=== PATIENT | female | born 1940 | race Caucasian/White ===

== ENCOUNTER 2022-04-25 03:12 | Inpatient (IN) ==
[2022-04-25] MEDS ORDERED: MoRPHine SULFATE 4 MG/ML 1 ML CARP\\VIAL IV STA (03:23)
[2022-04-25] MEDS ORDERED: ONDANSETRON INJ 2 MG/ML 2 ML VIAL IV STA ×2 (03:23→07:15)
--- NOTE | 2022-04-25 03:28 | Emergency Department Note ---
Impression & Plan Compression fracture ADMIT ED Provider Note HPI: The patient is a 81-year-old female with history of chronic kidney disease, amyloidosis on chemotherapy, who presents to the emergency department after having fallen down 4 stairs tonight when she was in her house. Patient states she lost her balance and fell down 4 stairs. Patient states she has pain in the area of her mid back. On arrival to the ED the patient does ambulate all 4 extremities spontaneously without issue, she is alert on arrival, denies any loss of consciousness with her fall. ROS: -MSK: Mechanical fall, back pain *10 point review systems was conducted and is otherwise negative unless stated above *Outpatient medications and allergy history reviewed PE: General: Alert, frail-appearing, no acute distress HEENT: Normocephalic, atraumatic Eyes: Extraocular eye movement is intact, no scleral erythema Pulmonary: Clear to auscultation bilaterally, no wheezing Cardio: Regular rate and rhythm GI: Abdomen is soft, nontender : No suprapubic tenderness MSK: No evidence of trauma or malformation of the extremities, no edema, palpable tenderness near the mid thoracic spine without any step-off deformity or fluctuance Skin: No evidence of rash Neuro: Alert, no focal deficits 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 The liver and spleen are normal in size and free of mass lesions. The gallbladder, bile ducts and pancreas are normal. The adrenal gland are unremarkable. The kidneys are normal in size and contour. No stones, lesions or hydronephrosis. The appendix is unremarkable, as is the rest of the GI tract. Aorta is normal caliber. No adenopathy or extraluminal air. The osseous structures are normal Pneumobilia noted which likely reflects previous biliary instrumentation IMPRESSION: No acute traumatic findings Radiologist: Hakan Tate MD CT CHEST Without Contrast: Right anterolateral nondisplaced fourth through sixth rib fractures not excluded manifest as acute contour irregularities Old T10/11 vertebral body compression fractures Moderate to large hiatal hernia Radiologist: Hakan Tate MD CT L SPINE: No evidence of fracture or malalignment. Radiologist: Hakan Tate MD CT HEAD: No ICH, mass effect or edema. No skull fracture. Radiologist: Hakan Tate MD CT C SPINE: FINDINGS: No fracture or subluxations are noted. The vertebral body heights and alignment are preserved. No prevertebral soft tissue swelling. Note is made of multilevel cervical spondylosis with varying degrees of central canal and foramina stenoses. IMPRESSION: 1. No cervical fractures. 2. Cervical spondylosis with varying degrees of central canal and foramina stenoses. Radiologist: Hakan Tate MD CT T SPINE: Old T10/11 compression fracture deformities. Would recommend clinical correlation to assess for tenderness at the lower thoracic spine to exclude a potential acute on chronic fracture. No retropulsion or posterior element fracture at either level Radiologist: Hakan aTte MD Study ready at 05:34 and initial results transmitted at 05:56 Study ready at 05:34 and initial results transmitted at 05:48 Medical Decision Making: Patient presented to the emergency department after mechanical fall down some stairs at home this evening. On arrival here to the ED the patient is frail- appearing, complains of back pain, she otherwise does not have any focal c omplaint of pain, she is able to ambulate her extremities spontaneously and does maintain flexion at the hips bilaterally. Patient has a history of amyloidosis with chronic kidney failure, she is noted to be on chemotherapy for this and receives injections, follows with Dr. Ospina from hematology/oncology. Given the mechanism of the patient's injury, CT imaging of the head, cervical spine, chest, abdomen, and pelvis were obtained without contrast given patient's renal failure, there is no evidence of any intracranial bleeding, no evidence of cervical spine fracture, CT imaging of the chest shows questionable nondisplaced rib fractures at the right anterior lateral ankle although contour i rregularities could have similar appearance. Patient does not have any tenderness to palpation in this area, low suspicion for acute fractures. In the area where the patient is having pain she is noted to have old T11/T10 compression fractures, I suspect she may have an acute on chronic component of fracture in this area given her complaint of pain. On my reassessment the patient is more comfortable following morphine, her lab work otherwise shows baseline renal failure and a slight leukocytosis which I suspect is reactive, of no urinalysis is pending at the time of admission. She is afebrile here. Patient stated her preference to go home if possible, she unfortunately did not pass her ambulatory trial and was unable to even make it a few steps with her walker. Her daughter is now at the bedside, I did recommend admission for her frailty, ambulatory dysfunction, and possibility of acute on chronic compression fracture in the thoracic spine. Patient and her daughter are in agreement. [facility] hospitalist service was consulted for admission and the patient was admitted in stable condition. Diagnosis: 1. Mechanical fall/ambulatory dysfunction 2. T10/T11 compression fracture, acute on chronic 3. Chronic anemia 4. 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 - SHOTS IN THE BELLY FOR Chronic kidney disease, stage 4 (severe) CKD (chronic kidney disease) UNKNOWN DETAILS Colon cancer DX LAST WEEK - REASON FOR UPCOMING COLONOSCOPY Fatty liver Hypercholesteremia Hypertension Hypothyroidism Nephrotic syndrome Seasonal allergies Sinus problem CHRONIC Stroke HX 9 YR AGO - RESIDUAL: PHYSICALLY SLOWER SINCE STROKE/CANE Type 2 diabetes mellitus NO MEDS FOR Surgical History History of History of right cataract surgery Family History Other Family history of colon cancer in father Social History Smoking Status: Former smoker Hx Alcohol Use: No Preferred Language: Korean Communication Ability: Effective 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 Beliefs That Will Affect Care: Sabianist Sabianist Beliefs: SAMARITAN - DO NOT EAT MEAT FRIDAYS AND DO NO WORK ON SUNDAYS , Spiritual Spiritual Healthcare Practices: SAMARITAN - DO NOT EAT MEAT FRIDAYS AND DO NO WORK ON SUNDAYS and Cultural Cultural Beliefs: SAMARITAN - DO NOT EAT MEAT FRIDAYS AND DO NO WORK ON SUNDAYS Current Living Situation: Spouse Feels Safe at Home: Yes Assistive Devices: Cane Allergies Allergies Allergy/AdvReac Type Severity Reaction Status Date / Time No Known Allergies Allergy Verified 03/10/22 10:35 Home Meds Home Medications Medication Instructions Recorded Confirmed amlodipine 10 mg tablet 10 mg PO DAILY 08/04/21 03/10/22 aspirin 81 mg chewable tablet 81 mg PO DAILY 08/04/21 03/10/22 atorvastatin 40 mg tablet 40 mg PO QAM 08/04/21 03/10/22 ferrous gluconate 256 mg (28 mg 325 mg PO QAM 08/04/21 03/10/22 iron) tablet levothyroxine 88 mcg capsule 88 mcg PO DAILY 08/04/21 03/10/22 mecobalamin (vitamin B12) 5,000 5,000 mcg PO QAM 08/04/21 03/10/22 mcg disintegrating tablet carvedilol 12.5 mg tablet 12.5 mg PO BID 08/10/21 03/10/22 Cancer Shots 1 dose WK 02/14/22 03/10/22 acyclovir 400 mg tablet 400 mg PO BID 02/14/22 03/10/22 ascorbic acid (vitamin C) 500 mg 500 mg PO QAM 02/14/22 03/10/22 tablet (Vitamin C) montelukast 10 mg tablet 10 mg PO QPM 02/14/22 03/10/22 ondansetron HCl 4 mg tablet 4 mg PO UD PRN Nausea 02/14/22 03/10/22 Previous Rx's Medication Instructions Recorded furosemide 20 mg tablet 20 mg PO BID #180 tabs 12/23/21 sodium sul 1.479 gram-potas ch See Rx Instructions PO .COMPLEX 02/14/22 0.188 gram-magnes sul 0.225 gram #24 tabs tablet (Sutab) Results & Data (ED) Vital Signs Vital Signs - 24 hr 04/25/22 03:23 04/25/22 03:30 04/25/22 03:52 Temperature 37.3 C Temperature Source Temporal Artery Scan Pulse Rate 88 84 Pulse Rate from SpO2 Sensor 86 Respiratory Rate 16 31 H Respiratory Effort / Characteristics Non-Labored Spontaneous Respiratory Depth Normal Blood Pressure 167/93 H Blood Pressure Mean 117 Pulse Oximetry 89 L 89 L 98 Oxygen Delivery Method Room Air Room Air Sepsis Recent Fever Within 48 Hours No Sepsis New/Unexplained Change in Mental Status No Sepsis Action Taken by Nursing No Action Required Oxygen Flow Rate - Titration 2 Pulse Oximetry Post Tiitration 95 04/25/22 04:00 04/25/22 04:00 04/25/22 04:30 Temperature Temperature Source Pulse Rate 86 Pulse Rate from SpO2 Sensor 86 Respiratory Rate 29 H Respiratory Effort / Characteristics Respiratory Depth Blood Pressure 150/100 H 133/80 Blood Pressure Mean 116 97 Pulse Oximetry 97 Oxygen Delivery Method Sepsis Recent Fever Within 48 Hours Sepsis New/Unexplained Change in Mental Status Sepsis Action Taken by Nursing Oxygen Flow Rate - Titration Pulse Oximetry Post Tiitration 04/25/22 04:30 04/25/22 05:00 04/25/22 05:00 Temperature Temperature Source Pulse Rate 84 86 Pulse Rate from SpO2 Sensor 83 86 Respiratory Rate 28 H 27 H Respiratory Effort / Characteristics Respiratory Depth Blood Pressure 176/94 H Blood Pressure Mean 121 Pulse Oximetry 97 100 Oxygen Delivery Method Sepsis Recent Fever Within 48 Hours Sepsis New/Unexplained Change in Mental Status Sepsis Action Taken by Nursing Oxygen Flow Rate - Titration Pulse Oximetry Post Tiitration 04/25/22 05:30 04/25/22 05:30 04/25/22 06:00 Temperature Temperature Source Pulse Rate 83 Pulse Rate from SpO2 Sensor 81 Respiratory Rate 17 Respiratory Effort / Characteristics Respiratory Depth Blood Pressure 151/82 H 140/81 Blood Pressure Mean 105 100 Pulse Oximetry 98 Oxygen Delivery Method Sepsis Recent Fever Within 48 Hours Sepsis New/Unexplained Change in Mental Status Sepsis Action Taken by Nursing Oxygen Flow Rate - Titration Pulse Oximetry Post Tiitration 04/25/22 06:00 04/25/22 06:30 04/25/22 06:30 Temperature Temperature Source Pulse Rate 84 85 Pulse Rate from SpO2 Sensor 83 84 Respiratory Rate 20 22 Respiratory Effort / Characteristics Respiratory Depth Blood Pressure 144/79 H Blood Pressure Mean 100 Pulse Oximetry 98 91 Oxygen Delivery Method Sepsis Recent Fever Within 48 Hours Sepsis New/Unexplained Change in Mental Status Sepsis Action Taken by Nursing Oxygen Flow Rate - Titration Pulse Oximetry Post Tiitration Laboratory Data Result diagrams: 04/25/22 03:45 04/25/22 03:45 Lab Results 04/25/22 04/25/22 04/25/22 Range/Units 03:45 03:45 06:34 WBC 12.68 H (4.8-10.8) K/ul RBC 3.03 L (3.93-5.22) M/uL Hgb 8.7 L (12.0-16.0) g/dl Hct 28.1 L (34.1-44.9) % MCV 92.7 (80.0-100.0) fL MCH 28.7 (25.0-34.0) pg MCHC 31.0 L (32.0-36.0) g/dL RDW Std Deviation 53.3 H (36.4-46.3) fL RDW Coeff of Ruthie 15.7 H (11.5-14.5) % Plt Count 413 H (130-400) K/uL MPV 9.8 (9.4-12.3) fL Immature Gran % (Auto) 3.0 % Neut % (Auto) 78.3 % Lymph % (Auto) 10.8 % [place] % (Auto) 5.2 % Eos % (Auto) 2.0 % Baso % (Auto) 0.7 % Neut # (Auto) 9.93 H (1.4-6.5) K/uL Lymph # (Auto) 1.37 (1.2-3.4) K/uL [place] # (Auto) 0.66 (0.24-0.82) K/uL Eos # (Auto) 0.25 (0-0.50) K/uL Baso # (Auto) 0.09 (0-0.2) K/uL Immature Gran # (Auto) 0.38 H (0.00-0.02) K/uL Absolute Nucleated RBC 0.03 H (0-0) K/uL Nucleated RBC % (auto) 0.2 % Sodium 135 L (136-145) mmol/L Potassium 4.7 (3.5-5.1) mmol/L Chloride 108 H (98-107) mmol/L Carbon Dioxide 19 L (21-32) mmol/L Anion Gap 8 (3-11) BUN 58 H (6-23) mg/dl Creatinine 2.61 H (0.6-1.2) mg/dl Est Cr Clr Drug Dosing 14.8 ml/min Est GFR ( Amer) 19.5 ml/min Est GFR (Non-Af Amer) 16.8 ml/min BUN/Creatinine Ratio 22.2 H (10-20) Glucose 152 H (70-99(Fasting)) mg/dl Calcium 8.1 L (8.5-10.1) mg/dl Total Bilirubin 0.5 (0.2-1.0) mg/dl AST 43 H (13-39) U/L ALT 27 (7-52) U/L Alkaline Phosphatase 119 H (34-104) U/L Total Protein 5.3 L (6.0-8.3) gm/dl Albumin 3.1 L (3.4-5.0) gm/dl Globulin 2.2 L (2.5-4.0) gm/dl Albumin/Globulin Ratio 1.4 (0.9-2) SARS-CoV-2, RNA, NAAT NEGATIVE (NEGATIVE) Administered Medications Discontinued Medications Sodium Chloride (Nss) 500 mls @ 999 mls/hr IV .Q31M PRABHAKAR Stop: 04/25/22 04:00 Last Infusion: 04/25/22 06:31 Dose: 0 mls/hr Documented By: Admin: 04/25/22 05:33 Dose: 999 mls/hr Documented By: ABEL Morphine Sulfate (Morphine Sulfate 4 Mg/Ml 1 Ml Carp\Vial) 4 mg IV NOW STA Stop: 04/25/22 03:24 Last Admin: 04/25/22 03:57 Dose: 4 mg Documented By: ABEL Ondansetron HCl (Ondansetron Inj 2 Mg/Ml 2 Ml Vial) 4 mg IV NOW STA Stop: 04/25/22 03:24 Last Admin: 04/25/22 03:58 Dose: 4 mg Documented By: ABEL Discharge Plan Visit Data Chief Complaint: Fall Stated Complaint: FALL DOWN 3-4 STEPS ED Provider: Bharat Hansen Discharge Problem: Compression fracture Forms Stand Alone Forms: My [facility] Prescriptions Prescriptions: No Action furosemide 20 mg tablet 20 mg PO BID Qty: 180 3RF Sutab 1.479-0.188- 0.225 gram tablet See Rx Instructions PO .COMPLEX Qty: 24 0RF Rx Instructions: TAKE DIRECTED PER SPLIT DOSE INSTRUCTIONS. PLEASE USE COUPON BIN: [id number] PCN: RA GROUP#: [id number] levothyroxine 88 mcg capsule 88 mcg PO DAILY Label Comments: 5 AM amlodipine 10 mg tablet 10 mg PO DAILY Label Comments: PT NOT SURE WHAT TIME atorvastatin 40 mg tablet 40 mg PO QAM ferrous gluconate 256 mg (28 mg iron) tablet 325 mg PO QAM mecobalamin (vitamin B12) 5,000 mcg tablet,disintegrating 5,000 mcg PO QAM aspirin 81 mg tablet,chewable 81 mg PO DAILY carvedilol 12.5 mg tablet 12.5 mg PO BID Rx Instructions: must administer with a meal/food ondansetron HCl 4 mg Tablet 4 mg PO UD PRN (Reason: Nausea) acyclovir 400 mg Tablet 400 mg PO BID Label Comments: SAYS TWICE A DAY ascorbic acid (vitamin C) [Vitamin C] 500 mg Tablet 500 mg PO QAM montelukast 10 mg Tablet 10 mg PO QPM Label Comments: PT DOESN'T KNOW WHAT SHE IS TAKING Cancer Shots 1 dose WK Label Comments: WEEKLY FOR BLOOD CANCER Referrals Referrals: Ede Palmer [Primary Care Provider] -
[2022-04-25] MEDS ORDERED: SODIUM CHLORIDE 0.9% 500 ML IV SCH (03:30)
[2022-04-25 03:57] LABS: Basophils # (auto) 0.09 K/uL (0-0.2); Basophils % (auto) 0.7 %; Eosinophils # (auto) 0.25 K/uL (0-0.50); Hematocrit (blood only) 28.1 % (34.1-44.9); Hemoglobin 8.7 g/dl (12.0-16.0); Immature Granulocytes # (auto) 0.38 K/uL (0.00-0.02); Lymphocytes # (auto) 1.37 K/uL (1.2-3.4); Lymphocytes % (auto) 10.8 %; Mean Corpuscular Hemoglobin 28.7 pg (25.0-34.0); Mean Corpuscular Volume 92.7 fL (80.0-100.0); Mean Platelet Volume 9.8 fL (9.4-12.3); Monocytes # (auto) 0.66 K/uL (0.24-0.82); Monocytes % (auto) 5.2 %; Neutrophils # (auto) 9.93 K/uL (1.4-6.5); Neutrophils % (auto) 78.3 %; Nucleated RBC # (auto) 0.03 K/uL (0-0); Nucleated RBC % (auto) 0.2 %; Platelet Count 413 K/uL (130-400); RDW Coefficient of Variation 15.7 % (11.5-14.5); RDW Standard Deviation 53.3 fL (36.4-46.3); Red Blood Count 3.03 M/uL (3.93-5.22); White Blood Count 12.68 K/ul (4.8-10.8)
[2022-04-25 04:29] LABS: Albumin Globulin Ratio 1.4 (0.9-2); Albumin Level 3.1 gm/dl (3.4-5.0); BUN Creatinine Ratio 22.2 (10-20); Bilirubin,Total 0.5 mg/dl (0.2-1.0); Calcium 8.1 mg/dl (8.5-10.1); Creatinine Clr Calc Pharmacy 14.8 ml/min; Est GFR (African American) 19.5 ml/min; Est GFR (Non-African American) 16.8 ml/min; Globulin 2.2 gm/dl (2.5-4.0); Potassium 4.7 mmol/L (3.5-5.1); Total Protein 5.3 gm/dl (6.0-8.3)
--- NOTE | 2022-04-25 07:09 | CT Scan Report ---
CT head/brain wo con CLINICAL HISTORY: Trauma Technique: Contiguous axial CT images of the head were acquired from the base of the skull to the helena brunilda without intravenous contrast administration. Images were viewed in brain, subdural and bone [facility]. Automated dose lowering techniques and/or adjustment according to patient size were utilized for this exam. Comparison: None available at the time of this dictation. Findings: Areas of decreased attenuation are present in the periventricular and subcortical white matter bilate rally consistent with small vessel ischemic disease. Generalized cerebral atrophy with commensurate e nlargement of the ventricles, sulci, and cisterns is also present. There is no acute intracranial hem orrhage or evidence of acute territorial infarction. No shift of the midline structures, mass effect, or extra-axial abnormalities are shown. Atherosclerotic calcifications are present in the intracran ial segments of the internal carotid arteries. Imaged portions of the paranasal sinuses and mastoid air cells are clear. The orbits appear normal. There are no acute fractures of the calvaria or scalp swelling. Impression: No acute intracranial hemorrhage, no evidence of acute territorial infarction or other acute intracra nial disease process. ACT 112: Negative or not required by law. Electronically signed by: Hakan Wise M.D. 04/25/2022 7:08 AM
--- NOTE | 2022-04-25 07:19 | CT Scan Report ---
CT cervical spine wo con CLINICAL HISTORY: Trauma TECHNIQUE: Multidetector row helical CT of the cervical spine was performed without administration of intravenous contrast. Coronal and sagittal reformations were obtained. Automated dose lowering techn iques and/or adjustment according to patient size were utilized for this exam. Comparison: None available at the time of this dictation. FINDINGS: No acute fractures or subluxations are identified. Degenerative changes are seen in the visualized sp ine. The alignment is normal. Carotid and vertebral atherosclerotic calcifications are seen. IMPRESSION: Degenerative changes without evidence of acute bony injury. ACT 112: Negative or not required by law. Electronically signed by: Hakan Wise M.D. 04/25/2022 7:17 AM
--- NOTE | 2022-04-25 07:52 | CT Scan Report ---
CT SCAN OF THE CHEST, ABDOMEN, AND PELVIS WITHOUT IV CONTRAST; CT SCAN OF THE THORACIC SPINE WITHOUT IV CONTRAST; CT SCAN OF THE LUMBAR SPINE WITHOUT IV CONTRAST CLINICAL HISTORY: Trauma. Fall down stairs. Multiple myeloma. COMPARISON STUDY: PET/CT dated 01/19/2022. TECHNIQUE: Unenhanced CT scan of the chest, abdomen, and pelvis was performed from the thoracic inlet to the proximal femora. Additionally, CT scan of the thoracic spine is performed from the lower cerv ical spine to the upper lumbar spine and CT scan of the lumbar spine is performed from the lower thor acic spine to the sacrum. Images for these examinations are reviewed in the axial, sagittal, and sea nal planes. Note that the examinations were performed in significantly suboptimal fashion without IV contrast. The examinations are also degraded motion artifact, as well as by streak artifact from the left arm which could not be elevated above the chest or abdomen. A dose lowering technique was utiliz ed adhering to the principles of ALARA. CT DOSE: 1696.55 mGy.cm FINDINGS: CHEST: Thyroid: Atrophic. Thoracic aorta: There is atherosclerotic calcification of the thoracic aorta, which is normal in britton martina and demonstrates standard 3-vessel arch anatomy. Heart: The heart is top normal in size and without pericardial effusion. The coronary arteries and mi tral annulus are densely calcified. Lungs and pleural spaces: Evaluation of the lung parenchyma is degraded by motion artifact. There is no airspace consolidation or pneumothorax. There are trace pleural effusions. The trachea and central airways are patent. Scarring/atelectasis is noted at the lung bases. A 4 mm pulmonary nodule in the lingula is seen on image #130. This is unchanged from previous. Mediastinum: There is no mediastinal lymphadenopathy. Laila: Not well assessed without IV contrast. Axillae: There is no axillary lymphadenopathy. Bony thorax: The skeletal structures are osteopenic. See below for dedicated assessment of the thorac ic spine. There are acute nondisplaced left anterior 4th through 9th rib fractures. There are also ac [place] right anterior 4th through 7th rib fractures. There are additional subcutaneous appearing left-si ded rib fractures. No definite lytic or blastic lesions are identified. THORACIC SPINE: There is a subtle horizontally oriented fracture through the body of T8. There is mil d paravertebral edema at this level. Fracture extends to the T7-T8 disc space. This does not clearly involve the posterior elements. Subacute appearing compression fractures of T10 and T11 are unchanged . There is minimal retropulsion of fragments at these levels by up to 4 mm. This does not cause signi ficant central canal stenosis. There are minimal age indeterminant superior endplate compression defo rmity is of T5 and T6. Vertebral body height is otherwise maintained throughout the thoracic spine. T he transverse and spinous processes are intact. Tiny anterior osteophytes are seen throughout. There is mild hyperkyphosis. There is mild multilevel degenerative disc space narrowing. There is no eviden ce of large disc herniation or high-grade central canal stenosis by CT. The paraspinous soft tissues are normal in appearance. ABDOMEN AND PELVIS: Liver: The unenhanced liver is mildly enlarged measuring 18.2 cm in length. Nodularity of the surface contour and hypertrophy of the left lobe suggest early morphologic change of cirrhosis. There is no intrahepatic biliary ductal dilatation. Pneumobilia is noted in the left lower lobe. Gallbladder: Unremarkable. Spleen: Normal in size and attenuation. Pancreas: Unremarkable. Adrenal glands: Unremarkable. Kidneys: The unenhanced kidneys demonstrate cortical atrophy and are without hydronephrosis. No renal calculi are identified. There is no evidence of contour deforming mass lesion. Abdominal vasculature: The abdominal aorta is normal in course and caliber noting moderate atheroscle rotic calcification. Stomach and bowel: There is a moderate hiatal hernia. There is advanced colonic diverticulosis withou t CT evidence of acute diverticulitis. No bowel obstruction is seen. [id number] fecal retention is noted throughout the colon. The appendix is well-visualized and normal. Peritoneum: There is trace hemorrhage tracking in the left paracolic gutter seen on image #170. No in traperitoneal free air is seen. There is a fat-containing umbilical hernia. Lymphadenopathy: None. Pelvic viscera: The bladder is distended but otherwise normal in appearance. The uterus and adnexa ar e normal as visualized. Skeletal structures: The skeletal structures are osteopenic. See below for dedicated assessment of th e lumbar spine. The bony pelvis and proximal femora appear intact. Sclerotic change is noted in the l eft sacroiliac joint. No definite lytic or blastic lesions are seen. LUMBAR SPINE: Vertebral body height and alignment are maintained throughout the lumbar spine. There i s no evidence of acute fracture or malalignment. Anterior and lateral marginal osteophytes are seen t hroughout. The transverse and spinous processes are intact. There is no evidence of spondylolysis. Th ere is moderate disc space narrowing at L2-L3. Only mild disc space narrowing is seen at the remainin g lumbar levels. Small posterior disc bulges are noted at all lumbar levels. There is no CT evidence of large disc herniation or high-grade central canal stenosis Facet arthropathy is noted in the lower lumbar region. The paraspinous soft tissues are within normal limits. Soft tissues: There is subcutaneous soft tissue contusion and hematoma in the left upper buttock seen on axial image #187. IMPRESSION: 1. Significantly suboptimal examinations without IV contrast. There is also streak and motion artifac t. 2. There are numerous nondisplaced bilateral anterior rib fractures as above. 3. There is a horizontally oriented fracture through the body of T8 which extends to the disc space a t T7-T8. This does not clearly involve the posterior elements. 4. Subacute appearing compression deformities of T10 and T11 are unchanged from previous. 5. There is no evidence of fracture or malalignment involving the lumbar spine. 6. There is no airspace consolidation or pneumothorax. 7. Trace pleural effusions. 8. There is no evidence of solid organ injury in the abdomen or pelvis on this unenhanced examination . 9. There is trace hemorrhage within the left paracolic gutter. 10. Subcutaneous contusion/hematoma is noted in the left gluteal/supragluteal soft tissues. 11. Advanced colonic diverticulosis without CT evidence of acute diverticulitis. 12. Moderate hiatal hernia. 13. Additional findings as above. ACT 112: Negative or not required by law. Electronically signed by: Denny Carrera M.D. 04/25/2022 7:51 AM
--- NOTE | 2022-04-25 07:57 | History & Physical Report ---
Date of Service April 25, 2022 Assessment & Plan (1) Compression fracture: Plan: T10/T11 compression fracture, acute on chronic per primary read. - Lidocaine patch - Pain control PRN (2) Fall: Plan: Mechanical in nature per patient. Did not strike head and no LoC. No prodrome symptoms to suggest other etiology. 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 Started on Darzalex Faspro on 02/07/2022. Given week 6 treatment on 03/15/2022. Plan to start CyBorD after colorectal surgery. - No acute inpatient needs at this time (4) Chronic kidney disease, stage 4 (severe): Plan: Baseline Cr ~2.4 - 2.9, CrCl ~15. - Presently at baseline - Monitor Cr - Renally dose meds (5) Anemia of chronic disease: Plan: Baseline hgb ~9 - 10. Presently slightly lower, but also just received chemotherapy for her amyloidosis. No signs/symptoms of bleeding. - Monitor (6) Type 2 diabetes mellitus: Plan: Recently diagnosed, as this is not in our charts. Likely some element of steroid-induced. - A1c - Sliding scale insulin (7) Hypertension: Plan: BP in the ER was 155/95. May rise as she has not had morning meds yet. - Continue home meds (8) Hypothyroidism: Plan: Last TSH in our system was >20 in 2020. - Continue home Synthroid - Recheck TSH (9) Colonic mass: Plan: Known colonic mass, but without carcinoma. Per oncology notes, plan to see CRC sx in [place] for removal, then start more aggressive chemotherapy. - No inpatient needs as long as she remains without large bowel obstruction (10) DVT prophylaxis: Plan: Heparin 5,000 units SQ Q12h DNR/DNI - Per patient in ED. Alert, oriented, capable of making her own medical decisions History of Present Illness Primary Care Provider: Ede Palmer 81yo F w/ hx of renal amyloidosis, HTN who presents with fall at home. Per patient, it was a mechanical fall where she was walking down the steps, slipped on a step and fell on her bottom. Denies striking her head or LoC; however, does have an abrasion on the left shoulder which she says she received in the fall as well, so some element of tipping forward and striking left side. She has some nausea at present from "moving too much" and the pain medication. She has some back pain in the thoracic spine. Otherwise, she denies symptoms, including no fevers/chills, chest pain, shortness of breath, abdominal pain in the last few days. Normal urination and defecation, and no melena or hematochezia per patient. In ER, full spinal CTs were done with final reads pending, but no fractures ex cept for T10/T11 compression fracture, acute on chronic. Allergies Allergy/AdvReac Type Severity Reaction Status Date / Time No Known Allergies Allergy Verified 03/10/22 10:35 Home Medications Medication Instructions Recorded Confirmed Type amlodipine 10 mg tablet 10 mg PO DAILY 08/04/21 03/10/22 History aspirin 81 mg chewable tablet 81 mg PO DAILY 08/04/21 03/10/22 History atorvastatin 40 mg tablet 40 mg PO QAM 08/04/21 03/10/22 History ferrous gluconate 256 mg (28 mg 325 mg PO QAM 08/04/21 03/10/22 History iron) tablet levothyroxine 88 mcg capsule 88 mcg PO DAILY 08/04/21 03/10/22 History mecobalamin (vitamin B12) 5,000 5,000 mcg PO QAM 08/04/21 03/10/22 History mcg disintegrating tablet carvedilol 12.5 mg tablet 12.5 mg PO BID 08/10/21 03/10/22 History furosemide 20 mg tablet 20 mg PO BID #180 tabs 12/23/21 03/10/22 Rx Cancer Shots 1 dose WK 02/14/22 03/10/22 History acyclovir 400 mg tablet 400 mg PO BID 02/14/22 03/10/22 History ascorbic acid (vitamin C) 500 mg 500 mg PO QAM 02/14/22 03/10/22 History tablet (Vitamin C) montelukast 10 mg tablet 10 mg PO QPM 02/14/22 03/10/22 History ondansetron HCl 4 mg tablet 4 mg PO UD PRN Nausea 02/14/22 03/10/22 History sodium sul 1.479 gram-potas ch See Rx Instructions PO .COMPLEX 02/14/22 02/17/22 Rx 0.188 gram-magnes sul 0.225 gram #24 tabs tablet (Sutab) Past Med/Surg History Medical History (Updated 04/25/22 @ 07:52 by Ismael Nava MD) Amyloidosis Anemia of chronic disease PT REPORTS IRON LEVEL IS STABLE Cancer 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 - SHOTS IN THE BELLY FOR Chronic kidney disease, stage 4 (severe) CKD (chronic kidney disease) UNKNOWN DETAILS Colon cancer DX LAST WEEK - REASON FOR UPCOMING COLONOSCOPY Fatty liver Hypercholesteremia Hypertension Hypothyroidism Nephrotic syndrome Seasonal allergies Sinus problem CHRONIC Stroke HX 9 YR AGO - RESIDUAL: PHYSICALLY SLOWER SINCE STROKE/CANE Type 2 diabetes mellitus NO MEDS FOR Surgical History History of History of right cataract surgery Family History Other Family history of colon cancer in father Social History Smoking Status: Former smoker Hx Alcohol Use: No Preferred Language: Salvadorean Communication Ability: Effective Hammer Driver Required: No Beliefs That Will Affect Care: Voodoo Voodoo Beliefs: JEHOVAH'S WITNESS - DO NOT EAT MEAT FRIDAYS AND DO NO WORK ON SUNDAYS , Spiritual Spiritual Healthcare Practices: JEHOVAH'S WITNESS - DO NOT EAT MEAT FRIDAYS AND DO NO WORK ON SUNDAYS and Cultural Cultural Beliefs: JEHOVAH'S WITNESS - DO NOT EAT MEAT FRIDAYS AND DO NO WORK ON SUNDAYS Current Living Situation: Spouse Feels Safe at Home: Yes Assistive Devices: Cane Review of Systems Review of Systems: All systems reviewed & are unremarkable except as noted in HPI & below Physical Exam Constitutional: WD/WN, vitals as above Eyes: EOM intact bilaterally; no conjunctival abnormality ENMT: external ear and nose normal, oropharynx normal Neck: trachea midline, no thyromegaly normal visual inspection Respiratory: normal respiratory effort, lungs clear to auscultation no respiratory distress Cardiovascular: RRR, no murmur, no edema Gastrointestinal (Abdomen): Inspection/Auscultation: abdomen normal to inspection; abdomen not distended Musculoskeletal: no cyanosis or clubbing, extremities motor strength 5/5 Skin: no rashes, warm and dry Neurologic: moves all extremities and awake Psychiatric: Orientation: alert, oriented to person and cooperative Results & Data Results & Data ([place]) Vital Signs (Past 12 Hours) Vital Signs Temp Pulse Resp BP Pulse Ox O2 Del Method 04/25/22 06:30 85 22 91 04/25/22 06:30 144/79 H 04/25/22 06:00 84 20 98 04/25/22 06:00 140/81 04/25/22 05:30 83 17 98 04/25/22 05:30 151/82 H 04/25/22 05:00 86 27 H 100 04/25/22 05:00 176/94 H 04/25/22 04:30 84 28 H 97 04/25/22 04:30 133/80 04/25/22 04:00 86 29 H 97 04/25/22 04:00 150/100 H 04/25/22 03:52 84 31 H 98 04/25/22 03:30 89 L Room Air 04/25/22 03:23 37.3 C 88 16 167/93 H 89 L Room Air Code Status & VTE Plan VTE Prophylaxis Plan VTE Prophylaxis will be ordered: Yes PG Care Time/CCT Total # of Minutes Spent Total Time Spent with Patient: Total time spent is greater than 50% in coordination of care (as documented) at patient's floor/unit and/or counseling patient: Coding Level of Care Code 30633 Initial Inpt Care Lvl 3 Diagnoses Compression fracture Fall W19.XXXA Amyloidosis E85.9 Chronic kidney disease, stage 4 (severe) N18.4 Anemia of chronic disease D63.8 Type 2 diabetes mellitus E11.9 Hypertension I10 Hypothyroidism E03.9 Colonic mass K63.89 DVT prophylaxis Z29.9
[2022-04-25] MEDS ORDERED: DEXTROSE 50% 50 ML SYRINGE IV PRN (10:15)
[2022-04-25] MEDS ORDERED: ONDANSETRON INJ 2 MG/ML 2 ML VIAL IV PRN (10:15)
[2022-04-25] MEDS ORDERED: CARBOHYDRATES FOR HYPOGLYCEMIA PO PRN (10:15)
[2022-04-25] MEDS ORDERED: GLUCOSE 10 TAB/TUBE PO PRN (10:15)
[2022-04-25] MEDS ORDERED: GLUCAGON FOR INJ 1 MG VIAL SQ PRN (10:15)
[2022-04-25] MEDS ORDERED: GLUCOSE 40% GEL 15 GM TUBE PO PRN (10:15)
[2022-04-25] MEDS ORDERED: ONDANSETRON 4 MG OD TAB PO PRN (10:47)
--- NOTE | 2022-04-25 11:25 | Magnetic Resonance Report ---
THORACIC SPINE MRI HISTORY: Back pain. Fall. T8 horizontal fracture TECHNIQUE: Multiplanar multisequence MRI of the thoracic spine was performed without the use of contr ast. COMPARISON: Thoracic spine CT 04/25/2022. FINDINGS: Redemonstration of a subtle nondisplaced acute fracture within the anterior cortex of T8. This may ex tend to the posterior cortex consistent with a horizontal fracture. This does not appear to extend to the posterior elements. Subacute moderate T10 and T11 wedge-shaped compression deformities again not ed. No associated retropulsion. Mild marrow edema along the inferior endplate of L3 without significa nt loss of height. This favors an acute to subacute inferior endplate compression fracture. There is linear areas of edema within the superior endplates of C7-T3 without loss of height or retropulsion. These are consistent with nondisplaced acute compression fractures. There is paravertebral edema and posterior soft tissue edema from the C7-T3 level suggestive of muscular/ligamentous injury. The thora cic spinal cord is normal in course, caliber, and signal intensity. Mild degenerative changes within the thoracic spine. No high-grade central canal or neural foraminal narrowing. There is a large hiatu s hernia. Trace bilateral pleural effusions are noted. No epidural fluid collections identified. IMPRESSION: 1. Confirmation of the subtle nondisplaced acute horizontal fracture at T8. This does not extend to t he posterior elements. 2. Acute nondisplaced superior endplate compression fractures from C7 through T3 with surrounding par avertebral and posterior soft tissue edema. This likely represents superimposed muscular/ligamentous injury at this location. 3. Nondisplaced acute to subacute inferior endplate compression fracture at L3. 4. Subacute anterior wedge-shaped compression fractures at T10 and 11. 5. Trace bilateral pleural effusions. 6. Large hiatus hernia. ACT 112: Negative or not required by law. Electronically signed by: Goyo Oneil M.D. 04/25/2022 11:24 AM
[2022-04-25] MEDS: ASPIRIN 81 MG ECTAB PO SCH (12:01)
[2022-04-25] MEDS: amLODIPine BESYLATE 5 MG TAB PO SCH (12:02)
[2022-04-25] MEDS: ASCORBIC ACID 500 MG TAB PO SCH (12:02)
[2022-04-25] MEDS: ACETAMINOPHEN 325 MG TAB PO SCH ×3 (12:02→21:48)
[2022-04-25] MEDS: HEPARIN SOD 5,000 UNIT/0.5 ML VIAL SQ SCH ×2 (12:02→21:47)
[2022-04-25] MEDS: FUROSEMIDE 20 MG TAB PO SCH ×2 (12:03→21:41)
[2022-04-25] MEDS: CYANOCOBALAMIN (B-12) 2,500 MCG TABLET SCH (12:03)
[2022-04-25] MEDS: ACYCLOVIR 400 MG TAB PO SCH ×2 (12:03→21:43)
[2022-04-25] MEDS: carvediloL 12.5 MG TAB PO SCH ×2 (12:03→21:42)
[2022-04-25] MEDS: LEVOTHYROXINE SODIUM 88 MCG TABLET PO SCH (12:03)
[2022-04-25] MEDS: ATORVASTATIN 40 MG TAB PO SCH (12:04)
--- NOTE | 2022-04-25 12:37 | Electrocardiogram Report ---
Test Reason : Blood Pressure : / mmHG Vent. Rate : 087 BPM Atrial Rate : 087 BPM P-R Int : 162 ms QRS Dur : 104 ms QT Int : 364 ms P-R-T Axes : 050 -53 076 degrees QTc Int : 438 ms Poor data quality, interpretation may be adversely affected Normal sinus rhythm Incomplete right bundle branch block Left anterior fascicular block Cannot rule out Old Septal infarct Abnormal ECG No previous ECGs available Confirmed by Ifeanyi Carpenter ([id number]) on 04/25/2022 12:37:24 PM Referred By: Liliam Brown Confirmed By:Ifeanyi Carpenter
[2022-04-25] MEDS: INSULIN ASPART PER UNIT SC SCH ×3 (14:28→22:44)
[2022-04-25] MEDS: LIDOCAINE 5% 1 PATCH TD SCH (18:33)
[2022-04-25] MEDS: MONTELUKAST SODIUM 10 MG TABLET PO SCH (21:42)
[2022-04-26] MEDS: LEVOTHYROXINE SODIUM 88 MCG TABLET PO SCH (05:47)
[2022-04-26 08:19] LABS: Hematocrit (blood only) 24.9 % (34.1-44.9); Hemoglobin 7.8 g/dl (12.0-16.0); Mean Corpuscular Hemoglobin 28.7 pg (25.0-34.0); Mean Corpuscular Hgb Conc 31.3 g/dL (32.0-36.0); Mean Corpuscular Volume 91.5 fL (80.0-100.0); Mean Platelet Volume 10.4 fL (9.4-12.3); Platelet Count 384 K/uL (130-400); RDW Standard Deviation 53.3 fL (36.4-46.3); Red Blood Count 2.72 M/uL (3.93-5.22)
--- NOTE | 2022-04-26 08:26 | Consultation ---
Date of Consultation April 26, 2022 Assessment & Plan (1) Compression fracture: This is a 81-year-old female status post fall yesterday. Dr. Saeed has reviewed CT scans and MRI of thoracic and lumbar region. T7-T8 fracture is stable. TLSO brace has been ordered and received. She may start physical thera py now. Ambulate ad adrien. No lifting greater than 5 pounds.Treatment is conservative. In regards to the superior endplate compression fractures from C7-T3 would recommend conservative treatment. I will order a cervical soft collar to be worn at all times with the exception of bathing and eating. History of Present Illness Reason for Consultation: T8 fracture Attending Physician: Ismael Nava MD History of Present Illness Is a pleasant 81-year-old female who states that yesterday her knee gave out which resulted in her falling down a few steps. She was unable to get up on her own. Ambulance was summoned and she was taken to [facility] emergency room where she was subsequently admitted. She states she lives with her son and her . If she ambulates any distance typically she will ambulate with a cane otherwise she is an independent ambulator. Denies any radicular pain. Notes some modest mid thoracic pain. Denies any cervical pain. She denies hitting her head or LOC. Allergies Allergy/AdvReac Type Severity Reaction Status Date / Time No Known Allergies Allergy Verified 03/10/22 10:35 Home Medications Medication Instructions Recorded Confirmed Type amlodipine 10 mg tablet 10 mg PO DAILY 08/04/21 03/10/22 History aspirin 81 mg chewable tablet 81 mg PO DAILY 08/04/21 03/10/22 History atorvastatin 40 mg tablet 40 mg PO QAM 08/04/21 03/10/22 History ferrous gluconate 256 mg (28 mg 325 mg PO QAM 08/04/21 03/10/22 History iron) tablet levothyroxine 88 mcg capsule 88 mcg PO DAILY 08/04/21 03/10/22 History mecobalamin (vitamin B12) 5,000 5,000 mcg PO QAM 08/04/21 03/10/22 History mcg disintegrating tablet carvedilol 12.5 mg tablet 12.5 mg PO BID 08/10/21 03/10/22 History furosemide 20 mg tablet 20 mg PO BID #180 tabs 12/23/21 03/10/22 Rx Cancer Shots 1 dose WK 02/14/22 03/10/22 History acyclovir 400 mg tablet 400 mg PO BID 02/14/22 03/10/22 History ascorbic acid (vitamin C) 500 mg 500 mg PO QAM 02/14/22 03/10/22 History tablet (Vitamin C) montelukast 10 mg tablet 10 mg PO QPM 02/14/22 03/10/22 History ondansetron HCl 4 mg tablet 4 mg PO UD PRN Nausea 02/14/22 03/10/22 History sodium sul 1.479 gram-potas ch See Rx Instructions PO .COMPLEX 02/14/22 02/17/22 Rx 0.188 gram-magnes sul 0.225 gram #24 tabs tablet (Sutab) Patient History Medical History Amyloidosis Anemia of chronic disease PT REPORTS IRON LEVEL IS STABLE Cancer 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 - SHOTS IN THE BELLY FOR Chronic kidney disease, stage 4 (severe) CKD (chronic kidney disease) UNKNOWN DETAILS Colon cancer DX LAST WEEK - REASON FOR UPCOMING COLONOSCOPY Fatty liver Hypercholesteremia Hypertension Hypothyroidism Nephrotic syndrome Seasonal allergies Sinus problem CHRONIC Stroke HX 9 YR AGO - RESIDUAL: PHYSICALLY SLOWER SINCE STROKE/CANE Type 2 diabetes mellitus NO MEDS FOR Surgical History History of History of right cataract surgery Family History Other Family history of colon cancer in father Social History Smoking Status: Former smoker Hx Alcohol Use: No Preferred Language: Icelandic Communication Ability: Effective Pleater Hand Required: No Beliefs That Will Affect Care: Latter-Day Latter-Day Beliefs: PENTECOSTAL - DO NOT EAT MEAT FRIDAYS AND DO NO WORK ON SUNDAYS , Spiritual Spiritual Healthcare Practices: PENTECOSTAL - DO NOT EAT MEAT FRIDAYS AND DO NO WORK ON SUNDAYS and Cultural Cultural Beliefs: PENTECOSTAL - DO NOT EAT MEAT FRIDAYS AND DO NO WORK ON SUNDAYS Current Living Situation: Family Feels Safe at Home: Yes Assistive Devices: Cane Review of Systems Review of Systems: All systems reviewed & are unremarkable except as noted in HPI & below Physical Exam Physical Exam: She sitting up in bed in no acute distress She is able to roll over for me relatively unassisted Significant ecchymosis noted mid to lower thoracic spine rating to the right posterior rib region.Nontender to palpation cervical and thoracic regions midline. No palpable step-offs Strength is intact bilateral lower extremities Results & Data ([facility]) Vital Signs (Past 12 Hours) Vital Signs Temp Pulse Resp BP Pulse Ox O2 Del Method 04/26/22 07:08 36.6 C 71 16 103/67 95 Room Air 04/25/22 21:00 Room Air 04/25/22 21:32 36.6 C 77 16 102/76 94 Room Air Diagnostic Findings [place], [place] [phone] Magnetic Resonance Report Patient:MARY DOSS Admit Date:04/25/22 MR#:[id number] Address1:[address] [place] [address] Acct ID:[id number] Address2: Date:1940 [facility] Zip:[place] [address] Age:81 Location:[facility] Sex:F Room/Bed:[place] [id number] Att Phy:Ismael Nava MD Diagnosis:fall, ambulatory dysfunction Dolores Phy:Ede Palmer PA-C Service Date:04/25/22 Fam Phy: Interpreting Phy:Goyo Oneil MDAdmit Phy:Ismael Nava MD Ordering Phy:Ismael Nava MD cc: ~ THORACIC SPINE MRI HISTORY: Back pain. Fall. T8 horizontal fracture TECHNIQUE: Multiplanar multisequence MRI of the thoracic spine was performed without the use of contrast. COMPARISON: Thoracic spine CT 04/25/2022. FINDINGS: Redemonstration of a subtle nondisplaced acute fracture within the anterior cortex of T8. This may extend to the posterior cortex consistent with a horizontal fracture. This does not appear to extend to the posterior elements. Subacute moderate T10 and T11 wedge-shaped compression deformities again noted. No associated retropulsion. Mild marrow edema along the inferior endplate of L3 without significant loss of height. This favors an acute to subacute inferior endplate compression fracture. There is linear areas of edema within the superior endplates of C7-T3 without loss of height or retropulsion. These are consistent with nondisplaced acute compression fractures. There is paravertebral edema and posterior soft tissue edema from the C7-T3 level suggestive of muscular/ligamentous injury. The thoracic spinal cord is normal in course, caliber, and signal intensity. Mild degenerative changes within the thoracic spine. No high-grade central canal or neural foraminal narrowing. There is a large hiatus hernia. Trace bilateral pleural effusions are noted. No epidural fluid collections identified. IMPRESSION: 1. Confirmation of the subtle nondisplaced acute horizontal fracture at T8. This does not extend to the posterior elements. 2. Acute nondisplaced superior endplate compression fractures from C7 through T3 with surrounding paravertebral and posterior soft tissue edema. This likely represents superimposed muscular/ligamentous injury at this location. 3. Nondisplaced acute to subacute inferior endplate compression fracture at L3. 4. Subacute anterior wedge-shaped compression fractures at T10 and 11. 5. Trace bilateral pleural effusions. 6. Large hiatus hernia. ACT 112: Negative or not required by law. Electronically signed by: Goyo Oneil M.D. 04/25/2022 11:24 AM Dictated:04/25/22 1114 Transcribed: 04/25/22 1114 [place], [place] [phone] CT Scan Report Patient:MARY DOSS Admit Date:04/25/22 MR#:[id number] Address1:[address] [place] [address] Acct ID:[id number] Address2: Date:1940 [facility] [address] Age:81 Location:ED Sex:F Room/Bed: Att Phy: Diagnosis:FALL DOWN 3-4 STEPS Dolores Phy:Ede Palmer PA-C Service Date:04/25/22 Chris Phy: Interpreting Phy:Denny Carrera MDAeliot Phy: Ordering Phy:Bharat Hansen DO cc: ~ CT SCAN OF THE CHEST, ABDOMEN, AND PELVIS WITHOUT IV CONTRAST; CT SCAN OF THE THORACIC SPINE WITHOUT IV CONTRAST; CT SCAN OF THE LUMBAR SPINE WITHOUT IV CONTRAST CLINICAL HISTORY: Trauma. Fall down stairs. Multiple myeloma. COMPARISON STUDY: PET/CT dated 01/19/2022. TECHNIQUE: Unenhanced CT scan of the chest, abdomen, and pelvis was performed from the thoracic inlet to the proximal femora. Additionally, CT scan of the thoracic spine is performed from the lower cervical spine to the upper lumbar spine and CT scan of the lumbar spine is performed from the lower thoracic spine to the sacrum. Images for these examinations are reviewed in the axial, sagittal, and coronal planes. Note that the examinations were performed in significantly suboptimal fashion without IV contrast. The examinations are also degraded motion artifact, as well as by streak artifact from the left arm which could not be elevated above the chest or abdomen. A dose lowering technique was utilized adhering to the principles of ALARA. CT DOSE: 1696.55 mGy.cm FINDINGS: CHEST: Thyroid: Atrophic. Thoracic aorta: There is atherosclerotic calcification of the thoracic aorta, which is normal in caliber and demonstrates standard 3-vessel arch anatomy. Heart: The heart is top normal in size and without pericardial effusion. The coronary arteries and mitral annulus are densely calcified. Lungs and pleural spaces: Evaluation of the lung parenchyma is degraded by motion artifact. There is no airspace consolidation or pneumothorax. There are trace pleural effusions. The trachea and central airways are patent. Scarring/atelectasis is noted at the lung bases. A 4 mm pulmonary nodule in the lingula is seen on image #130. This is unchanged from previous. Mediastinum: There is no mediastinal lymphadenopathy. Laila: Not well assessed without IV contrast. Axillae: There is no axillary lymphadenopathy. Bony thorax: The skeletal structures are osteopenic. See below for dedicated assessment of the thoracic spine. There are acute nondisplaced left anterior 4th through 9th rib fractures. There are also acute right anterior 4th through 7th rib fractures. There are additional subcutaneous appearing left-sided rib fractures. No definite lytic or blastic lesions are identified. THORACIC SPINE: There is a subtle horizontally oriented fracture through the body of T8. There is mild paravertebral edema at this level. Fracture extends to the T7-T8 disc space. This does not clearly involve the posterior elements. Subacute appearing compression fractures of T10 and T11 are unchanged. There is minimal retropulsion of fragments at these levels by up to 4 mm. This does not cause significant central canal stenosis. There are minimal age indeterminant superior endplate compression deformity is of T5 and T6. Vertebral body height is otherwise maintained throughout the thoracic spine. The transverse and spinous processes are intact. Tiny anterior osteophytes are seen throughout. There is mild hyperkyphosis. There is mild multilevel degenerative disc space n arrowing. There is no evidence of large disc herniation or high-grade central canal stenosis by CT. The paraspinous soft tissues are normal in appearance. ABDOMEN AND PELVIS: Liver: The unenhanced liver is mildly enlarged measuring 18.2 cm in length. Nodularity of the surface contour and hypertrophy of the left lobe suggest early morphologic change of cirrhosis. There is no intrahepatic biliary ductal dilatation. Pneumobilia is noted in the left lower lobe. Gallbladder: Unremarkable. Spleen: Normal in size and attenuation. Pancreas: Unremarkable. Adrenal glands: Unremarkable. Kidneys: The unenhanced kidneys demonstrate cortical atrophy and are without hydronephrosis. No renal calculi are identified. There is no evidence of contour deforming mass lesion. Abdominal vasculature: The abdominal aorta is normal in course and caliber noting moderate atherosclerotic calcification. Stomach and bowel: There is a moderate hiatal hernia. There is advanced colonic diverticulosis without CT evidence of acute diverticulitis. No bowel obstruction is seen. [id number] fecal retention is noted throughout the colon. The appendix is well-visualized and normal. Peritoneum: There is trace hemorrhage tracking in the left paracolic gutter seen on image #170. No intraperitoneal free air is seen. There is a fat-containing umbilical hernia. Lymphadenopathy: None. Pelvic viscera: The bladder is distended but otherwise normal in appearance. The uterus and adnexa are normal as visualized. Skeletal structures: The skeletal structures are osteopenic. See below for dedicated assessment of the lumbar spine. The bony pelvis and proximal femora appear intact. Sclerotic change is noted in the left sacroiliac joint. No definite lytic or blastic lesions are seen. LUMBAR SPINE: Vertebral body height and alignment are maintained throughout the lumbar spine. There is no evidence of acute fracture or malalignment. Anterior and lateral marginal osteophytes are seen throughout. The transverse and spinous processes are intact. There is no evidence of spondylolysis. There is moderate disc space narrowing at L2-L3. Only mild disc space narrowing is seen at the remaining lumbar levels. Small posterior disc bulges are noted at all lumbar levels. There is no CT evidence of large disc herniation or high-grade central canal stenosis Facet arthropathy is noted in the lower lumbar region. The paraspinous soft tissues are within normal limits. Soft tissues: There is subcutaneous soft tissue contusion and hematoma in the left upper buttock seen on axial image #187. IMPRESSION: 1. Significantly suboptimal examinations without IV contrast. There is also streak and motion artifact. 2. There are numerous nondisplaced bilateral anterior rib fractures as above. 3. There is a horizontally oriented fracture through the body of T8 which extends to the disc space at T7-T8. This does not clearly involve the posterior elements. 4. Subacute appearing compression deformities of T10 and T11 are unchanged from previous. 5. There is no evidence of fracture or malalignment involving the lumbar spine. 6. There is no airspace consolidation or pneumothorax. 7. Trace pleural effusions. 8. There is no evidence of solid organ injury in the abdomen or pelvis on this unenhanced examination. 9. There is trace hemorrhage within the left paracolic gutter. 10. Subcutaneous contusion/hematoma is noted in the left gluteal/supragluteal soft tissues. 11. Advanced colonic diverticulosis without CT evidence of acute diverticulitis. 12. Moderate hiatal hernia. 13. Additional findings as above. ACT 112: Negative or not required by law. Electronically signed by: Denny Carrera M.D. 04/25/2022 7:51 AM Dictated:04/25/22719 Transcribed: 04/25/22719 Document Auto-Saved
[2022-04-26 08:42] LABS: BUN Creatinine Ratio 19.5 (10-20); Calcium 7.9 mg/dl (8.5-10.1); Creatinine Clr Calc Pharmacy 10.6 ml/min; Est GFR (African American) 13.9 ml/min; Magnesium 1.8 mg/dl (1.7-2.4)
[2022-04-26 08:58] LABS: Thyroid Stimulating Hormone 26.272 uIu/ml (0.300-4.500)
[2022-04-26] MEDS: INSULIN ASPART PER UNIT SC SCH ×4 (08:59→20:51)
[2022-04-26] MEDS: LIDOCAINE 5% 1 PATCH TD SCH (09:03)
[2022-04-26] MEDS: HEPARIN SOD 5,000 UNIT/0.5 ML VIAL SQ SCH (09:11)
[2022-04-26] MEDS: ACETAMINOPHEN 325 MG TAB PO SCH ×3 (09:16→20:15)
[2022-04-26] MEDS: amLODIPine BESYLATE 5 MG TAB PO SCH (09:17)
[2022-04-26] MEDS: ACYCLOVIR 400 MG TAB PO SCH ×2 (09:17→20:02)
[2022-04-26] MEDS: ASCORBIC ACID 500 MG TAB PO SCH (09:18)
[2022-04-26] MEDS: carvediloL 12.5 MG TAB PO SCH ×2 (09:18→20:02)
[2022-04-26] MEDS: ATORVASTATIN 40 MG TAB PO SCH (09:18)
[2022-04-26] MEDS: ASPIRIN 81 MG ECTAB PO SCH (09:18)
[2022-04-26] MEDS: CYANOCOBALAMIN (B-12) 2,500 MCG TABLET SCH (09:18)
[2022-04-26] MEDS: FUROSEMIDE 20 MG TAB PO SCH (09:19)
[2022-04-26 09:29] LABS: T4 Free Thyroxine 1.14 ng/dl (0.61-1.60)
[2022-04-26 09:42] LABS: Estimated Average Glucose 148 mg/dl; Hemoglobin A1C 6.8 % (4.5-5.6)
[2022-04-26] MEDS ORDERED: SODIUM CHLORIDE 0.9% 250 ML IV PRN (11:16)
--- NOTE | 2022-04-26 11:25 | Hospitalist Progress Note ---
Date of Service April 26, 2022 Assessment & Plan (1) Retroperitoneal bleed: Plan: CT a/p on 04/25 showed"trace hemorrhage tracking in the left paracolic gutter." Reviewed images with radiologist. No apparent internal organ bleeding. "Subcutaneous contusion/hematoma is noted in the left gluteal/supragluteal soft tissues" seen as well, so may be from this. - T&S today - Repeat CT a/p - Gen surgical consult if any sign of worsening bleeding (2) Chronic kidney disease, stage 4 (severe): Plan: Baseline Cr ~2.4 - 2.9, CrCl ~15. - At baseline on admission, but now up to 3.44 - Stop furosemide - Renally dose meds - UA added - Nephrology consulted for worsening BRYAN - Started on IV fluids (3) Thoracic spine fracture: Plan: Horizontal fracture through T8. MRI on 04/25 did not show involvement of the posterior elements. - Remains neurologically intact today - TLSO brace has been delivered. - Closely monitor (4) Rib fractures: Plan: CT thoracic spine on 04/25 showed numerous non-displaced bilateral anterior rib fractures as above. - Conservative care (5) Compression fracture: Plan: Superior endplate compression fractures from C7-T3, T10-T11, and L3 on CT and MRI reads. - Lidocaine patches - Pain control PRN - Ortho spine consulted - Conservative treatment; soft collar for neck, TLSO brace. (6) Fall: Plan: Mechanical in nature per patient. Did not strike head and no LoC. No prodrome symptoms to suggest other etiology. 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 Started on Darzalex Faspro on 02/07/2022. Given week 6 treatment on 03/15/2022. Plan to start CyBorD after colorectal surgery. - No acute inpatient needs at this time (8) Anemia of chronic disease: Plan: Baseline hgb ~9 - 10. Likely some element of acute blood loss anemia as well given mild RP bleed and thigh hematoma. - T&S as above - Monitor (9) Type 2 diabetes mellitus: Plan: Recently diagnosed, as this is not in our charts. A1c is 6.8%. Likely some element of steroid-induced. - Sliding scale insulin (10) Hypertension: Plan: BP in the ER was 155/95. Today it is 100/67. - Continue home carvedilol - Hold amlodipine for lower BP today. (11) Hypothyroidism: Plan: Last TSH in our system was >20 in 2020. Was again 26.3 this admission. - Continue home Synthroid (12) Colonic mass: Plan: Known colonic mass, but without carcinoma. Per oncology notes, plan to see CRC sx in [place] for removal, then start more aggressive chemotherapy. - No inpatient needs as long as she remains without large bowel obstruction (13) DVT prophylaxis: Plan: SCDs - Holding heparin for concern for RP bleed DNR/DNI - Per patient in ED. Alert, oriented, capable of making her own medical decisions Admission and Anticipated Discharge Date Admission Date: April 25, 2022 Subjective Stable today. Reports no major change in her back pain. Reports no fevers/chills, chest pain, shortness of breath, abdominal pain, nausea, or vomiting. Physical Exam Constitutional: WD/WN, vitals as above Eyes: EOM intact bilaterally; no conjunctival abnormality ENMT: external ear and nose normal, oropharynx normal Neck: trachea midline, no thyromegaly normal visual inspection Respiratory: normal respiratory effort, lungs clear to auscultation no respiratory distress Cardiovascular: RRR, no murmur, no edema Gastrointestinal (Abdomen): Inspection/Auscultation: abdomen normal to inspection; abdomen not distended Musculoskeletal: Thoracic spine tender Skin: no rashes, warm and dry Neurologic: moves all extremities and awake Psychiatric: Orientation: alert, oriented to person and cooperative Results & Data Results & Data ([facility]) Vital Signs (Past 12 Hours) Vital Signs Temp Pulse Resp BP Pulse Ox O2 Del Method 04/26/22 07:08 36.6 C 71 16 103/67 95 Room Air PG Care Time/CCT Total # of Minutes Spent Total Time Spent with Patient: Total time spent is greater than 50% in coordination of care (as documented) at patient's floor/unit and/or counseling patient: Coding Level of Care Code 18994 Subseq Hosp Care Lvl 3 Diagnoses Retroperitoneal bleed R58 Chronic kidney disease, stage 4 (severe) N18.4 Thoracic spine fracture S22.009A Rib fractures S22.49XA Compression fracture Fall W19.XXXA Amyloidosis E85.9 Anemia of chronic disease D63.8 Type 2 diabetes mellitus E11.9 Hypertension I10 Hypothyroidism E03.9 Colonic mass K63.89 DVT prophylaxis Z29.9
--- NOTE | 2022-04-26 11:32 | Nephrology Consultation ---
Date of Consultation April 26, 2022 Assessment & Plan (1) Acute kidney injury: * BRYAN likely related to intravascular volume contraction. Physical exam is c/w dehydration * Stop Furosemide * Agree w/ gentle hydration using LR * Will order urinalysis w/ microscopy and UPCR * Monitor volume status, PRP, urine output (2) Chronic kidney disease, stage V: * 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 Baseline Cr has been 3.0 w/ EGFR 14 cc/min. Evaluation revealed benign urine sediment but nephrotic range proteinuria. PLA2R antibody testing was negative. 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 Will request records (6) Compression fracture: * Lidoderm patch, TLSO brace, PT/OT History of Present Illness Reason for Consultation: BRYAN/CKD Attending Physician: Ismael Nava MD History of Present Illness Mrs. Graves is a 81 year old white female who is seen at the request of [facility] for evaluation of BRYAN/CKD. Medical records in the EMR were reviewed today and are summarized as follows: Mrs. 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 Baseline Cr has been 3.0 w/ EGFR 14 cc/min. Her primary Shipping And Receiving Assistant is Dr. Emery. Outpatient evaluation revealed benign urine sediment but nephrotic range proteinuria. PLA2R antibody testing was negative. Renal biopsy 11/23 revealed [place]- [place] amyloidosis. Further evaluation revealed the presence of a rectal mass. Patient reports recent hospitalization at [facility] w/ resection of rectal mass. Medical records from [facility] are not currently available. She is under the care of a local Oncologist and has been on Darzalex Faspro. They are considering a course of CyBorD now that her surgery has been completed. Mrs. Parisi was admitted to [facility] today following a mechanical fall at home resulting in T10/T11 compression fracture. Admission laboratory studies revealed Hgb 7.8, Cr 3.4. Patient has discussed DIRECTOR MONEY with her primary Shipping And Receiving Assistant in the past and has indicated that she does not want HD if her renal function worsens. Allergies Allergy/AdvReac Type Severity Reaction Status Date / Time No Known Allergies Allergy Verified 03/10/22 10:35 Home Medications Medication Instructions Recorded Confirmed Type amlodipine 10 mg tablet 10 mg PO DAILY 08/04/21 03/10/22 History aspirin 81 mg chewable tablet 81 mg PO DAILY 08/04/21 03/10/22 History atorvastatin 40 mg tablet 40 mg PO QAM 08/04/21 03/10/22 History ferrous gluconate 256 mg (28 mg 325 mg PO QAM 08/04/21 03/10/22 History iron) tablet levothyroxine 88 mcg capsule 88 mcg PO DAILY 08/04/21 03/10/22 History mecobalamin (vitamin B12) 5,000 5,000 mcg PO QAM 08/04/21 03/10/22 History mcg disintegrating tablet carvedilol 12.5 mg tablet 12.5 mg PO BID 08/10/21 03/10/22 History furosemide 20 mg tablet 20 mg PO BID #180 tabs 12/23/21 03/10/22 Rx Cancer Shots 1 dose WK 02/14/22 03/10/22 History acyclovir 400 mg tablet 400 mg PO BID 02/14/22 03/10/22 History ascorbic acid (vitamin C) 500 mg 500 mg PO QAM 02/14/22 03/10/22 History tablet (Vitamin C) montelukast 10 mg tablet 10 mg PO QPM 02/14/22 03/10/22 History ondansetron HCl 4 mg tablet 4 mg PO UD PRN Nausea 02/14/22 03/10/22 History sodium sul 1.479 gram-potas ch See Rx Instructions PO .COMPLEX 02/14/22 02/17/22 Rx 0.188 gram-magnes sul 0.225 gram #24 tabs tablet (Sutab) Patient History Medical History Amyloidosis Anemia of chronic disease PT REPORTS IRON LEVEL IS STABLE Cancer 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 - SHOTS IN THE BELLY FOR Chronic kidney disease, stage 4 (severe) CKD (chronic kidney disease) UNKNOWN DETAILS Colon cancer DX LAST WEEK - REASON FOR UPCOMING COLONOSCOPY Fatty liver Hypercholesteremia Hypertension Hypothyroidism Nephrotic syndrome Seasonal allergies Sinus problem CHRONIC Stroke HX 9 YR AGO - RESIDUAL: PHYSICALLY SLOWER SINCE STROKE/CANE Type 2 diabetes mellitus NO MEDS FOR Surgical History History of History of right cataract surgery Family History Other Family history of colon cancer in father Social History Smoking Status: Former smoker Hx Alcohol Use: No Preferred Language: Welsh Communication Ability: Effective Job Trainer Required: No Beliefs That Will Affect Care: Hoahaoism Hoahaoism Beliefs: UATSDIN - DO NOT EAT MEAT FRIDAYS AND DO NO WORK ON SUNDAYS , Spiritual Spiritual Healthcare Practices: UATSDIN - DO NOT EAT MEAT FRIDAYS AND DO NO WORK ON SUNDAYS and Cultural Cultural Beliefs: UATSDIN - DO NOT EAT MEAT FRIDAYS AND DO NO WORK ON SUNDAYS marital status: Current Living Situation: Family How many Children do You have: 2 Feels Safe at Home: Yes Assistive Devices: Bedside Commode, Cane and Walker Review of Systems Constitutional: no fever Eyes: no problem reported Ear, Nose, Mouth, Throat: no problem reported Respiratory: no cough and no dyspnea Cardiovascular: no chest pain and no edema Gastrointestinal: no abdominal pain, no vomiting and no diarrhea/loose stools Neurologic: no problem reported Physical Exam Constitutional: + cachectic and + frail appearing Eyes: PERRL, conjunctivae normal, anicteric sclerae ENMT: Mouth: + dry oral mucous membranes Neck: normal visual inspection Respiratory: normal respiratory effort, lungs clear to auscultation Cardiovascular: RRR, no murmur, no edema Gastrointestinal (Abdomen): normal bowel sounds, soft, nontender, no hepatosplenomegaly Skin: + turgor decreased Neurologic: awake; not confused Results & Data ([facility]) Vital Signs (Past 12 Hours) Vital Signs Temp Pulse Resp BP Pulse Ox O2 Del Method 04/26/22 07:08 36.6 C 71 16 103/67 95 Room Air Laboratory Results Laboratory Tests 04/25/22 04/26/22 04/26/22 03:45 07:42 07:42 WBC 11.10 H Hgb 7.8 L Hct 24.9 L Plt Count 384 Sodium 132 L Potassium 5.0 Chloride 105 Carbon Dioxide 18 L BUN 67 H Creatinine 2.61 H 3.44 H D Glucose 93 Hemoglobin A1c Calcium 7.9 L Magnesium 1.8 TSH Free T4 04/26/22 04/26/22 07:42 07:42 WBC Hgb Hct Plt Count Sodium Potassium Chloride Carbon Dioxide BUN Creatinine Glucose Hemoglobin A1c 6.8 H Calcium Magnesium TSH 26.272 H Free T4 1.14 PG Care Time/CCT Total # of Minutes Spent Total Time Spent with Patient: Total time spent is greater than 50% in coordination of care (as documented) at patient's floor/unit and/or counseling patient: Coding Level of Care Code 63352 Inpt Consult Level 5 Diagnoses Acute kidney injury N17.9 Chronic kidney disease, stage V N18.5 Anemia D64.9 Amyloidosis E85.9 Colon cancer C18.9 Compression fracture
[2022-04-26 12:38] LABS: Iron < 10 mcg/dl (35-150); Unsaturated Iron Binding Cap 279 mcg/dl (155-355)
[2022-04-26 12:48] LABS: Ferritin 118.2 ng/ml (8-388)
[2022-04-26] MEDS: LACTATED RINGER'S 1,000 ML IV SCH (13:39)
--- NOTE | 2022-04-26 13:57 | CT Scan Report ---
CT OF THE ABDOMEN AND PELVIS WITHOUT CONTRAST CLINICAL HISTORY: Drop in hgb, prior mild retroperitoneal bleed COMPARISON STUDY: CT of the abdomen and pelvis April 25, 2022. TECHNIQUE: Axial images of the abdomen and pelvis were obtained without IV contrast. Images were revi ewed in the axial, sagittal, and coronal planes. Automated exposure control was utilized for the prieto dy. A dose lowering technique was utilized adhering to the principles of ALARA. FINDINGS: A large hiatal hernia with partially intrathoracic stomach is noted. There are trace bilate ral pleural effusions. No pneumothorax is noted within visualized portions of the lower chest. Multip le acute nondisplaced bilateral rib fractures are again noted. Subcutaneous T10 and T11 compression f ractures are noted. No acute lumbar spine or pelvic fracture is noted. Bladder is distended. Trace pn eumobilia has decreased. Lateral segment of the liver is enlarged. Lobulated contour of the liver is noted. Solid abdominal viscera are suboptimally assessed on this unenhanced exam. Spleen, adrenal gla nds, kidneys and pancreas are unremarkable. There is no hydronephrosis. There is no evidence for a heather wel obstruction. The appendix is normal. Extensive sigmoid diverticulosis is noted without evidence f or acute diverticulitis. Subcutaneous left flank contusion has slightly decreased since CT of April 25, 2022. Trace hemorrhage within the left paracolic gutter similar to prior exam. No new sites of he morrhage are identified on this exam. Several locules of subcutaneous gas of the left lateral abdomin al wall are new since prior exam. Note is made of several prominent fluid and stool-filled small rosibel l loops adjacent to the abdominal wall at this level. IMPRESSION: 1. Slight decrease in the subcutaneous left flank contusion since prior CT. No significant change in trace hemorrhage within the left paracolic gutter. No new sites of hemorrhage identified. 2. Interval development of trace gas within the subcutaneous tissues of the left lateral abdominal wa ll. Several prominent fluid-filled and stool-filled small bowel loops adjacent to the abdominal wall at this level. No pneumoperitoneum. Therefore, the subcutaneous gas is unlikely to be related to the small bowel. This finding is of questionable significance and could be related to subcutaneous inject ions. A laceration could appear similar. If persistent abdominal pain, short-term follow-up CT of the abdomen and pelvis with IV and oral contrast to reassess the bowel is recommended. 3. Multiple acute nondisplaced bilateral rib fractures. Trace bilateral pleural effusions. No pneumot horax within lower hemithoraces. ACT 112: Negative or not required by law. Electronically signed by: Mando Ingram M.D. 04/26/2022 1:56 PM
[2022-04-26] MEDS ORDERED: IRON SUCROSE 300 MG in SODIUM CHLORIDE 0.9% 250 ML IV SCH (14:00)
[2022-04-26 14:48] LABS: Appearance Urine Clear (Clear); Bacteria Urine Automated Negative (Negative); Bilirubin Urine Negative (Negative); Blood Urine Negative (Negative); Color Urine Yellow; Epithelial Cell Urine Auto >30 /lpf (0-5); Glucose Urine UA Negative (Negative); Ketones Urine Negative (Negative); Leukocyte Esterase Urine Trace (Negative); Nitrite Urine Negative (Negative); Protein Urine 3+ (Negative); Specific Gravity Urine 1.017 (1.000-1.030); Urobilinogen Urine Negative (Negative); pH Urine 5.5 (4.5-7.5)
[2022-04-26 15:32] LABS: Creatinine Urine Random 78.5 mg/dl; Protein Creatinine Ratio Urine 7.3 (0-0.2)
[2022-04-26 19:03] LABS: Hematocrit (blood only) 24.6 % (34.1-44.9); Hemoglobin 7.7 g/dl (12.0-16.0); Mean Corpuscular Hemoglobin 28.8 pg (25.0-34.0); Mean Corpuscular Hgb Conc 31.3 g/dL (32.0-36.0); Mean Corpuscular Volume 92.1 fL (80.0-100.0); Mean Platelet Volume 10.2 fL (9.4-12.3); Nucleated RBC # (auto) 0.02 K/uL (0-0); Nucleated RBC % (auto) 0.2 %; Platelet Count 384 K/uL (130-400); RDW Coefficient of Variation 15.9 % (11.5-14.5); RDW Standard Deviation 53.4 fL (36.4-46.3); Red Blood Count 2.67 M/uL (3.93-5.22); White Blood Count 10.36 K/ul (4.8-10.8)
[2022-04-26] MEDS: MONTELUKAST SODIUM 10 MG TABLET PO SCH (20:03)
[2022-04-26] MEDS: oxyCODONE HCL IR 5 MG TAB (IMMEDIATE RELEASE) PO PRN (20:43)
[2022-04-27] MEDS: LACTATED RINGER'S 1,000 ML IV SCH (01:25)
[2022-04-27] MEDS: LEVOTHYROXINE SODIUM 88 MCG TABLET PO SCH (05:46)
[2022-04-27] MEDS: ACYCLOVIR 400 MG TAB PO SCH ×2 (07:42→20:21)
[2022-04-27] MEDS: amLODIPine BESYLATE 5 MG TAB PO SCH (07:43)
[2022-04-27] MEDS: ASPIRIN 81 MG ECTAB PO SCH (07:43)
[2022-04-27] MEDS: ATORVASTATIN 40 MG TAB PO SCH (07:43)
[2022-04-27] MEDS: CYANOCOBALAMIN (B-12) 2,500 MCG TABLET SCH (07:43)
[2022-04-27] MEDS: carvediloL 12.5 MG TAB PO SCH ×2 (07:43→20:21)
[2022-04-27] MEDS: ASCORBIC ACID 500 MG TAB PO SCH (07:43)
--- NOTE | 2022-04-27 08:39 | Nephrology Progress Note ---
Date of Service April 27, 2022 Assessment & Plan (1) Acute kidney injury: Plan: * BRYAN likely related to intravascular volume contraction. Physical exam remains c/w dehydration * Continue to hold Furosemide * Continue gentle hydration * Urinalysis was negative for blood or cellular casts. 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 Baseline Cr has been 3.0 w/ EGFR 14 cc/min. Evaluation revealed benign urine sediment but nephrotic range proteinuria. PLA2R antibody testing was negative. 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 Will order IV Venofer (4) Amyloidosis: Plan: * Consider Oncology evaluation (5) Colon cancer: Plan: * Patient reports recent hospitalization w/ resection of rectal mass. [facility] records have been requested (6) Compression fracture: Plan: * Lidoderm patch, TLSO brace, PT/OT Admission and Anticipated Discharge Date Admission Date: April 25, 2022 Subjective Ms. Parisi was evaluated in her hospital room this morning. She reports back discomfort but notes that she is tolerating gentle hydration without dyspnea. Review of Systems Constitutional: no fever Eyes: no problem reported Ear, Nose, Mouth, Throat: no problem reported Respiratory: no cough and no dyspnea Cardiovascular: no chest pain and no edema Gastrointestinal: no abdominal pain, no vomiting and no diarrhea/loose stools Neurologic: no problem reported Physical Exam Constitutional: + cachectic and + frail appearing Eyes: PERRL, conjunctivae normal, anicteric sclerae ENMT: Mouth: + dry oral mucous membranes Neck: normal visual inspection Respiratory: normal respiratory effort, lungs clear to auscultation Cardiovascular: RRR, no murmur, no edema Gastrointestinal (Abdomen): normal bowel sounds, soft, nontender, no hepatosplenomegaly Skin: + turgor decreased Neurologic: awake; not confused Results & Data ([facility]) Vital Signs (Past 12 Hours) Vital Signs Temp Pulse Resp BP Pulse Ox O2 Del Method 04/27/22 05:54 36.6 C 76 14 136/82 94 Room Air 04/26/22 20:45 Room Air Laboratory Results Laboratory Tests 04/27/22 04/27/22 08:24 08:24 WBC 10.21 Hgb 8.0 L Hct 25.5 L Plt Count 400 Sodium 131 L Potassium 4.9 Chloride 104 Carbon Dioxide 20 L BUN 67 H Creatinine 3.66 H Glucose 102 H PG Care Time/CCT Total # of Minutes Spent Total Time Spent with Patient: Total time spent is greater than 50% in coordination of care (as documented) at patient's floor/unit and/or counseling patient: Coding Level of Care Code 85601 Subseq Hosp Care Lvl 3 Diagnoses Acute kidney injury N17.9 Chronic kidney disease, stage V N18.5 Anemia D64.9 Amyloidosis E85.9 Colon cancer C18.9 Compression fracture
[2022-04-27] MEDS: LIDOCAINE 5% 1 PATCH TD SCH ×2 (08:46→11:10)
[2022-04-27 08:50] LABS: Hematocrit (blood only) 25.5 % (34.1-44.9); Mean Corpuscular Hemoglobin 28.9 pg (25.0-34.0); Mean Corpuscular Hgb Conc 31.4 g/dL (32.0-36.0); Mean Corpuscular Volume 92.1 fL (80.0-100.0); Mean Platelet Volume 10.3 fL (9.4-12.3); Platelet Count 400 K/uL (130-400); RDW Coefficient of Variation 15.9 % (11.5-14.5); RDW Standard Deviation 53.8 fL (36.4-46.3); Red Blood Count 2.77 M/uL (3.93-5.22); White Blood Count 10.21 K/ul (4.8-10.8)
[2022-04-27] MEDS: INSULIN ASPART PER UNIT SC SCH ×4 (09:07→20:37)
[2022-04-27] MEDS: ACETAMINOPHEN 325 MG TAB PO SCH ×3 (09:08→20:25)
[2022-04-27 09:18] LABS: BUN Creatinine Ratio 18.3 (10-20); Calcium 7.7 mg/dl (8.5-10.1); Est GFR (African American) 12.9 ml/min; Est GFR (Non-African American) 11.2 ml/min; Magnesium 1.7 mg/dl (1.7-2.4); Potassium 4.9 mmol/L (3.5-5.1)
[2022-04-27] MEDS ORDERED: IRON SUCROSE 200 MG in 0.9 % SODIUM CHLORIDE 100 ML IV ONE (11:00)
[2022-04-27] MEDS: CALCITONIN SALMON NA 200 IU/AC 3.7 ML BTL SCH (11:10)
[2022-04-27] MEDS: SODIUM CHLORIDE 0.9% 1000ML 1,000 ML IV SCH ×2 (11:10→23:42)
--- NOTE | 2022-04-27 13:40 | Hospitalist Progress Note ---
Date of Service April 27, 2022 Assessment & Plan (1) Compression fracture: Plan: Superior endplate compression fractures from C7-T3, T10-T11, and L3 on CT and MRI reads. 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 - Lidocaine patches - Pain control PRN - Ortho spine consulted - Conservative treatment; soft collar for neck, TLSO brace. - Added calcitonin for her fractures as the pain is still precluding her from working with PT/OT. Increased lidocaine patches and will increase oxycodone if needed. Will attempt to avoid IV opioids, but may need a few doses to get on top of pain. (2) Thoracic spine fracture: Plan: Horizontal fracture through T8. MRI on 04/25 did not show involvement of the posterior elements. - Remains neurologically intact today - TLSO brace has been delivered. - Closely monitor - Stable so far. (3) Retroperitoneal bleed: Plan: CT a/p on 04/25 showed"trace hemorrhage tracking in the left paracolic gutter." Reviewed images with radiologist. No apparent internal organ bleeding. "Subcutaneous contusion/hematoma is noted in the left gluteal/supragluteal soft tissues" seen as well, so may be from this. - Repeat CT a/p on 04/26 showed no worsening bleeding and actually improved in thigh. - Hgb stable today at 8.0. BP stable today. Monitor. - Venofer ordered per nephrology. (4) Chronic kidney disease, stage 4 (severe): Plan: Baseline Cr ~2.4 - 2.9, CrCl ~15. - At baseline on admission, but now up to 3.66. Consistent with acute kidney injury/failure. - Stopped furosemide on 04/26. - Renally dose meds - UA on 04/26 showed hyaline casts. - Nephrology consulted for worsening BRYAN - Appreciate recs. - Started on IV fluids (5) Rib fractures: Plan: CT thoracic spine on 04/25 showed numerous non-displaced bilateral anterior rib fractures as above. - Conservative care (6) Fall: Plan: Mechanical in nature per patient. Did not strike head and no LoC. No prodrome symptoms to suggest other etiology. 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 Started on Darzalex Faspro on 02/07/2022. Given week 6 treatment on 03/15/2022. Plan to start CyBorD after colorectal surgery. - No acute inpatient needs at this time (8) Anemia of chronic disease: Plan: Baseline hgb ~9 - 10. Likely some element of acute blood loss anemia as well given mild RP bleed and thigh hematoma. - As above - Monitor (9) Type 2 diabetes mellitus: Plan: Recently diagnosed, as this is not in our charts. A1c is 6.8%. Likely some element of steroid-induced. - Sliding scale insulin - BSs have been 100 - 165 over last 24 hours. (10) Hypertension: Plan: BP in the ER was 155/95. Today it is 135/80. - Continue home carvedilol & amlodipine (11) Hypothyroidism: Plan: Last TSH in our system was >20 in 2020. Was again 26.3 this admission. - Continue home Synthroid - Hard to say whether to adjust in a complex, acutely ill patient. She does not seem to have any symptoms of hypothyroidism. Will defer adjustment for now. (12) Colonic mass: Plan: Known colonic mass, but without carcinoma. Per oncology notes, plan to see CRC sx in [place] for removal, then start more aggressive chemotherapy. - No inpatient needs as long as she remains without large bowel obstruction (13) DVT prophylaxis: Plan: SCDs - Holding heparin for concern for RP bleed DNR/DNI - Per patient in ED. Alert, oriented, capable of making her own medical decisions Admission and Anticipated Discharge Date Admission Date: April 25, 2022 Subjective Evaluated today. Very pleasant. Willing to try to oxycodone this morning, but it hasn't helped much yet. Today though, pain is more on the right ribs. Reports no fevers/chills, chest pain, shortness of breath, abdominal pain, nausea, or vomiting. Physical Exam Constitutional: WD/WN, vitals as above Eyes: EOM intact bilaterally; no conjunctival abnormality ENMT: external ear and nose normal, oropharynx normal Neck: trachea midline, no thyromegaly normal visual inspection Respiratory: normal respiratory effort, lungs clear to auscultation no respiratory distress Cardiovascular: RRR, no murmur, no edema Gastrointestinal (Abdomen): Inspection/Auscultation: abdomen normal to inspection; abdomen not distended Musculoskeletal: no cyanosis or clubbing, extremities motor strength 5/5 Skin: no rashes, warm and dry Neurologic: moves all extremities and awake Psychiatric: Orientation: alert, oriented to person and cooperative Results & Data Results & Data ([facility]) Vital Signs (Past 12 Hours) Vital Signs Temp Pulse Resp BP Pulse Ox O2 Del Method 04/27/22 09:43 Room Air 04/27/22 05:54 36.6 C 76 14 136/82 94 Room Air PG Care Time/CCT Total # of Minutes Spent Total Time Spent with Patient: Total time spent is greater than 50% in coordination of care (as documented) at patient's floor/unit and/or counseling patient: Coding Level of Care Code 64894 Subseq Hosp Care Lvl 3 Diagnoses Compression fracture Thoracic spine fracture S22.009A Retroperitoneal bleed R58 Chronic kidney disease, stage 4 (severe) N18.4 Rib fractures S22.49XA Fall W19.XXXA Amyloidosis E85.9 Anemia of chronic disease D63.8 Type 2 diabetes mellitus E11.9 Hypertension I10 Hypothyroidism E03.9 Colonic mass K63.89 DVT prophylaxis Z29.9
[2022-04-27 19:36] LABS: Creatinine Urine Random 98.4 mg/dl
[2022-04-27] MEDS: MONTELUKAST SODIUM 10 MG TABLET PO SCH (20:22)
[2022-04-27] MEDS: oxyCODONE HCL IR 5 MG TAB (IMMEDIATE RELEASE) PO PRN (20:25)
[2022-04-28] MEDS: oxyCODONE HCL IR 5 MG TAB (IMMEDIATE RELEASE) PO PRN (05:07)
[2022-04-28] MEDS: LEVOTHYROXINE SODIUM 88 MCG TABLET PO SCH (05:08)
[2022-04-28 07:58] LABS: Hematocrit (blood only) 24.1 % (34.1-44.9); Hemoglobin 7.5 g/dl (12.0-16.0); Mean Corpuscular Hemoglobin 28.7 pg (25.0-34.0); Mean Corpuscular Hgb Conc 31.1 g/dL (32.0-36.0); Mean Corpuscular Volume 92.3 fL (80.0-100.0); Mean Platelet Volume 10.4 fL (9.4-12.3); Nucleated RBC # (auto) 0.02 K/uL (0-0); Nucleated RBC % (auto) 0.2 %; Platelet Count 385 K/uL (130-400); RDW Coefficient of Variation 16.1 % (11.5-14.5); RDW Standard Deviation 54.4 fL (36.4-46.3); Red Blood Count 2.61 M/uL (3.93-5.22); White Blood Count 10.46 K/ul (4.8-10.8)
[2022-04-28 08:36] LABS: BUN Creatinine Ratio 20.5 (10-20); Calcium 7.1 mg/dl (8.5-10.1); Est GFR (African American) 14.6 ml/min; Est GFR (Non-African American) 12.6 ml/min; Magnesium 1.7 mg/dl (1.7-2.4); Potassium 4.6 mmol/L (3.5-5.1)
--- NOTE | 2022-04-28 08:52 | Nephrology Progress Note ---
Date of Service April 28, 2022 Assessment & Plan (1) Acute kidney injury: Plan: * BRYAN likely related to intravascular volume contraction. Physical exam remains c/w dehydration * Continue to hold Furosemide * Continue gentle hydration * Urinalysis was negative for blood or cellular casts. 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 Baseline Cr has been 3.0 w/ EGFR 14 cc/min. Evaluation revealed benign urine sediment but nephrotic range proteinuria. PLA2R antibody testing was negative. 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 Parisi was evaluated in her hospital room this morning. She is tolerating IV hydration without dyspnea. She appears relatively comfortable Review of Systems Constitutional: no fever Eyes: no problem reported Ear, Nose, Mouth, Throat: no problem reported Respiratory: no cough and no dyspnea Cardiovascular: no chest pain and no edema Gastrointestinal: no abdominal pain, no vomiting and no diarrhea/loose stools Neurologic: no problem reported Physical Exam Constitutional: + cachectic and + frail appearing Eyes: PERRL, conjunctivae normal, anicteric sclerae ENMT: Mouth: + dry oral mucous membranes Neck: normal visual inspection Respiratory: normal respiratory effort, lungs clear to auscultation Cardiovascular: RRR, no murmur, no edema Gastrointestinal (Abdomen): normal bowel sounds, soft, nontender, no hepatosplenomegaly Skin: + turgor decreased Neurologic: awake; not confused Results & Data ([facility]) Vital Signs (Past 12 Hours) Vital Signs Temp Pulse Resp BP Pulse Ox O2 Del Method 04/28/22 07:09 36.4 C L 73 16 132/77 93 Room Air Laboratory Results Laboratory Tests 04/28/22 04/28/22 07:18 07:18 WBC 10.46 Hgb 7.5 L Hct 24.1 L Plt Count 385 Sodium 133 L Potassium 4.6 Chloride 107 Carbon Dioxide 18 L BUN 68 H Creatinine 3.31 H D Glucose 93 Calcium 7.1 L Magnesium 1.7 PG Care Time/CCT Total # of Minutes Spent Total Time Spent with Patient: Total time spent is greater than 50% in coordination of care (as documented) at patient's floor/unit and/or counseling patient: Coding Level of Care Code 89807 Subseq Hosp Care Lvl 3 Diagnoses Acute kidney injury N17.9 Chronic kidney disease, stage V N18.5 Anemia D64.9 Amyloidosis E85.9 Compression fracture Colon cancer C18.9
[2022-04-28] MEDS: ACYCLOVIR 400 MG TAB PO SCH ×2 (09:44→20:44)
[2022-04-28] MEDS: ACETAMINOPHEN 325 MG TAB PO SCH ×3 (09:44→20:45)
[2022-04-28] MEDS: ASCORBIC ACID 500 MG TAB PO SCH (09:45)
[2022-04-28] MEDS: ASPIRIN 81 MG ECTAB PO SCH (09:45)
[2022-04-28] MEDS: ATORVASTATIN 40 MG TAB PO SCH (09:45)
[2022-04-28] MEDS: CALCITONIN SALMON NA 200 IU/AC 3.7 ML BTL SCH (09:45)
[2022-04-28] MEDS: amLODIPine BESYLATE 5 MG TAB PO SCH (09:45)
[2022-04-28] MEDS: carvediloL 12.5 MG TAB PO SCH ×2 (09:46→20:44)
[2022-04-28] MEDS: CYANOCOBALAMIN (B-12) 2,500 MCG TABLET SCH (09:46)
[2022-04-28] MEDS: LIDOCAINE 5% 1 PATCH TD SCH (09:46)
[2022-04-28] MEDS: INSULIN ASPART PER UNIT SC SCH ×4 (09:53→21:19)
[2022-04-28] MEDS ORDERED: IRON SUCROSE 300 MG in SODIUM CHLORIDE 0.9% 250 ML IV ONE (10:45)
[2022-04-28] MEDS: POLYETHYLENE (MIRALAX) 17 GM PACK PO SCH (11:08)
--- NOTE | 2022-04-28 15:18 | Hospitalist Progress Note ---
Date of Service April 28, 2022 Assessment & Plan (1) Compression fracture: Plan: Superior endplate compression fractures from C7-T3, T10-T11, and L3 on CT and MRI reads. 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 - Lidocaine patches - Pain control PRN - Ortho spine consulted - Conservative treatment; soft collar for neck, TLSO brace. - Added calcitonin on 04/27. - Still reporting pain, but PT/OT notes both indicate endurance/strength is the larger issue and that pain is not limiting her significantly. (Added bowel regimen for constipation. Will get KUB to ensure no obstruction.) (2) Thoracic spine fracture: Plan: Horizontal fracture through T8. MRI on 04/25 did not show involvement of the posterior elements. - Remains neurologically intact today - TLSO brace has been delivered. - Closely monitor - Stable so far. (3) Retroperitoneal bleed: Plan: CT a/p on 04/25 showed"trace hemorrhage tracking in the left paracolic gutter." Reviewed images with radiologist. No apparent internal organ bleeding. "Subcutaneous contusion/hematoma is noted in the left gluteal/supragluteal soft tissues" seen as well, so may be from this. - Repeat CT a/p on 04/26 showed no worsening bleeding and actually improved in thigh. - Hgb lower today at 7.5. BP stable today. Monitor. - Venofer ordered on 04/27 & 04/28. (4) Chronic kidney disease, stage 4 (severe): Plan: Baseline Cr ~2.4 - 2.9, CrCl ~15. - At baseline on admission, but then up to 3.66 on 04/27. Consistent with acute kidney injury/failure. - Stopped furosemide on 04/26. - Renally dose meds - UA on 04/26 showed hyaline casts. - Nephrology consulted for worsening BRYAN - Appreciate recs. - Started on IV fluids - Slight improvement today. (5) Rib fractures: Plan: CT thoracic spine on 04/25 showed numerous non-displaced bilateral anterior rib fractures as above. - Conservative care (6) Fall: Plan: Mechanical in nature per patient. Did not strike head and no LoC. No prodrome symptoms to suggest other etiology. - PT/OT recommend rehab, but patient wanting to go home. Family asking for referrals to SNFs and will speak with patient. 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 Started on Darzalex Faspro on 02/07/2022. Given week 6 treatment on 03/15/2022. Plan to start CyBorD after colorectal surgery. - No acute inpatient needs at this time (8) Anemia of chronic disease: Plan: Baseline hgb ~9 - 10. Some element of acute blood loss anemia as well given mild RP bleed and thigh hematoma. - As above - Monitor (9) Type 2 diabetes mellitus: Plan: Recently diagnosed, as this is not in our charts. A1c is 6.8%. Likely some element of steroid-induced. - Sliding scale insulin - BSs have been 90 - 140 over last 24 hours. (10) Hypertension: Plan: BP in the ER was 155/95. Today it is 110/70. - Continue home carvedilol & amlodipine (11) Hypothyroidism: Plan: Last TSH in our system was >20 in 2020. Was again 26.3 this admission. - Continue home Synthroid - Hard to say whether to adjust in a complex, acutely ill patient. She does not seem to have any symptoms of hypothyroidism. Will defer adjustment for now. (12) Colonic mass: Plan: Known colonic mass, but without carcinoma. Per oncology notes, plan to see CRC sx in [place] for removal, then start more aggressive chemotherapy. - No inpatient needs as long as she remains without large bowel obstruction (13) DVT prophylaxis: Plan: SCDs - Holding heparin for concern for RP bleed DNR/DNI - Per patient in ED. Alert, oriented, capable of making her own medical decisions Admission and Anticipated Discharge Date Admission Date: April 25, 2022 Subjective Doing well today. Still with some pain on the right rib side. Otherwise, doing well. Reports no fevers/chills, chest pain, shortness of breath, abdominal pain, nausea, or vomiting. Physical Exam Constitutional: WD/WN, vitals as above Eyes: EOM intact bilaterally; no conjunctival abnormality ENMT: external ear and nose normal, oropharynx normal Neck: trachea midline, no thyromegaly normal visual inspection Respiratory: normal respiratory effort, lungs clear to auscultation no respiratory distress Cardiovascular: RRR, no murmur, no edema Gastrointestinal (Abdomen): Inspection/Auscultation: abdomen normal to inspection; abdomen not distended Musculoskeletal: no cyanosis or clubbing, extremities motor strength 5/5 Skin: no rashes, warm and dry Neurologic: moves all extremities and awake Psychiatric: Orientation: alert, oriented to person and cooperative Results & Data Results & Data ([facility]) Vital Signs (Past 12 Hours) Vital Signs Temp Pulse Resp BP Pulse Ox O2 Del Method 04/28/22 14:39 36.4 C L 76 16 111/70 95 Room Air 04/28/22 07:09 36.4 C L 73 16 132/77 93 Room Air PG Care Time/CCT Total # of Minutes Spent Total Time Spent with Patient: Total time spent is greater than 50% in coordination of care (as documented) at patient's floor/unit and/or counseling patient: Coding Level of Care Code 43745 Subseq Hosp Care Lvl 3 Diagnoses Compression fracture Thoracic spine fracture S22.009A Retroperitoneal bleed R58 Chronic kidney disease, stage 4 (severe) N18.4 Rib fractures S22.49XA Fall W19.XXXA Amyloidosis E85.9 Anemia of chronic disease D63.8 Type 2 diabetes mellitus E11.9 Hypertension I10 Hypothyroidism E03.9 Colonic mass K63.89 DVT prophylaxis Z29.9
--- NOTE | 2022-04-28 17:01 | XRay Report ---
KUB HISTORY: No bowel movement, hx of large bowel mass. COMPARISON: Abdomen and pelvis CT 04/26/2022. FINDINGS: Multiple gas-filled nondilated loops of large or small bowel seen throughout the abdomen. T here is moderate well-formed stool within the proximal colon. No evidence for bowel obstruction. Bila teral lower rib fractures are again noted. The lung bases appear clear. Subcutaneous infiltration and a small amount of subcutaneous gas again noted within the left lateral abdominal wall. No renal calc airam. No ureteral calculi. No pneumoperitoneum or pneumatosis. IMPRESSION: 1. No evidence for bowel obstruction. 2. Bilateral lower rib fractures again noted. 3. No change in the subcutaneous infiltration and subcutaneous gas within the left lateral abdominal wall. ACT 112: Negative or not required by law. Electronically signed by: Goyo Oneil M.D. 04/28/2022 4:59 PM
[2022-04-28] MEDS: MONTELUKAST SODIUM 10 MG TABLET PO SCH (20:44)
[2022-04-29] MEDS: oxyCODONE HCL IR 5 MG TAB (IMMEDIATE RELEASE) PO PRN ×2 (02:21→10:19)
[2022-04-29] MEDS: LEVOTHYROXINE SODIUM 88 MCG TABLET PO SCH (06:11)
[2022-04-29 07:31] LABS: Hematocrit (blood only) 22.4 % (34.1-44.9); Hemoglobin 7.2 g/dl (12.0-16.0); Mean Corpuscular Hgb Conc 32.1 g/dL (32.0-36.0); Mean Corpuscular Volume 90.3 fL (80.0-100.0); Mean Platelet Volume 9.7 fL (9.4-12.3); Nucleated RBC # (auto) 0.03 K/uL (0-0); Nucleated RBC % (auto) 0.2 %; Platelet Count 406 K/uL (130-400); RDW Coefficient of Variation 15.9 % (11.5-14.5); RDW Standard Deviation 52.2 fL (36.4-46.3); Red Blood Count 2.48 M/uL (3.93-5.22); White Blood Count 14.06 K/ul (4.8-10.8)
[2022-04-29 07:58] LABS: BUN Creatinine Ratio 23.2 (10-20); Creatinine Clr Calc Pharmacy 11.1 ml/min; Est GFR (African American) 14.8 ml/min; Est GFR (Non-African American) 12.7 ml/min; Potassium 4.9 mmol/L (3.5-5.1)
--- NOTE | 2022-04-29 08:51 | Nephrology Progress Note ---
Date of Service April 29, 2022 Assessment & Plan (1) Acute kidney injury: Plan: * BRYAN due to intravascular volume contraction * Urinalysis was negative for blood or cellular casts. Patient has nephrotic range proteinuria related to underlying amyloidosis * Continue to hold Furosemide * Encourage oral hydration * Will start NaHCO3 650 mg po BID for correction of metabolic acidosis * Monitor volume status, PRP, urine output * Kidney function is nearing baseline. No further Nephrology evaluation indicated. Will sign off. 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 Baseline Cr has been 3.0 w/ EGFR 14 cc/min. Evaluation revealed benign urine sediment but nephrotic range proteinuria. PLA2R antibody testing was negative. Renal biopsy 11/23 revealed AL- [place] amyloidosis * Patient has indicated that she does not want dialysis if her kidney function worsens (3) Anemia: Plan: * Likely related to combination amyloidosis, chemotherapy * Iron <10 w/ ferritin < 200 * Day #3 of 5 IV Venofer * Recommend transfusion for symptomatic anemia or Hgb < or = 7.0 (4) Amyloidosis: Plan: * Consider Oncology evaluation (5) Compression fracture: Plan: * Lidoderm patch, TLSO brace, PT/OT (6) Colon cancer: Admission and Anticipated Discharge Date Admission Date: April 25, 2022 Subjective Ms. Parisi was evaluated in her hospital room this morning. She appears rela tively comfortable. She denies angina or dyspnea Review of Systems Constitutional: no fever Eyes: no problem reported Ear, Nose, Mouth, Throat: no problem reported Respiratory: no cough and no dyspnea Cardiovascular: no chest pain and no edema Gastrointestinal: no abdominal pain, no vomiting and no diarrhea/loose stools Neurologic: no problem reported Physical Exam Constitutional: + cachectic and + frail appearing Eyes: PERRL, conjunctivae normal, anicteric sclerae ENMT: Mouth: + dry oral mucous membranes Neck: normal visual inspection Respiratory: normal respiratory effort, lungs clear to auscultation Cardiovascular: RRR, no murmur, no edema Gastrointestinal (Abdomen): normal bowel sounds, soft, nontender, no hepatosplenomegaly Skin: + turgor decreased Neurologic: awake; not confused Results & Data ([facility]) Vital Signs (Past 12 Hours) Vital Signs Temp Pulse Resp BP Pulse Ox O2 Del Method 04/29/22 07:00 36.6 C 76 18 117/69 95 Room Air Laboratory Results Laboratory Tests 04/29/22 04/29/22 07:16 07:16 WBC 14.06 H Hgb 7.2 L Hct 22.4 L Plt Count 406 H Sodium 132 L Potassium 4.9 Chloride 107 Carbon Dioxide 15 L BUN 76 H Creatinine 3.28 H Glucose 89 PG Care Time/CCT Total # of Minutes Spent Total Time Spent with Patient: Total time spent is greater than 50% in coordination of care (as documented) at patient's floor/unit and/or counseling patient: Coding Level of Care Code 22857 Subseq Hosp Care Lvl 3 Diagnoses Acute kidney injury N17.9 Chronic kidney disease, stage V N18.5 Anemia D64.9 Amyloidosis E85.9 Compression fracture Colon cancer C18.9
[2022-04-29] MEDS: POLYETHYLENE (MIRALAX) 17 GM PACK PO SCH (09:34)
[2022-04-29] MEDS: SODIUM BICARBONATE 650 MG TAB PO SCH ×2 (09:34→22:37)
[2022-04-29] MEDS: LIDOCAINE 5% 1 PATCH TD SCH (09:35)
[2022-04-29] MEDS: ATORVASTATIN 40 MG TAB PO SCH (09:35)
[2022-04-29] MEDS: CYANOCOBALAMIN (B-12) 2,500 MCG TABLET SCH (09:35)
[2022-04-29] MEDS: ASCORBIC ACID 500 MG TAB PO SCH (09:35)
[2022-04-29] MEDS: ASPIRIN 81 MG ECTAB PO SCH (09:35)
[2022-04-29] MEDS: ACETAMINOPHEN 325 MG TAB PO SCH ×3 (09:35→22:35)
[2022-04-29] MEDS: ACYCLOVIR 400 MG TAB PO SCH ×2 (09:36→22:37)
[2022-04-29] MEDS: amLODIPine BESYLATE 5 MG TAB PO SCH (09:36)
[2022-04-29] MEDS: CALCITONIN SALMON NA 200 IU/AC 3.7 ML BTL SCH (09:36)
[2022-04-29] MEDS: carvediloL 12.5 MG TAB PO SCH ×2 (09:36→22:42)
[2022-04-29] MEDS: INSULIN ASPART PER UNIT SC SCH ×4 (09:40→22:39)
--- NOTE | 2022-04-29 22:18 | Hospitalist Progress Note ---
Date of Service April 29, 2022 Assessment & Plan (1) Compression fracture: Plan: Superior endplate compression fractures from C7-T3, T10-T11, and L3 on CT and MRI reads. 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 - Lidocaine patches - Pain control PRN - Ortho spine consulted - Conservative treatment; soft collar for neck, TLSO brace. - Added calcitonin on 04/27. - Still reporting pain, but PT/OT notes both indicate endurance/strength is the larger issue and that pain is not limiting her significantly. (Added bowel regimen for constipation. Will get KUB to ensure no obstruction.) -Pain is still not controlled. Asked nurse to bring in her dose of pain medicine. Patient not accepting rehab, however, will contiue to push for rehab as she is not moving. (2) Thoracic spine fracture: Plan: Horizontal fracture through T8. MRI on 04/25 did not show involvement of the posterior elements. - Remains neurologically intact today - TLSO brace has been delivered. - Closely monitor - Stable so far. (3) Retroperitoneal bleed: Plan: CT a/p on 04/25 showed"trace hemorrhage tracking in the left paracolic gutter." Reviewed images with radiologist. No apparent internal organ bleeding. "Subcutaneous contusion/hematoma is noted in the left gluteal/supragluteal soft tissues" seen as well, so may be from this. - Repeat CT a/p on 04/26 showed no worsening bleeding and actually improved in thigh. - Hgb lower today at 7.5. BP stable today. Monitor. - Venofer ordered on 04/27 & 04/28. (4) Chronic kidney disease, stage 4 (severe): Plan: Baseline Cr ~2.4 - 2.9, CrCl ~15. - At baseline on admission, but then up to 3.66 on 04/27. Consistent with acute kidney injury/failure. - Stopped furosemide on 04/26. - Renally dose meds - UA on 04/26 showed hyaline casts. - Nephrology consulted for worsening BRYAN - Appreciate recs. - Started on IV fluids - Slight improvement today. (5) Rib fractures: Plan: CT thoracic spine on 04/25 showed numerous non-displaced bilateral anterior rib fractures as above. - Conservative care (6) Fall: Plan: Mechanical in nature per patient. Did not strike head and no LoC. No prodrome symptoms to suggest other etiology. - PT/OT recommend rehab, but patient wanting to go home. Family asking for referrals to SNFs and will speak with patient. 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 Started on Darzalex Faspro on 02/07/2022. Given week 6 treatment on 03/15/2022. Plan to start CyBorD after colorectal surgery. - No acute inpatient needs at this time (8) Anemia of chronic disease: Plan: Baseline hgb ~9 - 10. Some element of acute blood loss anemia as well given mild RP bleed and thigh hematoma. - As above - Monitor (9) Type 2 diabetes mellitus: Plan: Recently diagnosed, as this is not in our charts. A1c is 6.8%. Likely some element of steroid-induced. - Sliding scale insulin - BSs have been 90 - 140 over last 24 hours. (10) Hypertension: Plan: BP in the ER was 155/95. Today it is 110/70. - Continue home carvedilol & amlodipine (11) Hypothyroidism: Plan: Last TSH in our system was >20 in 2020. Was again 26.3 this admission. - Continue home Synthroid - Hard to say whether to adjust in a complex, acutely ill patient. She does not seem to have any symptoms of hypothyroidism. Will defer adjustment for now. (12) Colonic mass: Plan: Known colonic mass, but without carcinoma. Per oncology notes, plan to see CRC sx in [place] for removal, then start more aggressive chemotherapy. - No inpatient needs as long as she remains without large bowel obstruction (13) DVT prophylaxis: Plan: SCDs - Holding heparin for concern for RP bleed DNR/DNI - Per patient in ED. Alert, oriented, capable of making her own medical decisions Admission and Anticipated Discharge Date Admission Date: April 25, 2022 Subjective 81 yo female reports being in pain at time of visit. Review of Systems Review of Systems: All systems reviewed & are unremarkable except as noted in HPI & below Physical Exam Physical Exam: Constitutional: WD/WN, vitals as above Eyes: EOM intact bilaterally; no conjunctival abnormality ENMT: external ear and nose normal, oropharynx normal Neck: trachea midline, no thyromegaly normal visual inspection Respiratory: normal respiratory effort, lungs clear to auscultation no respiratory distress Cardiovascular: RRR, no murmur, no edema Gastrointestinal (Abdomen): Inspection/Auscultation: abdomen normal to inspection; abdomen not distended Musculoskeletal: no cyanosis or clubbing, extremities motor strength 5/5 Skin: no rashes, warm and dry Neurologic: moves all extremities and awake Psychiatric: Orientation: alert, oriented to person and cooperative Results & Data Results & Data ([facility]) Vital Signs (Past 12 Hours) Vital Signs Temp Pulse Resp BP Pulse Ox O2 Del Method 04/29/22 15:28 36.2 C L 69 16 113/69 96 Room Air PG Care Time/CCT Total # of Minutes Spent Total Time Spent with Patient: Total time spent is greater than 50% in coordination of care (as documented) at patient's floor/unit and/or counseling patient: Coding Level of Care Code 71771 Subseq Hosp Care Lvl 3 Diagnoses Compression fracture Thoracic spine fracture S22.009A Retroperitoneal bleed R58 Chronic kidney disease, stage 4 (severe) N18.4 Rib fractures S22.49XA Fall W19.XXXA Amyloidosis E85.9 Anemia of chronic disease D63.8 Type 2 diabetes mellitus E11.9 Hypertension I10 Hypothyroidism E03.9 Colonic mass K63.89 DVT prophylaxis Z29.9 Time Spent (min) 35
[2022-04-29] MEDS: MONTELUKAST SODIUM 10 MG TABLET PO SCH (22:41)
[2022-04-30] MEDS: LEVOTHYROXINE SODIUM 88 MCG TABLET PO SCH (06:25)
[2022-04-30 07:17] LABS: Hematocrit (blood only) 23.8 % (34.1-44.9); Hemoglobin 7.4 g/dl (12.0-16.0); Mean Corpuscular Hemoglobin 28.2 pg (25.0-34.0); Mean Corpuscular Hgb Conc 31.1 g/dL (32.0-36.0); Mean Corpuscular Volume 90.8 fL (80.0-100.0); Nucleated RBC # (auto) 0.02 K/uL (0-0); Nucleated RBC % (auto) 0.2 %; Platelet Count 441 K/uL (130-400); Red Blood Count 2.62 M/uL (3.93-5.22)
[2022-04-30 07:36] LABS: BUN Creatinine Ratio 24.6 (10-20); Calcium 7.4 mg/dl (8.5-10.1); Est GFR (African American) 14.5 ml/min; Est GFR (Non-African American) 12.5 ml/min; Potassium 5.7 mmol/L (3.5-5.1)
[2022-04-30] MEDS: CYANOCOBALAMIN (B-12) 2,500 MCG TABLET SCH (08:18)
[2022-04-30] MEDS: ASPIRIN 81 MG ECTAB PO SCH (08:18)
[2022-04-30] MEDS: POLYETHYLENE (MIRALAX) 17 GM PACK PO SCH (08:18)
[2022-04-30] MEDS: ACETAMINOPHEN 325 MG TAB PO SCH ×3 (08:18→20:17)
[2022-04-30] MEDS: CALCITONIN SALMON NA 200 IU/AC 3.7 ML BTL SCH (08:18)
[2022-04-30] MEDS: SODIUM BICARBONATE 650 MG TAB PO SCH ×2 (08:18→20:14)
[2022-04-30] MEDS: carvediloL 12.5 MG TAB PO SCH ×2 (08:19→20:14)
[2022-04-30] MEDS: ACYCLOVIR 400 MG TAB PO SCH ×2 (08:19→20:12)
[2022-04-30] MEDS: amLODIPine BESYLATE 5 MG TAB PO SCH (08:19)
[2022-04-30] MEDS: ASCORBIC ACID 500 MG TAB PO SCH (08:19)
[2022-04-30] MEDS: ATORVASTATIN 40 MG TAB PO SCH (08:19)
[2022-04-30] MEDS: LIDOCAINE 5% 1 PATCH TD SCH (08:20)
[2022-04-30] MEDS: INSULIN ASPART PER UNIT SC SCH ×4 (09:21→21:27)
[2022-04-30] MEDS: oxyCODONE HCL IR 5 MG TAB (IMMEDIATE RELEASE) PO PRN (20:13)
[2022-04-30] MEDS: MONTELUKAST SODIUM 10 MG TABLET PO SCH (20:14)
--- NOTE | 2022-04-30 22:07 | Hospitalist Progress Note ---
Date of Service April 30, 2022 Assessment & Plan (1) Compression fracture: Plan: Superior endplate compression fractures from C7-T3, T10-T11, and L3 on CT and MRI reads. 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 - Lidocaine patches - Pain control PRN - Ortho spine consulted - Conservative treatment; soft collar for neck, TLSO brace. - Added calcitonin on 04/27. - Still reporting pain, but PT/OT notes both indicate endurance/strength is the larger issue and that pain is not limiting her significantly. (Added bowel regimen for constipation. Will get KUB to ensure no obstruction.) -Pain is still not controlled. Asked nurse to bring in her dose of pain medicine on 04/30 Patient still requires rehab on 04/30. (2) Thoracic spine fracture: Plan: Horizontal fracture through T8. MRI on 04/25 did not show involvement of the posterior elements. - Remains neurologically intact today - TLSO brace has been delivered. - Closely monitor - Stable so far. (3) Retroperitoneal bleed: Plan: CT a/p on 04/25 showed"trace hemorrhage tracking in the left paracolic gutter." Reviewed images with radiologist. No apparent internal organ bleeding. "Subcutaneous contusion/hematoma is noted in the left gluteal/supragluteal soft tissues" seen as well, so may be from this. - Repeat CT a/p on 04/26 showed no worsening bleeding and actually improved in thigh. - Hgb lower today at 7.5. BP stable today. Monitor. - Venofer ordered on 04/27 & 04/28. (4) Chronic kidney disease, stage 4 (severe): Plan: Baseline Cr ~2.4 - 2.9, CrCl ~15. - At baseline on admission, but then up to 3.66 on 04/27. Consistent with acute kidney injury/failure. - Stopped furosemide on 04/26. - Renally dose meds - UA on 04/26 showed hyaline casts. - Nephrology consulted for worsening BRYAN - Appreciate recs. - Started on IV fluids - Slight improvement today. (5) Rib fractures: Plan: CT thoracic spine on 04/25 showed numerous non-displaced bilateral anterior rib fractures as above. - Conservative care (6) Fall: Plan: Mechanical in nature per patient. Did not strike head and no LoC. No prodrome symptoms to suggest other etiology. - PT/OT recommend rehab, but patient wanting to go home. Family asking for referrals to SNFs and will speak with patient. 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 Started on Darzalex Faspro on 02/07/2022. Given week 6 treatment on 03/15/2022. Plan to start CyBorD after colorectal surgery. - No acute inpatient needs at this time (8) Anemia of chronic disease: Plan: Baseline hgb ~9 - 10. Some element of acute blood loss anemia as well given mild RP bleed and thigh hematoma. - As above - Monitor (9) Type 2 diabetes mellitus: Plan: Recently diagnosed, as this is not in our charts. A1c is 6.8%. Likely some element of steroid-induced. - Sliding scale insulin - BSs have been 90 - 140 over last 24 hours. (10) Hypertension: Plan: BP in the ER was 155/95. Today it is 110/70. - Continue home carvedilol & amlodipine (11) Hypothyroidism: Plan: Last TSH in our system was >20 in 2020. Was again 26.3 this admission. - Continue home Synthroid - Hard to say whether to adjust in a complex, acutely ill patient. She does not seem to have any symptoms of hypothyroidism. Will defer adjustment for now. (12) Colonic mass: Plan: Known colonic mass, but without carcinoma. Per oncology notes, plan to see CRC sx in [place] for removal, then start more aggressive chemotherapy. - No inpatient needs as long as she remains without large bowel obstruction (13) DVT prophylaxis: Plan: SCDs - Holding heparin for concern for RP bleed DNR/DNI - Per patient in ED. Alert, oriented, capable of making her own medical decisions Admission and Anticipated Discharge Date Admission Date: April 25, 2022 Subjective Patient continues to have pain. Review of Systems Review of Systems: All systems reviewed & are unremarkable except as noted in HPI & below Physical Exam Physical Exam: Constitutional: WD/WN, vitals as above Eyes: EOM intact bilaterally; no conjunctival abnormality ENMT: external ear and nose normal, oropharynx normal Neck: trachea midline, no thyromegaly normal visual inspection Respiratory: normal respiratory effort, lungs clear to auscultation no respiratory distress Cardiovascular: RRR, no murmur, no edema Gastrointestinal (Abdomen): Inspection/Auscultation: abdomen normal to inspection; abdomen not distended Musculoskeletal: no cyanosis or clubbing, extremities motor strength 5/5 Skin: no rashes, warm and dry Neurologic: moves all extremities and awake Psychiatric: Orientation: alert, oriented to person and cooperative Results & Data Results & Data ([facility]) Vital Signs (Past 12 Hours) Vital Signs Temp Pulse Resp BP Pulse Ox O2 Del Method 04/30/22 15:27 36.3 C L 72 16 107/69 97 Room Air PG Care Time/CCT Total # of Minutes Spent Total Time Spent with Patient: Total time spent is greater than 50% in coordination of care (as documented) at patient's floor/unit and/or counseling patient: Coding Level of Care Code 94589 Subseq Hosp Care Lvl 2 Diagnoses Compression fracture Thoracic spine fracture S22.009A Retroperitoneal bleed R58 Chronic kidney disease, stage 4 (severe) N18.4 Rib fractures S22.49XA Fall W19.XXXA Amyloidosis E85.9 Anemia of chronic disease D63.8 Type 2 diabetes mellitus E11.9 Hypertension I10 Hypothyroidism E03.9 Colonic mass K63.89 DVT prophylaxis Z29.9 Time Spent (min) 25
[2022-05-01] MEDS: LEVOTHYROXINE SODIUM 88 MCG TABLET PO SCH (06:01)
[2022-05-01] MEDS: POLYETHYLENE (MIRALAX) 17 GM PACK PO SCH (08:04)
[2022-05-01] MEDS: ACETAMINOPHEN 325 MG TAB PO SCH ×3 (08:04→21:17)
[2022-05-01] MEDS: CALCITONIN SALMON NA 200 IU/AC 3.7 ML BTL SCH (08:04)
[2022-05-01] MEDS: LIDOCAINE 5% 1 PATCH TD SCH (08:04)
[2022-05-01] MEDS: SODIUM BICARBONATE 650 MG TAB PO SCH ×2 (08:06→21:12)
[2022-05-01] MEDS: ASPIRIN 81 MG ECTAB PO SCH (08:06)
[2022-05-01] MEDS: ACYCLOVIR 400 MG TAB PO SCH ×2 (08:06→21:12)
[2022-05-01] MEDS: ATORVASTATIN 40 MG TAB PO SCH (08:06)
[2022-05-01] MEDS: carvediloL 12.5 MG TAB PO SCH ×2 (08:06→21:13)
[2022-05-01] MEDS: CYANOCOBALAMIN (B-12) 2,500 MCG TABLET SCH (08:06)
[2022-05-01] MEDS: amLODIPine BESYLATE 5 MG TAB PO SCH (08:06)
[2022-05-01] MEDS: ASCORBIC ACID 500 MG TAB PO SCH (08:07)
[2022-05-01] MEDS: INSULIN ASPART PER UNIT SC SCH ×4 (09:13→20:44)
[2022-05-01] MEDS: MONTELUKAST SODIUM 10 MG TABLET PO SCH (21:12)
--- NOTE | 2022-05-01 21:33 | Hospitalist Progress Note ---
Date of Service May 01, 2022 Assessment & Plan (1) Compression fracture: Plan: Superior endplate compression fractures from C7-T3, T10-T11, and L3 on CT and MRI reads. 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 - Lidocaine patches - Pain control PRN - Ortho spine consulted - Conservative treatment; soft collar for neck, TLSO brace. - Added calcitonin on 04/27. - Still reporting pain, but PT/OT notes both indicate endurance/strength is the larger issue and that pain is not limiting her significantly. (Added bowel regimen for constipation. Will get KUB to ensure no obstruction.) -Pain appears better controlled on 05/01 Patient has no new complaints. (2) Thoracic spine fracture: Plan: Horizontal fracture through T8. MRI on 04/25 did not show involvement of the posterior elements. - Remains neurologically intact today - TLSO brace has been delivered. - Closely monitor - Stable so far. (3) Retroperitoneal bleed: Plan: CT a/p on 04/25 showed"trace hemorrhage tracking in the left paracolic gutter." Reviewed images with radiologist. No apparent internal organ bleeding. "Subcutaneous contusion/hematoma is noted in the left gluteal/supragluteal soft tissues" seen as well, so may be from this. - Repeat CT a/p on 04/26 showed no worsening bleeding and actually improved in thigh. - Hgb lower today at 7.5. BP stable today. Monitor. - Venofer ordered on 04/27 & 04/28. (4) Chronic kidney disease, stage 4 (severe): Plan: Baseline Cr ~2.4 - 2.9, CrCl ~15. - At baseline on admission, but then up to 3.66 on 04/27. Consistent with acute kidney injury/failure. - Stopped furosemide on 04/26. - Renally dose meds - UA on 04/26 showed hyaline casts. - Nephrology consulted for worsening BRYAN - Appreciate recs. - Started on IV fluids - Slight improvement today. (5) Rib fractures: Plan: CT thoracic spine on 04/25 showed numerous non-displaced bilateral anterior rib fractures as above. - Conservative care (6) Fall: Plan: Mechanical in nature per patient. Did not strike head and no LoC. No prodrome sy mptoms to suggest other etiology. - PT/OT recommend rehab, but patient wanting to go home. Family asking for referrals to SNFs and will speak with patient. 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 Started on Darzalex Faspro on 02/07/2022. Given week 6 treatment on 03/15/2022. Plan to start CyBorD after colorectal surgery. - No acute inpatient needs at this time (8) Anemia of chronic disease: Plan: Baseline hgb ~9 - 10. Some element of acute blood loss anemia as well given mild RP bleed and thigh hematoma. - As above - Monitor (9) Type 2 diabetes mellitus: Plan: Recently diagnosed, as this is not in our charts. A1c is 6.8%. Likely some element of steroid-induced. - Sliding scale insulin - BSs have been 90 - 140 over last 24 hours. (10) Hypertension: Plan: BP in the ER was 155/95. Today it is 110/70. - Continue home carvedilol & amlodipine (11) Hypothyroidism: Plan: Last TSH in our system was >20 in 2020. Was again 26.3 this admission. - Continue home Synthroid - Hard to say whether to adjust in a complex, acutely ill patient. She does not seem to have any symptoms of hypothyroidism. Will defer adjustment for now. (12) Colonic mass: Plan: Known colonic mass, but without carcinoma. Per oncology notes, plan to see CRC sx in [place] for removal, then start more aggressive chemotherapy. - No inpatient needs as long as she remains without large bowel obstruction (13) DVT prophylaxis: Plan: SCDs - Holding heparin for concern for RP bleed DNR/DNI - Per patient in ED. Alert, oriented, capable of making her own medical decisions Admission and Anticipated Discharge Date Admission Date: April 25, 2022 Subjective 81 yo female reports that her pain is better controlled. She has no new complaints. Updated family. Review of Systems Review of Systems: All systems reviewed & are unremarkable except as noted in HPI & below Physical Exam Physical Exam: Constitutional: WD/WN, vitals as above Eyes: EOM intact bilaterally; no conjunctival abnormality ENMT: external ear and nose normal, oropharynx normal Neck: trachea midline, no thyromegaly normal visual inspection Respiratory: normal respiratory effort, lungs clear to auscultation no respiratory distress Cardiovascular: RRR, no murmur, no edema Gastrointestinal (Abdomen): Inspection/Auscultation: abdomen normal to inspection; abdomen not distended Musculoskeletal: no cyanosis or clubbing, extremities motor strength 5/5 Skin: no rashes, warm and dry Neurologic: moves all extremities and awake Psychiatric: Orientation: alert, oriented to person and cooperative Results & Data Results & Data ([facility]) Vital Signs (Past 12 Hours) Vital Signs Temp Pulse Resp BP Pulse Ox O2 Del Method 05/01/22 15:55 36.4 C L 68 22 99/63 L 97 Room Air PG Care Time/CCT Total # of Minutes Spent Total Time Spent with Patient: Total time spent is greater than 50% in coordination of care (as documented) at patient's floor/unit and/or counseling patient: Coding Level of Care Code 43238 Subseq Hosp Care Lvl 2 Diagnoses Compression fracture Thoracic spine fracture S22.009A Retroperitoneal bleed R58 Chronic kidney disease, stage 4 (severe) N18.4 Rib fractures S22.49XA Fall W19.XXXA Amyloidosis E85.9 Anemia of chronic disease D63.8 Type 2 diabetes mellitus E11.9 Hypertension I10 Hypothyroidism E03.9 Colonic mass K63.89 DVT prophylaxis Z29.9 Time Spent (min) 25
[2022-05-02] MEDS: LEVOTHYROXINE SODIUM 88 MCG TABLET PO SCH (05:32)
[2022-05-02 07:31] LABS: Hematocrit (blood only) 23.5 % (34.1-44.9); Hemoglobin 7.4 g/dl (12.0-16.0); Mean Corpuscular Hemoglobin 29.2 pg (25.0-34.0); Mean Corpuscular Hgb Conc 31.5 g/dL (32.0-36.0); Mean Corpuscular Volume 92.9 fL (80.0-100.0); Mean Platelet Volume 9.6 fL (9.4-12.3); Nucleated RBC # (auto) 0.03 K/uL (0-0); Nucleated RBC % (auto) 0.3 %; Platelet Count 443 K/uL (130-400); RDW Coefficient of Variation 16.9 % (11.5-14.5); RDW Standard Deviation 54.3 fL (36.4-46.3); Red Blood Count 2.53 M/uL (3.93-5.22); White Blood Count 10.78 K/ul (4.8-10.8)
[2022-05-02] MEDS: SODIUM BICARBONATE 650 MG TAB PO SCH ×2 (07:39→20:40)
[2022-05-02] MEDS: oxyCODONE HCL IR 5 MG TAB (IMMEDIATE RELEASE) PO PRN ×3 (07:39→17:41)
[2022-05-02] MEDS: ASPIRIN 81 MG ECTAB PO SCH (07:39)
[2022-05-02] MEDS: ACYCLOVIR 400 MG TAB PO SCH ×2 (07:39→20:40)
[2022-05-02] MEDS: CYANOCOBALAMIN (B-12) 2,500 MCG TABLET SCH (07:39)
[2022-05-02] MEDS: amLODIPine BESYLATE 5 MG TAB PO SCH (07:39)
[2022-05-02] MEDS: ASCORBIC ACID 500 MG TAB PO SCH (07:39)
[2022-05-02] MEDS: POLYETHYLENE (MIRALAX) 17 GM PACK PO SCH (07:40)
[2022-05-02] MEDS: ATORVASTATIN 40 MG TAB PO SCH (07:40)
[2022-05-02] MEDS: CALCITONIN SALMON NA 200 IU/AC 3.7 ML BTL SCH (07:41)
[2022-05-02] MEDS: carvediloL 12.5 MG TAB PO SCH ×2 (07:41→20:40)
[2022-05-02 08:20] LABS: Calcium 7.6 mg/dl (8.5-10.1); Creatinine Clr Calc Pharmacy 10.7 ml/min; Est GFR (Non-African American) 12.1 ml/min; Potassium 5.5 mmol/L (3.5-5.1)
[2022-05-02] MEDS: INSULIN ASPART PER UNIT SC SCH ×4 (08:43→21:29)
[2022-05-02] MEDS: LIDOCAINE 5% 1 PATCH TD SCH (08:55)
[2022-05-02] MEDS: ACETAMINOPHEN 325 MG TAB PO SCH ×3 (08:55→20:40)
[2022-05-02] MEDS: MONTELUKAST SODIUM 10 MG TABLET PO SCH (20:40)
--- NOTE | 2022-05-02 21:27 | Hospitalist Progress Note ---
Date of Service May 02, 2022 Assessment & Plan (1) Compression fracture: Plan: Superior endplate compression fractures from C7-T3, T10-T11, and L3 on CT and MRI reads. 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 - Lidocaine patches - Pain control PRN - Ortho spine consulted - Conservative treatment; soft collar for neck, TLSO brace. - Added calcitonin on 04/27. - Still reporting pain, but PT/OT notes both indicate endurance/strength is the larger issue and that pain is not limiting her significantly. (Added bowel regimen for constipation. Will get KUB to ensure no obstruction.) -Pain appears better controlled on 05/02 Patient has no new complaints. Awaiting placement (2) Thoracic spine fracture: Plan: Horizontal fracture through T8. MRI on 04/25 did not show involvement of the posterior elements. - Remains neurologically intact today - TLSO brace has been delivered. - Closely monitor - Stable so far. (3) Retroperitoneal bleed: Plan: CT a/p on 04/25 showed"trace hemorrhage tracking in the left paracolic gutter." Reviewed images with radiologist. No apparent internal organ bleeding. "Subcutaneous contusion/hematoma is noted in the left gluteal/supragluteal soft tissues" seen as well, so may be from this. - Repeat CT a/p on 04/26 showed no worsening bleeding and actually improved in thigh. - Hgb at 7.4. BP stable today. Monitor. - Venofer ordered on 04/27 & 04/28. (4) Chronic kidney disease, stage 4 (severe): Plan: Baseline Cr ~2.4 - 2.9, CrCl ~15. - At baseline on admission, but then up to 3.66 on 04/27. Consistent with acute kidney injury/failure. - Stopped furosemide on 04/26. - Renally dose meds - UA on 04/26 showed hyaline casts. - Nephrology consulted for worsening BRYAN - Appreciate recs. - Started on IV fluids - Slight improvement today. (5) Rib fractures: Plan: CT thoracic spine on 04/25 showed numerous non-displaced bilateral anterior rib fractures as above. - Conservative care (6) Fall: Plan: Mechanical in nature per patient. Did not strike head and no LoC. No prodrome symptoms to suggest other etiology. - PT/OT recommend rehab, but patient wanting to go home. Family asking for referrals to SNFs and will speak with patient. 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 Started on Darzalex Faspro on 02/07/2022. Given week 6 treatment on 03/15/2022. Plan to start CyBorD after colorectal surgery. - No acute inpatient needs at this time (8) Anemia of chronic disease: Plan: Baseline hgb ~9 - 10. Some element of acute blood loss anemia as well given mild RP bleed and thigh hematoma. - As above - Monitor (9) Type 2 diabetes mellitus: Plan: Recently diagnosed, as this is not in our charts. A1c is 6.8%. Likely some element of steroid-induced. - Sliding scale insulin - BSs have been 90 - 140 over last 24 hours. (10) Hypertension: Plan: BP in the ER was 155/95. Today it is 110/70. - Continue home carvedilol & amlodipine (11) Hypothyroidism: Plan: Last TSH in our system was >20 in 2020. Was again 26.3 this admission. - Continue home Synthroid - Hard to say whether to adjust in a complex, acutely ill patient. She does not seem to have any symptoms of hypothyroidism. Will defer adjustment for now. (12) Colonic mass: Plan: Known colonic mass, but without carcinoma. Per oncology notes, plan to see CRC sx in [place] for removal, then start more aggressive chemotherapy. - No inpatient needs as long as she remains without large bowel obstruction (13) DVT prophylaxis: Plan: SCDs - Holding heparin for concern for RP bleed DNR/DNI - Per patient in ED. Alert, oriented, capable of making her own medical decisions Admission and Anticipated Discharge Date Admission Date: April 25, 2022 Subjective 81 yo female states that her pain is better controlled. Review of Systems Review of Systems: All systems reviewed & are unremarkable except as noted in HPI & below Physical Exam Physical Exam: Constitutional: WD/WN, vitals as above Eyes: EOM intact bilaterally; no conjunctival abnormality ENMT: external ear and nose normal, oropharynx normal Neck: trachea midline, no thyromegaly normal visual inspection Respiratory: normal respiratory effort, lungs clear to auscultation no respiratory distress Cardiovascular: RRR, no murmur, no edema Gastrointestinal (Abdomen): Inspection/Auscultation: abdomen normal to inspection; abdomen not distended Musculoskeletal: no cyanosis or clubbing, extremities motor strength 5/5 Skin: no rashes, warm and dry Neurologic: moves all extremities and awake Psychiatric: Orientation: alert, oriented to person and cooperative Results & Data Results & Data ([facility]) Vital Signs (Past 12 Hours) Vital Signs Temp Pulse Resp BP Pulse Ox O2 Del Method 05/02/22 14:43 36.5 C 70 14 110/71 97 Room Air PG Care Time/CCT Total # of Minutes Spent Total Time Spent with Patient: Total time spent is greater than 50% in coordination of care (as documented) at patient's floor/unit and/or counseling patient: Coding Level of Care Code 02578 Subseq Hosp Care Lvl 2 Diagnoses Compression fracture Thoracic spine fracture S22.009A Retroperitoneal bleed R58 Chronic kidney disease, stage 4 (severe) N18.4 Rib fractures S22.49XA Fall W19.XXXA Amyloidosis E85.9 Anemia of chronic disease D63.8 Type 2 diabetes mellitus E11.9 Hypertension I10 Hypothyroidism E03.9 Colonic mass K63.89 DVT prophylaxis Z29.9
[2022-05-03] MEDS: LEVOTHYROXINE SODIUM 88 MCG TABLET PO SCH (06:04)
[2022-05-03 06:57] LABS: Hematocrit (blood only) 24.6 % (34.1-44.9); Hemoglobin 7.6 g/dl (12.0-16.0); Mean Corpuscular Hemoglobin 28.9 pg (25.0-34.0); Mean Corpuscular Hgb Conc 30.9 g/dL (32.0-36.0); Mean Corpuscular Volume 93.5 fL (80.0-100.0); Mean Platelet Volume 9.9 fL (9.4-12.3); Platelet Count 466 K/uL (130-400); RDW Coefficient of Variation 17.3 % (11.5-14.5); RDW Standard Deviation 54.5 fL (36.4-46.3); Red Blood Count 2.63 M/uL (3.93-5.22); White Blood Count 9.26 K/ul (4.8-10.8)
[2022-05-03 07:23] LABS: BUN Creatinine Ratio 28.3 (10-20); Calcium 7.6 mg/dl (8.5-10.1); Creatinine Clr Calc Pharmacy 10.8 ml/min; Est GFR (African American) 14.2 ml/min; Est GFR (Non-African American) 12.2 ml/min; Potassium 5.4 mmol/L (3.5-5.1)
[2022-05-03] MEDS: POLYETHYLENE (MIRALAX) 17 GM PACK PO SCH (07:28)
[2022-05-03] MEDS: ACETAMINOPHEN 325 MG TAB PO SCH ×3 (07:28→21:49)
[2022-05-03] MEDS: SODIUM BICARBONATE 650 MG TAB PO SCH ×2 (07:28→21:46)
[2022-05-03] MEDS: CYANOCOBALAMIN (B-12) 2,500 MCG TABLET SCH (07:28)
[2022-05-03] MEDS: oxyCODONE HCL IR 5 MG TAB (IMMEDIATE RELEASE) PO PRN ×2 (07:28→11:23)
[2022-05-03] MEDS: ACYCLOVIR 400 MG TAB PO SCH ×2 (07:29→21:45)
[2022-05-03] MEDS: CALCITONIN SALMON NA 200 IU/AC 3.7 ML BTL SCH (07:29)
[2022-05-03] MEDS: amLODIPine BESYLATE 5 MG TAB PO SCH (07:29)
[2022-05-03] MEDS: ASCORBIC ACID 500 MG TAB PO SCH (07:29)
[2022-05-03] MEDS: ATORVASTATIN 40 MG TAB PO SCH (07:29)
[2022-05-03] MEDS: INSULIN ASPART PER UNIT SC SCH ×4 (09:08→21:27)
[2022-05-03] MEDS: ASPIRIN 81 MG ECTAB PO SCH (09:09)
[2022-05-03] MEDS: carvediloL 12.5 MG TAB PO SCH ×2 (09:10→21:47)
[2022-05-03] MEDS: LIDOCAINE 5% 1 PATCH TD SCH (09:26)
--- NOTE | 2022-05-03 18:01 | Hospitalist Progress Note ---
Date of Service May 03, 2022 Assessment & Plan (1) Compression fracture: Plan: Superior endplate compression fractures from C7-T3, T10-T11, and L3 on CT and MRI reads. 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 - Lidocaine patches - Pain control PRN - Ortho spine consulted - Conservative treatment; soft collar for neck, TLSO brace. - Added calcitonin on 04/27. - Still reporting pain, but PT/OT notes both indicate endurance/strength is the larger issue and that pain is not limiting her significantly. (Added bowel regimen for constipation. Will get KUB to ensure no obstruction.) -Pain appears better controlled on 05/03 will participate on PT today. will monitor Patient has no new complaints. Awaiting placement (2) Thoracic spine fracture: Plan: Horizontal fracture through T8. MRI on 04/25 did not show involvement of the posterior elements. - Remains neurologically intact today - TLSO brace has been delivered. - Closely monitor - Stable so far. (3) Retroperitoneal bleed: Plan: CT a/p on 04/25 showed"trace hemorrhage tracking in the left paracolic gutter." Reviewed images with radiologist. No apparent internal organ bleeding. "Subcutaneous contusion/hematoma is noted in the left gluteal/supragluteal soft tissues" seen as well, so may be from this. - Repeat CT a/p on 04/26 showed no worsening bleeding and actually improved in thigh. - Hgb at 7.4. BP stable today. Monitor. - Venofer ordered on 04/27 & 04/28. (4) Chronic kidney disease, stage 4 (severe): Plan: Baseline Cr ~2.4 - 2.9, CrCl ~15. - At baseline on admission, but then up to 3.66 on 04/27. Consistent with acute kidney injury/failure. - Stopped furosemide on 04/26. - Renally dose meds - UA on 04/26 showed hyaline casts. - Nephrology consulted for worsening BRYAN - Appreciate recs. - Started on IV fluids - Slight improvement today. (5) Rib fractures: Plan: CT thoracic spine on 04/25 showed numerous non-displaced bilateral anterior rib fractures as above. - Conservative care (6) Fall: Plan: Mechanical in nature per patient. Did not strike head and no LoC. No prodrome symptoms to suggest other etiology. - PT/OT recommend rehab, but patient wanting to go home. Family asking for referrals to SNFs and will speak with patient. 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 Started on Darzalex Faspro on 02/07/2022. Given week 6 treatment on 03/15/2022. Plan to start CyBorD after colorectal surgery. - No acute inpatient needs at this time (8) Anemia of chronic disease: Plan: Baseline hgb ~9 - 10. Some element of acute blood loss anemia as well given mild RP bleed and thigh hematoma. - As above - Monitor (9) Type 2 diabetes mellitus: Plan: Recently diagnosed, as this is not in our charts. A1c is 6.8%. Likely some element of steroid-induced. - Sliding scale insulin - BSs have been 90 - 140 over last 24 hours. (10) Hypertension: Plan: BP in the ER was 155/95. Today it is 102/63 - Continue home carvedilol & amlodipine (11) Hypothyroidism: Plan: Last TSH in our system was >20 in 2020. Was again 26.3 this admission. - Continue home Synthroid - Hard to say whether to adjust in a complex, acutely ill patient. She does not seem to have any symptoms of hypothyroidism. Will defer adjustment for now. (12) Colonic mass: Plan: Known colonic mass, but without carcinoma. Per oncology notes, plan to see CRC sx in [place] for removal, then start more aggressive chemotherapy. - No inpatient needs as long as she remains without large bowel obstruction (13) DVT prophylaxis: Plan: SCDs - Holding heparin for concern for RP bleed DNR/DNI - Per patient in ED. Alert, oriented, capable of making her own medical decisions Admission and Anticipated Discharge Date Admission Date: April 25, 2022 Subjective 81 yo female reports she will participate with PT this afternoon. Her pain appears better controlled. Review of Systems Review of Systems: All systems reviewed & are unremarkable except as noted in HPI & below Physical Exam Physical Exam: Constitutional: WD/WN, vitals as above Eyes: EOM intact bilaterally; no conjunctival abnormality ENMT: external ear and nose normal, oropharynx normal Neck: trachea midline, no thyromegaly normal visual inspection Respiratory: normal respiratory effort, lungs clear to auscultation no respiratory distress Cardiovascular: RRR, no murmur, no edema Gastrointestinal (Abdomen): Inspection/Auscultation: abdomen normal to inspection; abdomen not distended Musculoskeletal: no cyanosis or clubbing, extremities motor strength 5/5 Skin: no rashes, warm and dry Neurologic: moves all extremities and awake Psychiatric: Orientation: alert, oriented to person and cooperative Results & Data Results & Data ([facility]) Vital Signs (Past 12 Hours) Vital Signs Temp Pulse Resp BP BP Pulse Ox O2 Del Method 05/03/22 14:39 36.5 C 67 17 102/63 94 Room Air 05/03/22 08:06 36.5 C 76 15 120/75 94 Room Air PG Care Time/CCT Total # of Minutes Spent Total Time Spent with Patient: Total time spent is greater than 50% in coordination of care (as documented) at patient's floor/unit and/or counseling patient: Coding Level of Care Code 84818 Subseq Hosp Care Lvl 2 Diagnoses Compression fracture Thoracic spine fracture S22.009A Retroperitoneal bleed R58 Chronic kidney disease, stage 4 (severe) N18.4 Rib fractures S22.49XA Fall W19.XXXA Amyloidosis E85.9 Anemia of chronic disease D63.8 Type 2 diabetes mellitus E11.9 Hypertension I10 Hypothyroidism E03.9 Colonic mass K63.89 DVT prophylaxis Z29.9
[2022-05-03] MEDS: MONTELUKAST SODIUM 10 MG TABLET PO SCH (21:46)
[2022-05-04] MEDS: LEVOTHYROXINE SODIUM 88 MCG TABLET PO SCH (05:43)
[2022-05-04] MEDS: carvediloL 12.5 MG TAB PO SCH ×2 (08:47→20:44)
[2022-05-04] MEDS: ASPIRIN 81 MG ECTAB PO SCH (08:48)
[2022-05-04] MEDS: amLODIPine BESYLATE 5 MG TAB PO SCH (08:48)
[2022-05-04] MEDS: ASCORBIC ACID 500 MG TAB PO SCH (08:49)
[2022-05-04] MEDS: ATORVASTATIN 40 MG TAB PO SCH (08:49)
[2022-05-04] MEDS: CYANOCOBALAMIN (B-12) 2,500 MCG TABLET SCH (08:49)
[2022-05-04] MEDS: SODIUM BICARBONATE 650 MG TAB PO SCH ×2 (08:50→20:31)
[2022-05-04] MEDS: ACYCLOVIR 400 MG TAB PO SCH ×2 (08:50→20:30)
[2022-05-04] MEDS: POLYETHYLENE (MIRALAX) 17 GM PACK PO SCH (08:51)
[2022-05-04] MEDS: LIDOCAINE 5% 1 PATCH TD SCH (08:51)
[2022-05-04] MEDS: CALCITONIN SALMON NA 200 IU/AC 3.7 ML BTL SCH (08:52)
[2022-05-04] MEDS: ACETAMINOPHEN 325 MG TAB PO SCH ×3 (09:30→20:45)
[2022-05-04] MEDS: INSULIN ASPART PER UNIT SC SCH ×4 (09:30→22:07)
[2022-05-04] MEDS: oxyCODONE HCL IR 5 MG TAB (IMMEDIATE RELEASE) PO PRN (11:59)
[2022-05-04] MEDS: MONTELUKAST SODIUM 10 MG TABLET PO SCH (20:31)
--- NOTE | 2022-05-04 23:31 | Hospitalist Progress Note ---
Date of Service May 04, 2022 Assessment & Plan (1) Compression fracture: Plan: Superior endplate compression fractures from C7-T3, T10-T11, and L3 on CT and MRI reads. 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 - Lidocaine patches - Pain control PRN - Ortho spine consulted - Conservative treatment; soft collar for neck, TLSO brace. - Added calcitonin on 04/27. - Still reporting pain, but PT/OT notes both indicate endurance/strength is the larger issue and that pain is not limiting her significantly. (Added bowel regimen for constipation. Will get KUB to ensure no obstruction.) -Pain appears better controlled on 05/04 will participate on PT today. will monitor Patient has no new complaints. Awaiting placement (2) Thoracic spine fracture: Plan: Horizontal fracture through T8. MRI on 04/25 did not show involvement of the posterior elements. - Remains neurologically intact today - TLSO brace has been delivered. - Closely monitor - Stable so far. (3) Retroperitoneal bleed: Plan: CT a/p on 04/25 showed"trace hemorrhage tracking in the left paracolic gutter." Reviewed images with radiologist. No apparent internal organ bleeding. "Subcutaneous contusion/hematoma is noted in the left gluteal/supragluteal soft tissues" seen as well, so may be from this. - Repeat CT a/p on 04/26 showed no worsening bleeding and actually improved in thigh. - Hgb at 7.4. BP stable today. Monitor. - Venofer ordered on 04/27 & 04/28. (4) Chronic kidney disease, stage 4 (severe): Plan: Baseline Cr ~2.4 - 2.9, CrCl ~15. - At baseline on admission, but then up to 3.66 on 04/27. Consistent with acute kidney injury/failure. - Stopped furosemide on 04/26. - Renally dose meds - UA on 04/26 showed hyaline casts. - Nephrology consulted for worsening BRYAN - Appreciate recs. - Started on IV fluids - Slight improvement today. (5) Rib fractures: Plan: CT thoracic spine on 04/25 showed numerous non-displaced bilateral anterior rib fractures as above. - Conservative care (6) Fall: Plan: Mechanical in nature per patient. Did not strike head and no LoC. No prodrome symptoms to suggest other etiology. - PT/OT recommend rehab, but patient wanting to go home. Family asking for referrals to SNFs and will speak with patient. 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 Started on Darzalex Faspro on 02/07/2022. Given week 6 treatment on 03/15/2022. Plan to start CyBorD after colorectal surgery. - No acute inpatient needs at this time (8) Anemia of chronic disease: Plan: Baseline hgb ~9 - 10. Some element of acute blood loss anemia as well given mild RP bleed and thigh hematoma. - As above - Monitor (9) Type 2 diabetes mellitus: Plan: Recently diagnosed, as this is not in our charts. A1c is 6.8%. Likely some element of steroid-induced. - Sliding scale insulin - BSs have been 90 - 140 over last 24 hours. (10) Hypertension: Plan: BP in the ER was 155/95. Today it is 102/63 - Continue home carvedilol & amlodipine (11) Hypothyroidism: Plan: Last TSH in our system was >20 in 2020. Was again 26.3 this admission. - Continue home Synthroid - Hard to say whether to adjust in a complex, acutely ill patient. She does not seem to have any symptoms of hypothyroidism. Will defer adjustment for now. (12) Colonic mass: Plan: Known colonic mass, but without carcinoma. Per oncology notes, plan to see CRC sx in [place] for removal, then start more aggressive chemotherapy. - No inpatient needs as long as she remains without large bowel obstruction family will bring in cyclophosphamide medicine (13) DVT prophylaxis: Plan: SCDs - Holding heparin for concern for RP bleed DNR/DNI - Per patient in ED. Alert, oriented, capable of making her own medical decisions Admission and Anticipated Discharge Date Admission Date: April 25, 2022 Subjective patient reports no new complaints. Review of Systems Review of Systems: All systems reviewed & are unremarkable except as noted in HPI & below Physical Exam Physical Exam: Constitutional: WD/WN, vitals as above Eyes: EOM intact bilaterally; no conjunctival abnormality ENMT: external ear and nose normal, oropharynx normal Neck: trachea midline, no thyromegaly normal visual inspection Respiratory: normal respiratory effort, lungs clear to auscultation no respiratory distress Cardiovascular: RRR, no murmur, no edema Gastrointestinal (Abdomen): Inspection/Auscultation: abdomen normal to inspection; abdomen not distended Musculoskeletal: no cyanosis or clubbing, extremities motor strength 5/5 Skin: no rashes, warm and dry Neurologic: moves all extremities and awake Psychiatric: Orientation: alert, oriented to person and cooperative Results & Data Results & Data ([facility]) Vital Signs (Past 12 Hours) Vital Signs Temp Pulse Resp BP BP Pulse Ox O2 Del Method 05/04/22 20:43 76 16 112/78 95 Room Air 05/04/22 14:48 36.5 C 75 16 106/65 96 Room Air PG Care Time/CCT Total # of Minutes Spent Total Time Spent with Patient: Total time spent is greater than 50% in coordination of care (as documented) at patient's floor/unit and/or counseling patient: Coding Level of Care Code 24490 Subseq Hosp Care Lvl 2 Diagnoses Compression fracture Thoracic spine fracture S22.009A Retroperitoneal bleed R58 Chronic kidney disease, stage 4 (severe) N18.4 Rib fractures S22.49XA Fall W19.XXXA Amyloidosis E85.9 Anemia of chronic disease D63.8 Type 2 diabetes mellitus E11.9 Hypertension I10 Hypothyroidism E03.9 Colonic mass K63.89 DVT prophylaxis Z29.9
[2022-05-05] MEDS: LEVOTHYROXINE SODIUM 88 MCG TABLET PO SCH (05:37)
--- NOTE | 2022-05-05 08:31 | Hospitalist Progress Note ---
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 Pain control- Lidocaine patches, tylenol, oxycodone 2.5mg prn reports pain controlled with ordered medications Orthopedics consulted TLSO brace ordered and received, ambulate ad lb, no lifting greater than 5 pounds for her T7-T8 fracture In regards to C7-T3 superior endplate compression fractures, conservative treatment with cervical soft collar to be worn at all times except bathing/eating Added calcitonin 04/27 PT/OT consulted -- need updated PT/OT evals for consideration for Jihan Otoole. CM following (2) Thoracic spine fracture: Plan: Horizontal fracture through T8. MRI on 04/25 did not show involvement of the posterior elements. - Remains neurologically intact today, strength intact - TLSO brace has been delivered. - Closely monitor - Stable so far. (3) Retroperitoneal bleed: Plan: CT a/p on 04/25 showed"trace hemorrhage tracking in the left paracolic gutter." Reviewed images with radiologist. No apparent internal organ bleeding. "Subcutaneous contusion/hematoma is noted in the left gluteal/supragluteal soft tissues" seen as well, so may be from this. - Repeat CT a/p on 04/26 showed no worsening bleeding and actually improved in thigh. Hgb 7.5 on repeat today, iron studies low, nephrology wrote day 3 Venofer, no additional doses ordered after signed off Iron studies showed iron <10, trans % sat not even able to be calculated. Venofer ordered on 04/26 (300mg), 04/27 (200mg), 04/28 (300mg), will order additional dose for today 200mg and plan for repeat dose tomorrow I checked B12/folate for completeness, no deficiency Monitor CBC in AM (4) Chronic kidney disease, stage 4 (severe): Plan: Baseline Cr ~2.4 - 2.9, CrCl ~15. Renal amyloidosis At baseline on admission, but then up to 3.66 on 04/27. Consistent with acute kidney injury/failure. Stopped furosemide on 04/26. Nephrology started NaHCO 650mg BID for correction of metabolic acidosis, since signed off Cr 3.22 Na 131 (TSH elevated to 26 on admit, repeated today still 10), will increase synthroid for AM 100mcg Also checking BNP given possible CHF from NaHCO3 replacement, will reach back out to nephrology pending given prior lasix placed on hold, alk phos elevated compared to prior , ?+HJR on exam K 5.4 yesterday, no invention noted K 5.5 today, not on ARUNA/ARB Ordered IVF, dose kayexalate, changed IVF to D51/2 for total 50cc and monitor on repeat Renal dose meds/avoid nephrotoxic agents when able BMP in AM (5) Rib fractures: Plan: CT thoracic spine on 04/25 showed numerous non-displaced bilateral anterior rib fractures as above. - Conservative care, reports pain controlled (6) Fall: Plan: Mechanical in nature per patient. Did not strike head and no LoC. No prodrome symptoms to suggest other etiology. - PT/OT recommend rehab, but patient wanting to go home. Family asking for re ferrals to SNFs (7) Amyloidosis: Plan: Renal amyloidosis with AL [place] subtype diagnosed on 11/04/2021 on biopsy. Started on Darzalex Faspro on 02/07/2022. Given week 6 treatment on 03/15/2022. Plan to start CyBorD after colorectal surgery. - No acute inpatient needs at this time (8) Anemia of chronic disease: Plan: Baseline hgb ~9 - 10. Some element of acute blood loss anemia as well given mild RP bleed and thigh hematoma. Justin provided 3/5 doses inpatient, will order repeat dose for today, would order repeat for AM pending CBC/BP (ordered 200mg given borderline BP to prevent hypoperfusion) (9) Type 2 diabetes mellitus: Plan: Recently diagnosed, as this is not in our charts. A1c is 6.8%. Likely some element of steroid-induced, ?accuracy given anemia - Sliding scale insulin - BSs have been 90 - 140 over last 24 hours. (10) Hypertension: Plan: BP in the ER was 155/95, however has been well controlled/borderline low since 04/25 Continues on carvedilol BID, amlodipine (11) Hypothyroidism: Plan: Last TSH in our system was >20 in 2020. Was again 26.3 this admission. - Continue home Synthroid Given significant elevation to 26 (prior 20) and repeat 2 weeks in still elevated to 10 in patient with underlying hypothyroidism/fatigue/edema, will increase to 100mcg for AM (12) Colonic mass: Plan: Known colonic mass, but without carcinoma. Per oncology notes, plan to see CRC sx in [place] for removal, then start more aggressive chemotherapy after mass removed - No inpatient needs as long as she remains without large bowel obstruction family will bring in cyclophosphamide medicine (13) DVT prophylaxis: Plan: SCDs - Holding heparin for concern for RP bleed, will order SCDs while inpatient/not as mobile. LE edema but NONTENDER/NO ERYTHEMA/evidence for DVT presently DNR/DNI - Per patient in ED. Alert, oriented, capable of making her own medical decisions had been having loose stool --> cdiff checked, negative Plan continued inpatient stay Venofer /, will order additional dose for AM increased Synthroid given persist elevated TSH and edema/hypothyroidism Check BNP given continued hyponatremia/abd distention/elevated ALK phos given lasix has been on hold consider reaching back out to nephrology pending repeat labs Admission and Anticipated Discharge Date Admission Date: April 25, 2022 Supervising Physician Co-Signing Physician Notes Attending Attestation - Chart reviewed in detail, care plan d/w GALINDO Rivera. I agree w/ the han components of her documentation. Abhijit Muñiz MD Subjective Patient evaluated this morning, getting dose of Venofer. She states she only got 3 doses prior. Feels quite fatigued, but pain is currently controlled with ordered medications Abdomen distended, but has been moving her bowels, liquid stool. cdiff testing negative states wearing brace for back when out of bed but that it doesn't help pain very much. denies any fevers, chills, chest pain, shortness of breath, abdominal pain, nausea or vomiting at this time. Questions/concerns addressed, awaiting placement. Discussed giving some IVF for some dehydration, dry mm on examination. Review of Systems Review of Systems: All systems reviewed & are unremarkable except as noted in HPI & below Physical Exam Physical Exam: Constitutional:chronically ill appearing female sitting in bed, thinned hair/alopecia, fatigued appearing, general pallor HEENT: alopecia, pupils equal in size, cervical soft collar in place Chest: lidocaine patches in place for rib fractures, tender to palpation Resp: poor inspiratory effort, diminished in the bases with associated crackles without wheezing, on room air CV: RRR, +murmur, 1-2+ edema b/l LE, calves NONtender, pulses palpable GI+ Distended, +BS throughout, nontender, no guarding MSK/Neuro: moves extremities, follows commands, no slurred speech/facial droop, strength 4-5/5 bilateral LE with dorsiflexion/plantar flexion, no clonus observes, heels elevated with jp pads in place as well Psych: alert to person/place, time, pleasant and cooperative Skin: scattered ecchymosis to arms from lab draws/injections Results & Data Results & Data ([facility]) Vital Signs (Past 12 Hours) Vital Signs Temp Pulse Pulse Resp BP Pulse Ox O2 Del Method 05/05/22 05:57 36.5 C 71 12 123/77 96 Room Air 05/04/22 23:54 Room Air 05/04/22 20:43 76 16 112/78 95 Room Air Laboratory Results 05/05/22 05/05/22 05/05/22 Range/Units 11:49 08:54 08:54 WBC (4.8-10.8) K/ul RBC (3.93-5.22) M/uL Hgb (12.0-16.0) g/dl Hct (34.1-44.9) % MCV (80.0-100.0) fL MCH (25.0-34.0) pg MCHC (32.0-36.0) g/dL RDW Std Deviation (36.4-46.3) fL RDW Coeff of Ruthie (11.5-14.5) % Plt Count (130-400) K/uL MPV (9.4-12.3) fL Absolute Nucleated RBC (0-0) K/uL Nucleated RBC % (auto) % Sodium (136-145) mmol/L Potassium (3.5-5.1) mmol/L Chloride (98-107) mmol/L Carbon Dioxide (21-32) mmol/L Anion Gap (3-11) BUN (6-23) mg/dl Creatinine (0.6-1.2) mg/dl Est Cr Clr Drug Dosing ml/min Est GFR ( Amer) ml/min Est GFR (Non-Af Amer) ml/min BUN/Creatinine Ratio (10-20) Glucose (70-99(Fasting)) mg/dl POC Glucose 129 H (70-99) mg/dl Calcium (8.5-10.1) mg/dl Magnesium (1.7-2.4) mg/dl Total Bilirubin (0.2-1.0) mg/dl Direct Bilirubin (0-0.2) mg/dl AST (13-39) U/L ALT (7-52) U/L Alkaline Phosphatase (34-104) U/L Total Protein (6.0-8.3) gm/dl Albumin (3.4-5.0) gm/dl Vitamin B12 > 1500 H (180-914) pg/ml Folate > 22.30 (>5.38) ng/ml TSH 10.272 H (0.300-4.500) uIu/ml Free T4 1.14 (0.61-1.60) ng/dl Stl C. diff Tox B Gene (Neg) 05/05/22 05/05/22 05/05/22 Range/Units 08:54 08:54 07:52 WBC 7.62 (4.8-10.8) K/ul RBC 2.58 L (3.93-5.22) M/uL Hgb 7.5 L (12.0-16.0) g/dl Hct 23.9 L (34.1-44.9) % MCV 92.6 (80.0-100.0) fL MCH 29.1 (25.0-34.0) pg MCHC 31.4 L (32.0-36.0) g/dL RDW Std Deviation 53.0 H (36.4-46.3) fL RDW Coeff of Ruthie 17.8 H (11.5-14.5) % Plt Count 444 H (130-400) K/uL MPV 10.0 (9.4-12.3) fL Absolute Nucleated RBC 0.02 H (0-0) K/uL Nucleated RBC % (auto) 0.3 % Sodium 131 L (136-145) mmol/L Potassium 5.5 H (3.5-5.1) mmol/L Chloride 104 (98-107) mmol/L Carbon Dioxide 15 L (21-32) mmol/L Anion Gap 12 H (3-11) BUN 103 H (6-23) mg/dl Creatinine 3.22 H (0.6-1.2) mg/dl Est Cr Clr Drug Dosing 11.3 ml/min Est GFR ( Amer) 15.1 ml/min Est GFR (Non-Af Amer) 13.0 ml/min BUN/Creatinine Ratio 32.0 H (10-20) Glucose 97 (70-99(Fasting)) mg/dl POC Glucose 90 (70-99) mg/dl Calcium 7.8 L (8.5-10.1) mg/dl Magnesium 2.1 (1.7-2.4) mg/dl Total Bilirubin 0.6 (0.2-1.0) mg/dl Direct Bilirubin 0.2 (0-0.2) mg/dl AST 23 (13-39) U/L ALT 18 (7-52) U/L Alkaline Phosphatase 168 H (34-104) U/L Total Protein 4.9 L (6.0-8.3) gm/dl Albumin 2.8 L (3.4-5.0) gm/dl Vitamin B12 (180-914) pg/ml Folate (>5.38) ng/ml TSH (0.300-4.500) uIu/ml Free T4 (0.61-1.60) ng/dl Stl C. diff Tox B Gene (Neg) 05/04/22 05/04/22 05/04/22 Range/Units 20:37 17:12 13:30 WBC (4.8-10.8) K/ul RBC (3.93-5.22) M/uL Hgb (12.0-16.0) g/dl Hct (34.1-44.9) % MCV (80.0-100.0) fL MCH (25.0-34.0) pg MCHC (32.0-36.0) g/dL RDW Std Deviation (36.4-46.3) fL RDW Coeff of Ruthie (11.5-14.5) % Plt Count (130-400) K/uL MPV (9.4-12.3) fL Absolute Nucleated RBC (0-0) K/uL Nucleated RBC % (auto) % Sodium (136-145) mmol/L Potassium (3.5-5.1) mmol/L Chloride (98-107) mmol/L Carbon Dioxide (21-32) mmol/L Anion Gap (3-11) BUN (6-23) mg/dl Creatinine (0.6-1.2) mg/dl Est Cr Clr Drug Dosing ml/min Est GFR ( Amer) ml/min Est GFR (Non-Af Amer) ml/min BUN/Creatinine Ratio (10-20) Glucose (70-99(Fasting)) mg/dl POC Glucose 85 147 H (70-99) mg/dl Calcium (8.5-10.1) mg/dl Magnesium (1.7-2.4) mg/dl Total Bilirubin (0.2-1.0) mg/dl Direct Bilirubin (0-0.2) mg/dl AST (13-39) U/L ALT (7-52) U/L Alkaline Phosphatase (34-104) U/L Total Protein (6.0-8.3) gm/dl Albumin (3.4-5.0) gm/dl Vitamin B12 (180-914) pg/ml Folate (>5.38) ng/ml TSH (0.300-4.500) uIu/ml Free T4 (0.61-1.60) ng/dl Stl C. diff Tox B Gene Negative Cdiff Gene (Neg) PG Care Time/CCT Total # of Minutes Spent Total Time Spent with Patient: Total time spent is greater than 50% in coordination of care (as documented) at patient's floor/unit and/or counseling patient: Coding Level of Care Code 71542 Subseq Hosp Care Lvl 3 Diagnoses Compression fracture Thoracic spine fracture S22.009A Retroperitoneal bleed R58 Chronic kidney disease, stage 4 (severe) N18.4 Rib fractures S22.49XA Fall W19.XXXA Amyloidosis E85.9 Anemia of chronic disease D63.8 Type 2 diabetes mellitus E11.9 Hypertension I10 Hypothyroidism E03.9 Colonic mass K63.89 DVT prophylaxis Z29.9
[2022-05-05] MEDS ORDERED: IRON SUCROSE 200 MG in 0.9 % SODIUM CHLORIDE 100 ML IV SCH (09:00)
[2022-05-05 09:13] LABS: Hematocrit (blood only) 23.9 % (34.1-44.9); Hemoglobin 7.5 g/dl (12.0-16.0); Mean Corpuscular Hemoglobin 29.1 pg (25.0-34.0); Mean Corpuscular Hgb Conc 31.4 g/dL (32.0-36.0); Mean Corpuscular Volume 92.6 fL (80.0-100.0); Nucleated RBC # (auto) 0.02 K/uL (0-0); Nucleated RBC % (auto) 0.3 %; Platelet Count 444 K/uL (130-400); RDW Coefficient of Variation 17.8 % (11.5-14.5); Red Blood Count 2.58 M/uL (3.93-5.22); White Blood Count 7.62 K/ul (4.8-10.8)
[2022-05-05] MEDS: INSULIN ASPART PER UNIT SC SCH ×4 (09:26→21:23)
[2022-05-05] MEDS: POLYETHYLENE (MIRALAX) 17 GM PACK PO SCH (09:34)
[2022-05-05] MEDS: ASPIRIN 81 MG ECTAB PO SCH (09:34)
[2022-05-05] MEDS: amLODIPine BESYLATE 5 MG TAB PO SCH (09:35)
[2022-05-05] MEDS: carvediloL 12.5 MG TAB PO SCH ×2 (09:35→21:18)
[2022-05-05] MEDS: CALCITONIN SALMON NA 200 IU/AC 3.7 ML BTL SCH (09:35)
[2022-05-05] MEDS: ATORVASTATIN 40 MG TAB PO SCH (09:35)
[2022-05-05] MEDS: ACYCLOVIR 400 MG TAB PO SCH ×2 (09:35→21:18)
[2022-05-05] MEDS: CYANOCOBALAMIN (B-12) 2,500 MCG TABLET SCH (09:36)
[2022-05-05] MEDS: SODIUM BICARBONATE 650 MG TAB PO SCH ×2 (09:36→21:18)
[2022-05-05] MEDS: ASCORBIC ACID 500 MG TAB PO SCH (09:36)
[2022-05-05 09:39] LABS: Albumin Level 2.8 gm/dl (3.4-5.0); Bilirubin Direct 0.2 mg/dl (0-0.2); Bilirubin,Total 0.6 mg/dl (0.2-1.0); Calcium 7.8 mg/dl (8.5-10.1); Creatinine Clr Calc Pharmacy 11.3 ml/min; Est GFR (African American) 15.1 ml/min; Magnesium 2.1 mg/dl (1.7-2.4); Potassium 5.5 mmol/L (3.5-5.1); Total Protein 4.9 gm/dl (6.0-8.3)
[2022-05-05] MEDS: ACETAMINOPHEN 325 MG TAB PO SCH ×3 (09:39→21:21)
[2022-05-05] MEDS ORDERED: SODIUM POLYSTYRENE SULFONATE 15G/60ML SUSP PO STA (09:44)
[2022-05-05] MEDS ORDERED: SODIUM CHLORIDE 0.9% 500 ML IV SCH (09:45)
[2022-05-05 09:50] LABS: Thyroid Stimulating Hormone 10.272 uIu/ml (0.300-4.500)
[2022-05-05 10:00] LABS: Folate (Folic Acid) > 22.30 ng/ml (>5.38)
[2022-05-05 10:01] LABS: Vitamin B12 > 1500 pg/ml (180-914)
[2022-05-05 10:21] LABS: T4 Free Thyroxine 1.14 ng/dl (0.61-1.60)
[2022-05-05] MEDS: LIDOCAINE 5% 1 PATCH TD SCH (10:42)
[2022-05-05] MEDS ORDERED: D5W AND NSS 1,000 ML IV SCH (16:00)
[2022-05-05] MEDS ORDERED: D5W AND NSS 500 ML IV SCH (17:00)
[2022-05-05] MEDS ORDERED: FUROSEMIDE INJ 20 MG/2 ML VIAL IV ONE (17:26)
[2022-05-05] MEDS: MONTELUKAST SODIUM 10 MG TABLET PO SCH (21:18)
[2022-05-06] MEDS ORDERED: IRON SUCROSE 200 MG in 0.9 % SODIUM CHLORIDE 100 ML IV ONE (06:00)
[2022-05-06] MEDS: LEVOTHYROXINE SODIUM 100 MCG TABLET PO SCH (06:25)
[2022-05-06 07:14] LABS: Hematocrit (blood only) 23.4 % (34.1-44.9); Hemoglobin 7.3 g/dl (12.0-16.0); Mean Corpuscular Hemoglobin 29.3 pg (25.0-34.0); Mean Corpuscular Hgb Conc 31.2 g/dL (32.0-36.0); Nucleated RBC # (auto) 0.02 K/uL (0-0); Nucleated RBC % (auto) 0.3 %; Platelet Count 410 K/uL (130-400); RDW Coefficient of Variation 18.3 % (11.5-14.5); RDW Standard Deviation 54.3 fL (36.4-46.3); Red Blood Count 2.49 M/uL (3.93-5.22); White Blood Count 6.61 K/ul (4.8-10.8)
[2022-05-06 07:40] LABS: BUN Creatinine Ratio 31.6 (10-20); Calcium 7.5 mg/dl (8.5-10.1); Creatinine Clr Calc Pharmacy 11.7 ml/min; Est GFR (African American) 15.6 ml/min; Est GFR (Non-African American) 13.5 ml/min; Potassium 4.8 mmol/L (3.5-5.1)
[2022-05-06 07:41] LABS: Albumin Globulin Ratio 1.4 (0.9-2); Albumin Level 2.7 gm/dl (3.4-5.0); Bilirubin,Total 0.6 mg/dl (0.2-1.0); Total Protein 4.7 gm/dl (6.0-8.3)
[2022-05-06] MEDS: CYANOCOBALAMIN (B-12) 2,500 MCG TABLET SCH ×2 (08:38→08:48)
[2022-05-06] MEDS: ACYCLOVIR 400 MG TAB PO SCH ×2 (08:38→20:36)
[2022-05-06] MEDS: SODIUM BICARBONATE 650 MG TAB PO SCH ×3 (08:38→20:36)
[2022-05-06] MEDS: amLODIPine BESYLATE 5 MG TAB PO SCH (08:38)
[2022-05-06] MEDS: POLYETHYLENE (MIRALAX) 17 GM PACK PO SCH ×2 (08:39→09:00)
[2022-05-06] MEDS: carvediloL 12.5 MG TAB PO SCH ×2 (08:39→20:36)
[2022-05-06] MEDS: ASCORBIC ACID 500 MG TAB PO SCH (08:39)
[2022-05-06] MEDS: ATORVASTATIN 40 MG TAB PO SCH (08:39)
[2022-05-06] MEDS: ASPIRIN 81 MG ECTAB PO SCH (08:39)
[2022-05-06] MEDS: LIDOCAINE 5% 1 PATCH TD SCH (08:40)
[2022-05-06] MEDS: CALCITONIN SALMON NA 200 IU/AC 3.7 ML BTL SCH ×2 (08:41→08:42)
[2022-05-06] MEDS: ACETAMINOPHEN 325 MG TAB PO SCH ×3 (08:43→20:41)
--- NOTE | 2022-05-06 08:54 | Hospitalist Progress Note ---
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 Pain control- Lidocaine patches, tylenol, oxycodone 2.5mg prn reports pain controlled with ordered medications Orthopedics consulted TLSO brace ordered and received, ambulate ad lb, no lifting greater than 5 pounds for her T7-T8 fracture In regards to C7-T3 superior endplate compression fractures, conservative treatment with cervical soft collar to be worn at all times except bathing/eating Added calcitonin 04/27 PT/OT consulted -- need updated PT/OT evals for consideration for Jihan Otoole. CM following (2) Thoracic spine fracture: Plan: Horizontal fracture through T8. MRI on 04/25 did not show involvement of the posterior elements. - Remains neurologically intact today, strength intact - TLSO brace has been delivered. (3) Retroperitoneal bleed: Plan: CT a/p on 04/25 showed"trace hemorrhage tracking in the left paracolic gutter." Reviewed images with radiologist. No apparent internal organ bleeding. "Subcutaneous contusion/hematoma is noted in the left gluteal/supragluteal soft tissues" seen as well, so may be from this. - Repeat CT a/p on 04/26 showed no worsening bleeding and actually improved in thigh. Hgb 7.5 on repeat today, iron studies low, nephrology wrote day 3 Venofer, no additional doses ordered after signed off Iron studies showed iron <10, trans % sat not even able to be calculated. Venofer ordered on 04/26 (300mg), 04/27 (200mg), 04/28 (300mg), will order additional 2 doses 200mg B12/folate, no deficiency (4) Chronic kidney disease, stage 4 (severe): Plan: Baseline Cr ~2.4 - 2.9, CrCl ~15. Renal amyloidosis At baseline on admission, but then up to 3.66 on 04/27. Consistent with acute kidney injury/failure. Stopped furosemide on 04/26. Nephrology started NaHCO 650mg BID for correction of metabolic acidosis, since signed off TSH elevated to 26 on admit, repeated today still 10 increase synthroid for AM 100mcg K 5.4 yesterday, no invention noted K 5.5 today, not on ARUNA/ARB Ordered IVF, dose kayexalate, changed IVF to D51/2 for total 50cc and monitor on repeat Renal dose meds/avoid nephrotoxic agents when able (5) Rib fractures: Plan: CT thoracic spine on 04/25 showed numerous non-displaced bilateral anterior rib fractures as above. - Conservative care, reports pain controlled (6) Fall: Plan: Mechanical in nature per patient. Did not strike head and no LoC. No prodrome symptoms to suggest other etiology. - PT/OT recommend rehab, but patient wanting to go home. Family asking for referrals to SNFs (7) Amyloidosis: Plan: Renal amyloidosis with AL [place] subtype diagnosed on 11/04/2021 on biopsy. Star otoniel on Darzalex Faspro on 02/07/2022. Given week 6 treatment on 03/15/2022. Plan to start CyBorD after colorectal surgery. - No acute inpatient needs at this time (8) Anemia of chronic disease: Plan: Baseline hgb ~9 - 10. Some element of acute blood loss anemia as well given mild RP bleed and thigh hematoma. Justin provided 3/5 doses inpatient, will order repeat dose for today, would order repeat for AM pending CBC/BP (ordered 200mg given borderline BP to prevent hypoperfusion) (9) Type 2 diabetes mellitus: Plan: Recently diagnosed, as this is not in our charts. A1c is 6.8%. Likely some element of steroid-induced, ?accuracy given anemia - Sliding scale insulin - BSs have been 90 - 140 over last 24 hours. (10) Hypertension: Plan: BP in the ER was 155/95, however has been well controlled/borderline low since 04/25 Continues on carvedilol BID, amlodipine (11) Hypothyroidism: Plan: Last TSH in our system was >20 in 2020. Was again 26.3 this admission. - Continue home Synthroid Given significant elevation to 26 (prior 20) and repeat 2 weeks in still elevated to 10 in patient with underlying hypothyroidism/fatigue/edema, will increase to 100mcg for AM (12) Colonic mass: Plan: Known colonic mass, but without carcinoma. Per oncology notes, plan to see CRC sx in [place] for removal, then start more aggressive chemotherapy after mass removed - No inpatient needs as long as she remains without large bowel obstruction family will bring in cyclophosphamide medicine (13) DVT prophylaxis: Plan: SCDs - Holding heparin with anemia, will order SCDs while inpatient/not as mobile. LE edema but NONTENDER/NO ERYTHEMA/evidence for DVT presently DNR/DNI - Per patient in ED. Alert, oriented, capable of making her own medical decisions loose stool --> cdiff checked, negative Admission and Anticipated Discharge Date Admission Date: April 25, 2022 Subjective this pt is hard or hearing but in no particular state of illness Review of Systems Review of Systems: Mild distress and fatigue no headache, no visual changes no speech or swallowing issues no chest pain, pressure or palpitations no shortness of breath, cough or wheezes no abdominal pain, nausea or vomiting, diarrhea or constipation no dysuria, hematuria or frequency no focal joint pain or swelling no back pain, CVA tenderness or radicular pain complaints of anxiety or depression.. Physical Exam Physical Exam: The patient appeared chronic ill but stable Vital signs as documented. Lungs are clear to auscultation and appear unlabored Cardiac exam, Rhythm is regular.. No murmurs, rubs or gallops. Extremities are nonedematous and both pedal pulses are normal. Neurologic exam is alert and oriented Skin is without bruises or rashes Psychologically is without concerns for anxiety or depression. Results & Data Results & Data ([facility]) Vital Signs (Past 12 Hours) Vital Signs Temp Pulse Resp BP BP Pulse Ox O2 Del Method 05/06/22 07:34 95.7 F L 71 16 131/73 97 Room Air 05/05/22 22:04 97.3 F L 70 18 114/66 98 Room Air PG Care Time/CCT Total # of Minutes Spent Total Time Spent with Patient: Total time spent is greater than 50% in coordination of care (as documented) at patient's floor/unit and/or counseling patient: Coding Level of Care Code 35047 Subseq Hosp Care Lvl 2 Diagnoses Compression fracture Thoracic spine fracture S22.009A Retroperitoneal bleed R58 Chronic kidney disease, stage 4 (severe) N18.4 Rib fractures S22.49XA Fall W19.XXXA Amyloidosis E85.9 Anemia of chronic disease D63.8 Type 2 diabetes mellitus E11.9 Hypertension I10 Hypothyroidism E03.9 Colonic mass K63.89 DVT prophylaxis Z29.9
[2022-05-06] MEDS: INSULIN ASPART PER UNIT SC SCH ×4 (09:04→21:10)
[2022-05-06] MEDS: oxyCODONE HCL IR 5 MG TAB (IMMEDIATE RELEASE) PO PRN (09:44)
--- NOTE | 2022-05-06 09:57 | Nephrology Progress Note ---
Date of Service May 06, 2022 Assessment & Plan (1) Acute kidney injury: Plan: * BRYAN due to intravascular volume contraction on admission * Intravascular volume improved with therapy, Sandra is having some evidence of 3rd spacing fluid but this is complicated by decreased intake * Suggest diuretics only as needed to maintain even fluid balance * Encourage oral solute intake * Continue oral NaHCO3 for metabolic acidosis, increased from BID to TID today * Thankfully, creatinine is relatively stable * Electrolytes acceptable * Potassium improved with SPS yesterday, continue low potassium diet (2) Chronic kidney disease, stage V: Plan: * 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 Baseline Cr has been 3.0 w/ EGFR 14 cc/min. Evaluation revealed benign urine sediment but nephrotic range proteinuria. PLA2R antibody testing was negative. Renal biopsy 11/23 revealed AL- [place] amyloidosis * Patient has indicated that she does not want dialysis if her kidney function worsens - I confirmed this today (3) Anemia: Plan: * Likely related to combination amyloidosis, chemotherapy * IV Venofer is being provided * Epogen 35891 units x 1 dose provided today * Recommend transfusion for symptomatic anemia or Hgb < or = 7.0 (4) Amyloidosis: Plan: * Plan to resume CYBORD per oncology Admission and Anticipated Discharge Date Admission Date: April 25, 2022 Subjective No acute events overnight. Nephrology follow up was requested for follow up regarding kidney dysfunction, hyperkalemia, metabolic acidosis, and anemia. Plan of care was reviewed with Janice Rivera PA-C and Dr. Gonsalez. Sandra reports progressive fatigue and weakness. She describes increased abdominal distention. Appetite is fair. No fevers or chills. No urinary complaints. Denies dyspnea. Review of Systems Review of Systems: All systems reviewed & are unremarkable except as noted in HPI & below Physical Exam Constitutional: + cachectic and + frail appearing; no acute distress Eyes: + anicteric sclerae; no corneal abnormality ENMT: Mouth: + dry oral mucous membranes Neck: normal visual inspection and trachea midline Respiratory: normal respiratory effort, lungs clear to auscultation Cardiovascular: Rate/Rhythm: regular rate Heart Sounds: normal S1, normal S2 and + murmur Extremities: no edema Gastrointestinal (Abdomen): Inspection/Auscultation: + abdomen distended and + hypoactive bowel sounds Percussion/Palpation: + ascites; abdomen nontender Skin: + turgor decreased; no jaundice Neurologic: awake; not confused Results & Data ([facility]) Vital Signs (Past 12 Hours) Vital Signs Temp Pulse Resp BP BP Pulse Ox O2 Del Method 05/06/22 07:34 35.4 C L 71 16 131/73 97 Room Air 05/05/22 22:04 36.3 C L 70 18 114/66 98 Room Air Laboratory Results Laboratory Results - last 24 hr 05/05/22 05/05/22 05/05/22 08:54 11:49 16:05 WBC RBC Hgb Hct MCV MCH MCHC RDW Std Deviation RDW Coeff of Ruthie Plt Count MPV Absolute Nucleated RBC Nucleated RBC % (auto) Sodium Potassium Chloride Carbon Dioxide Anion Gap BUN Creatinine Est Cr Clr Drug Dosing Est GFR ( Amer) Est GFR (Non-Af Amer) BUN/Creatinine Ratio Glucose POC Glucose 129 H Calcium Total Bilirubin AST ALT Alkaline Phosphatase B-Natriuretic Peptide 557 H Total Protein Albumin Globulin Albumin/Globulin Ratio Free T4 1.14 05/05/22 05/05/22 05/06/22 16:51 20:56 06:50 WBC 6.61 RBC 2.49 L Hgb 7.3 L Hct 23.4 L MCV 94.0 MCH 29.3 MCHC 31.2 L RDW Std Deviation 54.3 H RDW Coeff of Ruthie 18.3 H Plt Count 410 H MPV 10.0 Absolute Nucleated RBC 0.02 H Nucleated RBC % (auto) 0.3 Sodium Potassium Chloride Carbon Dioxide Anion Gap BUN Creatinine Est Cr Clr Drug Dosing Est GFR ( Amer) Est GFR (Non-Af Amer) BUN/Creatinine Ratio Glucose POC Glucose 155 H 158 H Calcium Total Bilirubin AST ALT Alkaline Phosphatase B-Natriuretic Peptide Total Protein Albumin Globulin Albumin/Globulin Ratio Free T4 05/06/22 05/06/22 06:50 08:22 WBC RBC Hgb Hct MCV MCH MCHC RDW Std Deviation RDW Coeff of Ruthie Plt Count MPV Absolute Nucleated RBC Nucleated RBC % (auto) Sodium 133 L Potassium 4.8 Chloride 105 Carbon Dioxide 17 L Anion Gap 11 BUN 99 H Creatinine 3.13 H Est Cr Clr Drug Dosing 11.7 Est GFR ( Amer) 15.6 Est GFR (Non-Af Amer) 13.5 BUN/Creatinine Ratio 31.6 H Glucose 78 POC Glucose 99 Calcium 7.5 L Total Bilirubin 0.6 AST 22 ALT 17 Alkaline Phosphatase 157 H B-Natriuretic Peptide Total Protein 4.7 L Albumin 2.7 L Globulin 2.0 L Albumin/Globulin Ratio 1.4 Free T4 PG Care Time/CCT Total # of Minutes Spent Total Time Spent with Patient: Total time spent is greater than 50% in coordination of care (as documented) at patient's floor/unit and/or counseling patient: Coding Level of Care Code 08712 Subseq Hosp Care Lvl 3 Diagnoses Acute kidney injury N17.9 Chronic kidney disease, stage V N18.5 Anemia D64.9 Amyloidosis E85.9
[2022-05-06] MEDS ORDERED: EPOETIN ALFA 10,000 UNITS/ML VIAL SQ ONE (09:59)
[2022-05-06] MEDS: MONTELUKAST SODIUM 10 MG TABLET PO SCH (20:35)
[2022-05-07] MEDS: LEVOTHYROXINE SODIUM 100 MCG TABLET PO SCH (06:16)
[2022-05-07] MEDS: ACYCLOVIR 400 MG TAB PO SCH ×2 (08:07→21:15)
[2022-05-07] MEDS: ATORVASTATIN 40 MG TAB PO SCH (08:07)
[2022-05-07] MEDS: LIDOCAINE 5% 1 PATCH TD SCH (08:07)
[2022-05-07] MEDS: CYANOCOBALAMIN (B-12) 2,500 MCG TABLET SCH (08:07)
[2022-05-07] MEDS: amLODIPine BESYLATE 5 MG TAB PO SCH (08:07)
[2022-05-07] MEDS: carvediloL 12.5 MG TAB PO SCH ×2 (08:07→21:15)
[2022-05-07] MEDS: ASCORBIC ACID 500 MG TAB PO SCH (08:08)
[2022-05-07] MEDS: POLYETHYLENE (MIRALAX) 17 GM PACK PO SCH (08:08)
[2022-05-07] MEDS: ASPIRIN 81 MG ECTAB PO SCH (08:08)
[2022-05-07] MEDS: SODIUM BICARBONATE 650 MG TAB PO SCH ×2 (08:08→17:04)
[2022-05-07] MEDS: CALCITONIN SALMON NA 200 IU/AC 3.7 ML BTL SCH (08:08)
[2022-05-07 08:41] LABS: Hematocrit (blood only) 23.3 % (34.1-44.9); Hemoglobin 7.3 g/dl (12.0-16.0); Mean Corpuscular Hemoglobin 29.4 pg (25.0-34.0); Mean Corpuscular Hgb Conc 31.3 g/dL (32.0-36.0); Nucleated RBC # (auto) 0.03 K/uL (0-0); Nucleated RBC % (auto) 0.4 %; Platelet Count 415 K/uL (130-400); RDW Coefficient of Variation 19.2 % (11.5-14.5); RDW Standard Deviation 54.9 fL (36.4-46.3); Red Blood Count 2.48 M/uL (3.93-5.22); White Blood Count 7.56 K/ul (4.8-10.8)
[2022-05-07] MEDS: ACETAMINOPHEN 325 MG TAB PO SCH ×3 (08:57→21:15)
[2022-05-07] MEDS: INSULIN ASPART PER UNIT SC SCH ×4 (09:00→21:19)
[2022-05-07 09:14] LABS: Albumin Level 2.7 gm/dl (3.4-5.0); BUN Creatinine Ratio 34.7 (10-20); Calcium 7.7 mg/dl (8.5-10.1); Creatinine Clr Calc Pharmacy 12.4 ml/min; Est GFR (African American) 16.8 ml/min; Est GFR (Non-African American) 14.5 ml/min; Phosphorus 6.6 mg/dl (2.5-4.9); Potassium 5.1 mmol/L (3.5-5.1)
--- NOTE | 2022-05-07 10:57 | Nephrology Progress Note ---
Date of Service May 07, 2022 Assessment & Plan (1) Acute kidney injury: Plan: * BRYAN due to intravascular volume contraction on admission * Encourage oral solute intake * Continue oral NaHCO3 for metabolic acidosis * Thankfully, creatinine is relatively stable * Electrolytes acceptable * Low potassium diet (2) Chronic kidney disease, stage V: Plan: * CKD stage V A3. Baseline Cr has been 3.0 mg/dL. Evaluation revealed benign urine sediment but nephrotic range proteinuria. PLA2R antibody testing was negative. Renal biopsy 11/23 revealed AL- [place] amyloidosis * Sandra has indicated that she does not want dialysis if her kidney function worsens (3) Anemia: Plan: * Likely related to combination amyloidosis, chemotherapy * IV Venofer is provided * Epogen 81560 units x 1 dose provided 05/06/22 * Recommend transfusion for symptomatic anemia or Hgb < or = 7.0 Admission and Anticipated Discharge Date Admission Date: April 25, 2022 Subjective No acute events overnight. No complaints this AM. Denies pain. No nausea. Appetite good. Review of Systems Review of Systems: All systems reviewed & are unremarkable except as noted in HPI & below Physical Exam Constitutional: + frail appearing; no acute distress Eyes: + anicteric sclerae; no corneal abnormality ENMT: Mouth: + dry oral mucous membranes Neck: normal visual inspection and trachea midline Respiratory: normal respiratory effort, lungs clear to auscultation Cardiovascular: Rate/Rhythm: regular rate Heart Sounds: normal S1, normal S2 and + murmur Extremities: + pedal edema Skin: + turgor decreased; no jaundice Neurologic: awake; not confused Results & Data ([facility]) Vital Signs (Past 12 Hours) Vital Signs Temp Pulse Resp BP Pulse Ox O2 Del Method 05/07/22 07:15 36.3 C L 72 16 129/72 98 Room Air Laboratory Results Laboratory Results - last 24 hr 05/06/22 05/06/22 05/06/22 06:50 12:31 17:15 WBC 6.61 RBC 2.49 L Hgb 7.3 L Hct 23.4 L MCV 94.0 MCH 29.3 MCHC 31.2 L RDW Std Deviation 54.3 H RDW Coeff of Ruthie 18.3 H Plt Count 410 H MPV 10.0 Absolute Nucleated RBC 0.02 H Nucleated RBC % (auto) 0.3 Sodium Potassium Chloride Carbon Dioxide Anion Gap BUN Creatinine Est Cr Clr Drug Dosing Est GFR ( Amer) Est GFR (Non-Af Amer) BUN/Creatinine Ratio Glucose POC Glucose 197 H 138 H Calcium Phosphorus Albumin 05/06/22 05/07/22 05/07/22 20:40 08:03 08:24 WBC RBC Hgb Hct MCV MCH MCHC RDW Std Deviation RDW Coeff of Ruthie Plt Count MPV Absolute Nucleated RBC Nucleated RBC % (auto) Sodium 133 L Potassium 5.1 Chloride 105 Carbon Dioxide 18 L Anion Gap 10 BUN 102 H Creatinine 2.94 H Est Cr Clr Drug Dosing 12.4 Est GFR ( Amer) 16.8 Est GFR (Non-Af Amer) 14.5 BUN/Creatinine Ratio 34.7 H Glucose 80 POC Glucose 109 H 92 Calcium 7.7 L Phosphorus 6.6 H Albumin 2.7 L 05/07/22 08:24 WBC 7.56 RBC 2.48 L Hgb 7.3 L Hct 23.3 L MCV 94.0 MCH 29.4 MCHC 31.3 L RDW Std Deviation 54.9 H RDW Coeff of Ruthie 19.2 H Plt Count 415 H MPV 10.0 Absolute Nucleated RBC 0.03 H Nucleated RBC % (auto) 0.4 Sodium Potassium Chloride Carbon Dioxide Anion Gap BUN Creatinine Est Cr Clr Drug Dosing Est GFR ( Amer) Est GFR (Non-Af Amer) BUN/Creatinine Ratio Glucose POC Glucose Calcium Phosphorus Albumin PG Care Time/CCT Total # of Minutes Spent Total Time Spent with Patient: Total time spent is greater than 50% in coordination of care (as documented) at patient's floor/unit and/or counseling patient: Coding Level of Care Code 58480 Subseq Hosp Care Lvl 3 Diagnoses Acute kidney injury N17.9 Chronic kidney disease, stage V N18.5 Anemia D64.9
--- NOTE | 2022-05-07 14:11 | Hospitalist Progress Note ---
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 - Pain control- Lidocaine patches, tylenol, oxycodone 2.5mg prn. Reports pain controlled with ordered medications - Orthopedics consulted TLSO brace ordered and received, ambulate ad lb, no lifting greater than 5 pounds for her T7-T8 fracture C7-T3 superior endplate compression fractures, conservative treatment with cervical soft collar to be worn at all times except bathing/eating -Added calcitonin 04/27. Calcium supplement added with this. -PT/OT consulted Placement pending. [place] bed fell through, [facility] beds being assessed for case management. Therapy recommending SNF (2) Thoracic spine fracture: Plan: -Horizontal fracture through T8. MRI on 04/25 did not show involvement of the posterior elements. - Remains neurologically intact today, strength intact - TLSO brace has been delivered. (3) Retroperitoneal bleed: Plan: Multifactorial with history of amyloidosis, chemotherapy, and profound iron deficiency with trace hemorrhage during admission - CT a/p on 04/25 showed"trace hemorrhage tracking in the left paracolic gutter." Reviewed images with radiologist. No apparent internal organ bleeding. "Subcutaneous contusion/hematoma is noted in the left gluteal/supragluteal soft tissues" seen as well, so may be from this. - Repeat CT a/p on 04/26 showed no worsening bleeding and actually improved in thigh. Hemoglobin stable at 7.3 today. Continue to trend, transfusion threshold less than 7 or symptoms Profound iron anemia with transferrin saturation undetectable and iron less than 10 during admission. Received a total 1 g course of Venofer over 4 days B12/folate normal Additionally with CKD below. Did receive Epogen 05/06/2022. (4) Chronic kidney disease, stage 4 (severe): Plan: -Baseline Cr ~2.4 - 2.9, CrCl ~15., Renal amyloidosis With acute kidney injury and acute elevation to 3.66 on admission - Stopped furosemide on 04/26. -Nephrology consulted. Nephrology started NaHCO 650mg BID for correction of metabolic acidosis - TSH elevated to 26 on admit, repeat again elevated and Synthroid was increased Potassium normal 05/07 Continue low potassium diet Epo given 05/06 - Renal dose meds/avoid nephrotoxic agents when able (5) Rib fractures: Plan: CT thoracic spine on 04/25 showed numerous non-displaced bilateral anterior rib fractures as above. - Conservative care, reports pain controlled (6) Fall: Plan: Mechanical in nature per patient. Did not strike head and no LoC. No prodrome symptoms to suggest other etiology. - PT/OT recommend rehab, but patient wanting to go home. Family asking for referrals to SNFs (7) Amyloidosis: Plan: Renal amyloidosis with AL [place] subtype diagnosed on 11/04/2021 on biopsy. Started on Darzalex Faspro on 02/07/2022. Given week 6 treatment on 03/15/2022. Plan to start CyBorD after colorectal surgery. - No acute inpatient needs at this time (8) Anemia of chronic disease: Plan: Baseline hgb ~9 - 10. Some element of acute blood loss anemia as well given mild RP bleed and thigh hematoma. Defer as noted above, epo as noted (9) Type 2 diabetes mellitus: Plan: Recently diagnosed, as this is not in our charts. A1c is 6.8%. Likely some element of steroid-induced, ?accuracy given anemia - Sliding scale insulin -adequate BSG control (10) Hypertension: Plan: BP in the ER was 155/95, however has been well controlled/borderline low since 04/25 Continues on carvedilol BID, amlodipine (11) Hypothyroidism: Plan: Last TSH in our system was >20 in 2020. Was again 26.3 this admission. -Synthroid increased to 100 mcg due to 2 elevated TSH is Repeat TSH in 2-6 weeks (12) Colonic mass: Plan: -Known colonic mass, but without carcinoma. -Per oncology notes, plan to see CRC sx in [place] for removal, then start more aggressive chemotherapy after mass removed - No inpatient needs as long as she remains without large bowel obstruction -valdo will bring in cyclophosphamide medicine (13) DVT prophylaxis: Plan: SCDs - Holding heparin with anemia, will order SCDs while inpatient/not as mobile. LE edema but NONTENDER/NO ERYTHEMA/evidence for DVT presently DNR/DNI - Per patient in ED. Alert, oriented, capable of making her own medical decisions Admission and Anticipated Discharge Date Admission Date: April 25, 2022 Subjective Seen at bedside this morning. Reports she has some discomfort in her neck but is overall doing okay. Thinks the calcitonin spray does help. No nausea, vomiting, diarrhea, constipation today. No chest pain, chest pressure, lightheadedness, dizziness. No fever or chills. Awaiting dispo. She denies syncope/presyncope Review of Systems Review of Systems: All systems reviewed & are unremarkable except as noted in Subjective Physical Exam Physical Exam: General: A&Ox3. NAD. Appears frail. Cooperative HEENT: Wearing TLSO brace. Vision and hearing intact. Pulm: CTAB A&P. -wheezes, -rales, -rhonchi. Symmetrical chest rise. No increase in work of breathing. No respiratory distress. Cardiac: RRR, + SM. Radial pulses intact and symmetrical. Abdominal: Nontender, nondistended, soft. BS present. Extremities: Bilateral 1+ pedal edema. Sensation of soft touch intact in hands and feet without asymmetry Results & Data Results & Data ([facility]) Vital Signs (Past 12 Hours) Vital Signs Temp Pulse Resp BP Pulse Ox O2 Del Method 05/07/22 07:15 36.3 C L 72 16 129/72 98 Room Air PG Care Time/CCT Total # of Minutes Spent Total Time Spent with Patient: Total time spent is greater than 50% in coordination of care (as documented) at patient's floor/unit and/or counseling patient: Coding Level of Care Code 75064 Subseq Hosp Care Lvl 2 Diagnoses Compression fracture Thoracic spine fracture S22.009A Retroperitoneal bleed R58 Chronic kidney disease, stage 4 (severe) N18.4 Rib fractures S22.49XA Fall W19.XXXA Amyloidosis E85.9 Anemia of chronic disease D63.8 Type 2 diabetes mellitus E11.9 Hypertension I10 Hypothyroidism E03.9 Colonic mass K63.89 DVT prophylaxis Z29.9
[2022-05-07] MEDS ORDERED: CYCLOPHOSPHAMIDE 50 MG PO SCH (17:00)
[2022-05-07] MEDS ORDERED: CYCLOPHOSPHAMIDE 50 MG CAP PO SCH ×2 (17:30)
[2022-05-07] MEDS: MONTELUKAST SODIUM 10 MG TABLET PO SCH (21:15)
[2022-05-08] MEDS: LEVOTHYROXINE SODIUM 100 MCG TABLET PO SCH (06:24)
[2022-05-08] MEDS: ASCORBIC ACID 500 MG TAB PO SCH (07:58)
[2022-05-08] MEDS: LIDOCAINE 5% 1 PATCH TD SCH (07:58)
[2022-05-08] MEDS: carvediloL 12.5 MG TAB PO SCH ×2 (07:59→21:38)
[2022-05-08] MEDS: POLYETHYLENE (MIRALAX) 17 GM PACK PO SCH (07:59)
[2022-05-08] MEDS: amLODIPine BESYLATE 5 MG TAB PO SCH (07:59)
[2022-05-08] MEDS: CALCIUM 600MG + VIT D 400 IU TAB PO SCH (07:59)
[2022-05-08] MEDS: ACYCLOVIR 400 MG TAB PO SCH ×2 (07:59→21:38)
[2022-05-08] MEDS: SODIUM BICARBONATE 650 MG TAB PO SCH ×2 (07:59→16:56)
[2022-05-08] MEDS: CALCITONIN SALMON NA 200 IU/AC 3.7 ML BTL SCH (07:59)
[2022-05-08] MEDS: ATORVASTATIN 40 MG TAB PO SCH (08:00)
[2022-05-08] MEDS: ASPIRIN 81 MG ECTAB PO SCH (08:00)
[2022-05-08] MEDS: CYANOCOBALAMIN (B-12) 2,500 MCG TABLET SCH (08:00)
[2022-05-08] MEDS: ACETAMINOPHEN 325 MG TAB PO SCH ×3 (08:02→21:38)
--- NOTE | 2022-05-08 08:03 | Hospitalist Progress Note ---
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 [facility] referrals out. Therapy recommending SNF. CM following. Bed not expected to be available over the holiday weekend. Compression fracture 10/06 mechanical fall to buttocks going down stairs - Superior endplate compression fractures from C7-T3, T10-T11, and L3 on CT and MRI reads. 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 - Pain control- Lidocaine patches, tylenol, oxycodone 2.5mg prn. Reports pain controlled with ordered medications - Orthopedics consulted TLSO brace ordered and received, ambulate ad lb, no lifting greater than 5 pounds for her T7-T8 fracture C7-T3 superior endplate compression fractures, conservative treatment with cervical soft collar to be worn at all times except bathing/eating -Added calcitonin 04/27. Calcium supplement added with this. -PT/OT consulted Placement pending as noted above (2) Thoracic spine fracture: Plan: -Horizontal fracture through T8. MRI on 04/25 did not show involvement of the posterior elements. - Remains neurologically intact today, strength intact - TLSO brace has been delivered. (3) Retroperitoneal bleed: Plan: Multifactorial with history of amyloidosis, chemotherapy, and profound iron deficiency with trace hemorrhage during admission - CT a/p on 04/25 showed"trace hemorrhage tracking in the left paracolic gutter." Reviewed images with radiologist. No apparent internal organ bleeding. "Subcutaneous contusion/hematoma is noted in the left gluteal/supragluteal soft tissues" seen as well, so may be from this. - Repeat CT a/p on 04/26 showed no worsening bleeding and actually improved in thigh. Hemoglobin stable at 7.3 today. Continue to trend, transfusion threshold less than 7 or symptoms Profound iron anemia with transferrin saturation undetectable and iron less than 10 during admission. Received a total 1 g course of Venofer over 4 days B12/folate normal Additionally with CKD below. Did receive Epogen 05/06/2022. (4) Chronic kidney disease, stage 4 (severe): Plan: -Baseline Cr ~2.4 - 2.9, CrCl ~15., Renal amyloidosis With acute kidney injury and acute elevation to 3.66 on admission - Stopped furosemide on 04/26. -Nephrology consulted. started NaHCO 650mg BID for correction of metabolic acidosis - TSH elevated to 26 on admit, repeat again elevated and Synthroid was increased Potassium normal 05/07 Continue low potassium diet Epo given 05/06 - Renal dose meds/avoid nephrotoxic agents when able Remains with elevated creatinine, low bicarb, elevated phosphorus. Will trial 1 bag of bicarb infusion (5) Rib fractures: Plan: CT thoracic spine on 04/25 showed numerous non-displaced bilateral anterior rib fractures as above. - Conservative care, reports pain controlled (6) Fall: Plan: Mechanical in nature per patient. Did not strike head and no LoC. No prodrome symptoms to suggest other etiology. - PT/OT recommend rehab, but patient wanting to go home. Family asking for referrals to SNFs (7) Amyloidosis: Plan: Renal amyloidosis with AL [place] subtype diagnosed on 11/04/2021 on biopsy. Started on Darzalex Faspro on 02/07/2022. Given week 6 treatment on 03/15/2022. Plan to start CyBorD after colorectal surgery. - No acute inpatient needs at this time (8) Anemia of chronic disease: Plan: Baseline hgb ~9 - 10. Some element of acute blood loss anemia as well given mild RP bleed and thigh hematoma. Defer as noted above, epo as noted (9) Type 2 diabetes mellitus: Plan: Recently diagnosed, as this is not in our charts. A1c is 6.8%. Likely some element of steroid-induced, ?accuracy given anemia - Sliding scale insulin -adequate BSG control (10) Hypertension: Plan: BP in the ER was 155/95, however has been well controlled/borderline low since 04/25 Continues on carvedilol BID, amlodipine (11) Hypothyroidism: Plan: Last TSH in our system was >20 in 2020. Was again 26.3 this admission. -Synthroid increased to 100 mcg due to 2 elevated TSH is Repeat TSH in 2-6 weeks (12) Colonic mass: Plan: -Known colonic mass, but without carcinoma. -Per oncology notes, plan to see CRC sx in [place] for removal, then start more aggressive chemotherapy after mass removed - No inpatient needs as long as she remains without large bowel obstruction -Continue on cyclophosphamide (13) DVT prophylaxis: Plan: SCDs - Holding heparin with anemia, will order SCDs while inpatient/not as mobile. LE edema but NONTENDER/NO ERYTHEMA/evidence for DVT presently DNR/DNI - Per patient in ED. Alert, oriented, capable of making her own medical decisions Admission and Anticipated Discharge Date Admission Date: April 25, 2022 Subjective No change overnight. Reports he feels fatigued, denies chest pain, chest pressure, lightheadedness, dizziness, difficulty breathing. Neck is a little stiff and collar, otherwise denies pain Review of Systems Review of Systems: All systems reviewed & are unremarkable except as noted in Subjective Physical Exam Physical Exam: General: A&Ox3. NAD. Appears frail. Cooperative HEENT: Wearing TLSO brace. Vision and hearing intact. Pulm: CTAB A&P. -wheezes, -rales, -rhonchi. Symmetrical chest rise. No increase in work of breathing. No respiratory distress. Cardiac: RRR, + SM. Radial pulses intact and symmetrical. Abdominal: Nontender, nondistended, soft. BS present. Extremities: Bilateral 1+ pedal edema. Sensation of soft touch intact in hands and feet without asymmetry Results & Data Results & Data ([facility]) Vital Signs (Past 12 Hours) Vital Signs Temp Pulse Pulse Resp BP Pulse Ox O2 Del Method 05/08/22 07:50 36.4 C L 73 16 122/67 97 Room Air 05/07/22 21:18 36.5 C 76 121/71 96 PG Care Time/CCT Total # of Minutes Spent Total Time Spent with Patient: Total time spent is greater than 50% in coordination of care (as documented) at patient's floor/unit and/or counseling patient: Coding Level of Care Code 68224 Subseq Hosp Care Lvl 2 Diagnoses Compression fracture Thoracic spine fracture S22.009A Retroperitoneal bleed R58 Chronic kidney disease, stage 4 (severe) N18.4 Rib fractures S22.49XA Fall W19.XXXA Amyloidosis E85.9 Anemia of chronic disease D63.8 Type 2 diabetes mellitus E11.9 Hypertension I10 Hypothyroidism E03.9 Colonic mass K63.89 DVT prophylaxis Z29.9
[2022-05-08 08:34] LABS: Hemoglobin 7.3 g/dl (12.0-16.0); Mean Corpuscular Hemoglobin 29.8 pg (25.0-34.0); Mean Corpuscular Hgb Conc 31.7 g/dL (32.0-36.0); Mean Corpuscular Volume 93.9 fL (80.0-100.0); Mean Platelet Volume 9.9 fL (9.4-12.3); Platelet Count 401 K/uL (130-400); RDW Coefficient of Variation 19.3 % (11.5-14.5); RDW Standard Deviation 56.1 fL (36.4-46.3); Red Blood Count 2.45 M/uL (3.93-5.22)
[2022-05-08] MEDS: INSULIN ASPART PER UNIT SC SCH ×4 (08:36→22:02)
[2022-05-08 09:02] LABS: Albumin Level 2.7 gm/dl (3.4-5.0); BUN Creatinine Ratio 33.3 (10-20); Calcium 7.8 mg/dl (8.5-10.1); Creatinine Clr Calc Pharmacy 11.8 ml/min; Est GFR (African American) 15.9 ml/min; Est GFR (Non-African American) 13.7 ml/min; Phosphorus 6.6 mg/dl (2.5-4.9); Potassium 4.8 mmol/L (3.5-5.1)
[2022-05-08] MEDS ORDERED: STAT IV STA (09:22)
[2022-05-08 09:45] LABS: Base Excess VBG -7.7 mEq/L; HCO3 VBG 17 mmol/L; Oxygen Saturation VBG 96.8 %; PCO2 VBG 30 mmHg (38-50); PO2 VBG 67 mmHg; pH VBG 7.35 (7.36-7.41)
[2022-05-08] MEDS ORDERED: SODIUM BICARBONATE 8.4% 75 MEQ in SODIUM CHLORIDE 0.45 % 1,000 ML IV SCH (09:45)
--- NOTE | 2022-05-08 11:18 | Nephrology Progress Note ---
Date of Service May 08, 2022 Assessment & Plan (1) Acute kidney injury: Plan: * BRYAN due to intravascular volume contraction * Encourage oral solute intake * Continue HCO3 replacement * Thankfully, creatinine is relatively stable * Electrolytes acceptable * Low potassium diet * Additional IV HCO3 is being provided today to encourage positive fluid balance * Plan of care discussed with Dr. Willoughby (2) Chronic kidney disease, stage V: Plan: * CKD stage V A3. Baseline Cr has been 3.0 mg/dL. Evaluation revealed benign urine sediment but nephrotic range proteinuria. PLA2R antibody testing was negative. Renal biopsy 11/23 revealed AL- [place] amyloidosis * Sandra has indicated that she does not want dialysis if her kidney function worsens (3) Anemia: Plan: * Likely related to combination amyloidosis, chemotherapy * IV Venofer is provided * Epogen 89388 units x 1 dose provided 05/06/22 * Recommend transfusion for symptomatic anemia or Hgb < or = 7.0 Admission and Anticipated Discharge Date Admission Date: April 25, 2022 Subjective No acute events overnight. No complaints this AM. Review of Systems Review of Systems: All systems reviewed & are unremarkable except as noted in HPI & below Physical Exam Constitutional: + frail appearing; no acute distress Eyes: + anicteric sclerae; no corneal abnormality ENMT: Mouth: + dry oral mucous membranes Neck: normal visual inspection and trachea midline Respiratory: normal respiratory effort, lungs clear to auscultation Cardiovascular: Rate/Rhythm: regular rate Heart Sounds: normal S1, normal S2 and + murmur Extremities: no edema Skin: + turgor decreased; no jaundice Neurologic: awake; not confused Results & Data ([facility]) Vital Signs (Past 12 Hours) Vital Signs Temp Pulse Resp BP Pulse Ox O2 Del Method 05/08/22 07:50 36.4 C L 73 16 122/67 97 Room Air Laboratory Results Laboratory Results - last 24 hr 05/07/22 05/07/22 05/07/22 12:09 17:09 20:42 WBC RBC Hgb Hct MCV MCH MCHC RDW Std Deviation RDW Coeff of Ruthie Plt Count MPV VBG pH VBG pCO2 VBG pO2 VBG HCO3 VBG O2 Saturation VBG Base Excess Sodium Potassium Chloride Carbon Dioxide Anion Gap BUN Creatinine Est Cr Clr Drug Dosing Est GFR ( Amer) Est GFR (Non-Af Amer) BUN/Creatinine Ratio Glucose POC Glucose 143 H 81 175 H Calcium Ionized Calcium Phosphorus Albumin 05/08/22 05/08/22 05/08/22 08:07 08:07 08:17 WBC 8.00 RBC 2.45 L Hgb 7.3 L Hct 23.0 L MCV 93.9 MCH 29.8 MCHC 31.7 L RDW Std Deviation 56.1 H RDW Coeff of Ruthie 19.3 H Plt Count 401 H MPV 9.9 VBG pH VBG pCO2 VBG pO2 VBG HCO3 VBG O2 Saturation VBG Base Excess Sodium 133 L Potassium 4.8 Chloride 104 Carbon Dioxide 18 L Anion Gap 11 BUN 103 H Creatinine 3.09 H Est Cr Clr Drug Dosing 11.8 Est GFR ( Amer) 15.9 Est GFR (Non-Af Amer) 13.7 BUN/Creatinine Ratio 33.3 H Glucose 78 POC Glucose Calcium 7.8 L Ionized Calcium Phosphorus 6.6 H 6.5 H Albumin 2.7 L 05/08/22 05/08/22 05/08/22 08:17 08:34 09:35 WBC RBC Hgb Hct MCV MCH MCHC RDW Std Deviation RDW Coeff of Ruthie Plt Count MPV VBG pH 7.35 L VBG pCO2 30 L VBG pO2 67 VBG HCO3 17 VBG O2 Saturation 96.8 VBG Base Excess -7.7 Sodium Potassium Chloride Carbon Dioxide Anion Gap BUN Creatinine Est Cr Clr Drug Dosing Est GFR ( Amer) Est GFR (Non-Af Amer) BUN/Creatinine Ratio Glucose POC Glucose 109 H Calcium Ionized Calcium 1.12 Phosphorus Albumin PG Care Time/CCT Total # of Minutes Spent Total Time Spent with Patient: Total time spent is greater than 50% in coordination of care (as documented) at patient's floor/unit and/or counseling patient: Coding Level of Care Code 26472 Subseq Hosp Care Lvl 3 Diagnoses Acute kidney injury N17.9 Chronic kidney disease, stage V N18.5 Anemia D64.9
[2022-05-08] MEDS: MONTELUKAST SODIUM 10 MG TABLET PO SCH (21:38)
[2022-05-09] MEDS: LEVOTHYROXINE SODIUM 100 MCG TABLET PO SCH (04:48)
[2022-05-09 06:37] LABS: Hemoglobin 7.2 g/dl (12.0-16.0)
[2022-05-09 06:59] LABS: Albumin Level 2.6 gm/dl (3.4-5.0); BUN Creatinine Ratio 32.7 (10-20); Calcium 7.4 mg/dl (8.5-10.1); Creatinine Clr Calc Pharmacy 11.8 ml/min; Est GFR (African American) 15.9 ml/min; Est GFR (Non-African American) 13.7 ml/min; Phosphorus 6.5 mg/dl (2.5-4.9); Potassium 4.5 mmol/L (3.5-5.1)
[2022-05-09] MEDS: ACETAMINOPHEN 325 MG TAB PO SCH ×3 (08:00→21:23)
[2022-05-09] MEDS: ATORVASTATIN 40 MG TAB PO SCH (09:00)
[2022-05-09] MEDS: carvediloL 12.5 MG TAB PO SCH ×2 (09:00→21:24)
[2022-05-09] MEDS: ASPIRIN 81 MG ECTAB PO SCH (09:00)
[2022-05-09] MEDS: CALCIUM 600MG + VIT D 400 IU TAB PO SCH (09:00)
[2022-05-09] MEDS: SODIUM BICARBONATE 650 MG TAB PO SCH ×2 (09:01→16:56)
[2022-05-09] MEDS: ACYCLOVIR 400 MG TAB PO SCH ×2 (09:01→21:24)
[2022-05-09] MEDS: CYANOCOBALAMIN (B-12) 2,500 MCG TABLET SCH (09:01)
[2022-05-09] MEDS: amLODIPine BESYLATE 5 MG TAB PO SCH (09:01)
[2022-05-09] MEDS: ASCORBIC ACID 500 MG TAB PO SCH (09:02)
[2022-05-09] MEDS: CALCITONIN SALMON NA 200 IU/AC 3.7 ML BTL SCH (09:03)
[2022-05-09] MEDS: POLYETHYLENE (MIRALAX) 17 GM PACK PO SCH (09:03)
[2022-05-09] MEDS: INSULIN ASPART PER UNIT SC SCH ×4 (09:07→22:02)
--- NOTE | 2022-05-09 11:30 | Nephrology Progress Note ---
Date of Service May 09, 2022 Assessment & Plan (1) Acute kidney injury: Plan: * Creatinine stable * Encourage oral solute intake * Continue HCO3 replacement, NaHCO3 1300 BID * Electrolytes acceptable * Low potassium diet (2) Chronic kidney disease, stage V: Plan: * CKD stage V A3. Baseline Cr has been 3.0 mg/dL. Evaluation revealed benign urine sediment but nephrotic range proteinuria. PLA2R antibody testing was negative. Renal biopsy 11/23 revealed AL- [place] amyloidosis * Sandra has indicated that she does not want dialysis if her kidney function worsens (3) Anemia: Plan: * Related to combination amyloidosis, chemotherapy, recent retroperitoneal bleed * IV Venofer is provided during admission * Epogen 78553 units x 1 dose provided 05/06/22 * Recommend transfusion for symptomatic anemia or Hgb < or = 7.0 Admission and Anticipated Discharge Date Admission Date: April 25, 2022 Subjective No acute events overnight. No complaints this AM. Review of Systems Review of Systems: All systems reviewed & are unremarkable except as noted in HPI & below Physical Exam Constitutional: + frail appearing; no acute distress Eyes: + anicteric sclerae; no corneal abnormality ENMT: Mouth: oral mucous membranes not dry Neck: normal visual inspection and trachea midline Respiratory: normal respiratory effort, lungs clear to auscultation Cardiovascular: Rate/Rhythm: regular rate Heart Sounds: normal S1, normal S2 and + murmur Extremities: + pedal edema; no edema Skin: + turgor decreased; no jaundice Neurologic: awake; not confused Results & Data ([facility]) Vital Signs (Past 12 Hours) Vital Signs Temp Pulse Resp BP Pulse Ox O2 Del Method 05/09/22 07:22 36.3 C L 73 16 116/67 96 Room Air Laboratory Results Laboratory Results - last 24 hr 05/08/22 05/08/22 05/08/22 12:20 17:24 20:47 Hgb Hct Sodium Potassium Chloride Carbon Dioxide Anion Gap BUN Creatinine Est Cr Clr Drug Dosing Est GFR ( Amer) Est GFR (Non-Af Amer) BUN/Creatinine Ratio Glucose POC Glucose 100 H 117 H 110 H Calcium Phosphorus Albumin 05/09/22 05/09/22 05/09/22 05:59 05:59 08:07 Hgb 7.2 L Hct 23.0 L Sodium 132 L Potassium 4.5 Chloride 103 Carbon Dioxide 18 L Anion Gap 11 BUN 101 H Creatinine 3.09 H Est Cr Clr Drug Dosing 11.8 Est GFR ( Amer) 15.9 Est GFR (Non-Af Amer) 13.7 BUN/Creatinine Ratio 32.7 H Glucose 68 L POC Glucose 93 Calcium 7.4 L Phosphorus 6.5 H Albumin 2.6 L PG Care Time/CCT Total # of Minutes Spent Total Time Spent with Patient: Total time spent is greater than 50% in coordination of care (as documented) at patient's floor/unit and/or counseling patient: Coding Level of Care Code 18095 Subseq Hosp Care Lvl 3 Diagnoses Acute kidney injury N17.9 Chronic kidney disease, stage V N18.5 Anemia D64.9
[2022-05-09] MEDS: LIDOCAINE 5% 1 PATCH TD SCH (12:24)
[2022-05-09] MEDS ORDERED: STAT IV STA (13:17)
--- NOTE | 2022-05-09 13:20 | Hospitalist Progress Note ---
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 [facility] referrals out. Therapy recommending SNF. CM following. Bed not expected to be available over the holiday weekend. Compression fracture 10/06 mechanical fall to buttocks going down stairs - Superior endplate compression fractures from C7-T3, T10-T11, and L3 on CT and MRI reads. 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 - Pain control- Lidocaine patches, tylenol, oxycodone 2.5mg prn. Reports pain controlled with ordered medications - Orthopedics consulted TLSO brace ordered and received, ambulate ad lb, no lifting greater than 5 pounds for her T7-T8 fracture C7-T3 superior endplate compression fractures, conservative treatment with cervical soft collar to be worn at all times except bathing/eating -Added calcitonin 04/27. Calcium supplement added with this. -PT/OT consulted Placement pending as noted above (2) Thoracic spine fracture: Plan: -Horizontal fracture through T8. MRI on 04/25 did not show involvement of the posterior elements. - Remains neurologically intact today, strength intact - TLSO brace has been delivered. (3) Retroperitoneal bleed: Plan: Multifactorial with history of amyloidosis, chemotherapy, and profound iron deficiency with trace hemorrhage during admission - CT a/p on 04/25 showed"trace hemorrhage tracking in the left paracolic gutter." Reviewed images with radiologist. No apparent internal organ bleeding. "Subcutaneous contusion/hematoma is noted in the left gluteal/supragluteal soft tissues" seen as well, so may be from this. - Repeat CT a/p on 04/26 showed no worsening bleeding and actually improved in thigh. Hemoglobin stable at 7.3 today. Continue to trend, transfusion threshold less than 7 or symptoms Profound iron anemia with transferrin saturation undetectable and iron less than 10 during admission. Received a total 1 g course of Venofer over 4 days B12/folate normal Additionally with CKD below. Did receive Epogen 05/06/2022. Remains with downtrending anemia, 1 unit to be given (4) Chronic kidney disease, stage 4 (severe): Plan: -Baseline Cr ~2.4 - 2.9, CrCl ~15., Renal amyloidosis With acute kidney injury and acute elevation to 3.66 on admission - Stopped furosemide on 04/26. -Nephrology consulted. started NaHCO 650mg BID for correction of metabolic acid osis - TSH elevated to 26 on admit, repeat again elevated and Synthroid was increased Potassium normal 05/07 Continue low potassium diet Epo given 05/06 - Renal dose meds/avoid nephrotoxic agents when able Second bag of bicarb to be given 05/09 evening after blood. (5) Rib fractures: Plan: CT thoracic spine on 04/25 showed numerous non-displaced bilateral anterior rib fractures as above. - Conservative care, reports pain controlled (6) Fall: Plan: Mechanical in nature per patient. Did not strike head and no LoC. No prodrome symptoms to suggest other etiology. - PT/OT recommend rehab, but patient wanting to go home. Family asking for referrals to SNFs (7) Amyloidosis: Plan: Renal amyloidosis with AL [place] subtype diagnosed on 11/04/2021 on biopsy. Started on Darzalex Faspro on 02/07/2022. Given week 6 treatment on 03/15/2022. Plan to start CyBorD after colorectal surgery. - No acute inpatient needs at this time (8) Anemia of chronic disease: Plan: Baseline hgb ~9 - 10. Some element of acute blood loss anemia as well given mild RP bleed and thigh hematoma. Defer as noted above, epo as noted (9) Type 2 diabetes mellitus: Plan: Recently diagnosed, as this is not in our charts. A1c is 6.8%. Likely some element of steroid-induced, ?accuracy given anemia - Sliding scale insulin -adequate BSG control (10) Hypertension: Plan: BP in the ER was 155/95, however has been well controlled/borderline low since 04/25 Continues on carvedilol BID, amlodipine (11) Hypothyroidism: Plan: Last TSH in our system was >20 in 2020. Was again 26.3 this admission. -Synthroid increased to 100 mcg due to 2 elevated TSH is Repeat TSH in 2-6 weeks (12) Colonic mass: Plan: -Known colonic mass, but without carcinoma. -Per oncology notes, plan to see CRC sx in [place] for removal, then start more aggressive chemotherapy after mass removed - No inpatient needs as long as she remains without large bowel obstruction -Continue on cyclophosphamide (13) DVT prophylaxis: Plan: SCDs - Holding heparin with anemia, will order SCDs while inpatient/not as mobile. LE edema but NONTENDER/NO ERYTHEMA/evidence for DVT presently DNR/DNI - Per patient in ED. Alert, oriented, capable of making her own medical decisions Admission and Anticipated Discharge Date Admission Date: April 25, 2022 Subjective Seen at bedside. Sleeping comfortably, awakens easily. No acute change. No new symptoms. No lightheadedness or dizziness. Review of Systems Review of Systems: All systems reviewed & are unremarkable except as noted in Subjective Physical Exam Physical Exam: General: A&Ox3. NAD. Appears frail. Cooperative HEENT: Wearing TLSO brace. Vision and hearing intact. Pulm: CTAB A&P. -wheezes, -rales, -rhonchi. Symmetrical chest rise. No increase in work of breathing. No respiratory distress. Cardiac: RRR, + SM. Radial pulses intact and symmetrical. Abdominal: Nontender, nondistended, soft. BS present. Extremities: Bilateral 1+ pedal edema. Sensation of soft touch intact in hands and feet without asymmetry Results & Data Results & Data ([facility]) Vital Signs (Past 12 Hours) Vital Signs Temp Pulse Resp BP Pulse Ox O2 Del Method 05/09/22 07:22 36.3 C L 73 16 116/67 96 Room Air PG Care Time/CCT Total # of Minutes Spent Total Time Spent with Patient: Total time spent is greater than 50% in coordination of care (as documented) at patient's floor/unit and/or counseling patient: Coding Level of Care Code 35645 Subseq Hosp Care Lvl 2 Diagnoses Compression fracture Thoracic spine fracture S22.009A Retroperitoneal bleed R58 Chronic kidney disease, stage 4 (severe) N18.4 Rib fractures S22.49XA Fall W19.XXXA Amyloidosis E85.9 Anemia of chronic disease D63.8 Type 2 diabetes mellitus E11.9 Hypertension I10 Hypothyroidism E03.9 Colonic mass K63.89 DVT prophylaxis Z29.9
[2022-05-09] MEDS ORDERED: SODIUM CHLORIDE 0.9% 250 ML IV PRN ×2 (13:21→13:56)
[2022-05-09] MEDS ORDERED: SODIUM BICARBONATE 8.4% 75 MEQ in SODIUM CHLORIDE 0.45 % 1,000 ML IV SCH ×2 (13:30→21:00)
[2022-05-09] MEDS: MONTELUKAST SODIUM 10 MG TABLET PO SCH (21:24)
[2022-05-10] MEDS: LEVOTHYROXINE SODIUM 100 MCG TABLET PO SCH (06:48)
[2022-05-10 08:22] LABS: BUN Creatinine Ratio 30.6 (10-20); Calcium 7.3 mg/dl (8.5-10.1); Creatinine Clr Calc Pharmacy 11.6 ml/min; Est GFR (African American) 15.6 ml/min; Est GFR (Non-African American) 13.4 ml/min; Potassium 4.2 mmol/L (3.5-5.1)
[2022-05-10] MEDS: carvediloL 12.5 MG TAB PO SCH ×2 (08:38→19:56)
[2022-05-10] MEDS: amLODIPine BESYLATE 5 MG TAB PO SCH (08:38)
[2022-05-10] MEDS: ASCORBIC ACID 500 MG TAB PO SCH (08:38)
[2022-05-10] MEDS: ACYCLOVIR 400 MG TAB PO SCH ×2 (08:39→19:56)
[2022-05-10] MEDS: CYANOCOBALAMIN (B-12) 2,500 MCG TABLET SCH (08:39)
[2022-05-10] MEDS: ATORVASTATIN 40 MG TAB PO SCH (08:39)
[2022-05-10] MEDS: SODIUM BICARBONATE 650 MG TAB PO SCH ×2 (08:39→17:55)
[2022-05-10] MEDS: CALCIUM 600MG + VIT D 400 IU TAB PO SCH (08:39)
[2022-05-10] MEDS: ASPIRIN 81 MG ECTAB PO SCH (08:39)
[2022-05-10] MEDS: CALCITONIN SALMON NA 200 IU/AC 3.7 ML BTL SCH ×2 (08:40→08:41)
[2022-05-10] MEDS: LIDOCAINE 5% 1 PATCH TD SCH (08:40)
[2022-05-10] MEDS: POLYETHYLENE (MIRALAX) 17 GM PACK PO SCH (08:49)
[2022-05-10] MEDS: INSULIN ASPART PER UNIT SC SCH ×4 (08:53→20:47)
[2022-05-10] MEDS: ACETAMINOPHEN 325 MG TAB PO SCH ×3 (08:54→20:46)
[2022-05-10 09:44] LABS: Hematocrit (blood only) 21.8 % (34.1-44.9); Hemoglobin 6.9 g/dl (12.0-16.0)
--- NOTE | 2022-05-10 10:17 | Nephrology Progress Note ---
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 No plan for replacement therapy in future with plan to continue conservative management for end-stage kidney disease. Noted to have significant anemia, received Epogen. Earlier during admission noted to have small retroperitoneal bleed a but in between hemoglobin stabilized and has been stable. Hemoglobin again dropped this morning to 6.9. Renal function pretty low but somewhat stable normal potassium. Blood pressure well controlled. Volume status acceptable. -- Recommend 2 units of blood transfusion if discharge is anticipated later today and tomorrow. --follow low-potassium diet. -- advise patient to keep well hydrated, avoid nephrotoxic medications including all NSAIDs. -- Dose medications for EGFR less than 15 Admission and Anticipated Discharge Date Admission Date: April 25, 2022 Subjective Sandra was seen and evaluated in her room this morning. Overall she is clinically stable, denies any specific symptoms. Appetite poor. Blood pressure stable, denies any shortness of breath, chest pain, dizziness or lightheadedness. Renal function staying relatively stable close to baseline, electrolyte acceptable. Hemoglobin has been low and dropped further to 6.9 this morning. Review of Systems Review of Systems: detailed review of system was otherwise unremarkable. Physical Exam Constitutional: WD/WN, vitals as above Eyes: + anicteric sclerae Respiratory: normal respiratory effort; no respiratory distress Auscultation: lungs clear to auscultation bilaterally Cardiovascular: Rate/Rhythm: regular rate and regular rhythm Heart Sounds: normal S1 and normal S2 Extremities: no edema Skin: no rashes Neurologic: no focal motor deficits and not confused Psychiatric: Orientation: alert and oriented x 3 Results & Data ([facility]) Vital Signs (Past 12 Hours) Vital Signs Temp Pulse Resp BP Pulse Ox O2 Del Method 05/10/22 07:40 36.4 C L 73 16 109/70 94 Room Air PG Care Time/CCT Total # of Minutes Spent Total Time Spent with Patient: Total time spent is greater than 50% in coordination of care (as documented) at patient's floor/unit and/or counseling patient: Coding Level of Care Code 55339 Subseq Hosp Care Lvl 3 Diagnoses Chronic kidney disease, stage V N18.5 Acute kidney injury N17.9 Anemia D64.9 Retroperitoneal bleed R58 Amyloidosis E85.9
[2022-05-10] MEDS ORDERED: SODIUM CHLORIDE 0.9% 250 ML IV PRN (10:29)
--- NOTE | 2022-05-10 10:32 | Hospitalist Progress Note ---
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 [facility] referrals out. Therapy recommending SNF. CM following. Bed not expected to be available over the holiday weekend. Compression fracture / mechanical fall to buttocks going down stairs - Superior endplate compression fractures from C7-T3, T10-T11, and L3 on CT and MRI reads. 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 - Pain control- Lidocaine patches, tylenol, oxycodone 2.5mg prn. Reports pain controlled with ordered medications - Orthopedics consulted TLSO brace ordered and received, ambulate ad lb, no lifting greater than 5 pounds for her T7-T8 fracture C7-T3 superior endplate compression fractures, conservative treatment with cervical soft collar to be worn at all times except bathing/eating -Added calcitonin 04/27. Calcium supplement added with this. -PT/OT consulted Placement pending as noted above (2) Thoracic spine fracture: Plan: -Horizontal fracture through T8. MRI on 04/25 did not show involvement of the posterior elements. - Remains neurologically intact today, strength intact - TLSO brace has been delivered. (3) Retroperitoneal bleed: Plan: Multifactorial with history of amyloidosis, chemotherapy, and profound iron deficiency with trace hemorrhage during admission - CT a/p on 04/25 showed"trace hemorrhage tracking in the left paracolic gutter." Reviewed images with radiologist. No apparent internal organ bleeding. "Subcutaneous contusion/hematoma is noted in the left gluteal/supragluteal soft tissues" seen as well, so may be from this. - Repeat CT a/p on 04/26 showed no worsening bleeding and actually improved in thigh. Hemoglobin stable at 7.3 today. Continue to trend, transfusion threshold less than 7 or symptoms Profound iron anemia with transferrin saturation undetectable and iron less than 10 during admission. Received a total 1 g course of Venofer over 4 days B12/folate normal Additionally with CKD below. Did receive Epogen 05/06/2022. Remains with downtrending anemia, 1 unit ordered pending from [place] due to difficulty obtaining, second unit ordered for hemoglobin of 6.9 morning of 05/10 Slow downtrend, patient has used Venofer and epo during admission Given continued downtrend of hemoglobin will revisit CT A/P for stability (4) Chronic kidney disease, stage 4 (severe): Plan: -Baseline Cr ~2.4 - 2.9, CrCl ~15., Renal amyloidosis With acute kidney injury and acute elevation to 3.66 on admission - Stopped furosemide on 04/26. -Nephrology consulted. started NaHCO 650mg BID for correction of metabolic acidosis - TSH elevated to 26 on admit, repeat again elevated and Synthroid was increased Potassium normal 05/07 Continue low potassium diet Epo given 05/06 - Renal dose meds/avoid nephrotoxic agents when able Second bag of bicarb to be given 05/09 evening after blood. (5) Rib fractures: Plan: CT thoracic spine on 04/25 showed numerous non-displaced bilateral anterior rib fractures as above. - Conservative care, reports pain controlled (6) Fall: Plan: Mechanical in nature per patient. Did not strike head and no LoC. No prodrome symptoms to suggest other etiology. - PT/OT recommend rehab, but patient wanting to go home. Family asking for referrals to SNFs Family and patient now agreeable to rehab, pending SNF. (7) Amyloidosis: Plan: Renal amyloidosis with AL [place] subtype diagnosed on 11/04/2021 on biopsy. Started on Darzalex Faspro on 02/07/2022. Given week 6 treatment on 03/15/2022. Plan to start CyBorD after colorectal surgery. - No acute inpatient needs at this time (8) Anemia of chronic disease: Plan: Baseline hgb ~9 - 10. Some element of acute blood loss anemia as well given mild RP bleed and thigh hematoma. Defer as noted above, epo as noted, Venofer as above, blood transfusion as above (9) Type 2 diabetes mellitus: Plan: Recently diagnosed, as this is not in our charts. A1c is 6.8%. Likely some element of steroid-induced, ?accuracy given anemia - Sliding scale insulin -adequate BSG control (10) Hypertension: Plan: BP in the ER was 155/95, however has been well controlled/borderline low since 04/25 Continues on carvedilol BID, amlodipine (11) Hypothyroidism: Plan: Last TSH in our system was >20 in 2020. Was again 26.3 this admission. -Synthroid increased to 100 mcg due to 2 elevated TSH is Repeat TSH in 2-6 weeks (12) Colonic mass: Plan: -Known colonic mass, but without carcinoma. -Per oncology notes, plan to see CRC sx in [place] for removal, then start more aggressive chemotherapy after mass removed - No inpatient needs as long as she remains without large bowel obstruction -Continue on cyclophosphamide (13) DVT prophylaxis: Plan: SCDs - Holding heparin with anemia, will order SCDs while inpatient/not as mobile. LE edema but NONTENDER/NO ERYTHEMA/evidence for DVT presently DNR/DNI - Per patient in ED. Alert, oriented, capable of making her own medical decisions Admission and Anticipated Discharge Date Admission Date: April 25, 2022 Subjective No clinical change overnight. Has not yet received her blood. No lightheadedness, dizziness, chest pain, shortness of breath. Continues to have neck pain but feels the collar helps. No questions or concerns at bedside. Denies active bleeding, no bloody bowel movements Review of Systems Review of Systems: All systems reviewed & are unremarkable except as noted in Subjective Physical Exam Physical Exam: General: A&Ox3. NAD. Appears frail. Cooperative HEENT: Wearing TLSO brace. Vision and hearing intact. Pulm: CTAB A&P. -wheezes, -rales, -rhonchi. Symmetrical chest rise. No increase in work of breathing. No respiratory distress. Cardiac: RRR, + SM. Radial pulses intact and symmetrical. Abdominal: Nontender, nondistended, soft. BS present. Extremities: Bilateral 1+ pedal edema. Sensation of soft touch intact in hands and feet without asymmetry Results & Data Results & Data ([facility]) Vital Signs (Past 12 Hours) Vital Signs Temp Pulse Resp BP Pulse Ox O2 Del Method 05/10/22 07:40 36.4 C L 73 16 109/70 94 Room Air PG Care Time/CCT Total # of Minutes Spent Total Time Spent with Patient: Total time spent is greater than 50% in coordination of care (as documented) at patient's floor/unit and/or counseling patient: Coding Level of Care Code 85116 Subseq Hosp Care Lvl 2 Diagnoses Compression fracture Thoracic spine fracture S22.009A Retroperitoneal bleed R58 Chronic kidney disease, stage 4 (severe) N18.4 Rib fractures S22.49XA Fall W19.XXXA Amyloidosis E85.9 Anemia of chronic disease D63.8 Type 2 diabetes mellitus E11.9 Hypertension I10 Hypothyroidism E03.9 Colonic mass K63.89 DVT prophylaxis Z29.9
--- NOTE | 2022-05-10 16:04 | CT Scan Report ---
CT abd pelvis wo con CLINICAL HISTORY: retroperitoneal bleed stability TECHNIQUE: Helical axial images of the abdomen and pelvis were obtained. Automated dose lowering tech niques and/or adjustment according to patient size were utilized for this exam. This exam was perfor med without intravenous contrast. CT DOSE: 517.24 mGy.cm COMPARISON: None available at the time of this dictation. FINDINGS: Exam is limited by patient motion. Lower chest: Bilateral small pleural effusions are seen with underlying atelectasis. Liver: Unchanged from prior exam. Gallbladder and biliary tree: No calcified gallstones. Normal caliber wall. Trace pneumobilia is seen , similar to prior exam. Pancreas: Unremarkable, no focal lesions. Spleen: Unremarkable. Adrenals: Unremarkable. Kidneys and ureters: Minimal stranding is seen surrounding the bilateral kidneys. Bladder: Garcia catheter is seen. Reproductive organs: Multiple fibroids are seen. Bowel: Diverticulosis is seen without evidence of diverticulitis. Fatty infiltration of the cecum is again noted. There is a large hiatal hernia. Lymph nodes Retroperitoneal: Unremarkable. Pelvic: Unremarkable. Mesenteric: Unremarkable. Peritoneum: Previously noted retroperitoneal bleed in the left is unchanged from prior exam. Vessels: Atherosclerotic calcifications are seen. Abdominal wall: Body wall edema is unchanged. Previously noted emphysema in the left abdominal soft t issues is no longer seen. No new focal collection is seen. Bones: Redemonstration of thoracic vertebral compression deformities. Redemonstration of bilateral no ndisplaced rib fractures. IMPRESSION: 1. Interval stability of tiny left retroperitoneal hematoma. 2. Body wall edema with interval resolution of previously noted subcutaneous gas. 3. Small bilateral pleural effusions with underlying atelectasis have somewhat increased from the in terval. ACT 112: Negative or not required by law. Electronically signed by: Hakan Wise M.D. 05/10/2022 4:02 PM
[2022-05-10] MEDS: MONTELUKAST SODIUM 10 MG TABLET PO SCH (19:56)
[2022-05-11] MEDS: LEVOTHYROXINE SODIUM 100 MCG TABLET PO SCH (06:32)
[2022-05-11] MEDS: LIDOCAINE 5% 1 PATCH TD SCH (07:30)
[2022-05-11 08:19] LABS: Hematocrit (blood only) 29.7 % (34.1-44.9); Hemoglobin 9.6 g/dl (12.0-16.0); Mean Corpuscular Hemoglobin 29.2 pg (25.0-34.0); Mean Corpuscular Hgb Conc 32.3 g/dL (32.0-36.0); Mean Corpuscular Volume 90.3 fL (80.0-100.0); Mean Platelet Volume 10.2 fL (9.4-12.3); Nucleated RBC # (auto) 0.02 K/uL (0-0); Nucleated RBC % (auto) 0.3 %; Platelet Count 300 K/uL (130-400); RDW Coefficient of Variation 21.2 % (11.5-14.5); RDW Standard Deviation 55.4 fL (36.4-46.3); Red Blood Count 3.29 M/uL (3.93-5.22); White Blood Count 6.99 K/ul (4.8-10.8)
[2022-05-11] MEDS: ACETAMINOPHEN 325 MG TAB PO SCH (08:20)
[2022-05-11] MEDS: ATORVASTATIN 40 MG TAB PO SCH (08:20)
[2022-05-11] MEDS: ASPIRIN 81 MG ECTAB PO SCH (08:20)
[2022-05-11] MEDS: ASCORBIC ACID 500 MG TAB PO SCH (08:20)
[2022-05-11] MEDS: amLODIPine BESYLATE 5 MG TAB PO SCH (08:20)
[2022-05-11] MEDS: SODIUM BICARBONATE 650 MG TAB PO SCH ×2 (08:20→17:33)
[2022-05-11] MEDS: CYANOCOBALAMIN (B-12) 2,500 MCG TABLET SCH (08:20)
[2022-05-11] MEDS: carvediloL 12.5 MG TAB PO SCH ×2 (08:21→20:31)
[2022-05-11] MEDS: CALCIUM 600MG + VIT D 400 IU TAB PO SCH (08:21)
[2022-05-11] MEDS: ACYCLOVIR 400 MG TAB PO SCH ×2 (08:21→20:32)
[2022-05-11] MEDS: POLYETHYLENE (MIRALAX) 17 GM PACK PO SCH (08:21)
[2022-05-11] MEDS: CALCITONIN SALMON NA 200 IU/AC 3.7 ML BTL SCH (08:21)
[2022-05-11] MEDS: INSULIN ASPART PER UNIT SC SCH ×4 (08:36→20:48)
[2022-05-11 08:46] LABS: Albumin Level 2.6 gm/dl (3.4-5.0); BUN Creatinine Ratio 29.8 (10-20); Calcium 7.5 mg/dl (8.5-10.1); Creatinine Clr Calc Pharmacy 12.1 ml/min; Est GFR (African American) 16.3 ml/min; Est GFR (Non-African American) 14.1 ml/min; Phosphorus 5.7 mg/dl (2.5-4.9); Potassium 4.2 mmol/L (3.5-5.1)
--- NOTE | 2022-05-11 10:24 | Hospitalist Progress Note ---
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 Pain control- Lidocaine patches, tylenol, oxycodone 2.5mg prn reports pain controlled with ordered medications Orthopedics consulted TLSO brace ordered and received, ambulate ad lb, no lifting greater than 5 pounds for her T7-T8 fracture In regards to C7-T3 superior endplate compression fractures, conservative treatment with cervical soft collar to be worn at all times except bathing/eating Added calcitonin 04/27 PT/OT consulted -- need updated PT/OT evals for consideration for snf placement pt is agreeable to covid booster if needed (2) Thoracic spine fracture: Plan: Horizontal fracture through T8. MRI on 04/25 did not show involvement of the posterior elements. - Remains neurologically intact today, strength intact - TLSO brace has been delivered. - Closely monitor - Stable so far. (3) Retroperitoneal bleed: Plan: CT a/p on 04/25 showed"trace hemorrhage tracking in the left paracolic gutter." Reviewed images with radiologist. No apparent internal organ bleeding. "Subcutaneous contusion/hematoma is noted in the left gluteal/supragluteal soft tissues" seen as well, so may be from this. - Repeat CT a/p on 04/26 showed no worsening bleeding and actually improved in thigh. Hgb 7.5 on repeat today, iron studies low, nephrology wrote day 3 Venofer, no additional doses ordered after signed off Iron studies showed iron <10, trans % sat not even able to be calculated. Venofer ordered on 04/26 (300mg), 04/27 (200mg), 04/28 (300mg), will order additional dose for today 200mg and plan for repeat dose tomorrow I checked B12/folate for completeness, no deficiency Monitor CBC in AM (4) Chronic kidney disease, stage 4 (severe): Plan: Baseline Cr ~2.4 - 2.9, CrCl ~15. Renal amyloidosis At baseline on admission, but then up to 3.66 on 04/27. Consistent with acute kidney injury/failure. Stopped furosemide on 04/26. Nephrology started NaHCO 650mg BID for correction of metabolic acidosis, since signed off Cr 3.22 Na 131 (TSH elevated to 26 on admit, repeated today still 10), will increase synthroid for AM 100mcg Also checking BNP given possible CHF from NaHCO3 replacement, will reach back out to nephrology pending given prior lasix placed on hold, alk phos elevated compared to prior , ?+HJR on exam K elevation not on ARUNA/ARB, follow and treat as indicated Renal dose meds/avoid nephrotoxic agents when able (5) Rib fractures: Plan: CT thoracic spine on 04/25 showed numerous non-displaced bilateral anterior rib fractures as above. - Conservative care, reports pain controlled (6) Fall: Plan: Mechanical in nature per patient. Did not strike head and no LoC. No prodrome symptoms to suggest other etiology. - PT/OT recommend rehab, but patient wanting to go home. Family asking for referrals to SNFs (7) Amyloidosis: Plan: Renal amyloidosis with AL [place] subtype diagnosed on 11/04/2021 on biopsy. Started on Darzalex Faspro on 02/07/2022. Given week 6 treatment on 03/15/2022. Plan to start CyBorD after colorectal surgery. - No acute inpatient needs at this time (8) Anemia of chronic disease: Plan: Baseline hgb ~9 - 10. Some element of acute blood loss anemia as well given mild RP bleed and thigh hematoma. Venofer provided 3/5 doses inpatient, will order repeat dose for today, would order repeat for AM pending CBC/BP (ordered 200mg given borderline BP to prevent hypoperfusion) (9) Type 2 diabetes mellitus: Plan: Recently diagnosed, as this is not in our charts. A1c is 6.8%. Likely some element of steroid-induced, ?accuracy given anemia - Sliding scale insulin - BSs have been 90 - 140 over last 24 hours. (10) Hypertension: Plan: BP in the ER was 155/95, however has been well controlled/borderline low since 04/25 Continues on carvedilol BID, amlodipine (11) Hypothyroidism: Plan: Last TSH in our system was >20 in 2020. Was again 26.3 this admission. - Continue home Synthroid Given significant elevation to 26 (prior 20) and repeat 2 weeks in still elevated to 10 in patient with underlying hypothyroidism/fatigue/edema, will increase to 100mcg for AM (12) Colonic mass: Plan: Known colonic mass, but without carcinoma. Per oncology notes, plan to see CRC sx in [place] for removal, then start more aggressive chemotherapy after mass removed - No inpatient needs as long as she remains without large bowel obstruction family did bring in cyclophosphamide medicin, dosed once a week dose given 11/23 (13) DVT prophylaxis: Plan: SCDs - Holding heparin for concern for RP bleed, will order SCDs while inpatient/not as mobile. LE edema but NONTENDER/NO ERYTHEMA/evidence for DVT presently DNR/DNI - Per patient in ED. Alert, oriented, capable of making her own medical decisions had been having loose stool --> cdiff checked, negative Plan continued inpatient stay Venofer increased Synthroid given persist elevated TSH and edema/hypothyroidism Admission and Anticipated Discharge Date Admission Date: April 25, 2022 Subjective pt states her pain is 5/5 and there most of the time. she is agreeable to go to the snf for rehab and will agree to some parenteral pain med adjustment Review of Systems Review of Systems: Mild distress and fatigue no headache, no visual changes no speech or swallowing issues no chest pain, pressure or palpitations no shortness of breath, cough or wheezes no abdominal pain, nausea or vomiting, diarrhea or constipation no dysuria, hematuria or frequency does have LE swelling lower thoracic back pain, no CVA tenderness or radicular pain no bruising, bleeding or rashes no focal signs of weakness or numbness or altered sensation no complaints of anxiety or depression.. Physical Exam Physical Exam: The patient appeared chronic ill but stable Vital signs as documented. Lungs are clear to auscultation and appear unlabored Cardiac exam, Rhythm is regular.. No murmurs, rubs or gallops. Extremities are nonedematous and both pedal pulses are normal. Neurologic exam is alert and oriented Skin is without bruises or rashes Psychologically is without concerns for anxiety or depression. Results & Data Results & Data ([facility]) Vital Signs (Past 12 Hours) Vital Signs Temp Pulse Resp BP Pulse Ox O2 Del Method 05/11/22 07:23 97.5 F L 70 17 114/65 95 Room Air PG Care Time/CCT Total # of Minutes Spent Total Time Spent with Patient: Total time spent is greater than 50% in coordination of care (as documented) at patient's floor/unit and/or counseling patient: Coding Level of Care Code 35468 Subseq Hosp Care Lvl 2 Diagnoses Compression fracture Thoracic spine fracture S22.009A Retroperitoneal bleed R58 Chronic kidney disease, stage 4 (severe) N18.4 Rib fractures S22.49XA Fall W19.XXXA Amyloidosis E85.9 Anemia of chronic disease D63.8 Type 2 diabetes mellitus E11.9 Hypertension I10 Hypothyroidism E03.9 Colonic mass K63.89 DVT prophylaxis Z29.9
[2022-05-11] MEDS: CALCIUM ACETATE 667 MG CAP/TAB PO SCH ×2 (11:46→17:33)
--- NOTE | 2022-05-11 12:44 | Nephrology Progress Note ---
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 No plan for replacement therapy in future with plan to continue conservative management for end-stage kidney disease. Noted to have significant anemia, received Epogen. Earlier during admission noted to have small retroperitoneal bleed a but in between hemoglobin stabilized and has been stable. Hemoglobin again dropped to 6.9 but improved to >9 s/p PRBC yesterday. .Renal function pretty low but somewhat stable normal potassium. Blood pressure well controlled. Volume status acceptable. --follow low-potassium diet. -- advise patient to keep well hydrated, avoid nephrotoxic medications including all NSAIDs. -- Dose medications for EGFR less than 15 -- check CBC in a week as outpt Admission and Anticipated Discharge Date Admission Date: April 25, 2022 Subjective Sandra was seen and evaluated in her room this morning. Overall she is clinically stable, denies any specific symptoms. Appetite poor. Blood pressure stable, denies any shortness of breath, chest pain, dizziness or lightheadedness. Renal function staying relatively stable close to baseline, electrolyte acceptable. Hemoglobin improved s/p PRBC yesterday. Review of Systems Review of Systems: detailed review of system was otherwise unremarkable. Physical Exam Constitutional: WD/WN, vitals as above Eyes: + anicteric sclerae Respiratory: Auscultation: lungs clear to auscultation bilaterally Cardiovascular: Rate/Rhythm: regular rate and regular rhythm Heart Sounds: normal S1 and normal S2 Extremities: no edema Skin: no rashes Neurologic: no focal motor deficits and not confused Psychiatric: Orientation: alert and oriented x 3 Results & Data ([facility]) Vital Signs (Past 12 Hours) Vital Signs Temp Pulse Resp BP Pulse Ox O2 Del Method 05/11/22 07:23 36.4 C L 70 17 114/65 95 Room Air PG Care Time/CCT Total # of Minutes Spent Total Time Spent with Patient: Total time spent is greater than 50% in coordination of care (as documented) at patient's floor/unit and/or counseling patient: Coding Level of Care Code 23685 Subseq Hosp Care Lvl 2 Diagnoses Chronic kidney disease, stage V N18.5 Acute kidney injury N17.9 Anemia D64.9 Retroperitoneal bleed R58 Amyloidosis E85.9
[2022-05-11] MEDS ORDERED: traMADol HCL 50 MG TABLET PO PRN (12:59)
[2022-05-11] MEDS: ACETAMINOPHEN 500 MG TAB PO SCH ×2 (13:16→20:31)
[2022-05-11] MEDS: MONTELUKAST SODIUM 10 MG TABLET PO SCH (20:31)
[2022-05-12] MEDS: LEVOTHYROXINE SODIUM 100 MCG TABLET PO SCH (05:38)
[2022-05-12 08:09] LABS: Hematocrit (blood only) 29.2 % (34.1-44.9); Hemoglobin 9.7 g/dl (12.0-16.0); Mean Corpuscular Hemoglobin 29.8 pg (25.0-34.0); Mean Corpuscular Hgb Conc 33.2 g/dL (32.0-36.0); Mean Corpuscular Volume 89.6 fL (80.0-100.0); Mean Platelet Volume 10.5 fL (9.4-12.3); Nucleated RBC # (auto) 0.07 K/uL (0-0); Platelet Count 300 K/uL (130-400); RDW Coefficient of Variation 21.1 % (11.5-14.5); RDW Standard Deviation 55.5 fL (36.4-46.3); Red Blood Count 3.26 M/uL (3.93-5.22); White Blood Count 6.78 K/ul (4.8-10.8)
[2022-05-12] MEDS: CALCIUM 600MG + VIT D 400 IU TAB PO SCH (08:31)
[2022-05-12] MEDS: CYANOCOBALAMIN (B-12) 2,500 MCG TABLET SCH (08:32)
[2022-05-12] MEDS: ASCORBIC ACID 500 MG TAB PO SCH (08:32)
[2022-05-12] MEDS: ATORVASTATIN 40 MG TAB PO SCH (08:32)
[2022-05-12] MEDS: ACETAMINOPHEN 500 MG TAB PO SCH ×3 (08:32→21:39)
[2022-05-12] MEDS: CALCIUM ACETATE 667 MG CAP/TAB PO SCH ×3 (08:32→17:02)
[2022-05-12] MEDS: ACYCLOVIR 400 MG TAB PO SCH ×2 (08:32→21:38)
[2022-05-12] MEDS: SODIUM BICARBONATE 650 MG TAB PO SCH ×2 (08:33→17:02)
[2022-05-12] MEDS: amLODIPine BESYLATE 5 MG TAB PO SCH (08:33)
[2022-05-12] MEDS: carvediloL 12.5 MG TAB PO SCH ×2 (08:33→21:39)
[2022-05-12] MEDS: ASPIRIN 81 MG ECTAB PO SCH (08:33)
[2022-05-12] MEDS: CALCITONIN SALMON NA 200 IU/AC 3.7 ML BTL SCH (08:33)
[2022-05-12] MEDS: LIDOCAINE 5% 1 PATCH TD SCH (08:34)
[2022-05-12] MEDS: POLYETHYLENE (MIRALAX) 17 GM PACK PO SCH (08:34)
[2022-05-12 08:41] LABS: Albumin Level 2.7 gm/dl (3.4-5.0); BUN Creatinine Ratio 28.6 (10-20); Calcium 7.8 mg/dl (8.5-10.1); Est GFR (African American) 16.2 ml/min; Phosphorus 5.1 mg/dl (2.5-4.9); Potassium 4.2 mmol/L (3.5-5.1)
--- NOTE | 2022-05-12 08:41 | Hospitalist Progress Note ---
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 Pain control- Lidocaine patches, tylenol, tramadol prn reports pain controlled and tolerated except with movement Orthopedics consulted TLSO brace ordered and received, ambulate ad lb, no lifting greater than 5 pounds for her T7-T8 fracture In regards to C7-T3 superior endplate compression fractures, conservative treatment with cervical soft collar to be worn at all times except bathing/eating Added calcitonin 04/27 PT/OT consulted -- need updated PT/OT evals for consideration for snf placement pt is agreeable to covid booster if needed (2) Thoracic spine fracture: Plan: Horizontal fracture through T8. MRI on 04/25 did not show involvement of the posterior elements. - Remains neurologically intact today, strength intact - TLSO brace has been delivered. - Closely monitor - Stable so far. (3) Retroperitoneal bleed: Plan: CT a/p on 04/25 showed"trace hemorrhage tracking in the left paracolic gutter." Reviewed images with radiologist. No apparent internal organ bleeding. "Subcutaneous contusion/hematoma is noted in the left gluteal/supragluteal soft tissues" seen as well, so may be from this. - Repeat CT a/p on 04/26 showed no worsening bleeding and actually improved in thigh. Hgb 7.5 on repeat today, iron studies low, nephrology wrote day 3 Venofer, no additional doses ordered after signed off Iron studies showed iron <10, trans % sat not even able to be calculated. Venofer ordered on 04/26 (300mg), 04/27 (200mg), 04/28 (300mg), will order additional dose for today 200mg and plan for repeat dose tomorrow I checked B12/folate for completeness, no deficiency hemaglobin is stable (4) Chronic kidney disease, stage 4 (severe): Plan: Baseline Cr ~2.4 - 2.9, CrCl ~15. Renal amyloidosis At baseline on admission, but then up to 3.66 on 04/27. Consistent with acute kidney injury/failure. Stopped furosemide on 04/26. Nephrology started NaHCO 650mg BID for correction of metabolic acidosis, since signed off Cr 3.02 Na 134 (TSH elevated to 26 on admit, repeated today still 10), will increase synthroid for AM 100mcg Also checking BNP given possible CHF from NaHCO3 replacement, will reach back out to nephrology pending given prior lasix placed on hold, alk phos elevated compared to prior , ?+HJR on exam K elevation not on ARUNA/ARB, follow and treat as indicated Renal dose meds/avoid nephrotoxic agents when able (5) Rib fractures: Plan: CT thoracic spine on 04/25 showed numerous non-displaced bilateral anterior rib fractures as above. - Conservative care, reports pain controlled (6) Fall: Plan: Mechanical in nature per patient. Did not strike head and no LoC. No prodrome symptoms to suggest other etiology. - PT/OT recommend rehab, but patient wanting to go home. Family asking for referrals to SNFs (7) Amyloidosis: Plan: Renal amyloidosis with AL [place] subtype diagnosed on 11/04/2021 on biopsy. Started on Darzalex Faspro on 02/07/2022. Given week 6 treatment on 03/15/2022. Plan to start CyBorD after colorectal surgery. - No acute inpatient needs at this time (8) Anemia of chronic disease: Plan: Baseline hgb ~9 - 10. Some element of acute blood loss anemia as well given mild RP bleed and thigh hematoma. Venofer provided anemia has been stable after transfusion and iron (9) Type 2 diabetes mellitus: Plan: Recently diagnosed, as this is not in our charts. A1c is 6.8%. Likely some element of steroid-induced, ?accuracy given anemia - Sliding scale insulin - BSs have been 90 - 140 over last 24 hours. (10) Hypertension: Plan: BP in the ER was 155/95, however has been well controlled/borderline low since 04/25 Continues on carvedilol BID, amlodipine (11) Hypothyroidism: Plan: Last TSH in our system was >20 in 2020. Was again 26.3 this admission. - Continue home Synthroid Increase synthroid to 100mcg for AM (12) Colonic mass: Plan: Known colonic mass, but without carcinoma. Per oncology notes, plan to see CRC sx in [place] for removal, then start more aggressive chemotherapy after mass removed - No inpatient needs as long as she remains without large bowel obstruction family did bring in cyclophosphamide medicin, dosed once a week dose given 05/07/22 (13) DVT prophylaxis: Plan: SCDs - Holding heparin for concern for RP bleed, will order SCDs while inpatient/not as mobile. LE edema but NONTENDER/NO ERYTHEMA/evidence for DVT presently DNR/DNI - Per patient in ED. Alert, oriented, capable of making her own medical decisions had been having loose stool --> cdiff checked, negative Admission and Anticipated Discharge Date Admission Date: April 25, 2022 Subjective Pt c/o back pain with movement and feeling tired. Appetite poor. Blood pressure low preventing restart of home meds, overall is stable, denies any shortness of breath, chest pain, dizziness or lightheadedness. Review of Systems Review of Systems: Mild distress and fatigue no headache, no visual changes no speech or swallowing issues no chest pain, pressure or palpitations no shortness of breath, cough or wheezes no abdominal pain, nausea or vomiting, diarrhea or constipation no dysuria, hematuria or frequency does have LE swelling lower thoracic back pain, no CVA tenderness or radicular pain no bruising, bleeding or rashes no focal signs of weakness or numbness or altered sensation no complaints of anxiety or depression.. Physical Exam Physical Exam: The patient appeared chronic ill but stable Vital signs as documented. Lungs are clear to auscultation and appear unlabored Cardiac exam, Rhythm is regular.. No murmurs, rubs or gallops. Extremities are nonedematous and both pedal pulses are normal. Neurologic exam is alert and oriented Skin is without bruises or rashes Psychologically is without concerns for anxiety or depression. Results & Data Results & Data ([facility]) Vital Signs (Past 12 Hours) Vital Signs Temp Pulse Resp BP BP Pulse Ox O2 Del Method 05/12/22 07:33 98.2 F 76 16 123/75 92 Room Air 05/11/22 22:04 98.1 F 74 18 115/65 94 Room Air PG Care Time/CCT Total # of Minutes Spent Total Time Spent with Patient: Total time spent is greater than 50% in coordination of care (as documented) at patient's floor/unit and/or counseling patient: Coding Level of Care Code 37301 Subseq Hosp Care Lvl 2 Diagnoses Compression fracture Thoracic spine fracture S22.009A Retroperitoneal bleed R58 Chronic kidney disease, stage 4 (severe) N18.4 Rib fractures S22.49XA Fall W19.XXXA Amyloidosis E85.9 Anemia of chronic disease D63.8 Type 2 diabetes mellitus E11.9 Hypertension I10 Hypothyroidism E03.9 Colonic mass K63.89 DVT prophylaxis Z29.9
[2022-05-12] MEDS: INSULIN ASPART PER UNIT SC SCH ×4 (08:43→21:53)
--- NOTE | 2022-05-12 09:29 | Nephrology Progress Note ---
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 No plan for renal replacement therapy in future with plan to continue conservative management for end-stage kidney disease. Noted to have significant anemia, received Epogen. Earlier during admission noted to have small retroperitoneal bleed a but in between hemoglobin stabilized and has been stable. Hemoglobin again dropped to 6.9 but improved to >9 s/p PRBC yesterday. .Renal function pretty low but somewhat stable with normal potassium. Blood pressure well controlled. Volume status acceptable. -- encourage po intake, advise patient to keep well hydrated, avoid nephrotoxic medications including all NSAIDs. -- Dose medications for EGFR less than 15 -- check CBC and renal panel in a week as outpt Admission and Anticipated Discharge Date Admission Date: April 25, 2022 Subjective Sandra was seen and evaluated in her room this morning. Overall she is clinically stable but feeling tired. Appetite poor. Blood pressure stable, denies any shortness of breath, chest pain, dizziness or lightheadedness. Renal function staying relatively stable close to baseline, electrolyte acceptable. Hemoglobin stable. Review of Systems 2 Review of Systems: detailed review of system was otherwise unremarkable. Physical Exam Constitutional: WD/WN, vitals as above Eyes: + anicteric sclerae Respiratory: normal respiratory effort; no respiratory distress Auscultation: lungs clear to auscultation bilaterally Cardiovascular: Rate/Rhythm: regular rate and regular rhythm Heart Sounds: normal S1 and normal S2 Extremities: no edema Skin: no rashes Neurologic: no focal motor deficits and not confused Psychiatric: Orientation: alert and oriented x 3 Results & Data ([facility]) Vital Signs (Past 12 Hours) Vital Signs Temp Pulse Resp BP BP Pulse Ox O2 Del Method 05/12/22 07:33 36.8 C 76 16 123/75 92 Room Air 05/11/22 22:04 36.7 C 74 18 115/65 94 Room Air PG Care Time/CCT Total # of Minutes Spent Total Time Spent with Patient: Total time spent is greater than 50% in coordination of care (as documented) at patient's floor/unit and/or counseling patient: Coding Level of Care Code 89493 Subseq Hosp Care Lvl 2 Diagnoses Chronic kidney disease, stage V N18.5 Acute kidney injury N17.9 Anemia D64.9 Retroperitoneal bleed R58 Amyloidosis E85.9
[2022-05-12] MEDS: MONTELUKAST SODIUM 10 MG TABLET PO SCH (21:38)
[2022-05-13] MEDS: LEVOTHYROXINE SODIUM 100 MCG TABLET PO SCH (06:02)
[2022-05-13 08:10] LABS: Albumin Level 2.6 gm/dl (3.4-5.0); BUN Creatinine Ratio 25.6 (10-20); Calcium 7.8 mg/dl (8.5-10.1); Creatinine Clr Calc Pharmacy 11.3 ml/min; Est GFR (Non-African American) 12.9 ml/min; Phosphorus 4.5 mg/dl (2.5-4.9); Potassium 4.3 mmol/L (3.5-5.1)
[2022-05-13] MEDS: CYANOCOBALAMIN (B-12) 2,500 MCG TABLET SCH (08:39)
[2022-05-13] MEDS: carvediloL 12.5 MG TAB PO SCH (08:39)
[2022-05-13] MEDS: POLYETHYLENE (MIRALAX) 17 GM PACK PO SCH (08:39)
[2022-05-13] MEDS: SODIUM BICARBONATE 650 MG TAB PO SCH (08:39)
[2022-05-13] MEDS: ATORVASTATIN 40 MG TAB PO SCH (08:40)
[2022-05-13] MEDS: ASPIRIN 81 MG ECTAB PO SCH (08:40)
[2022-05-13] MEDS: CALCIUM 600MG + VIT D 400 IU TAB PO SCH (08:40)
[2022-05-13] MEDS: ASCORBIC ACID 500 MG TAB PO SCH (08:40)
[2022-05-13] MEDS: ACETAMINOPHEN 500 MG TAB PO SCH ×2 (08:41→13:38)
[2022-05-13] MEDS: amLODIPine BESYLATE 5 MG TAB PO SCH (08:41)
[2022-05-13] MEDS: CALCIUM ACETATE 667 MG CAP/TAB PO SCH ×2 (08:41→12:36)
[2022-05-13] MEDS: LIDOCAINE 5% 1 PATCH TD SCH (08:42)
[2022-05-13] MEDS: CALCITONIN SALMON NA 200 IU/AC 3.7 ML BTL SCH (08:42)
[2022-05-13] MEDS ORDERED: EPOETIN ALFA 20,000 UNITS/ML VIAL SQ STA (08:45)
[2022-05-13] MEDS: INSULIN ASPART PER UNIT SC SCH ×2 (08:50→12:36)
[2022-05-13] MEDS ORDERED: IRON SUCROSE 200 MG in 0.9 % SODIUM CHLORIDE 100 ML IV SCH (09:00)
[2022-05-13] MEDS: ACYCLOVIR 400 MG TAB PO SCH (10:12)
--- NOTE | 2022-05-13 10:15 | Nephrology Progress Note ---
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 No plan for renal replacement therapy in future with plan to continue conservative management for end-stage kidney disease. Noted to have significant anemia, received Epogen earlier during admission noted to have small retroperitoneal bleed a but in between hemoglobin stabilized and has been stable. Hemoglobin again dropped to 6.9 but improved to >9 s/p PRBC yesterday. Renal function pretty low but somewhat stable with normal potassium. Blood pressure well controlled. Volume status acceptable. -- start on Venofer 200 mg IV daily for total of 5 doses, Epogen 14339 units x 1 dose today. -- encourage po intake, advise patient to keep well hydrated, avoid nephrotoxic medications including all NSAIDs. -- Dose medications for EGFR less than 15 -- check CBC and renal panel in a week as outpt Will sign off, she will be seen in office as currently scheduled, please contact with any further question or concerns. Admission and Anticipated Discharge Date Admission Date: April 25, 2022 Subjective Sandra was seen and evaluated in her room this morning. Overall she is clinically stable but feeling tired. Appetite poor. Blood pressure stable, denies any shortness of breath, chest pain, dizziness or lightheadedness. Renal function staying relatively stable close to baseline, electrolyte acceptable. Hemoglobin stable. Review of Systems Review of Systems: detailed review of system was otherwise unremarkable. Physical Exam Constitutional: WD/WN, vitals as above Eyes: + anicteric sclerae Respiratory: normal respiratory effort; no respiratory distress Auscultation: lungs clear to auscultation bilaterally Cardiovascular: Rate/Rhythm: regular rate and regular rhythm Heart Sounds: normal S1 and normal S2 Extremities: no edema Skin: no rashes Neurologic: no focal motor deficits and not confused Psychiatric: Orientation: alert and oriented x 3 Results & Data ([facility]) Vital Signs (Past 12 Hours) Vital Signs Temp Pulse Resp BP Pulse Ox O2 Del Method 05/13/22 07:55 36.7 C 72 16 123/71 94 Room Air PG Care Time/CCT Total # of Minutes Spent Total Time Spent with Patient: Total time spent is greater than 50% in coordination of care (as documented) at patient's floor/unit and/or counseling patient: Coding Level of Care Code 83619 Subseq Hosp Care Lvl 3 Diagnoses Chronic kidney disease, stage V N18.5 Acute kidney injury N17.9 Anemia D64.9 Retroperitoneal bleed R58 Amyloidosis E85.9
[2022-05-13] MEDS ORDERED: COVID19 BIVALENT Vaccine (Booster ONLY--Pfizer) 30mcg/0.3mL IM ONE (10:30)
--- NOTE | 2022-05-13 18:16 | Discharge Summary ---
Date of Service May 13, 2022 Admission HPI Per Admitting Provider 81yo F w/ hx of renal amyloidosis, HTN who presents with fall at home. Per patient, it was a mechanical fall where she was walking down the steps, slipped on a step and fell on her bottom. Denies striking her head or LoC; however, does have an abrasion on the left shoulder which she says she received in the fall as well, so some element of tipping forward and striking left side. She has some nausea at present from "moving too much" and the pain medication. She has some back pain in the thoracic spine. Otherwise, she denies symptoms, including no fevers/chills, chest pain, shortness of breath, abdominal pain in the last few days. Normal urination and defecation, and no melena or hematochezia per patient. In ER, full spinal CTs were done with final reads pending, but no fractures except for T10/T11 compression fracture, acute on chronic. Principal Diagnosis Age-related osteoporosis w current pathological fracture, vertebrae, multiple bilateral ribs. 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 Lungs are managed patient is wearing a brace for her back Cardiac exam, Rhythm is regular.. No murmurs, rubs or gallops. Abdominal exam reveals normal bowel sounds, soft non tender, no masses Extremities are paced to 1+ edematous arms and legs and both pedal pulses are normal. Neurologic exam is alert and oriented, no focal loss of strength or sensation Discharge Data Allergies Allergy/AdvReac Type Severity Reaction Status Date / Time No Known Allergies Allergy Verified 03/10/22 10:35 Consultations 04/25/22 06:42 ED Decision to Admit Stat 04/25/22 12:14 Consult Orthopedic Surgery Routine 04/26/22 11:14 Consult Nephrology Routine Ordered Studies 04/25/22 03:24 CT abd pelvis wo con Stat CT cervical spine wo con Stat CT chest diagnostic wo con Stat CT head/brain wo con Stat 04/25/22 03:28 CT lumbar spine wo con Stat CT thoracic spine wo con Stat 04/25/22 09:43 MR thoracic spine wo con Stat 04/26/22 11:14 CT abd pelvis wo con Urgent 05/10/22 10:32 CT Abd and Pelvis [CT abd pelvis wo con] Routine Hospital Course (1) Compression fracture: 81 yo female with hx AL [place] type renal amyloidosis started on Darzalex Faspro on 02/07/22, and c-scope with polyps in ascending colon which were removed and likely malignant tumor in rectum which was bx at that time 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 Pain control- Lidocaine patches, tylenol, tramadol prn reports pain controlled and tolerated except with movement Orthopedics consulted TLSO brace ordered and received, ambulate ad lb, no lifting greater than 5 pounds for her T7-T8 fracture In regards to C7-T3 superior endplate compression fractures, conservative treatment with cervical soft collar to be worn at all times except bathing/eating Added calcitonin 04/27 PT/OT consulted -- need updated PT/OT evals for consideration for snf placement patient did receive IV COVID booster on 05/13/2022 (2) Thoracic spine fracture: Horizontal fracture through T8. MRI on 04/25 did not show involvement of the posterior elements. - Remains neurologically intact today, strength intact - TLSO brace has been delivered.Stable so far. (3) Retroperitoneal bleed: CT a/p on 04/25 showed"trace hemorrhage tracking in the left paracolic gutter." Reviewed images with radiologist. No apparent internal organ bleeding. "Subcutaneous contusion/hematoma is noted in the left gluteal/supragluteal soft tissues" seen as well, so may be from this. - Repeat CT a/p on 04/26 showed no worsening bleeding and actually improved in thigh. Hgb 7.5 on repeat today, iron studies low, nephrology wrote day 3 Venofer, no additional doses ordered after signed off Iron studies showed iron <10, trans % sat not even able to be calculated. Venofer ordered on 04/26 (300mg), 04/27 (200mg), 04/28 (300mg), resume oral iron supplementation at discharge I checked B12/folate for completeness, no deficiency hemiglobin is stable (4) Chronic kidney disease, stage 4 (severe): Baseline Cr ~2.4 - 2.9, CrCl ~15. Renal amyloidosis At baseline on admission, but then up to 3.66 on 04/27. Consistent with acute kidney injury/failure. Stopped furosemide on 04/26. Nephrology started NaHCO BID for correction of metabolic acidosis, since signed off Cr 3.02 Na 134 (TSH elevated to 26 on admit, repeated today still 10), will increase synthroid for AM 100mcg K elevation not on ARUNA/ARB, follow and treat as indicated Renal dose meds/avoid nephrotoxic agents when able (5) Rib fractures: CT thoracic spine on 04/25 showed numerous non-displaced bilateral anterior rib fractures as above. - Conservative care, reports pain controlled (6) Fall: Mechanical in nature per patient. Did not strike head and no LoC. No prodrome symptoms to suggest other etiology. - PT/OT recommend rehab, (7) Amyloidosis: Renal amyloidosis with AL [place] subtype diagnosed on 11/04/2021 on biopsy. Started on Darzalex Faspro on 02/07/2022. Given week 6 treatment on 03/15/2022. Plan to start CyBorD after colorectal surgery. - No acute inpatient needs at this time (8) Anemia of chronic disease: Baseline hgb ~9 - 10. Some element of acute blood loss anemia as well given mild RP bleed and thigh hematoma. Venofer provided anemia has been stable after transfusion and iron (9) Type 2 diabetes mellitus: Recently diagnosed, as this is not in our charts. A1c is 6.8%. Likely some element of steroid-induced, ?accuracy given anemia - Sliding scale insulin - BSs have been 90 - 140 over last 24 hours. (10) Hypertension: BP in the ER was 155/95, however has been well controlled/borderline low since 04/25 Continues on carvedilol BID, amlodipine (11) Hypothyroidism: Last TSH in our system was >20 in 2020. Was again 26.3 this admission. 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 [facility] - No inpatient needs as long as she remains without large bowel obstruction family did bring in cyclophosphamide medicin, dosed once a week dose given 05/07/22 (13) DVT prophylaxis: DNR/DNI - Per patient in ED. Alert, oriented, capable of making her own medical decisions had been having loose stool --> cdiff checked, negative Total Time Total Time Spent Total Time Spent (In Minutes): It required greater than 30 minutes to prepare this patient for discharge Discharge Plan Discharge Items Patient Disposition: Transfer Assisted Fac Reason For Visit: fall, ambulatory dysfunction Discharge Diagnosis: cervical, thoracic and lumbar age related osteoporotic pathological fractures of vertebrae multiple bilateral rib fractures retroperitoneal bleed ckd4 with renal amyloidosis moderately differentiated adenocarcimona of rectum , with excisional removal with good margins on cyclophosphamide Activity: Per Instructions section Activity Comment: per PT ot Non-emergency contact: Primary Care Provider and Oncologist Call non-emergency contact if: your symptoms worsen Follow-up/Referrals: Ede Palmer [Primary Care Provider] - Diet: Dialysis Renal Addtl Attending Provider Instructions: Please have the patient wear her supportive brace is applied to orthopedics and follow-up with orthopedic spine surgery Dr. Saeed. Patient has not complain very much about needing acute pain treatment but continues to be supportive with her pain needs. On pain medication please evaluate her stool function. We have increased her thyroid at discharge please check a thyroid profile in approximately 6 weeks Patient did see Dr. Lacey Middleton and radiation oncology he will be arranging for outpatient PET scan and eventual radiation therapy in the future. Pending Studies at Discharge: No Stand-Alone Forms: My [facility] [place] ZOZI Skilled Items Patient informed of condition?: Yes DNR: Yes Discharge Level of Care: Skilled Communicable Disease: No (Patient did receive her fourth COVID shot a bi-valent booster on 05/13/2022) Discharge Prognosis: Stable Lines: None Urinary Catheter: No Medications and DC Order Prescriptions: New cyclophosphamide 50 mg Capsule 400 mg PO Q7D@0800 Qty: 7 0RF acetaminophen [Tylenol Extra Strength] 500 mg Tablet 1,000 mg PO TID Qty: 60 0RF tramadol 50 mg Tablet 50 mg PO Q6H PRN (Reason: pain (scale score 4-6)) Qty: 10 0RF sodium bicarbonate 650 mg Tablet 1,300 mg PO BID17 Qty: 60 0RF levothyroxine [Synthroid] 100 mcg Tablet 100 mcg PO DAILYBB Qty: 60 0RF calcitonin (salmon) 200 unit/actuation [place],Non-Aerosol 1 spray NA DAILY Qty: 3.7 0RF lidocaine 5 % Adhesive Patch,Medicated 2 patch transdermal QAM Qty: 15 0RF Continued furosemide 20 mg tablet 20 mg PO BID Qty: 180 3RF Sutab 1.479-0.188- 0.225 gram tablet See Rx Instructions PO .COMPLEX Qty: 24 0RF Rx Instructions: TAKE DIRECTED PER SPLIT DOSE INSTRUCTIONS. PLEASE USE COUPON BIN: [id number] PCN: CN GROUP#: [id number] amlodipine 10 mg tablet 10 mg PO DAILY Label Comments: PT NOT SURE WHAT TIME atorvastatin 40 mg tablet 40 mg PO QAM ferrous gluconate 256 mg (28 mg iron) tablet 325 mg PO QAM mecobalamin (vitamin B12) 5,000 mcg tablet,disintegrating 5,000 mcg PO QAM aspirin 81 mg tablet,chewable 81 mg PO DAILY carvedilol 12.5 mg tablet 12.5 mg PO BID Rx Instructions: must administer with a meal/food ondansetron HCl 4 mg Tablet 4 mg PO UD PRN (Reason: Nausea) acyclovir 400 mg Tablet 400 mg PO BID Label Comments: SAYS TWICE A DAY ascorbic acid (vitamin C) [Vitamin C] 500 mg Tablet 500 mg PO QAM montelukast 10 mg Tablet 10 mg PO QPM Label Comments: PT DOESN'T KNOW WHAT SHE IS TAKING Discontinued levothyroxine 88 mcg capsule 88 mcg PO DAILY Label Comments: 5 AM Cancer Shots 1 dose WK Label Comments: WEEKLY FOR BLOOD CANCER Discharge Orders: Discharge Order (Routine); Ordered 05/13/22 Ordered By: Bhaskar Weeks/Other Patient Handouts: Managing Type 2 Diabetes Admission Data Admit Date/Time: 04/25/22 07:46 Attending Provider: Bhaskar Gonsalez Admit Provider: Ismael Nava Primary Care Provider: Ede Palmer Other Providers: Ismael Nava ; Mayur Saeed ; Rohit Leigh ; Cheyenne Gore Other Interventions: Discharge Summary Assessment (RN) Last Done: 05/13/22 16:31 Coding Level of Care Code D/C DAY MANAGEMENT >30 MINS Diagnoses Compression fracture Thoracic spine fracture S22.009A Retroperitoneal bleed R58 Chronic kidney disease, stage 4 (severe) N18.4 Rib fractures S22.49XA Fall W19.XXXA Amyloidosis E85.9 Anemia of chronic disease D63.8 Type 2 diabetes mellitus E11.9 Hypertension I10 Hypothyroidism E03.9 Colonic mass K63.89 DVT prophylaxis Z29.9
[2022-05-14] MEDS ORDERED: CYCLOPHOSPHAMIDE 50 MG CAP PO SCH (08:00)
== END 2022-05-13 17:54 | DRG 543 ==
LOC: ED 03:12 → EDINP 07:46 → SUATTDRO 07:46 → 3W 18:57

== ENCOUNTER 2022-06-24 12:54 | Inpatient (IN) ==
--- NOTE | 2022-06-24 13:12 | Emergency Department Note ---
Impression & Plan Fluid overload, Acute UTI, Hypothermia, Pleural effusion on right, Transient confusion ED Provider Note Provider: Radu Macedo MD DATE OF SERVICE: 06/24/2022 CHIEF COMPLAINT: Confusion HISTORY OF PRESENT ILLNESS: Patient is a 81-year-old female history of AML, CKD, prior stroke presenting here today after family found the patient to be more confused this morning. According to EMS patient was altered for them upon arrival but in transit and run IV with ALS the patient had improved mental status and now has converse in with them. They report the family reported that the patient's had increased leg swelling and decreased oral intake and was not acting herself this morning. Patient was recently seen here for a fall last month but no new falls are reported. Patient denies current pain. Denies shortness of breath. Patient states this June but states the year is . Patient is alert and answering questions. She states she has been eating okay. REVIEW OF SYSTEMS: A total of 10 review of systems was obtained and negative except as stated above in the HPI. PAST MEDICAL HISTORY: As noted above MEDICATIONS: Reviewed available home medication list SOCIAL HISTORY: Lives at home with and son PHYSICAL EXAM: GENERAL: alert and oriented in no acute distress on stretcher Head: normocephalic and atraumatic EYES: No injection, discharge or icterus. PERRL, EOMI. NECK: Trachea midline. Supple. ENT: Mucous membranes pink and moist. Pharynx without erythema or exudate. LUNGS: Airway patent. No retractions. Breath sounds diminished in the bases right greater than left. HEART: Regular rate and rhythm. No chest wall tenderness ABDOMEN: Soft and non-tender, without guarding or rebound. SKIN: Acyanotic, warm, dry EXTREMITIES: Some healing contusion resolving over the right upper forearm with soft compartments and without bony tenderness. Patient with 2+ lower extremity edema of the lower extremities below the knees. No significant erythema or open wound noted. NEUROLOGICAL: No focal deficits. No aphasia. No facial droop or slurred speech but some slight dysarthria. Normal strength and tone in the extremities. Sensation to gross touch normal. EK bpm normal sinus rhythm with a left axis and incomplete right bundle branch block. Some artifact is noted but no acute ST segment elevation or depressions grossly noted. Nonspecific T wave changes with a QTC of 523. CONTINUOUS CARDIAC MONITORING: was ordered and showed a heart rate of 60s-70s bpm in normal sinus rhythm Patient's laboratory studies and imaging reviewed. Differential includes Infection, dehydration, metabolic abnormality, hypo/hyperglycemia, electrolyte disturbance, anemia, hypoxia, cardiac sources, intracerebral event, toxicologic, neurologic, as well as other pathologies. IMPRESSION/MEDICAL DECISION MAKING: Patient with some transient confusion. Reported slightly elevated blood sugar for EMS. According to them patient mentation has improved. Answering questions here. Evidence of some lower extremity swelling but no significant erythema, weeping, or open wounds noted. No new trauma reported patient was seen here recently for a fall last month. Does not seem to have any significant focality to her exam. Basic blood work will be completed. With her history of renal dysfunction and reports of some decreased intake question if this may have worsened. Blood work here does not show any significant cytosis with slightly worsened anemia at 9.7 today from 10.5 3 days ago. BUN and renal function stable. BNP is increased compared to previous and with the leg swelling question some fluid overload. Has been on Lasix. Chest x-ray indicative of a right basilar consolidation although less likely be infectious more likely related to fluid overload with a right pleural effusion. VBG with mild hypercarbia of 62 and a pH of 7.29. Patient also noted to be cool on rectal temperature a temperature of 31.3 Celsius. Oliva hugger initiated. Given these findings we will have the hospitalist evaluate for further care here at the hospital for diuresis and rewarming. Evidence of also urinary tract infection empirically given ceftriaxone. DIAGNOSIS: Fluid overload with right pleural effusion, hypothermia, acute UTI, transient confusion DISPOSITION: Hospitalist will evaluate Patient was agreeable with this plan. 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 - SHOTS IN THE BELLY FOR Chronic kidney disease, stage 4 (severe) CKD (chronic kidney disease) UNKNOWN DETAILS Colon cancer DX LAST WEEK - REASON FOR UPCOMING COLONOSCOPY Fatty liver Hypercholesteremia Hypertension Hypothyroidism Nephrotic syndrome Seasonal allergies Sinus problem CHRONIC Stroke HX 9 YR AGO - RESIDUAL: PHYSICALLY SLOWER SINCE STROKE/CANE Type 2 diabetes mellitus NO MEDS FOR Surgical History History of History of right cataract surgery Family History Other Family history of colon cancer in father Social History Smoking Status: Never smoker Hx Alcohol Use: No Preferred Language: Bangladeshi Communication Ability: Effective 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 Beliefs That Will Affect Care: Hoahaoism Hoahaoism Beliefs: TENRIISM - DO NOT EAT MEAT FRIDAYS AND DO NO WORK ON SUNDAYS , Spiritual Spiritual Healthcare Practices: TENRIISM - DO NOT EAT MEAT FRIDAYS AND DO NO WORK ON SUNDAYS and Cultural Cultural Beliefs: TENRIISM - DO NOT EAT MEAT FRIDAYS AND DO NO WORK ON SUNDAYS marital status: Current Living Situation: Family How many Children do You have: 2 Feels Safe at Home: Yes Assistive Devices: Bedside Commode, Cane and Walker Allergies Allergies Allergy/AdvReac Type Severity Reaction Status Date / Time No Known Allergies Allergy Verified 06/24/22 16:51 Home Meds Home Medications Medication Instructions Recorded Confirmed amlodipine 10 mg tablet 10 mg PO DAILY 08/04/21 06/24/22 aspirin 81 mg chewable tablet 81 mg PO DAILY 08/04/21 06/24/22 atorvastatin 40 mg tablet 40 mg PO QAM 08/04/21 06/24/22 mecobalamin (vitamin B12) 5,000 5,000 mcg PO QAM 08/04/21 06/24/22 mcg disintegrating tablet carvedilol 12.5 mg tablet 12.5 mg PO BID 08/10/21 06/24/22 acyclovir 400 mg tablet 400 mg PO BID 02/14/22 06/24/22 ascorbic acid (vitamin C) 500 mg 500 mg PO QAM 02/14/22 06/24/22 tablet (Vitamin C) ondansetron HCl 4 mg tablet 4 mg PO DIRECTED PRN Nausea 02/14/22 06/24/22 Previous Rx's Medication Instructions Recorded acetaminophen 500 mg tablet 1,000 mg PO TID #60 tabs 05/13/22 (Tylenol Extra Strength) cyclophosphamide 50 mg capsule 400 mg PO Q7D@0800 #7 caps 05/13/22 levothyroxine 100 mcg tablet 100 mcg PO DAILYBB #60 tabs 05/13/22 (Synthroid) lidocaine 5 % topical patch 2 patch transdermal QAM #15 ea 05/13/22 tramadol 50 mg tablet 50 mg PO Q6H PRN pain (scale score 05/13/22 4-6) #10 tabs sodium bicarbonate 650 mg tablet 650 mg PO BID17 #60 tabs 06/09/22 furosemide 40 mg tablet 40 mg PO TID #90 tabs 06/15/22 Results & Data (ED) Vital Signs Vital Signs - 24 hr 06/24/22 13:21 06/24/22 14:43 06/24/22 14:43 Temperature 31.3 C L 31.3 C L Temperature Source Rectal Rectal Pulse Rate 65 Pulse Rate from SpO2 Sensor Respiratory Rate 23 Respiratory Effort / Characteristics Non-Labored Spontaneous Respiratory Depth Normal Respiratory Pattern Regular Blood Pressure 170/95 H Blood Pressure Mean 120 Blood Pressure Position Lying Pulse Oximetry 94 Oxygen Delivery Method Room Air Sepsis Recent Fever Within 48 Hours No Sepsis New/Unexplained Change in Mental Status No Sepsis Action Taken by Nursing No Action Required 06/24/22 13:30 06/24/22 14:00 06/24/22 14:30 Temperature Temperature Source Pulse Rate 61 63 Pulse Rate from SpO2 Sensor 61 63 Respiratory Rate 22 20 Respiratory Effort / Characteristics Respiratory Depth Respiratory Pattern Blood Pressure 163/100 H 160/99 H 169/102 H Blood Pressure Mean 121 119 124 Blood Pressure Position Pulse Oximetry 95 98 Oxygen Delivery Method Sepsis Recent Fever Within 48 Hours Sepsis New/Unexplained Change in Mental Status Sepsis Action Taken by Nursing 06/24/22 14:36 06/24/22 14:43 06/24/22 14:50 Temperature Temperature Source Pulse Rate 87 95 H 75 Pulse Rate from SpO2 Sensor 59 L Respiratory Rate 23 Respiratory Effort / Characteristics Respiratory Depth Respiratory Pattern Blood Pressure Blood Pressure Mean Blood Pressure Position Pulse Oximetry 97 Oxygen Delivery Method Sepsis Recent Fever Within 48 Hours Sepsis New/Unexplained Change in Mental Status Sepsis Action Taken by Nursing 06/24/22 15:00 06/24/22 15:10 06/24/22 15:20 Temperature Temperature Source Pulse Rate 62 61 Pulse Rate from SpO2 Sensor 61 61 Respiratory Rate 20 20 Respiratory Effort / Characteristics Respiratory Depth Respiratory Pattern Blood Pressure 147/87 H Blood Pressure Mean 107 Blood Pressure Position Pulse Oximetry 78 L 96 Oxygen Delivery Method Sepsis Recent Fever Within 48 Hours Sepsis New/Unexplained Change in Mental Status Sepsis Action Taken by Nursing 06/24/22 15:20 06/24/22 16:04 06/24/22 15:30 Temperature 33.6 C L Temperature Source Rectal Pulse Rate 72 60 Pulse Rate from SpO2 Sensor 61 Respiratory Rate 19 20 Respiratory Effort / Characteristics Respiratory Depth Respiratory Pattern Blood Pressure 147/98 H Blood Pressure Mean 114 Blood Pressure Position Pulse Oximetry 96 96 Oxygen Delivery Method Sepsis Recent Fever Within 48 Hours Sepsis New/Unexplained Change in Mental Status Sepsis Action Taken by Nursing 06/24/22 16:00 06/24/22 16:10 06/24/22 17:09 Temperature 34.1 C L Temperature Source Rectal Pulse Rate 64 70 Pulse Rate from SpO2 Sensor 64 63 Respiratory Rate 16 22 Respiratory Effort / Characteristics Respiratory Depth Respiratory Pattern Blood Pressure 160/99 H Blood Pressure Mean 119 Blood Pressure Position Pulse Oximetry 96 97 Oxygen Delivery Method Sepsis Recent Fever Within 48 Hours Sepsis New/Unexplained Change in Mental Status Sepsis Action Taken by Nursing 06/24/22 16:30 06/24/22 17:10 06/24/22 17:30 Temperature Temperature Source Pulse Rate 66 101 H 67 Pulse Rate from SpO2 Sensor 66 67 Respiratory Rate 23 28 H 24 Respiratory Effort / Characteristics Respiratory Depth Respiratory Pattern Blood Pressure 166/97 H 162/91 H Blood Pressure Mean 120 114 Blood Pressure Position Pulse Oximetry 96 95 95 Oxygen Delivery Method Sepsis Recent Fever Within 48 Hours Sepsis New/Unexplained Change in Mental Status Sepsis Action Taken by Nursing 06/24/22 17:40 Temperature Temperature Source Pulse Rate 68 Pulse Rate from SpO2 Sensor 68 Respiratory Rate 22 Respiratory Effort / Characteristics Respiratory Depth Respiratory Pattern Blood Pressure Blood Pressure Mean Blood Pressure Position Pulse Oximetry 96 Oxygen Delivery Method Sepsis Recent Fever Within 48 Hours Sepsis New/Unexplained Change in Mental Status Sepsis Action Taken by Nursing Laboratory Data Result diagrams: 06/24/22 13:05 06/24/22 13:05 Lab Results 06/24/22 06/24/22 06/24/22 Range/Units 13:05 13:05 13:05 WBC 6.26 (4.8-10.8) K/ul RBC 2.98 L (3.93-5.22) M/uL Hgb 9.7 L (12.0-16.0) g/dl Hct 29.7 L (34.1-44.9) % MCV 99.7 (80.0-100.0) fL MCH 32.6 (25.0-34.0) pg MCHC 32.7 (32.0-36.0) g/dL RDW Std Deviation 85.0 H (36.4-46.3) fL RDW Coeff of Ruthie 24.5 H (11.5-14.5) % Plt Count 156 (130-400) K/uL MPV 11.1 (9.4-12.3) fL Immature Gran % (Auto) 0.5 % Neut % (Auto) 96.1 % Lymph % (Auto) 1.6 % [place] % (Auto) 1.6 % Eos % (Auto) 0.0 % Baso % (Auto) 0.2 % Neut # (Auto) 6.02 (1.4-6.5) K/uL Lymph # (Auto) 0.10 L (1.2-3.4) K/uL [place] # (Auto) 0.10 L (0.24-0.82) K/uL Eos # (Auto) 0.00 (0-0.50) K/uL Baso # (Auto) 0.01 (0-0.2) K/uL Immature Gran # (Auto) 0.03 H (0.00-0.02) K/uL Polychromasia 1+ Poikilocytosis Present Anisocytosis Present Target Cells 1+ Ovalocytes 1+ Acanthocytes (Spur) 2+ VBG pH (7.36-7.41) VBG pCO2 (38-50) mmHg VBG pO2 mmHg VBG HCO3 mmol/L VBG O2 Saturation % VBG Base Excess mEq/L Sodium 143 (136-145) mmol/L Potassium 3.8 (3.5-5.1) mmol/L Chloride 107 (98-107) mmol/L Carbon Dioxide 29 (21-32) mmol/L Anion Gap 7 (3-11) BUN 55 H (6-23) mg/dl Creatinine 2.61 H (0.6-1.2) mg/dl Est Cr Clr Drug Dosing 15.8 ml/min Est GFR ( Amer) 19.5 ml/min Est GFR (Non-Af Amer) 16.8 ml/min BUN/Creatinine Ratio 21.1 H (10-20) Glucose 189 H (70-99(Fasting)) mg/dl Calcium 7.2 L (8.5-10.1) mg/dl Magnesium 1.8 (1.7-2.4) mg/dl Total Bilirubin 0.8 (0.2-1.0) mg/dl AST 20 (13-39) U/L ALT 16 (7-52) U/L Alkaline Phosphatase 127 H (34-104) U/L Ammonia (18-72) umol/L Troponin I High Sens (0-14) pg/ml B-Natriuretic Peptide (0-100) pg/ml Total Protein 4.6 L (6.0-8.3) gm/dl Albumin 2.6 L (3.4-5.0) gm/dl Globulin 2.0 L (2.5-4.0) gm/dl Albumin/Globulin Ratio 1.3 (0.9-2) TSH 9.987 H (0.300-4.500) uIu/ml Urine Color Urine Appearance (Clear) Urine pH (4.5-7.5) Ur Specific [place] (1.000-1.030) Urine Protein (Negative) Urine Glucose (UA) (Negative) Urine Ketones (Negative) Urine Blood (Negative) Urine Nitrite (Negative) Urine Bilirubin (Negative) Urine Urobilinogen (Negative) Ur Leukocyte Esterase (Negative) Urine WBC (Auto) (0-5) /hpf Urine RBC (Auto) (0-4) /hpf U Hyaline Cast (Auto) (0-5) /lpf U Epithel Cells (Auto) (0-5) /lpf Urine Bacteria (Auto) (Negative) SARS-CoV-2, RNA, NAAT (NEGATIVE) 06/24/22 06/24/22 06/24/22 Range/Units 13:05 13:05 14:07 WBC (4.8-10.8) K/ul RBC (3.93-5.22) M/uL Hgb (12.0-16.0) g/dl Hct (34.1-44.9) % MCV (80.0-100.0) fL MCH (25.0-34.0) pg MCHC (32.0-36.0) g/dL RDW Std Deviation (36.4-46.3) fL RDW Coeff of Ruthie (11.5-14.5) % Plt Count (130-400) K/uL MPV (9.4-12.3) fL Immature Gran % (Auto) % Neut % (Auto) % Lymph % (Auto) % [place] % (Auto) % Eos % (Auto) % Baso % (Auto) % Neut # (Auto) (1.4-6.5) K/uL Lymph # (Auto) (1.2-3.4) K/uL [place] # (Auto) (0.24-0.82) K/uL Eos # (Auto) (0-0.50) K/uL Baso # (Auto) (0-0.2) K/uL Immature Gran # (Auto) (0.00-0.02) K/uL Polychromasia Poikilocytosis Anisocytosis Target Cells Ovalocytes Acanthocytes (Spur) VBG pH (7.36-7.41) VBG pCO2 (38-50) mmHg VBG pO2 mmHg VBG HCO3 mmol/L VBG O2 Saturation % VBG Base Excess mEq/L Sodium (136-145) mmol/L Potassium (3.5-5.1) mmol/L Chloride (98-107) mmol/L Carbon Dioxide (21-32) mmol/L Anion Gap (3-11) BUN (6-23) mg/dl Creatinine (0.6-1.2) mg/dl Est Cr Clr Drug Dosing ml/min Est GFR ( Amer) ml/min Est GFR (Non-Af Amer) ml/min BUN/Creatinine Ratio (10-20) Glucose (70-99(Fasting)) mg/dl Calcium (8.5-10.1) mg/dl Magnesium (1.7-2.4) mg/dl Total Bilirubin (0.2-1.0) mg/dl AST (13-39) U/L ALT (7-52) U/L Alkaline Phosphatase (34-104) U/L Ammonia 28.0 (18-72) umol/L Troponin I High Sens 6.3 (0-14) pg/ml B-Natriuretic Peptide 797 H (0-100) pg/ml Total Protein (6.0-8.3) gm/dl Albumin (3.4-5.0) gm/dl Globulin (2.5-4.0) gm/dl Albumin/Globulin Ratio (0.9-2) TSH (0.300-4.500) uIu/ml Urine Color Urine Appearance (Clear) Urine pH (4.5-7.5) Ur Specific [place] (1.000-1.030) Urine Protein (Negative) Urine Glucose (UA) (Negative) Urine Ketones (Negative) Urine Blood (Negative) Urine Nitrite (Negative) Urine Bilirubin (Negative) Urine Urobilinogen (Negative) Ur Leukocyte Esterase (Negative) Urine WBC (Auto) (0-5) /hpf Urine RBC (Auto) (0-4) /hpf U Hyaline Cast (Auto) (0-5) /lpf U Epithel Cells (Auto) (0-5) /lpf Urine Bacteria (Auto) (Negative) SARS-CoV-2, RNA, NAAT (NEGATIVE) 06/24/22 06/24/22 06/24/22 Range/Units 14:07 15:19 15:19 WBC (4.8-10.8) K/ul RBC (3.93-5.22) M/uL Hgb (12.0-16.0) g/dl Hct (34.1-44.9) % MCV (80.0-100.0) fL MCH (25.0-34.0) pg MCHC (32.0-36.0) g/dL RDW Std Deviation (36.4-46.3) fL RDW Coeff of Ruthie (11.5-14.5) % Plt Count (130-400) K/uL MPV (9.4-12.3) fL Immature Gran % (Auto) % Neut % (Auto) % Lymph % (Auto) % [place] % (Auto) % Eos % (Auto) % Baso % (Auto) % Neut # (Auto) (1.4-6.5) K/uL Lymph # (Auto) (1.2-3.4) K/uL [place] # (Auto) (0.24-0.82) K/uL Eos # (Auto) (0-0.50) K/uL Baso # (Auto) (0-0.2) K/uL Immature Gran # (Auto) (0.00-0.02) K/uL Polychromasia Poikilocytosis Anisocytosis Target Cells Ovalocytes Acanthocytes (Spur) VBG pH 7.29 L (7.36-7.41) VBG pCO2 62 H (38-50) mmHg VBG pO2 51 mmHg VBG HCO3 30 mmol/L VBG O2 Saturation 83.3 % VBG Base Excess 1.6 mEq/L Sodium (136-145) mmol/L Potassium (3.5-5.1) mmol/L Chloride (98-107) mmol/L Carbon Dioxide (21-32) mmol/L Anion Gap (3-11) BUN (6-23) mg/dl Creatinine (0.6-1.2) mg/dl Est Cr Clr Drug Dosing ml/min Est GFR ( Amer) ml/min Est GFR (Non-Af Amer) ml/min BUN/Creatinine Ratio (10-20) Glucose (70-99(Fasting)) mg/dl Calcium (8.5-10.1) mg/dl Magnesium (1.7-2.4) mg/dl Total Bilirubin (0.2-1.0) mg/dl AST (13-39) U/L ALT (7-52) U/L Alkaline Phosphatase (34-104) U/L Ammonia (18-72) umol/L Troponin I High Sens (0-14) pg/ml B-Natriuretic Peptide (0-100) pg/ml Total Protein (6.0-8.3) gm/dl Albumin (3.4-5.0) gm/dl Globulin (2.5-4.0) gm/dl Albumin/Globulin Ratio (0.9-2) TSH (0.300-4.500) uIu/ml Urine Color Yellow Urine Appearance Turbid A (Clear) Urine pH 5.5 (4.5-7.5) Ur Specific [place] 1.017 (1.000-1.030) Urine Protein 3+ H (Negative) Urine Glucose (UA) Negative (Negative) Urine Ketones Negative (Negative) Urine Blood 3+ H (Negative) Urine Nitrite Negative (Negative) Urine Bilirubin Negative (Negative) Urine Urobilinogen Negative (Negative) Ur Leukocyte Esterase 2+ H (Negative) Urine WBC (Auto) >30 H (0-5) /hpf Urine RBC (Auto) >30 H (0-4) /hpf U Hyaline Cast (Auto) 0 (0-5) /lpf U Epithel Cells (Auto) 10-20 H (0-5) /lpf Urine Bacteria (Auto) 4+ H (Negative) SARS-CoV-2, RNA, NAAT NEGATIVE (NEGATIVE) Administered Medications Discontinued Medications Furosemide (Furosemide 40 Mg/4 Ml Vial) 40 mg IV ONE ONE Stop: 06/24/22 14:53 Last Admin: 06/24/22 15:04 Dose: 40 mg Documented By: BRICE Ceftriaxone Sodium (Rocephin) 1,000 mg in 50 mls @ 100 mls/hr IV NOW STA Stop: 06/24/22 16:30 Last Infusion: 06/24/22 17:40 Dose: 0 mls/hr Documented By: Admin: 06/24/22 17:04 Dose: 100 mls/hr Documented By: BRICE Imaging Data Radiologist's Impression: Chest X-Ray 06/24/22 13:04 SINGLE VIEW CHEST CLINICAL HISTORY: Change in mental status. Lower extremity edema FINDINGS: An AP, portable, upright chest radiograph is correlated with chest CT dated 04/25/2022. There is a large hiatal hernia. The cardiomediastinal silhouette is unremarkable noting atherosclerotic calcification of the thoracic aorta. Chronic interstitial thickening is similar to previous. There is a right pleural effusion with right basilar consolidation. The left lung appears clear noting dependent atelectasis. No pneumothorax is seen. The skeletal structures are osteopenic. The bony thorax is grossly intact. IMPRESSION: 1. Right pleural effusion with right basilar consolidation. Clinical correlation will be required and radiographic follow-up to resolution is recommended. 2. Large hiatal hernia. ACT 112: Negative or not required by law. Electronically signed by: Denny Carrera M.D. 06/24/2022 2:[address] 06/24/22 13:04 CT head/brain wo con CLINICAL HISTORY: confusion Technique: Contiguous axial CT images of the head were acquired from the base of the skull to the vertex without intravenous contrast administration. Images were viewed in brain, subdural and bone windows. Automated dose lowering techniques and/or adjustment according to patient size were utilized for this exam. Comparison: Comparison is made to CT head 04/25/2022 Findings: Areas of decreased attenuation are present in the periventricular and subcortical white matter bilaterally consistent with small vessel ischemic disease. Generalized cerebral atrophy with commensurate enlargement of the ventricles, sulci, and cisterns is also present. There is no acute intracranial hemorrhage or evidence of acute territorial infarction. No shift of the midline structures, mass effect, or extra-axial abnormalities are shown. Ather osclerotic calcifications are present in the intracranial segments of the internal carotid arteries. Stable calcifications in the bilateral basal ganglia. Imaged portions of the paranasal sinuses and mastoid air cells are clear. The orbits appear normal. There are no acute fractures of the calvaria or scalp swelling. Impression: No acute intracranial hemorrhage, no evidence of acute territorial infarction or other acute intracranial disease process. ACT 112: Negative or not required by law. Electronically signed by: Hakan Wise M.D. 06/24/2022 4:49 PM Discharge Plan Visit Data Chief Complaint: Confusion Stated Complaint: AMS ED Provider: Radu Macedo Discharge Problem: Fluid overload, Acute UTI, Hypothermia, Pleural effusion on right, Transient confusion Patient Disposition: Being Evaluated by Hospitalist Forms Stand Alone Forms: [facility] Prescriptions Prescriptions: No Action furosemide 40 mg tablet 40 mg PO TID Qty: 90 3RF amlodipine 10 mg tablet 10 mg PO DAILY Label Comments: PT NOT SURE WHAT TIME atorvastatin 40 mg tablet 40 mg PO QAM mecobalamin (vitamin B12) 5,000 mcg tablet,disintegrating 5,000 mcg PO QAM aspirin 81 mg tablet,chewable 81 mg PO DAILY sodium bicarbonate 650 mg tablet 650 mg PO BID17 Qty: 60 3RF carvedilol 12.5 mg tablet 12.5 mg PO BID Rx Instructions: must administer with a meal/food ondansetron HCl 4 mg Tablet 4 mg PO DIRECTED PRN (Reason: Nausea) acyclovir 400 mg Tablet 400 mg PO BID Label Comments: SAYS TWICE A DAY ascorbic acid (vitamin C) [Vitamin C] 500 mg Tablet 500 mg PO QAM cyclophosphamide 50 mg Capsule 400 mg PO Q7D@0800 Qty: 7 0RF acetaminophen [Tylenol Extra Strength] 500 mg Tablet 1,000 mg PO TID Qty: 60 0RF tramadol 50 mg Tablet 50 mg PO Q6H PRN (Reason: pain (scale score 4-6)) Qty: 10 0RF levothyroxine [Synthroid] 100 mcg Tablet 100 mcg PO DAILYBB Qty: 60 0RF lidocaine 5 % Adhesive Patch,Medicated 2 patch transdermal QAM Qty: 15 0RF Referrals Referrals: Ede Palmer [Primary Care Provider] - : Fluid overload Qualifiers: Hypervolemia type: other Qualified Code(s): E87.79 - Other fluid overload Hypothermia Qualifiers: Encounter type: initial encounter Qualified Code(s): T68.XXXA - Hypothermia, initial encounter
[2022-06-24 13:33] LABS: Hematocrit (blood only) 29.7 % (34.1-44.9); Hemoglobin 9.7 g/dl (12.0-16.0); Mean Corpuscular Hemoglobin 32.6 pg (25.0-34.0); Mean Corpuscular Hgb Conc 32.7 g/dL (32.0-36.0); Mean Corpuscular Volume 99.7 fL (80.0-100.0); Mean Platelet Volume 11.1 fL (9.4-12.3); Platelet Count 156 K/uL (130-400); RDW Coefficient of Variation 24.5 % (11.5-14.5); Red Blood Count 2.98 M/uL (3.93-5.22); White Blood Count 6.26 K/ul (4.8-10.8)
[2022-06-24 13:50] LABS: Acanthocytes 2+; Anisocytosis Present; Basophils # (auto) 0.01 K/uL (0-0.2); Basophils % (auto) 0.2 %; Immature Granulocytes # (auto) 0.03 K/uL (0.00-0.02); Immature Granulocytes % (auto) 0.5 %; Lymphocytes % (auto) 1.6 %; Monocytes % (auto) 1.6 %; Neutrophils # (auto) 6.02 K/uL (1.4-6.5); Neutrophils % (auto) 96.1 %; Ovalocytes 1+; Poikilocytosis Present; Polychromasia 1+; Target Cells 1+
[2022-06-24 14:09] LABS: Albumin Globulin Ratio 1.3 (0.9-2); Albumin Level 2.6 gm/dl (3.4-5.0); BUN Creatinine Ratio 21.1 (10-20); Bilirubin,Total 0.8 mg/dl (0.2-1.0); Calcium 7.2 mg/dl (8.5-10.1); Creatinine Clr Calc Pharmacy 15.8 ml/min; Est GFR (African American) 19.5 ml/min; Est GFR (Non-African American) 16.8 ml/min; Magnesium 1.8 mg/dl (1.7-2.4); Potassium 3.8 mmol/L (3.5-5.1); Total Protein 4.6 gm/dl (6.0-8.3)
[2022-06-24 14:18] LABS: Thyroid Stimulating Hormone 9.987 uIu/ml (0.300-4.500)
[2022-06-24 14:28] LABS: Base Excess VBG 1.6 mEq/L; HCO3 VBG 30 mmol/L; Oxygen Saturation VBG 83.3 %; PCO2 VBG 62 mmHg (38-50); PO2 VBG 51 mmHg; pH VBG 7.29 (7.36-7.41)
--- NOTE | 2022-06-24 14:31 | XRay Report ---
SINGLE VIEW CHEST CLINICAL HISTORY: Change in mental status. Lower extremity edema FINDINGS: An AP, portable, upright chest radiograph is correlated with chest CT dated 04/25/2022. Ther e is a large hiatal hernia. The cardiomediastinal silhouette is unremarkable noting atherosclerotic c alcification of the thoracic aorta. Chronic interstitial thickening is similar to previous. There is a right pleural effusion with right basilar consolidation. The left lung appears clear noting depende nt atelectasis. No pneumothorax is seen. The skeletal structures are osteopenic. The bony thorax is g rossly intact. IMPRESSION: 1. Right pleural effusion with right basilar consolidation. Clinical correlation will be required and radiographic follow-up to resolution is recommended. 2. Large hiatal hernia. ACT 112: Negative or not required by law. Electronically signed by: Denny Carrera M.D. 06/24/2022 2:29 PM
[2022-06-24] MEDS ORDERED: FUROSEMIDE 40 MG/4 ML VIAL IV ONE (14:52)
--- NOTE | 2022-06-24 14:53 | Electrocardiogram Report ---
Test Reason : Blood Pressure : / mmHG Vent. Rate : 061 BPM Atrial Rate : 061 BPM P-R Int : 122 ms QRS Dur : 118 ms QT Int : 520 ms P-R-T Axes : 035 -35 058 degrees QTc Int : 523 ms Poor data quality, interpretation may be adversely affected Normal sinus rhythm Left anterior fascicular block Incomplete right bundle branch block Possible Old Septal infarct (cited on or before 25-APR-2022) Prolonged QT Abnormal ECG When compared with ECG of 25-APR-2022 03:30, HR has decreased by 26 bpm Otherwise no significant change Confirmed by Ifeanyi Carpenter ([id number]) on 06/24/2022 2:53:31 PM Referred By: REFERRED SELF Confirmed By:Ifeanyi Carpenter
[2022-06-24 15:45] LABS: Appearance Urine Turbid (Clear); Bacteria Urine Automated 4+ (Negative); Bilirubin Urine Negative (Negative); Blood Urine 3+ (Negative); Cast Urine Automated 0 /lpf (0-5); Color Urine Yellow; Glucose Urine UA Negative (Negative); Ketones Urine Negative (Negative); Leukocyte Esterase Urine 2+ (Negative); Nitrite Urine Negative (Negative); Protein Urine 3+ (Negative); RBC Urine Automated >30 /hpf (0-4); Specific Gravity Urine 1.017 (1.000-1.030); Urobilinogen Urine Negative (Negative); WBC Urine Automated >30 /hpf (0-5); pH Urine 5.5 (4.5-7.5)
[2022-06-24] MEDS ORDERED: cefTRIAXone SODIUM 1,000 MG/50 ML BAG IV STA (16:01)
--- NOTE | 2022-06-24 16:51 | CT Scan Report ---
CT head/brain wo con CLINICAL HISTORY: confusion Technique: Contiguous axial CT images of the head were acquired from the base of the skull to the helena brunilda without intravenous contrast administration. Images were viewed in brain, subdural and bone [facility]. Automated dose lowering techniques and/or adjustment according to patient size were utilized for this exam. Comparison: Comparison is made to CT head 04/25/2022 Findings: Areas of decreased attenuation are present in the periventricular and subcortical white matter bilate rally consistent with small vessel ischemic disease. Generalized cerebral atrophy with commensurate e nlargement of the ventricles, sulci, and cisterns is also present. There is no acute intracranial hem orrhage or evidence of acute territorial infarction. No shift of the midline structures, mass effect, or extra-axial abnormalities are shown. Atherosclerotic calcifications are present in the intracran ial segments of the internal carotid arteries. Stable calcifications in the bilateral basal ganglia. Imaged portions of the paranasal sinuses and mastoid air cells are clear. The orbits appear normal. There are no acute fractures of the calvaria or scalp swelling. Impression: No acute intracranial hemorrhage, no evidence of acute territorial infarction or other acute intracra nial disease process. ACT 112: Negative or not required by law. Electronically signed by: Hakan Wise M.D. 06/24/2022 4:49 PM
--- NOTE | 2022-06-24 17:20 | History & Physical Report ---
Date of Service June 24, 2022 Assessment & Plan (1) Transient confusion: Plan: -Resolved -Admit to med/tele -Patient is currently afebrile, hemodynamically stable, sable on RA and improving temperature currently at 35 C with warming blanket -At this time the exact etiology of the patient's transient confusion is unknown at this time. She has multiple possible causes including current UTI, possible pneumonia, hypercarbia with a pCO2 of 62 on VBG. Patient is on multiple chemotherapy agents, unsure if they could be contributing. With her apparent history of multiple visual hallucinations over the past few weeks cannot rule out possible neurologic cause. CT of the head was negative for acute changes, no focal neuro defects on exam, ammonia WNL. -At this time her current infection is likely the cause but can continue further workup while admitted. -Will order am ABG to continue monitoring for am Hypercarbia -Could consider MRI of the brain if the rest of the workup is negative (2) Pleural effusion on right: Plan: -Large pleural effusion noted in the right lung today on Chest xray -Patient is currently stable on RA -Ideally would like to get a chest CT for further evaluation, patient is currently without her TLSO brace as it is at home, concerned for further injury if she is moved for more imaging prior to getting her brace. said he can bring brace in tomorrow -Will wait for further imaging for now and consult pulmonology for thoracentesis tomorrow to further evaluate the effusion. -Monitor O2 saturation for hypoxia, ordered prn albuterol for wheezing -Procal is still pending at this time but will continue with ceftriaxone as this would cover for pneumonia at this time -Will hold chemical DVT PPX for now in preparatino for thoracentesis (3) Hypothermia: Plan: -Noted to be 31.3 C on arrival to the ED, was started on warming blanket -Temperature is improving, currently at 35 C -TSH elevated at 9.9 but Free T4 is 0.93 -Continue warming blanket for now until temperature stablizes (4) Acute UTI: Plan: -UA in the ED today looks infected, currently with christianson catheter in place, draining turbid urine -Urine culture collected -Continue Ceftriaxone for now and tailor abx as able -Will hold cyclophosphamide for now with current infections (5) Fluid overload: Plan: -Long-standing problem due to her amyloidosis and hypoalbuminemia -BNP noted to be in the 700's -Continue current lasix dose for now, will get TTE for further evaluation (6) Chronic kidney disease, stage V: Plan: -Cr currently at 2.61, per the Nephrology note from 06/09, baseline is around 2.8-2.9 -Electrolytes are currently stable -Corrected Calcium is 8.8, will order ionized for the morning -Will continue sodium bicarb and lasix, Nephrology consult ordered (7) Thoracic spine fracture: Plan: -Bedrest for now, will bring in her brace tomorrow -Continue tramadol for pain (8) Hypothyroidism: Plan: -Continue levothyroxine (9) Hypertension: Plan: -Currently hypertensive at 160/89 -Will continue amlodipine and (10) Type 2 diabetes mellitus: Plan: -Not on medication at this time -Will start with BSG ACHS, correction factor of 50, increase as needed (11) Amyloidosis: Plan: -Follows with Nephrology and Oncology -Still receiving chemotherapy -Follow nephrology consult recs (12) Anemia of chronic disease: Plan: -Hgb at 9.7 today, no signs of bleeding -Gets Epogen 20,000 units monthly Plan The patient was discussed with and seen with Dr. 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 In the ED the patient was noted to be afebrile, hypertensive at 160/99, stable on RA, and hypothermic at 31.3 C. Labs were remarkable for WBC WNL, Hgb of 9.7 (down from 10.5 on 06/21/22), VBG with pH of 7.29, pCO2 of 62 and pO2 of 51, Cr of 2.61 (at her current baseline), corrected calcium of 8.8, TSH of 9.9 (Free T4 Pending), BNP of 797, High sensitivity troponin WNL, and UA indicative of UTI . CT of the head was negative for acute findings. Chest xray shows "Rig ht pleural effusion with right basilar consolidation. Clinical correlation will be required and radiographic follow-up to resolution is recommended.. Large hiatal hernia.". The ED staff noted that at the time of the admission the patient was back to her neurologic baseline. Prior to admission the patient was give 40 mg IV lasix and one dose of Ceftriaxone, she was placed on a blanket warmer due to her hypothermia. . At the time of the exam the patient was resting in bed in no acute distress with her sitting bedside, the majority of the history was obtained from the patient's due to the patient's hoarse voice. He states that the patient was noted to be confused this morning when he woke up. Normally the patient is still in bed when he wakes up and he helps her get cleaned up and ready for the day since her fall and spine injuries. This morning the patient was already up and dressed, however, she thought that she was in [place] and told him she wanted to go home. He states that she has been confused at times over the past few weeks, having visual hallucinations of people that are not there. Her was unsure of what to do because of her confusion so they rachel led EMS, they brought her to the ED. When asked, the patient denies any recent fevers but has been cold frequently. She has had a non-productive cough for the past 3 weeks and took Nyquil last night, they are unsure if this maybe caused some of her confusion. She is still getting chemotherapy every Monday and did have her treatment this week. She has not required oxygen at home and denies a previous diagnosis of sleep apnea. Her is unsure if she snores at night due to sleeping in a separate room as his CPAP machine keeps her up at night. Since increasing her dose of lasix from 20 mg PO BID to 40 mg PO BID they have noticed a slight improvement in her lower extremity swelling. She denies recent abdominal pain, dysuria, diarrhea, chest pain, and recent falls. The patient was found to be completely alert and oriented during my exam. I spoke to she and her regarding code status, the patient was adamant that she would want to be a DNR/DNI. Allergies Allergy/AdvReac Type Severity Reaction Status Date / Time No Known Allergies Allergy Verified 06/24/22 16:51 Home Medications Medication Instructions Recorded Confirmed Type amlodipine 10 mg tablet 10 mg PO DAILY 08/04/21 06/24/22 History aspirin 81 mg chewable tablet 81 mg PO DAILY 08/04/21 06/24/22 History atorvastatin 40 mg tablet 40 mg PO QAM 08/04/21 06/24/22 History mecobalamin (vitamin B12) 5,000 5,000 mcg PO QAM 08/04/21 06/24/22 History mcg disintegrating tablet carvedilol 12.5 mg tablet 12.5 mg PO BID 08/10/21 06/24/22 History acyclovir 400 mg tablet 400 mg PO BID 02/14/22 06/24/22 History ascorbic acid (vitamin C) 500 mg 500 mg PO QAM 02/14/22 06/24/22 History tablet (Vitamin C) ondansetron HCl 4 mg tablet 4 mg PO DIRECTED PRN Nausea 02/14/22 06/24/22 History acetaminophen 500 mg tablet 1,000 mg PO TID #60 tabs 05/13/22 06/24/22 Rx (Tylenol Extra Strength) cyclophosphamide 50 mg capsule 400 mg PO Q7D@0800 #7 caps 05/13/22 06/24/22 Rx levothyroxine 100 mcg tablet 100 mcg PO DAILYBB #60 tabs 05/13/22 06/24/22 Rx (Synthroid) lidocaine 5 % topical patch 2 patch transdermal QAM #15 ea 05/13/22 06/24/22 Rx tramadol 50 mg tablet 50 mg PO Q6H PRN pain (scale score 05/13/22 06/24/22 Rx 4-6) #10 tabs sodium bicarbonate 650 mg tablet 650 mg PO BID17 #60 tabs 06/09/22 06/24/22 Rx furosemide 40 mg tablet 40 mg PO BID17 30 days #30 tabs 06/29/22 Rx levofloxacin 500 mg tablet 500 mg PO DAILY 5 days #5 tabs 06/29/22 Rx 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 - SHOTS IN THE BELLY FOR Chronic kidney disease, stage 4 (severe) CKD (chronic kidney disease) UNKNOWN DETAILS Colon cancer DX LAST WEEK - REASON FOR UPCOMING COLONOSCOPY Fatty liver Hypercholesteremia Hypertension Hypothyroidism Nephrotic syndrome Seasonal allergies Sinus problem CHRONIC Stroke HX 9 YR AGO - RESIDUAL: PHYSICALLY SLOWER SINCE STROKE/CANE Type 2 diabetes mellitus NO MEDS FOR Surgical History History of History of right cataract surgery Family History Other Family history of colon cancer in father Social History Smoking Status: Never smoker Hx Alcohol Use: No Hx Substance Use: No Preferred Language: Yoruba Communication Ability: Impaired Usability Specialist Required: No Beliefs That Will Affect Care: Pentecostalism Pentecostalism Beliefs: BAHAI - DO NOT EAT MEAT FRIDAYS AND DO NO WORK ON SUNDAYS , Spiritual Spiritual Healthcare Practices: BAHAI - DO NOT EAT MEAT FRIDAYS AND DO NO WORK ON SUNDAYS and Cultural Cultural Beliefs: BAHAI - DO NOT EAT MEAT FRIDAYS AND DO NO WORK ON SUNDAYS marital status: Current Living Situation: Family How many Children do You have: 2 Feels Safe at Home: Yes Assistive Devices: Walker Review of Systems Review of Systems: Denies current fever, chills, headache, changes in vision, hearing, taste, and smell, chest pain, abdominal pain, nausea, vomiting, diarrhea, hematemesis, melena, dysuria, hematuria, and recent falls. All systems have been reviewed and are otherwise negative. Physical Exam Physical Exam: Physical Exam: General: In no acute distress, older than stated age, cachectic and chronically ill-appearing HEENT: Normocephalic, atraumatic, alopecia present, no scleral icterus, pupils around round, symmetrical, and reactive to light, moist mucus membranes, trachea midline, no thyromegaly Chest/Pulm: No respiratory distress, symmetrical chest expansion, decreased breath sounds in the right lower and middle lobe, expiratory wheezing noted in all other lung blum Cardiac: RRR, no murmurs noted Abdomen: distended, normoactive bowel sounds, soft, non-teder to palpation throughout Musculoskeletal: Symmetrical and without signs of acute trauma, upper and lower extremities with full ROM, spasticity, or flaccidity Extremities: Radial, dorsalis pedis, and posterior tibial pulses are intact and symmetrical, +2-3 pitting edema in the BL LEs Skin: Warm, dry, no rashes , lesions, or scars noted Neuro: Alert and oriented to person, place, month, year, and president, no focal defects, CN II-XII tested and intact, No tremors noted Psych: No acute distress, plesant, calm and cooperative during the exam Results & Data Results & Data ([facility]) Vital Signs (Past 12 Hours) Vital Signs Temp Pulse Resp BP Pulse Ox O2 Del Method 06/24/22 16:10 70 22 97 06/24/22 16:00 64 16 160/99 H 96 06/24/22 15:30 60 20 147/98 H 96 06/24/22 16:04 33.6 C L 06/24/22 15:20 72 19 96 06/24/22 15:20 147/87 H 06/24/22 15:10 61 20 96 06/24/22 15:00 62 20 78 L 06/24/22 14:50 75 23 97 06/24/22 14:43 95 H 06/24/22 14:36 87 06/24/22 14:30 169/102 H 06/24/22 14:00 63 20 160/99 H 98 06/24/22 13:30 61 22 163/100 H 95 06/24/22 14:43 31.3 C L 06/24/22 14:43 31.3 C L 06/24/22 13:21 65 23 170/95 H 94 Room Air Laboratory Results Abnormal lab results 06/24/22 06/24/22 06/24/22 Range/Units 13:05 13:05 13:05 RBC 2.98 L (3.93-5.22) M/uL Hgb 9.7 L (12.0-16.0) g/dl Hct 29.7 L (34.1-44.9) % RDW Std Deviation 85.0 H (36.4-46.3) fL RDW Coeff of Ruthie 24.5 H (11.5-14.5) % Lymph # (Auto) 0.10 L (1.2-3.4) K/uL Ellsworth # (Auto) 0.10 L (0.24-0.82) K/uL Immature Gran # (Auto) 0.03 H (0.00-0.02) K/uL VBG pH (7.36-7.41) VBG pCO2 (38-50) mmHg BUN 55 H (6-23) mg/dl Creatinine 2.61 H (0.6-1.2) mg/dl BUN/Creatinine Ratio 21.1 H (10-20) Glucose 189 H (70-99(Fasting)) mg/dl Calcium 7.2 L (8.5-10.1) mg/dl Alkaline Phosphatase 127 H (34-104) U/L B-Natriuretic Peptide (0-100) pg/ml Total Protein 4.6 L (6.0-8.3) gm/dl Albumin 2.6 L (3.4-5.0) gm/dl Globulin 2.0 L (2.5-4.0) gm/dl TSH 9.987 H (0.300-4.500) uIu/ml Urine Appearance (Clear) Urine Protein (Negative) Urine Blood (Negative) Ur Leukocyte Esterase (Negative) Urine WBC (Auto) (0-5) /hpf Urine RBC (Auto) (0-4) /hpf U Epithel Cells (Auto) (0-5) /lpf Urine Bacteria (Auto) (Negative) 06/24/22 06/24/22 06/24/22 Range/Units 13:05 14:07 15:19 RBC (3.93-5.22) M/uL Hgb (12.0-16.0) g/dl Hct (34.1-44.9) % RDW Std Deviation (36.4-46.3) fL RDW Coeff of Ruthie (11.5-14.5) % Lymph # (Auto) (1.2-3.4) K/uL Ellsworth # (Auto) (0.24-0.82) K/uL Immature Gran # (Auto) (0.00-0.02) K/uL VBG pH 7.29 L (7.36-7.41) VBG pCO2 62 H (38-50) mmHg BUN (6-23) mg/dl Creatinine (0.6-1.2) mg/dl BUN/Creatinine Ratio (10-20) Glucose (70-99(Fasting)) mg/dl Calcium (8.5-10.1) mg/dl Alkaline Phosphatase (34-104) U/L B-Natriuretic Peptide 797 H (0-100) pg/ml Total Protein (6.0-8.3) gm/dl Albumin (3.4-5.0) gm/dl Globulin (2.5-4.0) gm/dl TSH (0.300-4.500) uIu/ml Urine Appearance Turbid A (Clear) Urine Protein 3+ H (Negative) Urine Blood 3+ H (Negative) Ur Leukocyte Esterase 2+ H (Negative) Urine WBC (Auto) >30 H (0-5) /hpf Urine RBC (Auto) >30 H (0-4) /hpf U Epithel Cells (Auto) 10-20 H (0-5) /lpf Urine Bacteria (Auto) 4+ H (Negative) Diagnostic Findings Chest X-Ray 06/24/22 13:04 SINGLE VIEW CHEST CLINICAL HISTORY: Change in mental status. Lower extremity edema FINDINGS: An AP, portable, upright chest radiograph is correlated with chest CT dated 04/25/2022. There is a large hiatal hernia. The cardiomediastinal silhouette is unremarkable noting atherosclerotic calcification of the thoracic aorta. Chronic interstitial thickening is similar to previous. There is a right pleural effusion with right basilar consolidation. The left lung appears clear noting dependent atelectasis. No pneumothorax is seen. The skeletal structures are osteopenic. The bony thorax is grossly intact. IMPRESSION: 1. Right pleural effusion with right basilar consolidation. Clinical correlation will be required and radiographic follow-up to resolution is recommended. 2. Large hiatal hernia. ACT 112: Negative or not required by law. Electronically signed by: Denny Carrera M.D. 06/24/2022 2:[address] 06/24/22 13:04 CT head/brain wo con CLINICAL HISTORY: confusion Technique: Contiguous axial CT images of the head were acquired from the base of the skull to the vertex without intravenous contrast administration. Images were viewed in brain, subdural and bone windows. Automated dose lowering techniques and/or adjustment according to patient size were utilized for this exam. Comparison: Comparison is made to CT head 04/25/2022 Findings: Areas of decreased attenuation are present in the periventricular and subcortical white matter bilaterally consistent with small vessel ischemic disease. Generalized cerebral atrophy with commensurate enlargement of the ventricles, sulci, and cisterns is also present. There is no acute intracranial hemorrhage or evidence of acute territorial infarction. No shift of the midline structures, mass effect, or extra-axial abnormalities are shown. Atherosclerotic calcifications are present in the intracranial segments of the internal carotid arteries. Stable calcifications in the bilateral basal ganglia. Imaged portions of the paranasal sinuses and mastoid air cells are clear. The orbits appear normal. There are no acute fractures of the calvaria or scalp swelling. Impression: No acute intracranial hemorrhage, no evidence of acute territorial infarction or other acute intracranial disease process. ACT 112: Negative or not required by law. Electronically signed by: Hakan Wise M.D. 06/24/2022 4:49 PM ECG Additional Comments: Poor data quality, interpretation may be adversely affected Normal sinus rhythm Left anterior fascicular block Incomplete right bundle branch block Possible Old Septal infarct (cited on or before 25-APR-2022) Prolonged QT Abnormal ECG When compared with ECG of 25-APR-2022 03:30, HR has decreased by 26 bpm Otherwise no significant change .. Code Status & VTE Plan Code Status DNR/DNI VTE Prophylaxis Plan VTE Prophylaxis will be ordered: Yes Supervising Physician Co-Signing Physician Notes Patient seen and examined at bedside. During face to face encounter, I obtained a history and physical examination. Patient is a poor historian given her confusion. Discussed plan of care with patient and APC Peno. Patient will be admitted to the medical floor and will be treated for a UTI. Her pain medicine may also be playing a role in her confusion. PG Care Time/CCT Total # of Minutes Spent Total Time Spent with Patient: Total time spent is greater than 50% in coordination of care (as documented) at patient's floor/unit and/or counseling patient: [place] [address] Initial Inpt Care Lvl 3 Patient Type Established Medical Decision Making High Complexity Diagnoses Transient confusion R41.0 Pleural effusion on right J90 Hypothermia T68.XXXA Encounter type: initial encounter Acute UTI N39.0 Fluid overload E87.79 Hypervolemia type: other Chronic kidney disease, stage V N18.5 Thoracic spine fracture S22.009A Hypothyroidism E03.9 Hypertension I10 Type 2 diabetes mellitus E11.9 Amyloidosis E85.9 Anemia of chronic disease D63.8 (1) Hypothermia Encounter type: initial encounter Qualified Code(s): T68.XXXA - Hypothermia, initial encounter (2) Fluid overload Hypervolemia type: other Qualified Code(s): E87.79 - Other fluid overload
[2022-06-24 18:25] LABS: T4 Free Thyroxine 0.93 ng/dl (0.61-1.60)
[2022-06-24] MEDS ORDERED: ACETAMINOPHEN 325 MG TAB PO PRN (21:14)
[2022-06-24] MEDS ORDERED: DEXTROSE 50% 50 ML SYRINGE IV PRN (21:14)
[2022-06-24] MEDS ORDERED: GLUCOSE 40% GEL 15 GM TUBE PO PRN (21:14)
[2022-06-24] MEDS ORDERED: traMADol HCL 50 MG TABLET PO PRN (21:14)
[2022-06-24] MEDS ORDERED: GLUCOSE 10 TAB/TUBE PO PRN (21:14)
[2022-06-24] MEDS ORDERED: CARBOHYDRATES FOR HYPOGLYCEMIA PO PRN (21:14)
[2022-06-24] MEDS ORDERED: GLUCAGON FOR INJ 1 MG VIAL SQ PRN (21:14)
[2022-06-24] MEDS: INSULIN ASPART PER UNIT SC SCH (22:28)
[2022-06-24] MEDS: ACYCLOVIR 400 MG TAB PO SCH (22:30)
[2022-06-24] MEDS: carvediloL 12.5 MG TAB PO SCH (22:31)
[2022-06-25] MEDS: ALBUTEROL 0.5% NEB SOLN 2.5 MG/0.5 ML VIAL NEB SCH ×5 (00:02→20:05)
[2022-06-25] MEDS: LEVOTHYROXINE SODIUM 100 MCG TABLET PO SCH (05:30)
[2022-06-25 05:49] LABS: Hematocrit (blood only) 29.1 % (34.1-44.9); Hemoglobin 9.5 g/dl (12.0-16.0); Mean Corpuscular Hemoglobin 32.1 pg (25.0-34.0); Mean Corpuscular Hgb Conc 32.6 g/dL (32.0-36.0); Mean Corpuscular Volume 98.3 fL (80.0-100.0); Mean Platelet Volume 11.1 fL (9.4-12.3); Platelet Count 189 K/uL (130-400); Red Blood Count 2.96 M/uL (3.93-5.22); White Blood Count 6.96 K/ul (4.8-10.8)
[2022-06-25 06:23] LABS: Albumin Globulin Ratio 1.4 (0.9-2); Albumin Level 2.6 gm/dl (3.4-5.0); BUN Creatinine Ratio 20.2 (10-20); Bilirubin,Total 0.6 mg/dl (0.2-1.0); Calcium 7.4 mg/dl (8.5-10.1); Creatinine Clr Calc Pharmacy 15.2 ml/min; Est GFR (African American) 18.5 ml/min; Globulin 1.9 gm/dl (2.5-4.0); Potassium 3.9 mmol/L (3.5-5.1); Total Protein 4.5 gm/dl (6.0-8.3)
[2022-06-25 06:32] LABS: Acanthocytes 2+; Anisocytosis Present; Basophils # (auto) 0.04 K/uL (0-0.2); Basophils % (auto) 0.6 %; Echinocytes 1+; Eosinophils # (auto) 0.02 K/uL (0-0.50); Eosinophils % (auto) 0.3 %; Immature Granulocytes # (auto) 0.03 K/uL (0.00-0.02); Immature Granulocytes % (auto) 0.4 %; Lymphocytes # (auto) 0.19 K/uL (1.2-3.4); Lymphocytes % (auto) 2.7 %; Monocytes # (auto) 0.17 K/uL (0.24-0.82); Monocytes % (auto) 2.4 %; Neutrophils # (auto) 6.51 K/uL (1.4-6.5); Neutrophils % (auto) 93.6 %; Poikilocytosis Present; Polychromasia 1+
[2022-06-25 06:52] LABS: Base Excess ABG 4.2 mEq/L (-9-1.8); HCO3 ABG 29 mmol/L (19-24); PCO2 ABG 44 mmHg (35-46); PO2 ABG 74 mmHg (80-95); pH ABG 7.43 (7.35-7.45)
[2022-06-25 07:07] LABS: Allen Test Pos (Pos)
[2022-06-25 08:26] LABS: INR 1.1 (0.9-1.1); Partial Thromboplastin Ratio 1.1; Partial Thromboplastin Time 28.9 Seconds (21.0-31.0)
[2022-06-25] MEDS: carvediloL 12.5 MG TAB PO SCH ×2 (08:39→17:00)
[2022-06-25] MEDS: ASCORBIC ACID 500 MG TAB PO SCH (08:39)
[2022-06-25] MEDS: SODIUM BICARBONATE 650 MG TAB PO SCH ×2 (08:39→17:00)
[2022-06-25] MEDS: CYANOCOBALAMIN (B-12) 2,500 MCG TABLET SL SCH (08:39)
[2022-06-25] MEDS: ACYCLOVIR 400 MG TAB PO SCH ×2 (08:39→21:26)
[2022-06-25] MEDS: ASPIRIN 81 MG ECTAB PO SCH (08:39)
[2022-06-25] MEDS: ATORVASTATIN 40 MG TAB PO SCH (08:39)
[2022-06-25] MEDS: FUROSEMIDE 40 MG TAB PO SCH ×2 (08:39→16:59)
[2022-06-25] MEDS: LIDOCAINE 5% 1 PATCH TD SCH ×2 (08:40→08:47)
[2022-06-25] MEDS: INSULIN ASPART PER UNIT SC SCH ×4 (08:54→21:31)
--- NOTE | 2022-06-25 09:37 | XCELERA ---
[id number]
--- NOTE | 2022-06-25 10:59 | Pulmonary Consultation ---
Date of Consultation June 25, 2022 Assessment & Plan (1) Pleural effusion on right: (2) Fluid overload: Hypervolemia type: other Qualified Code(s): E87.79 - Other fluid overload Plan Impression: 81-year-old female with chronic kidney disease and fluid overload admitted with altered mental status which is resolved. She was incidentally found to have a right-sided effusion. She is asymptomatic from the effusion but is never been sampled previously. Recommendations: 1. Pleural effusion: Discussed with patient. Recommend sampling as it has not been sampled previously. The patient is agreeable to undergo ultrasound-guided catheter thoracentesis on the right. Additional recommendations will be based on characterization of fluid and follow-up imaging studies. 2. Suspect the effusion is again likely related to her chronic kidney disease and hypoalbuminemia however will await definitive fluid characteristics. If identified, diuretics may be long-term management strategy with sodium restriction however this may be somewhat complicated given the patient's chronic kidney disease. 3. No indication for antimicrobial agents from a pulmonary standpoint. No indication for CT scanning. We will check follow-up chest x-ray post thoracentesis. This is largely an outpatient work-up. The patient can be dismissed from pulmonary standpoint from the hospital after the thoracentesis provided there are no complications. The above recommendations and plan were discussed with the patient. Questions were answered to the best my ability. She expressed understanding and is in agr eement the plan as outlined History of Present Illness Attending Physician: Mauricio Dodson History of Present Illness Asked by hospitalist to evaluate this patient with pleural effusion. History is obtained from review of the electronic medical record as well as discussion with the patient. 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 Patient's neurological status improved however chest x-ray demonstrated a right effusion. Patient was hypothermic on presentation and. She denies any history of trauma. No fevers chills night sweats or other constitutional symptoms. She is on room air. She was admitted for observation and potential thoracentesis. The patient is not undergone thoracentesis previously. She has no prior history of effusion that she is aware of. Allergies Allergy/AdvReac Type Severity Reaction Status Date / Time No Known Allergies Allergy Verified 06/24/22 16:51 Home Medications Medication Instructions Recorded Confirmed Type amlodipine 10 mg tablet 10 mg PO DAILY 08/04/21 06/24/22 History aspirin 81 mg chewable tablet 81 mg PO DAILY 08/04/21 06/24/22 History atorvastatin 40 mg tablet 40 mg PO QAM 08/04/21 06/24/22 History mecobalamin (vitamin B12) 5,000 5,000 mcg PO QAM 08/04/21 06/24/22 History mcg disintegrating tablet carvedilol 12.5 mg tablet 12.5 mg PO BID 08/10/21 06/24/22 History acyclovir 400 mg tablet 400 mg PO BID 02/14/22 06/24/22 History ascorbic acid (vitamin C) 500 mg 500 mg PO QAM 02/14/22 06/24/22 History tablet (Vitamin C) ondansetron HCl 4 mg tablet 4 mg PO DIRECTED PRN Nausea 02/14/22 06/24/22 History acetaminophen 500 mg tablet 1,000 mg PO TID #60 tabs 05/13/22 06/24/22 Rx (Tylenol Extra Strength) cyclophosphamide 50 mg capsule 400 mg PO Q7D@0800 #7 caps 05/13/22 06/24/22 Rx levothyroxine 100 mcg tablet 100 mcg PO DAILYBB #60 tabs 05/13/22 06/24/22 Rx (Synthroid) lidocaine 5 % topical patch 2 patch transdermal QAM #15 ea 05/13/22 06/24/22 Rx tramadol 50 mg tablet 50 mg PO Q6H PRN pain (scale score 05/13/22 06/24/22 Rx 4-6) #10 tabs sodium bicarbonate 650 mg tablet 650 mg PO BID17 #60 tabs 06/09/22 06/24/22 Rx furosemide 40 mg tablet 40 mg PO TID #90 tabs 06/15/22 06/24/22 Rx Patient History Medical History Amyloidosis Anemia of chronic disease PT REPORTS IRON LEVEL IS STABLE Cancer 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 - SHOTS IN THE BELLY FOR Chronic kidney disease, stage 4 (severe) CKD (chronic kidney disease) UNKNOWN DETAILS Colon cancer DX LAST WEEK - REASON FOR UPCOMING COLONOSCOPY Fatty liver Hypercholesteremia Hypertension Hypothyroidism Nephrotic syndrome Seasonal allergies Sinus problem CHRONIC Stroke HX 9 YR AGO - RESIDUAL: PHYSICALLY SLOWER SINCE STROKE/CANE Type 2 diabetes mellitus NO MEDS FOR Surgical History History of History of right cataract surgery Family History Other Family history of colon cancer in father Social History Smoking Status: Never smoker Hx Alcohol Use: No Hx Substance Use: No Preferred Language: Bengali Communication Ability: Effective Wood Floor Refinisher Required: No Beliefs That Will Affect Care: Rastafarian Rastafarian Beliefs: YARSANI - DO NOT EAT MEAT FRIDAYS AND DO NO WORK ON SUNDAYS , Spiritual Spiritual Healthcare Practices: YARSANI - DO NOT EAT MEAT FRIDAYS AND DO NO WORK ON SUNDAYS and Cultural Cultural Beliefs: YARSANI - DO NOT EAT MEAT FRIDAYS AND DO NO WORK ON SUNDAYS marital status: Current Living Situation: Family How many Children do You have: 2 Other Information That Helps Us Care for You: No Feels Safe at Home: Yes Assistive Devices: Bedside Commode, Cane and Walker Review of Systems Review of Systems: Please refer to hospitalist note. No additions or deletions Physical Exam Physical Exam: Physical Exam: General: In no acute distress, older than stated age, cachectic and chronically ill-appearing HEENT: Normocephalic, atraumatic, alopecia present, no scleral icterus, pupils around round, symmetrical, and reactive to light, moist mucus membranes, trachea midline, no thyromegaly Chest/Pulm: No respiratory distress, symmetrical chest expansion, decreased breath sounds in the right lower and middle lobe, expiratory wheezing noted in all other lung blum Cardiac: RRR, no murmurs noted Abdomen: distended, normoactive bowel sounds, soft, non-teder to palpation throughout Musculoskeletal: Symmetrical and without signs of acute trauma, upper and lower extremities with full ROM, spasticity, or flaccidity Extremities: Radial, dorsalis pedis, and posterior tibial pulses are intact and symmetrical, +2-3 pitting edema in the BL LEs Skin: Warm, dry, no rashes , lesions, or scars noted Neuro: Alert and oriented to person, place, month, year, and president, no focal defects, CN II-XII tested and intact, No tremors noted Psych: No acute distress, plesant, calm and cooperative during the exam Results & Data Results & Data ([facility]) Vital Signs (Past 12 Hours) Vital Signs Temp Pulse Pulse Resp BP Pulse Ox O2 Del Method 06/25/22 08:29 36.5 C 85 19 160/88 H 93 Room Air 06/25/22 08:09 82 06/25/22 07:27 79 06/25/22 07:10 84 20 92 Room Air 06/25/22 04:23 36.6 C 83 20 167/90 H 92 Room Air Critical Care Results & Data Vital Signs (Past 12 Hours) Vital Signs Temp Pulse Pulse Resp BP Pulse Ox O2 Del Method 06/25/22 08:29 36.5 C 85 19 160/88 H 93 Room Air 06/25/22 08:09 82 06/25/22 07:27 79 06/25/22 07:10 84 20 92 Room Air 06/25/22 04:23 36.6 C 83 20 167/90 H 92 Room Air Lab & Micro Results (Past 24 Hours) RBC 2.96 M/uL (3.93-5.22) L 06/25/22 WBC 6.96 K/ul (4.8-10.8) 06/25/22 Hgb 9.5 g/dl (12.0-16.0) L 06/25/22 Hct 29.1 % (34.1-44.9) L 06/25/22 MCV 98.3 fL (80.0-100.0) 06/25/22 MCH 32.1 pg (25.0-34.0) 06/25/22 MCHC 32.6 g/dL (32.0-36.0) 06/25/22 RDW Standard Deviation 85.0 fL (36.4-46.3) H 06/24/22 RDW Coefficient of Variation 24.5 % (11.5-14.5) H 06/24/22 Plt Count 189 K/uL (130-400) 06/25/22 MPV 11.1 fL (9.4-12.3) 06/25/22 Neutrophils (%) (Auto) 93.6 % 06/25/22 Lymphocytes (%) (Auto) 2.7 % 06/25/22 Monocytes # (Auto) 0.17 K/uL (0.24-0.82) L 06/25/22 Eosinophils # (Auto) 0.02 K/uL (0-0.50) 06/25/22 Immature Granulocyte % (Auto) 0.4 % 06/25/22 Neutrophils # (Auto) 6.51 K/uL (1.4-6.5) H 06/25/22 Lymphocytes # (Auto) 0.19 K/uL (1.2-3.4) L 06/25/22 Monocytes # (Auto) 0.17 K/uL (0.24-0.82) L 06/25/22 Eosinophils # (Auto) 0.02 K/uL (0-0.50) 06/25/22 Basophils # (Auto) 0.04 K/uL (0-0.2) 06/25/22 Immature Granulocyte # (Auto) 0.03 K/uL (0.00-0.02) H 06/25 Polychromasia 1+ 06/25/22 Poikilocytosis Present 06/25/22 Echinocytes 1+ 06/25/22 Anisocytosis Present 06/25/22 Target Cells 1+ 06/24/22 Ovalocytes 1+ 06/24/22 Acanthocytes 2+ 06/25/22 Na 144 mmol/L (136-145) 06/25/22 K 3.9 mmol/L (3.5-5.1) 06/25/22 Cl 108 mmol/L (98-107) H 06/25/22 CO2 28 mmol/L (21-32) 06/25/22 Anion Gap 8 (3-11) 06/25/22 BUN 55 mg/dl (6-23) H 06/25/22 Creatinine 2.72 mg/dl (0.6-1.2) H 06/25/22 Estimated GFR ( Amer) 18.5 ml/min 06/25/22 Estimated GFR (Non-Af Amer) 16.0 ml/min 06/25/22 BUN/Creatinine Ratio 20.2 (10-20) H 06/25/22 Glu 100 mg/dl (70-99(Fasting)) H 06/25/22 Ca 7.4 mg/dl (8.5-10.1) L 06/25/22 Total Bilirubin 0.6 mg/dl (0.2-1.0) 06/25/22 AST 18 U/L (13-39) 06/25/22 ALT 15 U/L (7-52) 06/25/22 Alkaline Phosphatase 140 U/L (34-104) H 06/25/22 TP 4.5 gm/dl (6.0-8.3) L 06/25/22 Albumin 2.6 gm/dl (3.4-5.0) L 06/25/22 Globulin 1.9 gm/dl (2.5-4.0) L 06/25/22 Albumin/Globulin Ratio 1.4 (0.9-2) 06/25/22 Mg 1.8 mg/dl (1.7-2.4) 06/24/22 13:05 Calcium Level 7.4 mg/dl (8.5-10.1) L 06/25/22 05:25 Prothromb Time International Ratio 1.1 (0.9-1.1) 06/25/22 07:4 9 Venous Blood pH 7.29 (7.36-7.41) L 06/24/22 14:07 Venous Blood Partial Pressure CO2 62 mmHg (38-50) H 06/24/22 14 :07 Venous Blood Partial Pressure O2 51 mmHg 06/24/22 14:07 Venous Blood HCO3 30 mmol/L 06/24/22 14:07 Venous Blood Base Excess 1.6 mEq/L 06/24/22 14:07 Venous Blood Oxygen Saturation 83.3 % 06/24/22 14:07 Arterial Blood pH 7.43 (7.35-7.45) 06/25/22 05:24 Arterial Blood Partial Pressure CO2 44 mmHg (35-46) 06/25/22 05 :24 Arterial Blood Partial Pressure O2 74 mmHg (80-95) L 06/25/22 0 5:24 Arterial Blood HCO3 29 mmol/L (19-24) H 06/25/22 05:24 Arterial Blood Base Excess 4.2 mEq/L (-9-1.8) H 06/25/22 05:24 Arterial Blood Oxygen Saturation 97.0 % (90-95) H 06/25/22 05:2 4 Blood Gas Oxygen Given rOOM aIR 06/25/22 05:24 Aman Test Pos (Pos) 06/25/22 05:24 Microbiology 06/24/22 15:19 Urine Culture - Preliminary Urine,Clean Catch Gram negative bacilli Diagnostic Findings (Past 24 Hours) Chest X-Ray 06/24/22 13:04 SINGLE VIEW CHEST CLINICAL HISTORY: Change in mental status. Lower extremity edema FINDINGS: An AP, portable, upright chest radiograph is correlated with chest CT dated 04/25/2022. There is a large hiatal hernia. The cardiomediastinal silhouette is unremarkable noting atherosclerotic calcification of the thoracic aorta. Chronic interstitial thickening is similar to previous. There is a right pleural effusion with right basilar consolidation. The left lung appears clear noting dependent atelectasis. No pneumothorax is seen. The skeletal structures are osteopenic. The bony thorax is grossly intact. IMPRESSION: 1. Right pleural effusion with right basilar consolidation. Clinical correlation will be required and radiographic follow-up to resolution is recommended. 2. Large hiatal hernia. ACT 112: Negative or not required by law. Electronically signed by: Denny Carrera M.D. 06/24/2022 2:[address] 06/24/22 13:04 CT head/brain wo con CLINICAL HISTORY: confusion Technique: Contiguous axial CT images of the head were acquired from the base of the skull to the vertex without intravenous contrast administration. Images were viewed in brain, subdural and bone windows. Automated dose lowering techniques and/or adjustment according to patient size were utilized for this exam. Comparison: Comparison is made to CT head 04/25/2022 Findings: Areas of decreased attenuation are present in the periventricular and subcortical white matter bilaterally consistent with small vessel ischemic disease. Generalized cerebral atrophy with commensurate enlargement of the ventricles, sulci, and cisterns is also present. There is no acute intracranial hemorrhage or evidence of acute territorial infarction. No shift of the midline structures, mass effect, or extra-axial abnormalities are shown. Atheroscler otic calcifications are present in the intracranial segments of the internal carotid arteries. Stable calcifications in the bilateral basal ganglia. Imaged portions of the paranasal sinuses and mastoid air cells are clear. The orbits appear normal. There are no acute fractures of the calvaria or scalp swelling. Impression: No acute intracranial hemorrhage, no evidence of acute territorial infarction or other acute intracranial disease process. ACT 112: Negative or not required by law. Electronically signed by: Hakan Wise M.D. 06/24/2022 4:49 PM I & O Totals 24 Hours 06/24/22 06/25/22 06/26/22 06:59 06:59 06:59 Intake Total 290 / 290 Output Total 400 / 400 Balance -110 / -110 Cumulative 06/24/22 12:46 thru 06/25/22 07:48 Intake Total 290 Output Total 400 Balance -110 RT Ventilator Mngmt (Last Documented) Ventilator Ordered Settings Respiratory Rate 19 06/25/22 08:29 Ventilator - PT Measurements Respiratory Rate 19 PG Care Time/CCT Total # of Minutes Spent Total Time Spent with Patient: Total time spent is greater than 50% in coordination of care (as documented) at patient's floor/unit and/or counseling patient: Coding Level of Care Code 76494 Initial Inpt Care Lvl 2 Diagnoses Pleural effusion on right J90 Fluid overload E87.79 Hypervolemia type: other
--- NOTE | 2022-06-25 11:01 | Procedure Note ---
Procedure Note Date of Service June 25, 2022 Note Procedure: Diagnostic therapeutic ultrasound-guided catheter thoracentesis, right Posting Machine Operator: Dr. Mayur La Indication: Pleural effusion Consent: Signed by patient and verified with timeout prior to procedure Anesthesia: 6 mL's 1% lidocaine without epinephrine local. Procedure: Consent was verified and timeout performed. Appropriate imaging studies were reviewed prior to the procedure. Patient was placed in a seated position and limited thoracic ultrasound was performed of the bilateral chest. A small to moderate-sized pleural effusion was identified on the right with no significant effusion on the left. Compressive atelectasis was noted on the right.. Site appropriate for thoracentesis on the right was selected. The skin was prepped and draped in normal sterile fashion. Lidocaine was used for local analgesia. Fluid was aspirated via the finder needle. A small skin rebeca was made with the scalpel and the catheter over the needle apparatus was advanced over the rib into the pleural space. Using the syringe one-way valve system, a total of 500 mL's of clear yellow fluid was removed. Procedure was terminated due to inability to withdraw any additional fluid. The catheter was removed and observed to be intact. A sterile dressing was applied. Post procedure chest x- ray was ordered. Follow-up chest x-ray demonstrated minimal residual pleural fluid with lung sliding present. Fluid was sent for cell count differential, cytology, gram stain and culture, LDH, pH, total protein, and glucose. The patient tolerated the procedure well without obvious complication Coding CPT Codes Pulmonary/Thoracic - Pulmonary and Thoracic: 27221 Thoracentesis w imaging ([id number]) [facility] [place]odes (Charges) Pulmonary/Thoracic Procedure 1: Pulmonary and Thoracic: 79384 Thoracentesis w imaging
--- NOTE | 2022-06-25 11:31 | XRay Report ---
XR chest 1V portable CLINICAL HISTORY: S/P Thoracentesis TECHNIQUE: Single frontal radiograph of the chest was obtained. Comparison: Comparison is made to chest radiograph 06/24/2022 FINDINGS: No lines and tubes are seen. The cardiomediastinal silhouette is normal. Atelectasis is noted at the right lung base. There is a moderate hiatal hernia. Interval near resolution of previously noted righ t pleural effusion. IMPRESSION: Status post right thoracentesis without evidence of pneumothorax. Right lung base atelectasis is note d. ACT 112: Negative or not required by law. Electronically signed by: Hakan Wise M.D. 06/25/2022 11:29 AM
--- NOTE | 2022-06-25 11:53 | Nephrology Consultation ---
Date of Consultation June 25, 2022 Assessment & Plan (1) Chronic kidney disease, stage V: Creatinine stable at 2.7 mg/dL. Electrolytes acceptable. Records from Dr. Emery reviewed. Dialysis will not been considered part of plan of care based on prior conversations. 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 Voume status acceptable. Notable 3rd spacing of fluids in lower extremities and pleural effusion drained today. Continue furosemide 40 mg twice daily. Medications appropriate for kidney function. Document strict I/O's. Garcia may be removed per nursing protocol. Repeat metabolic profile tomorrow AM. (2) Mental status alteration: Possible secondary to UTI. Sandra reports that NyQuil taken at home may also have contributed. No other culprit medications identified. Continue to monitor. (3) Acute UTI: Cx +GNR. Remains on Ceftriaxone dosed for kidney function. (4) Pleural effusion on right: s/p diagnostic thoracentesis. Pulmonology consultation appreciated. (5) Anemia: Chronic, stable. Update iron studies with AM labs. (6) Retroperitoneal bleed: Prior imaging reviewed. No additional evaluation required at this time. History of Present Illness Reason for Consultation: CKD, renal amyloidosis Requesting Physician: Mauricio Dodson Attending Physician: Mauricio Dodson History of Present Illness Mrs. 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 She is followed in the outpatient nephrology clinic by Dr. Emery. 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 Based on prior conversations with Dr. Emery, she has decided that dialysis will not be part of the plan of care. The initial diagnosis was made following kidney biopsy in November. 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 Treatment with daratumumab was started in February. CyBorD added in April. In May, Sandra was admitted to [facility] s/p fall at home with multiple osteoporotic and pathologic fractures including compression fractures of C7-T3, T10, L3 and multiple ribs. Sandra had follow up with Dr. Emery in the CKD clinic earlier this month. At that time, she was found to be volume overloaded and furosemide was increased from 20 mg BID to 40 mg BID. The patient was seen and evaluated with her and daughter at the bedside. She is s/p R guided thoracentesis by Dr. La this AM. Urine is growing gram negative rods. She is being treated with ceftriaxone. Sandra presented to the ER at [facility] yesterday after demonstrating mental status changes at home. Her family notes that she remains confused. She was hypothermic on presentation. Fluid retention has markedly improved since diuretics were increased earlier this month. Weight is down significantly. PO intake, particularly fluids, has been poor. No GI symptoms reported. No fevers noted at home. Some possible chills reported. Sandra has been feeling cold frequently. It is noted that thyroid replacement was increased during recent hospitalization. Baseline creatinine has been ~2.5-2.9 mg/dL. Nephrotic range proteinuria, >15 grams per day. Chronic hypoalbuminemia. TTE demonstrating normal LVEF, mild concentric LVH, RVSP 40-50, no notable valvular heart disease. QTc >500. Medical history is also notable for DM, hypertension, hypothyroidism, and anemia. Allergies Allergy/AdvReac Type Severity Reaction Status Date / Time No Known Allergies Allergy Verified 06/24/22 16:51 Home Medications Medication Instructions Recorded Confirmed Type amlodipine 10 mg tablet 10 mg PO DAILY 08/04/21 06/24/22 History aspirin 81 mg chewable tablet 81 mg PO DAILY 08/04/21 06/24/22 History atorvastatin 40 mg tablet 40 mg PO QAM 08/04/21 06/24/22 History mecobalamin (vitamin B12) 5,000 5,000 mcg PO QAM 08/04/21 06/24/22 History mcg disintegrating tablet carvedilol 12.5 mg tablet 12.5 mg PO BID 08/10/21 06/24/22 History acyclovir 400 mg tablet 400 mg PO BID 02/14/22 06/24/22 History ascorbic acid (vitamin C) 500 mg 500 mg PO QAM 02/14/22 06/24/22 History tablet (Vitamin C) ondansetron HCl 4 mg tablet 4 mg PO DIRECTED PRN Nausea 02/14/22 06/24/22 History acetaminophen 500 mg tablet 1,000 mg PO TID #60 tabs 05/13/22 06/24/22 Rx (Tylenol Extra Strength) cyclophosphamide 50 mg capsule 400 mg PO Q7D@0800 #7 caps 05/13/22 06/24/22 Rx levothyroxine 100 mcg tablet 100 mcg PO DAILYBB #60 tabs 05/13/22 06/24/22 Rx (Synthroid) lidocaine 5 % topical patch 2 patch transdermal QAM #15 ea 05/13/22 06/24/22 Rx tramadol 50 mg tablet 50 mg PO Q6H PRN pain (scale score 05/13/22 06/24/22 Rx 4-6) #10 tabs sodium bicarbonate 650 mg tablet 650 mg PO BID17 #60 tabs 06/09/22 06/24/22 Rx furosemide 40 mg tablet 40 mg PO TID #90 tabs 06/15/22 06/24/22 Rx Patient History Medical History Amyloidosis Anemia of chronic disease PT REPORTS IRON LEVEL IS STABLE Cancer 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 - SHOTS IN THE BELLY FOR Chronic kidney disease, stage 4 (severe) CKD (chronic kidney disease) UNKNOWN DETAILS Colon cancer DX LAST WEEK - REASON FOR UPCOMING COLONOSCOPY Fatty liver Hypercholesteremia Hypertension Hypothyroidism Nephrotic syndrome Seasonal allergies Sinus problem CHRONIC Stroke HX 9 YR AGO - RESIDUAL: PHYSICALLY SLOWER SINCE STROKE/CANE Type 2 diabetes mellitus NO MEDS FOR Surgical History History of History of right cataract surgery Family History Other Family history of colon cancer in father Social History Smoking Status: Never smoker Hx Alcohol Use: No Hx Substance Use: No Preferred Language: Thai Communication Ability: Effective 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 Beliefs That Will Affect Care: Pentecostal Pentecostal Beliefs: TENRIISM - DO NOT EAT MEAT FRIDAYS AND DO NO WORK ON SUNDAYS , Spiritual Spiritual Healthcare Practices: TENRIISM - DO NOT EAT MEAT FRIDAYS AND DO NO WORK ON SUNDAYS and Cultural Cultural Beliefs: TENRIISM - DO NOT EAT MEAT FRIDAYS AND DO NO WORK ON SUNDAYS marital status: Current Living Situation: Family How many Children do You have: 2 Other Information That Helps Us Care for You: No Feels Safe at Home: Yes Assistive Devices: Bedside Commode, Cane and Walker Physical Exam Constitutional: well developed and + frail appearing; no acute distress Eyes: + anicteric sclerae; no conjunctival abnormality ENMT: Mouth: + dry oral mucous membranes; no oral mucosal abnormality Neck: normal visual inspection and trachea midline Respiratory: normal respiratory effort Auscultation: + rhonchi and + wheezes Cardiovascular: Rate/Rhythm: regular rate Heart Sounds: normal S1 and normal S2 Extremities: + edema Musculoskeletal: Extremities: no cyanosis and no clubbing Skin: + turgor decreased, + dry skin, + ecchymosis and + skin hypertrophy Neurologic: Motor/Sensory: no tremor and no asterixis Psychiatric: Orientation: alert and cooperative Thought Process: + circumstantial thought process and + tangential thought process Results & Data ([facility]) Vital Signs (Past 12 Hours) Vital Signs Temp Pulse Pulse Resp BP Pulse Ox O2 Del Method 06/25/22 11:14 Room Air 06/25/22 08:29 36.5 C 85 19 160/88 H 93 Room Air 06/25/22 08:09 82 06/25/22 07:27 79 06/25/22 07:10 84 20 92 Room Air 06/25/22 04:23 36.6 C 83 20 167/90 H 92 Room Air Laboratory Results Laboratory Results - last 24 hr 06/24/22 06/24/22 06/24/22 13:05 13:05 13:05 WBC 6.26 RBC 2.98 L Hgb 9.7 L Hct 29.7 L MCV 99.7 MCH 32.6 MCHC 32.7 RDW Std Deviation 85.0 H RDW Coeff of Ruthie 24.5 H Plt Count 156 MPV 11.1 Immature Gran % (Auto) 0.5 Neut % (Auto) 96.1 Lymph % (Auto) 1.6 Dewey % (Auto) 1.6 Eos % (Auto) 0.0 Baso % (Auto) 0.2 Neut # (Auto) 6.02 Lymph # (Auto) 0.10 L [place]wey # (Auto) 0.10 L Eos # (Auto) 0.00 Baso # (Auto) 0.01 Immature Gran # (Auto) 0.03 H Polychromasia 1+ Poikilocytosis Present Anisocytosis Present Target Cells 1+ Ovalocytes 1+ Echinocytes Acanthocytes (Spur) 2+ PT INR APTT PTT Ratio ABG pH ABG pCO2 ABG pO2 ABG HCO3 ABG O2 Saturation ABG Base Excess Aman Test VBG pH VBG pCO2 VBG pO2 VBG HCO3 VBG O2 Saturation VBG Base Excess Oxygen Given Sodium 143 Potassium 3.8 Chloride 107 Carbon Dioxide 29 Anion Gap 7 BUN 55 H Creatinine 2.61 H Est Cr Clr Drug Dosing 15.8 Est GFR ( Amer) 19.5 Est GFR (Non-Af Amer) 16.8 BUN/Creatinine Ratio 21.1 H Glucose 189 H POC Glucose Calcium 7.2 L Magnesium 1.8 Total Bilirubin 0.8 AST 20 ALT 16 Alkaline Phosphatase 127 H Ammonia Troponin I High Sens B-Natriuretic Peptide Total Protein 4.6 L Albumin 2.6 L Globulin 2.0 L Albumin/Globulin Ratio 1.3 Procalcitonin TSH 9.987 H Free T4 0.93 Urine Color Urine Appearance Urine pH Ur Specific [place] Urine Protein Urine Glucose (UA) Urine Ketones Urine Blood Urine Nitrite Urine Bilirubin Urine Urobilinogen Ur Leukocyte Esterase Urine WBC (Auto) Urine RBC (Auto) U Hyaline Cast (Auto) U Epithel Cells (Auto) Urine Bacteria (Auto) Fluid Neutrophils % Fluid Lymphocytes % Fluid Meso/Macro/Dewey % Fluid Comment Pleural Fluid Source Pleural Color Pleural Appearance Pleural pH Pleural WBC Pleural RBC Pleural Total Protein Pleural LDH Pleural Glucose SARS-CoV-2, RNA, NAAT 06/24/22 06/24/22 06/24/22 13:05 13:05 14:07 WBC RBC Hgb Hct MCV MCH MCHC RDW Std Deviation RDW Coeff of Ruthie Plt Count MPV Immature Gran % (Auto) Neut % (Auto) Lymph % (Auto) [place]wey % (Auto) Eos % (Auto) Baso % (Auto) Neut # (Auto) Lymph # (Auto) [place]wey # (Auto) Eos # (Auto) Baso # (Auto) Immature Gran # (Auto) Polychromasia Poikilocytosis Anisocytosis Target Cells Ovalocytes Echinocytes Acanthocytes (Spur) PT INR APTT PTT Ratio ABG pH ABG pCO2 ABG pO2 ABG HCO3 ABG O2 Saturation ABG Base Excess Aman Test VBG pH VBG pCO2 VBG pO2 VBG HCO3 VBG O2 Saturation VBG Base Excess Oxygen Given Sodium Potassium Chloride Carbon Dioxide Anion Gap BUN Creatinine Est Cr Clr Drug Dosing Est GFR ( Amer) Est GFR (Non-Af Amer) BUN/Creatinine Ratio Glucose POC Glucose Calcium Magnesium Total Bilirubin AST ALT Alkaline Phosphatase Ammonia 28.0 Troponin I High Sens 6.3 B-Natriuretic Peptide 797 H Total Protein Albumin Globulin Albumin/Globulin Ratio Procalcitonin TSH Free T4 Urine Color Urine Appearance Urine pH Ur Specific [place] Urine Protein Urine Glucose (UA) Urine Ketones Urine Blood Urine Nitrite Urine Bilirubin Urine Urobilinogen Ur Leukocyte Esterase Urine WBC (Auto) Urine RBC (Auto) U Hyaline Cast (Auto) U Epithel Cells (Auto) Urine Bacteria (Auto) Fluid Neutrophils % Fluid Lymphocytes % Fluid Meso/Macro/Dewey % Fluid Comment Pleural Fluid Source Pleural Color Pleural Appearance Pleural pH Pleural WBC Pleural RBC Pleural Total Protein Pleural LDH Pleural Glucose SARS-CoV-2, RNA, NAAT 06/24/22 06/24/22 06/24/22 14:07 14:08 15:19 WBC RBC Hgb Hct MCV MCH MCHC RDW Std Deviation RDW Coeff of Ruthie Plt Count MPV Immature Gran % (Auto) Neut % (Auto) Lymph % (Auto) [place]wey % (Auto) Eos % (Auto) Baso % (Auto) Neut # (Auto) Lymph # (Auto) Dewey # (Auto) Eos # (Auto) Baso # (Auto) Immature Gran # (Auto) Polychromasia Poikilocytosis Anisocytosis Target Cells Ovalocytes Echinocytes Acanthocytes (Spur) PT INR APTT PTT Ratio ABG pH ABG pCO2 ABG pO2 ABG HCO3 ABG O2 Saturation ABG Base Excess Aman Test VBG pH 7.29 L VBG pCO2 62 H VBG pO2 51 VBG HCO3 30 VBG O2 Saturation 83.3 VBG Base Excess 1.6 Oxygen Given Sodium Potassium Chloride Carbon Dioxide Anion Gap BUN Creatinine Est Cr Clr Drug Dosing Est GFR ( Amer) Est GFR (Non-Af Amer) BUN/Creatinine Ratio Glucose POC Glucose Calcium Magnesium Total Bilirubin AST ALT Alkaline Phosphatase Ammonia Troponin I High Sens B-Natriuretic Peptide Total Protein Albumin Globulin Albumin/Globulin Ratio Procalcitonin 0.12 TSH Free T4 Urine Color Yellow Urine Appearance Turbid A Urine pH 5.5 Ur Specific [place] 1.017 Urine Protein 3+ H Urine Glucose (UA) Negative Urine Ketones Negative Urine Blood 3+ H Urine Nitrite Negative Urine Bilirubin Negative Urine Urobilinogen Negative Ur Leukocyte Esterase 2+ H Urine WBC (Auto) >30 H Urine RBC (Auto) >30 H U Hyaline Cast (Auto) 0 U Epithel Cells (Auto) 10-20 H Urine Bacteria (Auto) 4+ H Fluid Neutrophils % Fluid Lymphocytes % Fluid Meso/Macro/Dewey % Fluid Comment Pleural Fluid Source Pleural Color Pleural Appearance Pleural pH Pleural WBC Pleural RBC Pleural Total Protein Pleural LDH Pleural Glucose SARS-CoV-2, RNA, NAAT 06/24/22 06/24/22 06/25/22 15:19 20:10 05:24 WBC RBC Hgb Hct MCV MCH MCHC RDW Std Deviation RDW Coeff of Ruthie Plt Count MPV Immature Gran % (Auto) Neut % (Auto) Lymph % (Auto) [place] % (Auto) Eos % (Auto) Baso % (Auto) Neut # (Auto) Lymph # (Auto) Dewey # (Auto) Eos # (Auto) Baso # (Auto) Immature Gran # (Auto) Polychromasia Poikilocytosis Anisocytosis Target Cells Ovalocytes Echinocytes Acanthocytes (Spur) PT INR APTT PTT Ratio ABG pH 7.43 ABG pCO2 44 ABG pO2 74 L ABG HCO3 29 H ABG O2 Saturation 97.0 H ABG Base Excess 4.2 H Aman Test Pos VBG pH VBG pCO2 VBG pO2 VBG HCO3 VBG O2 Saturation VBG Base Excess Oxygen Given rOOM aIR Sodium Potassium Chloride Carbon Dioxide Anion Gap BUN Creatinine Est Cr Clr Drug Dosing Est GFR ( Amer) Est GFR (Non-Af Amer) BUN/Creatinine Ratio Glucose POC Glucose 104 H Calcium Magnesium Total Bilirubin AST ALT Alkaline Phosphatase Ammonia Troponin I High Sens B-Natriuretic Peptide Total Protein Albumin Globulin Albumin/Globulin Ratio Procalcitonin TSH Free T4 Urine Color Urine Appearance Urine pH Ur Specific [place] Urine Protein Urine Glucose (UA) Urine Ketones Urine Blood Urine Nitrite Urine Bilirubin Urine Urobilinogen Ur Leukocyte Esterase Urine WBC (Auto) Urine RBC (Auto) U Hyaline Cast (Auto) U Epithel Cells (Auto) Urine Bacteria (Auto) Fluid Neutrophils % Fluid Lymphocytes % Fluid Meso/Macro/Dewey % Fluid Comment Pleural Fluid Source Pleural Color Pleural Appearance Pleural pH Pleural WBC Pleural RBC Pleural Total Protein Pleural LDH Pleural Glucose SARS-CoV-2, RNA, NAAT NEGATIVE 06/25/22 06/25/22 06/25/22 05:25 05:25 07:49 WBC 6.96 RBC 2.96 L Hgb 9.5 L Hct 29.1 L MCV 98.3 MCH 32.1 MCHC 32.6 RDW Std Deviation RDW Coeff of Ruthie Plt Count 189 MPV 11.1 Immature Gran % (Auto) 0.4 Neut % (Auto) 93.6 Lymph % (Auto) 2.7 [place] % (Auto) 2.4 Eos % (Auto) 0.3 Baso % (Auto) 0.6 Neut # (Auto) 6.51 H Lymph # (Auto) 0.19 L [place] # (Auto) 0.17 L Eos # (Auto) 0.02 Baso # (Auto) 0.04 Immature Gran # (Auto) 0.03 H Polychromasia 1+ Poikilocytosis Present Anisocytosis Present Target Cells Ovalocytes Echinocytes 1+ Acanthocytes (Spur) 2+ PT 12.0 INR 1.1 APTT 28.9 PTT Ratio 1.1 ABG pH ABG pCO2 ABG pO2 ABG HCO3 ABG O2 Saturation ABG Base Excess Aman Test VBG pH VBG pCO2 VBG pO2 VBG HCO3 VBG O2 Saturation VBG Base Excess Oxygen Given Sodium 144 Potassium 3.9 Chloride 108 H Carbon Dioxide 28 Anion Gap 8 BUN 55 H Creatinine 2.72 H Est Cr Clr Drug Dosing 15.2 Est GFR ( Amer) 18.5 Est GFR (Non-Af Amer) 16.0 BUN/Creatinine Ratio 20.2 H Glucose 100 H POC Glucose Calcium 7.4 L Magnesium Total Bilirubin 0.6 AST 18 ALT 15 Alkaline Phosphatase 140 H Ammonia Troponin I High Sens B-Natriuretic Peptide Total Protein 4.5 L Albumin 2.6 L Globulin 1.9 L Albumin/Globulin Ratio 1.4 Procalcitonin TSH Free T4 Urine Color Urine Appearance Urine pH Ur Specific [place] Urine Protein Urine Glucose (UA) Urine Ketones Urine Blood Urine Nitrite Urine Bilirubin Urine Urobilinogen Ur Leukocyte Esterase Urine WBC (Auto) Urine RBC (Auto) U Hyaline Cast (Auto) U Epithel Cells (Auto) Urine Bacteria (Auto) Fluid Neutrophils % Fluid Lymphocytes % Fluid Meso/Macro/Dewey % Fluid Comment Pleural Fluid Source Pleural Color Pleural Appearance Pleural pH Pleural WBC Pleural RBC Pleural Total Protein Pleural LDH Pleural Glucose SARS-CoV-2, RNA, NAAT 06/25/22 06/25/22 06/25/22 07:56 10:45 10:45 WBC RBC Hgb Hct MCV MCH MCHC RDW Std Deviation RDW Coeff of Ruthie Plt Count MPV Immature Gran % (Auto) Neut % (Auto) Lymph % (Auto) [place] % (Auto) Eos % (Auto) Baso % (Auto) Neut # (Auto) Lymph # (Auto) [place] # (Auto) Eos # (Auto) Baso # (Auto) Immature Gran # (Auto) Polychromasia Poikilocytosis Anisocytosis Target Cells Ovalocytes Echinocytes Acanthocytes (Spur) PT INR APTT PTT Ratio ABG pH ABG pCO2 ABG pO2 ABG HCO3 ABG O2 Saturation ABG Base Excess Aman Test VBG pH VBG pCO2 VBG pO2 VBG HCO3 VBG O2 Saturation VBG Base Excess Oxygen Given Sodium Potassium Chloride Carbon Dioxide Anion Gap BUN Creatinine Est Cr Clr Drug Dosing Est GFR ( Amer) Est GFR (Non-Af Amer) BUN/Creatinine Ratio Glucose POC Glucose 102 H Calcium Magnesium Total Bilirubin AST ALT Alkaline Phosphatase Ammonia Troponin I High Sens B-Natriuretic Peptide Total Protein Albumin Globulin Albumin/Globulin Ratio Procalcitonin TSH Free T4 Urine Color Urine Appearance Urine pH Ur Specific [place] Urine Protein Urine Glucose (UA) Urine Ketones Urine Blood Urine Nitrite Urine Bilirubin Urine Urobilinogen Ur Leukocyte Esterase Urine WBC (Auto) Urine RBC (Auto) U Hyaline Cast (Auto) U Epithel Cells (Auto) Urine Bacteria (Auto) Fluid Neutrophils % 3 Fluid Lymphocytes % 61 Fluid Meso/Macro/Dewey % 36 Fluid Comment Pleural Fluid Source Right Lung Pleural Color Straw Pleural Appearance Clear Pleural pH 7.49 H Pleural WBC 231 Pleural RBC < 2000 Pleural Total Protein Pleural LDH Pleural Glucose SARS-CoV-2, RNA, NAAT 06/25/22 06/25/22 10:45 11:50 WBC RBC Hgb Hct MCV MCH MCHC RDW Std Deviation RDW Coeff of Ruthie Plt Count MPV Immature Gran % (Auto) Neut % (Auto) Lymph % (Auto) [place] % (Auto) Eos % (Auto) Baso % (Auto) Neut # (Auto) Lymph # (Auto) [place] # (Auto) Eos # (Auto) Baso # (Auto) Immature Gran # (Auto) Polychromasia Poikilocytosis Anisocytosis Target Cells Ovalocytes Echinocytes Acanthocytes (Spur) PT INR APTT PTT Ratio ABG pH ABG pCO2 ABG pO2 ABG HCO3 ABG O2 Saturation ABG Base Excess Aman Test VBG pH VBG pCO2 VBG pO2 VBG HCO3 VBG O2 Saturation VBG Base Excess Oxygen Given Sodium Potassium Chloride Carbon Dioxide Anion Gap BUN Creatinine Est Cr Clr Drug Dosing Est GFR ( Amer) Est GFR (Non-Af Amer) BUN/Creatinine Ratio Glucose POC Glucose 130 H Calcium Magnesium Total Bilirubin AST ALT Alkaline Phosphatase Ammonia Troponin I High Sens B-Natriuretic Peptide Total Protein Albumin Globulin Albumin/Globulin Ratio Procalcitonin TSH Free T4 Urine Color Urine Appearance Urine pH Ur Specific [place] Urine Protein Urine Glucose (UA) Urine Ketones Urine Blood Urine Nitrite Urine Bilirubin Urine Urobilinogen Ur Leukocyte Esterase Urine WBC (Auto) Urine RBC (Auto) U Hyaline Cast (Auto) U Epithel Cells (Auto) Urine Bacteria (Auto) Fluid Neutrophils % Fluid Lymphocytes % Fluid Meso/Macro/[place]wey % Fluid Comment Pleural Fluid Source Pleural Color Pleural Appearance Pleural pH Pleural WBC Pleural RBC Pleural Total Protein < 3.0 Pleural LDH 69 Pleural Glucose 119 SARS-CoV-2, RNA, NAAT PG Care Time/CCT Total # of Minutes Spent Total Time Spent with Patient: Total time spent is greater than 50% in coordination of care (as documented) at patient's floor/unit and/or counseling patient: Coding Level of Care Code 49984 Inpt Consult Level 4 Diagnoses Chronic kidney disease, stage V N18.5 Mental status alteration R41.82 Acute UTI N39.0 Pleural effusion on right J90 Anemia D64.9 Retroperitoneal bleed R58
[2022-06-25 11:54] LABS: Appearance Pleural Fluid Clear; Color Pleural Fluid Straw; Lymphocytes, Fluid 61 %; Mono,Macrophage,Mesothelial 36 %; Neutrophils, Fluid 3 %; RBC Pleural Fluid (A) < 2000 /uL; Source Pleural Fluid Right Lung; WBC Pleural Fluid (A) 231 /uL
[2022-06-25 12:25] LABS: Glucose Pleural Fluid 119 mg/dl; LDH Pleural Fluid 69 U/L; Total Protein Pleural Fluid < 3.0 gm/dl
[2022-06-25] MEDS: cefTRIAXone SODIUM 2,000 MG in DEXTROSE 5% 50 ML IV SCH (17:06)
--- NOTE | 2022-06-25 17:40 | Hospitalist Progress Note ---
Date of Service June 25, 2022 Assessment & Plan (1) Transient confusion: Plan: -Admit to med/tele -Patient is currently afebrile, hemodynamically stable, sable on RA and improving temperature currently at 35 C with warming blanket -At this time the exact etiology of the patient's transient confusion is unknown at this time. She has multiple possible causes including current UTI, possible pneumonia, hypercarbia with a pCO2 of 62 on VBG. Patient is on multiple chemotherapy agents, unsure if they could be contributing. With her apparent history of multiple visual hallucinations over the past few weeks cannot rule out possible neurologic cause. CT of the head was negative for acute changes, no focal neuro defects on exam, ammonia WNL. -At this time her current infection is likely the cause but can continue further workup while admitted. -appears stable on 06/25 from confusion [place], will monitor. -Will order am ABG to continue monitoring for am Hypercarbia (2) Pleural effusion on right: Plan: -Large pleural effusion noted in the right lung today on Chest xray -Patient is currently stable on RA -Ideally would like to get a chest CT for further evaluation, patient is cur rently without her TLSO brace as it is at home, concerned for further injury if she is moved for more imaging prior to getting her brace. said he can bring brace in tomorrow -Will wait for further imaging for now and consult pulmonology for thoracentesis tomorrow to further evaluate the effusion. -Monitor O2 saturation for hypoxia, ordered prn albuterol for wheezing -Procal is still pending at this time but will continue with ceftriaxone as this would cover for pneumonia at this time -Will hold chemical DVT PPX for now in preparatino for thoracentesis (3) Hypothermia: Plan: -Noted to be 31.3 C on arrival to the ED, was started on warming blanket -Temperature is improving, currently at 35 C -TSH elevated at 9.9 but Free T4 is 0.93 -Continue warming blanket for now until temperature stablizes -improved. (4) Acute UTI: Plan: -UA in the ED today looks infected, currently with christianson catheter in place, draining turbid urine -Urine culture collected -Continue Ceftriaxone for now and tailor abx as able -Will hold cyclophosphamide for now with current infections (5) Fluid overload: Plan: -Long-standing problem due to her amyloidosis and hypoalbuminemia -BNP noted to be in the 700's -Continue current lasix dose for now, will get TTE for further evaluation (6) Chronic kidney disease, stage V: Plan: -Cr currently at 2.61, per the Nephrology note from 06/09, baseline is around 2.8-2.9 -Electrolytes are currently stable -Corrected Calcium is 8.8, will order ionized for the morning -Will continue sodium bicarb and lasix, Nephrology consult ordered (7) Thoracic spine fracture: Plan: -Bedrest for now, will bring in her brace tomorrow -Continue tramadol for pain (8) Hypothyroidism: Plan: -Continue levothyroxine (9) Hypertension: Plan: -Currently hypertensive at 160/89 -Will continue amlodipine and (10) Type 2 diabetes mellitus: Plan: -Not on medication at this time -Will start with BSG ACHS, correction factor of 50, increase as needed (11) Amyloidosis: Plan: -Follows with Nephrology and Oncology -Still receiving chemotherapy -Follow nephrology consult recs (12) Anemia of chronic disease: Plan: -Hgb at 9.7 today, no signs of bleeding -Gets Epogen 20,000 units monthly Admission and Anticipated Discharge Date Admission Date: June 24, 2022 Subjective Patient reports no new symptoms. Review of Systems Review of Systems: Unobtainable due to cognitive status Physical Exam Physical Exam: General:In no acute distress, older than stated age, cachectic and chronically ill-appearing HEENT:Normocephalic, atraumatic, alopecia present, no scleral icterus, pupils around round, symmetrical, and reactive to light, moist mucus membranes, trachea midline, no thyromegaly Chest/Pulm:No respiratory distress, symmetrical chest expansion, decreased breath sounds in the right lower and middle lobe, expiratory wheezing noted in all other lung blum Cardiac:RRR, no murmurs noted Abdomen:distended, normoactive bowel sounds, soft, non-teder to palpation throughout Musculoskeletal:Symmetrical and without signs of acute trauma, upper and lower extremities with full ROM, spasticity, or flaccidity Extremities:Radial, dorsalis pedis, and posterior tibial pulses are intact and symmetrical, +2-3 pitting edema in the BL LEs Skin:Warm, dry, no rashes , lesions, or scars noted Neuro:Alert and oriented to person, place, month, year, and president, no focal defects, CN II-XII tested and intact, No tremors noted Psych:No acute distress, plesant, calm and cooperative during the exam Results & Data Results & Data ([facility]) Vital Signs (Past 12 Hours) Vital Signs Temp Pulse Pulse Resp BP BP Pulse Ox 06/25/22 15:49 79 06/25/22 15:25 36.4 C L 81 18 169/95 H 93 06/25/22 12:32 88 18 92 06/25/22 12:00 36.5 C 79 18 148/84 H 93 06/25/22 11:14 06/25/22 08:29 36.5 C 85 19 160/88 H 93 06/25/22 08:09 82 06/25/22 07:27 79 06/25/22 07:10 84 20 92 O2 Del Method 06/25/22 15:49 06/25/22 15:25 Room Air 06/25/22 12:32 Room Air 06/25/22 12:00 Room Air 06/25/22 11:14 Room Air 06/25/22 08:29 Room Air 06/25/22 08:09 06/25/22 07:27 06/25/22 07:10 Room Air PG Care Time/CCT Total # of Minutes Spent Total Time Spent with Patient: Total time spent is greater than 50% in coordination of care (as documented) at patient's floor/unit and/or counseling patient: Coding Level of Care Code 94292 Subseq Hosp Care Lvl 3 Diagnoses Transient confusion R41.0 Pleural effusion on right J90 Hypothermia T68.XXXA Encounter type: initial encounter Acute UTI N39.0 Fluid overload E87.79 Hypervolemia type: other Chronic kidney disease, stage V N18.5 Thoracic spine fracture S22.009A Hypothyroidism E03.9 Hypertension I10 Type 2 diabetes mellitus E11.9 Amyloidosis E85.9 Anemia of chronic disease D63.8 Time Spent (min) 35 (1) Hypothermia Encounter type: initial encounter Qualified Code(s): T68.XXXA - Hypothermia, initial encounter (2) Fluid overload Hypervolemia type: other Qualified Code(s): E87.79 - Other fluid overload
[2022-06-26] MEDS: ALBUTEROL 0.5% NEB SOLN 2.5 MG/0.5 ML VIAL NEB SCH ×4 (00:29→19:13)
--- NOTE | 2022-06-26 03:55 | Communication Note ---
Date of Service: June 26, 2022 Notified by patient's RN that she had become increasingly agitated overnight and had been trying to get out of bed and remove her IVs despite multiple attempts at re-orientation. Aside from HTN, her vitals have remained largely normal overnight. She has had no respiratory distress. She denies pain. There have been no changes in neurologic status or exam throughout the night by RN. She is oriented to person. Her chart was reviewed. Her ongoing AMS since arrival is noted, and the proposed underlying etiologies to this considered. Reviewed most recent gas and set of labs. Primarily suspect hospital delirium at this time, superimposed on preexisting metabolic encephalopathy. Continue delirium precautions and monitor mentation with low threshold to order repeat labs and gas if needed. Given that she continues to try and pull out her IVs and get out of bed despite reorientation, a request for soft mitts have been made. I believe this is reasonable until patient is more oriented and less agitated. Orders placed. Will monitor.
[2022-06-26] MEDS: LEVOTHYROXINE SODIUM 100 MCG TABLET PO SCH (06:08)
[2022-06-26 08:16] LABS: Hematocrit (blood only) 29.7 % (34.1-44.9); Hemoglobin 9.8 g/dl (12.0-16.0); Mean Corpuscular Hemoglobin 32.3 pg (25.0-34.0); Mean Platelet Volume 11.7 fL (9.4-12.3); Nucleated RBC # (auto) 0.02 K/uL (0-0); Nucleated RBC % (auto) 0.2 %; Platelet Count 197 K/uL (130-400); RDW Coefficient of Variation 23.9 % (11.5-14.5); RDW Standard Deviation 82.1 fL (36.4-46.3); Red Blood Count 3.03 M/uL (3.93-5.22); White Blood Count 8.23 K/ul (4.8-10.8)
[2022-06-26] MEDS: LIDOCAINE 5% 1 PATCH TD SCH (08:22)
[2022-06-26] MEDS: INSULIN ASPART PER UNIT SC SCH ×4 (08:22→20:17)
--- NOTE | 2022-06-26 08:23 | Pulmonology Progress Note ---
Date of Service June 26, 2022 Assessment & Plan (1) Pleural effusion on right: (2) Fluid overload: Hypervolemia type: other Qualified Code(s): E87.79 - Other fluid overload Plan Impression: 81-year-old female with chronic kidney disease and fluid overload admitted with altered mental status which is resolved. She was incidentally found to have a right-sided effusion. She underwent right-sided catheter thoracentesis yesterday and the fluid appears consistent with transudative etiology. Recommendations: 1. Pleural effusion: Transudate: Cytology pending and will need to be followed up in the outpatient setting with her primary care provider. I suspect this is related to her underlying chronic kidney disease and fluid overload. Management with diuretics is recommended. No indication for repeat imaging in the absence of symptoms or pulmonary follow-up. 2. Agitated delirium with encephalopathy: Management per primary service. Pulmonary will sign off at this point time. Feel free to contact us if we can be of additional assistance. Patient does not require outpatient follow-up from a pulmonary perspective. Admission and Anticipated Discharge Date Admission Date: June 24, 2022 Subjective Patient seen and examined. EMR reviewed. This morning the patient is quite agitated. She is been placed in soft upper extremity restraints this morning. According to the nurse the patient became very agitated overnight and abusive to staff. She chewed through one of her IVs and has been trying to hit staff members with her telemetry box. When I queried the patient, she is somewhat verbally abusive. When I was able to get her to answer questions, she denies any respiratory difficulties and states that she feels better after the thoracentesis. Review of Systems Review of Systems: Unobtainable due to mental health condition Physical Exam Physical Exam: Physical Exam: General: Agitated delirium present cachectic and chronically ill-appearing Chest/Pulm: No respiratory distress, symmetrical chest expansion, decreased breath sounds in the right lower and middle lobe, expiratory wheezing noted in all other lung blum Cardiac: RRR, no murmurs noted Abdomen: Nondistended, normoactive bowel sounds, soft, non-teder to palpation throughout Musculoskeletal: Symmetrical and without signs of acute trauma, upper and lower extremities with full ROM, spasticity, or flaccidity Extremities: Radial, dorsalis pedis, and posterior tibial pulses are intact and symmetrical, +2-3 pitting edema in the BL LEs Skin: Multiple ecchymoses noted Neuro: Agitated delirium present Results & Data Results & Data ([facility]) Vital Signs (Past 12 Hours) Vital Signs Temp Pulse Pulse Resp BP Pulse Ox O2 Del Method 06/26/22 00:45 76 06/26/22 00:31 78 18 90 Room Air 06/25/22 22:00 Room Air 06/25/22 23:01 36.4 C L 115 H 18 173/87 H 91 Room Air Laboratory Results 06/26/22 07:52 Pleural fluid studies: Cytology pending Cell count differential: 3% neutrophils, 61% lymphocytes, 36% mesothelial cells Pleural pH 7.49 Total protein less than 3 LDH 69 Glucose 119 Diagnostic Findings Post thoracentesis film was independently reviewed. No pneumothorax. The effusion appears completely evacuated. PG Care Time/CCT Total # of Minutes Spent Total Time Spent with Patient: Total time spent is greater than 50% in coordination of care (as documented) at patient's floor/unit and/or counseling patient: Coding Level of Care Code 88377 Subseq Hosp Care Lvl 2 Diagnoses Pleural effusion on right J90 Fluid overload E87.79 Hypervolemia type: other
[2022-06-26 08:41] LABS: Anisocytosis Present; Basophils # (auto) 0.02 K/uL (0-0.2); Basophils % (auto) 0.2 %; Echinocytes 2+; Eosinophils # (auto) 0.02 K/uL (0-0.50); Eosinophils % (auto) 0.2 %; Immature Granulocytes # (auto) 0.04 K/uL (0.00-0.02); Immature Granulocytes % (auto) 0.5 %; Lymphocytes # (auto) 0.21 K/uL (1.2-3.4); Lymphocytes % (auto) 2.6 %; Monocytes # (auto) 0.18 K/uL (0.24-0.82); Monocytes % (auto) 2.2 %; Neutrophils # (auto) 7.76 K/uL (1.4-6.5); Neutrophils % (auto) 94.3 %; Schistocytes 1+
[2022-06-26] MEDS: ATORVASTATIN 40 MG TAB PO SCH (08:41)
[2022-06-26] MEDS: ASCORBIC ACID 500 MG TAB PO SCH (08:41)
[2022-06-26] MEDS: ACYCLOVIR 400 MG TAB PO SCH ×2 (08:41→20:17)
[2022-06-26] MEDS: ASPIRIN 81 MG ECTAB PO SCH (08:41)
[2022-06-26] MEDS: carvediloL 12.5 MG TAB PO SCH ×2 (08:41→16:51)
[2022-06-26] MEDS: FUROSEMIDE 40 MG TAB PO SCH ×2 (08:42→16:51)
[2022-06-26] MEDS: SODIUM BICARBONATE 650 MG TAB PO SCH ×2 (08:42→16:51)
[2022-06-26] MEDS: CYANOCOBALAMIN (B-12) 2,500 MCG TABLET SL SCH (08:42)
[2022-06-26 09:11] LABS: Albumin Level 2.7 gm/dl (3.4-5.0); BUN Creatinine Ratio 20.3 (10-20); Bilirubin Direct 0.3 mg/dl (0-0.2); Bilirubin,Total 0.7 mg/dl (0.2-1.0); C Reactive Protein 1.04 mg/dl (0-0.5); Calcium 7.7 mg/dl (8.5-10.1); Creatinine Clr Calc Pharmacy 15.2 ml/min; Est GFR (African American) 19.9 ml/min; Est GFR (Non-African American) 17.2 ml/min; Potassium 3.7 mmol/L (3.5-5.1); Total Protein 4.7 gm/dl (6.0-8.3)
[2022-06-26 09:12] LABS: Albumin Globulin Ratio 1.2 (0.9-2); Albumin Level 2.6 gm/dl (3.4-5.0); BUN Creatinine Ratio 20.2 (10-20); Bilirubin,Total 0.7 mg/dl (0.2-1.0); Calcium 7.7 mg/dl (8.5-10.1); Creatinine Clr Calc Pharmacy 15.1 ml/min; Est GFR (African American) 19.8 ml/min; Est GFR (Non-African American) 17.1 ml/min; Globulin 2.1 gm/dl (2.5-4.0); Potassium 3.7 mmol/L (3.5-5.1); Total Protein 4.7 gm/dl (6.0-8.3)
--- NOTE | 2022-06-26 11:04 | Nephrology Progress Note ---
Date of Service June 26, 2022 Assessment & Plan (1) Chronic kidney disease, stage V: Plan: Creatinine stable at 2.5 mg/dL. Electrolytes acceptable. Appears to be tolerating current diuretic dosing with adequate control of volume status. Garcia removed yesterday. Medications appropriately for kidney dysfunction. No additional management recommendations from nephrology at this time. I will sign-off for now. Please call with questions or concerns. (2) Mental status alteration: Plan: Attributed to UTI. Noted component of . (3) Acute UTI: Plan: Cx +Klebsiella pneumonia sensitive to Ceftriaxone. Remains on Ceftriaxone. (4) Pleural effusion on right: Plan: s/p diagnostic thoracentesis yesterday. Transudative by Light's criteria. (5) Anemia: Plan: Chronic, stable. Admission and Anticipated Discharge Date Admission Date: June 24, 2022 Subjective Notable agitation overnight. Pulled out IV. Sandra was resting comfortably in soft restraints this AM but during conversation would become increasingly agitated. Per RN, she has not slept. She continues to demonstrate mental status changes. She told me that she has been waiting for me to let her go home. She said that her family was in to visit this morning and that they are waiting outside to drive her home. I told her that I would call them but Sandra told me that they would not be able to answer because "the car is already running." She would become agitated and very frustrated with additional questions. Review of Systems Review of Systems: Unobtainable due to cognitive status (limited due to agitation) Physical Exam Constitutional: well developed, + frail appearing and + disheveled; no acute distress Eyes: + anicteric sclerae; no conjunctival abnormality ENMT: Mouth: + dry oral mucous membranes; no oral mucosal abnormality Neck: normal visual inspection and trachea midline Respiratory: normal respiratory effort Cardiovascular: Rate/Rhythm: regular rate Extremities: + edema Skin: + turgor decreased Neurologic: Motor/Sensory: no tremor and no asterixis Psychiatric: Orientation: oriented to person and oriented to place Speech: + loud speech Affect: + angry affect Results & Data ([facility]) Vital Signs (Past 12 Hours) Vital Signs Temp Pulse Pulse Resp BP Pulse Ox O2 Del Method 06/26/22 00:45 76 06/26/22 00:31 78 18 90 Room Air 06/25/22 23:01 36.4 C L 115 H 18 173/87 H 91 Room Air Laboratory Results Laboratory Results - last 24 hr 06/25/22 06/25/22 06/25/22 10:45 10:45 10:45 WBC RBC Hgb Hct MCV MCH MCHC RDW Std Deviation RDW Coeff of Ruthie Plt Count MPV Immature Gran % (Auto) Neut % (Auto) Lymph % (Auto) Hyde % (Auto) Eos % (Auto) Baso % (Auto) Neut # (Auto) Lymph # (Auto) Hyde # (Auto) Eos # (Auto) Baso # (Auto) Immature Gran # (Auto) Absolute Nucleated RBC Nucleated RBC % (auto) Anisocytosis Echinocytes Schistocytes ESR Sodium Potassium Chloride Carbon Dioxide Anion Gap BUN Creatinine Est Cr Clr Drug Dosing Est GFR ( Amer) Est GFR (Non-Af Amer) BUN/Creatinine Ratio Glucose POC Glucose Calcium Total Bilirubin Direct Bilirubin AST ALT Alkaline Phosphatase C-Reactive Protein Total Protein Albumin Globulin Albumin/Globulin Ratio Random Cortisol Fluid Neutrophils % 3 Fluid Lymphocytes % 61 Fluid Meso/Macro/Hyde % 36 Fluid Comment Pleural Fluid Source Right Lung Pleural Color Straw Pleural Appearance Clear Pleural pH 7.49 H Pleural WBC 231 Pleural RBC < 2000 Pleural Total Protein < 3.0 Pleural LDH 69 Pleural Glucose 119 06/25/22 06/25/22 06/25/22 11:50 16:33 19:58 WBC RBC Hgb Hct MCV MCH MCHC RDW Std Deviation RDW Coeff of Ruthie Plt Count MPV Immature Gran % (Auto) Neut % (Auto) Lymph % (Auto) Hyde % (Auto) Eos % (Auto) Baso % (Auto) Neut # (Auto) Lymph # (Auto) Hyde # (Auto) Eos # (Auto) Baso # (Auto) Immature Gran # (Auto) Absolute Nucleated RBC Nucleated RBC % (auto) Anisocytosis Echinocytes Schistocytes ESR Sodium Potassium Chloride Carbon Dioxide Anion Gap BUN Creatinine Est Cr Clr Drug Dosing Est GFR ( Amer) Est GFR (Non-Af Amer) BUN/Creatinine Ratio Glucose POC Glucose 130 H 127 H 133 H Calcium Total Bilirubin Direct Bilirubin AST ALT Alkaline Phosphatase C-Reactive Protein Total Protein Albumin Globulin Albumin/Globulin Ratio Random Cortisol Fluid Neutrophils % Fluid Lymphocytes % Fluid Meso/Macro/Hyde % Fluid Comment Pleural Fluid Source Pleural Color Pleural Appearance Pleural pH Pleural WBC Pleural RBC Pleural Total Protein Pleural LDH Pleural Glucose 06/26/22 06/26/2206/26/22 07:52 07:52 07:52 WBC 8.23 RBC 3.03 L Hgb 9.8 L Hct 29.7 L MCV 98.0 MCH 32.3 MCHC 33.0 RDW Std Deviation 82.1 H RDW Coeff of Ruthie 23.9 H Plt Count 197 MPV 11.7 Immature Gran % (Auto) 0.5 Neut % (Auto) 94.3 Lymph % (Auto) 2.6 Hyde % (Auto) 2.2 Eos % (Auto) 0.2 Baso % (Auto) 0.2 Neut # (Auto) 7.76 H Lymph # (Auto) 0.21 L Hyde # (Auto) 0.18 L Eos # (Auto) 0.02 Baso # (Auto) 0.02 Immature Gran # (Auto) 0.04 H Absolute Nucleated RBC 0.02 H Nucleated RBC % (auto) 0.2 Anisocytosis Present Echinocytes 2+ Schistocytes 1+ ESR 3 Sodium 143 Potassium 3.7 Chloride 106 Carbon Dioxide 30 Anion Gap 7 BUN 52 H Creatinine 2.57 H Est Cr Clr Drug Dosing 15.1 Est GFR ( Amer) 19.8 Est GFR (Non-Af Amer) 17.1 BUN/Creatinine Ratio 20.2 H Glucose 132 H POC Glucose Calcium 7.7 L Total Bilirubin 0.7 Direct Bilirubin AST 18 ALT 16 Alkaline Phosphatase 143 H C-Reactive Protein Total Protein 4.7 L Albumin 2.6 L Globulin 2.1 L Albumin/Globulin Ratio 1.2 Random Cortisol Fluid Neutrophils % Fluid Lymphocytes % Fluid Meso/Macro/Hyde % Fluid Comment Pleural Fluid Source Pleural Color Pleural Appearance Pleural pH Pleural WBC Pleural RBC Pleural Total Protein Pleural LDH Pleural Glucose 06/26/22 06/26/22 06/26/22 07:52 07:52 08:01 WBC RBC Hgb Hct MCV MCH MCHC RDW Std Deviation RDW Coeff of Ruthie Plt Count MPV Immature Gran % (Auto) Neut % (Auto) Lymph % (Auto) Hyde % (Auto) Eos % (Auto) Baso % (Auto) Neut # (Auto) Lymph # (Auto) Hyde # (Auto) Eos # (Auto) Baso # (Auto) Immature Gran # (Auto) Absolute Nucleated RBC Nucleated RBC % (auto) Anisocytosis Echinocytes Schistocytes ESR Sodium 143 Potassium 3.7 Chloride 106 Carbon Dioxide 29 Anion Gap 8 BUN 52 H Creatinine 2.56 H Est Cr Clr Drug Dosing 15.2 Est GFR ( Amer) 19.9 Est GFR (Non-Af Amer) 17.2 BUN/Creatinine Ratio 20.3 H Glucose 134 H POC Glucose 148 H Calcium 7.7 L Total Bilirubin 0.7 Direct Bilirubin 0.3 H AST 18 ALT 16 Alkaline Phosphatase 143 H C-Reactive Protein 1.04 H Total Protein 4.7 L Albumin 2.7 L Globulin Albumin/Globulin Ratio Random Cortisol 28.21 Fluid Neutrophils % Fluid Lymphocytes % Fluid Meso/Macro/Hyde % Fluid Comment Pleural Fluid Source Pleural Color Pleural Appearance Pleural pH Pleural WBC Pleural RBC Pleural Total Protein Pleural LDH Pleural Glucose PG Care Time/CCT Total # of Minutes Spent Total Time Spent with Patient: Total time spent is greater than 50% in coordination of care (as documented) at patient's floor/unit and/or counseling patient: Coding Level of Care Code 67268 Subseq Hosp Care Lvl 3 Diagnoses Chronic kidney disease, stage V N18.5 Mental status alteration R41.82 Acute UTI N39.0 Pleural effusion on right J90 Anemia D64.9
[2022-06-26] MEDS ORDERED: hydrALAZINE HCL 20 MG/ML VIAL IV ONE (13:29)
[2022-06-26 13:38] LABS: Adenovirus PCR Not Detected (NotDetected); Bordetella parapertussis PCR Not Detected (NotDetected); Bordetella pertussis PCR Not Detected (NotDetected); Chlamydia pneumoniae PCR Not Detected (NotDetected); Coronavirus 229E PCR Not Detected (NotDetected); Coronavirus CoV-2 (COVID19)PCR Not Detected (NotDetected); Coronavirus HKU1 PCR Not Detected (NotDetected); Coronavirus NL63 PCR Not Detected (NotDetected); Coronavirus OC43PCR Not Detected (NotDetected); Human Metapneumovirus PCR Not Detected (NotDetected); Influenza A PCR Not Detected (NotDetected); Influenza B PCR Not Detected (NotDetected); Mycoplasma pneumoniae PCR Not Detected (NotDetected); Parainfluenza Virus 1 PCR Not Detected (NotDetected); Parainfluenza Virus 2 PCR Not Detected (NotDetected); Parainfluenza Virus 3 PCR Not Detected (NotDetected); Parainfluenza Virus 4 PCR Not Detected (NotDetected); Respiratory Syncytial VirusPCR Not Detected (NotDetected); Rhinovirus/Enterovirus PCR Not Detected (NotDetected)
[2022-06-26] MEDS ORDERED: HALOPERIDOL LACTATE 5 MG/ML 1 ML VIAL IM STA (15:43)
[2022-06-26] MEDS: cefTRIAXone SODIUM 2,000 MG in DEXTROSE 5% 50 ML IV SCH (17:38)
--- NOTE | 2022-06-26 20:54 | Hospitalist Progress Note ---
Date of Service June 26, 2022 Assessment & Plan (1) Transient confusion: Plan: delirium -Admit to med/tele -Patient is currently afebrile, hemodynamically stable, sable on RA and improving temperature currently at 35 C with warming blanket -At this time the exact etiology of the patient's transient confusion is unknown at this time. She has multiple possible causes including current UTI, possible pneumonia, hypercarbia with a pCO2 of 62 on VBG. Patient is on multiple chemotherapy agents, unsure if they could be contributing. With her apparent history of multiple visual hallucinations over the past few weeks cannot rule out possible neurologic cause. CT of the head was negative for acute changes, no focal neuro defects on exam, ammonia WNL. -At this time her current infection is likely the cause but can continue further workup while admitted. -patient emains confused on 06/26, continue IV antibiotics, ordered MRI however due to kidney function, will notbe able to use contrast. ordered oe time dose of haldol, updated family. (2) Pleural effusion on right: Plan: -Large pleural effusion noted in the right lung today on Chest xray -Patient is currently stable on RA -Ideally would like to get a chest CT for further evaluation, patient is currently without her TLSO brace as it is at home, concerned for further injury if she is moved for more imaging prior to getting her brace. said he can bring brace in tomorrow -Will wait for further imaging for now and consult pulmonology for thoracentesis tomorrow to further evaluate the effusion. -Monitor O2 saturation for hypoxia, ordered prn albuterol for wheezing -Procal is still pending at this time but will continue with ceftriaxone as this would cover for pneumonia at this time -Will hold chemical DVT PPX for now in preparatino for thoracentesis (3) Hypothermia: Plan: -Noted to be 31.3 C on arrival to the ED, was started on warming blanket -Temperature is improving, currently at 35 C -TSH elevated at 9.9 but Free T4 is 0.93 -Continue warming blanket for now until temperature stablizes -improved. (4) Acute UTI: Plan: -UA in the ED today looks infected, currently with christianson catheter in place, draining turbid urine -Urine culture collected -Continue Ceftriaxone for now and tailor abx as able -Will hold cyclophosphamide for now with current infections (5) Fluid overload: Plan: -Long-standing problem due to her amyloidosis and hypoalbuminemia -BNP noted to be in the 700's -Continue current lasix dose for now, will get TTE for further evaluation (6) Chronic kidney disease, stage V: Plan: -Cr currently at 2.61, per the Nephrology note from 06/09, baseline is around 2.8-2.9 -Electrolytes are currently stable -Corrected Calcium is 8.8, will order ionized for the morning -Will continue sodium bicarb and lasix, Nephrology consult ordered (7) Thoracic spine fracture: Plan: -Bedrest for now, will bring in her brace tomorrow -Continue tramadol for pain (8) Hypothyroidism: Plan: -Continue levothyroxine (9) Hypertension: Plan: -Currently hypertensive at 160/89 -Will continue amlodipine and (10) Type 2 diabetes mellitus: Plan: -Not on medication at this time -Will start with BSG ACHS, correction factor of 50, increase as needed (11) Amyloidosis: Plan: -Follows with Nephrology and Oncology -Still receiving chemotherapy -Follow nephrology consult recs (12) Anemia of chronic disease: Plan: -Hgb at 9.7 today, no signs of bleeding -Gets Epogen 20,000 units monthly Admission and Anticipated Discharge Date Admission Date: June 24, 2022 Subjective Patient remains confused. Required restraints overnight. Review of Systems Review of Systems: All systems reviewed & are unremarkable except as noted in HPI & below Physical Exam Physical Exam: General:In no acute distress, older than stated age, cachectic and chronically ill-appearing HEENT:Normocephalic, atraumatic, alopecia present, no scleral icterus, pupils around round, symmetrical, and reactive to light, moist mucus membranes, trachea midline, no thyromegaly Chest/Pulm:No respiratory distress, symmetrical chest expansion, decreased breath sounds in the right lower and middle lobe, expiratory wheezing noted in all other lung blum Cardiac:RRR, no murmurs noted Abdomen:distended, normoactive bowel sounds, soft, non-teder to palpation throughout Musculoskeletal:Symmetrical and without signs of acute trauma, upper and lower extremities with full ROM, spasticity, or flaccidity Extremities:Radial, dorsalis pedis, and posterior tibial pulses are intact and symmetrical, +2-3 pitting edema in the BL LEs Skin:Warm, dry, no rashes , lesions, or scars noted Neuro:Alert and oriented to person, place, month, year, and president, no focal defects, CN II-XII tested and intact, No tremors noted Psych:No acute distress, plesant, calm and cooperative during the exam Results & Data Results & Data ([facility]) Vital Signs (Past 12 Hours) Vital Signs Temp Pulse Pulse Resp BP BP Pulse Ox 06/26/22 19:38 86 22 172/94 H 95 06/26/22 19:13 82 22 95 06/26/22 17:18 80 06/26/22 17:12 84 18 175/99 H 95 06/26/22 13:12 81 18 93 06/26/22 12:00 36.2 C L 87 22 195/110 H 95 06/26/22 11:26 O2 Del Method 06/26/22 19:38 Room Air 06/26/22 19:13 Room Air 06/26/22 17:18 06/26/22 17:12 Room Air 06/26/22 13:12 Room Air 06/26/22 12:00 Room Air 06/26/22 11:26 Room Air PG Care Time/CCT Total # of Minutes Spent Total Time Spent with Patient: Total time spent is greater than 50% in coordination of care (as documented) at patient's floor/unit and/or counseling patient: Coding Level of Care Code 95918 Subseq Hosp Care Lvl 3 Diagnoses Transient confusion R41.0 Pleural effusion on right J90 Hypothermia T68.XXXA Encounter type: initial encounter Acute UTI N39.0 Fluid overload E87.79 Hypervolemia type: other Chronic kidney disease, stage V N18.5 Thoracic spine fracture S22.009A Hypothyroidism E03.9 Hypertension I10 Type 2 diabetes mellitus E11.9 Amyloidosis E85.9 Anemia of chronic disease D63.8 Time Spent (min) 35 (1) Hypothermia Encounter type: initial encounter Qualified Code(s): T68.XXXA - Hypothermia, initial encounter (2) Fluid overload Hypervolemia type: other Qualified Code(s): E87.79 - Other fluid overload
[2022-06-27] MEDS: ALBUTEROL 0.5% NEB SOLN 2.5 MG/0.5 ML VIAL NEB SCH ×4 (00:15→20:01)
[2022-06-27] MEDS: LEVOTHYROXINE SODIUM 100 MCG TABLET PO SCH (05:52)
[2022-06-27 06:57] LABS: Hematocrit (blood only) 29.7 % (34.1-44.9); Hemoglobin 9.9 g/dl (12.0-16.0); Mean Corpuscular Hemoglobin 32.5 pg (25.0-34.0); Mean Corpuscular Hgb Conc 33.3 g/dL (32.0-36.0); Mean Corpuscular Volume 97.4 fL (80.0-100.0); Mean Platelet Volume 12.2 fL (9.4-12.3); Nucleated RBC # (auto) 0.05 K/uL (0-0); Nucleated RBC % (auto) 0.8 %; Platelet Count 207 K/uL (130-400); RDW Coefficient of Variation 23.9 % (11.5-14.5); RDW Standard Deviation 80.2 fL (36.4-46.3); Red Blood Count 3.05 M/uL (3.93-5.22); White Blood Count 6.44 K/ul (4.8-10.8)
[2022-06-27 07:24] LABS: Acanthocytes 2+; Basophils # (auto) 0.02 K/uL (0-0.2); Basophils % (auto) 0.3 %; Echinocytes 2+; Eosinophils # (auto) 0.02 K/uL (0-0.50); Eosinophils % (auto) 0.3 %; Immature Granulocytes # (auto) 0.02 K/uL (0.00-0.02); Immature Granulocytes % (auto) 0.3 %; Lymphocytes # (auto) 0.19 K/uL (1.2-3.4); Monocytes # (auto) 0.17 K/uL (0.24-0.82); Monocytes % (auto) 2.6 %; Neutrophils # (auto) 6.02 K/uL (1.4-6.5); Neutrophils % (auto) 93.5 %
[2022-06-27 07:50] LABS: Albumin Globulin Ratio 1.4 (0.9-2); Albumin Level 2.7 gm/dl (3.4-5.0); BUN Creatinine Ratio 19.4 (10-20); Bilirubin,Total 0.7 mg/dl (0.2-1.0); Calcium 7.9 mg/dl (8.5-10.1); Est GFR (African American) 21.3 ml/min; Est GFR (Non-African American) 18.4 ml/min; Potassium 3.4 mmol/L (3.5-5.1); Total Protein 4.7 gm/dl (6.0-8.3)
[2022-06-27] MEDS: INSULIN ASPART PER UNIT SC SCH ×4 (08:36→21:52)
[2022-06-27] MEDS: ACYCLOVIR 400 MG TAB PO SCH ×2 (08:37→20:41)
[2022-06-27] MEDS: ASCORBIC ACID 500 MG TAB PO SCH (08:37)
[2022-06-27] MEDS: ATORVASTATIN 40 MG TAB PO SCH (08:37)
[2022-06-27] MEDS: SODIUM BICARBONATE 650 MG TAB PO SCH ×2 (08:37→17:01)
[2022-06-27] MEDS: CYANOCOBALAMIN (B-12) 2,500 MCG TABLET SL SCH (08:37)
[2022-06-27] MEDS: LIDOCAINE 5% 1 PATCH TD SCH (08:38)
[2022-06-27] MEDS: carvediloL 12.5 MG TAB PO SCH ×2 (08:38→17:00)
[2022-06-27] MEDS: ASPIRIN 81 MG ECTAB PO SCH (08:38)
[2022-06-27] MEDS: FUROSEMIDE 40 MG TAB PO SCH ×2 (08:38→17:01)
[2022-06-27] MEDS ORDERED: HEPARIN SOD 5,000 UNIT/0.5 ML VIAL SQ STA (09:08)
[2022-06-27] MEDS ORDERED: HALOPERIDOL LACTATE 5 MG/ML 1 ML VIAL IM STA (09:22)
--- NOTE | 2022-06-27 11:08 | Magnetic Resonance Report ---
MRI OF THE BRAIN WITHOUT IV CONTRAST CLINICAL HISTORY: Change in mental status. COMPARISON STUDY: CT of the brain dated 06/24/2022. TECHNIQUE: MRI of the brain was performed utilizing various T1 and T2-weighted sequences in the axial , sagittal, and coronal planes. IV contrast was not administered for this examination. FINDINGS: Brain parenchyma: There is age-related involutional change noting mild subcortical and periventricula r microangiopathic disease. There is no hemorrhage or mass effect. There is no restricted diffusion t o suggest acute ischemia. There are small chronic lacunar infarcts in the right coleen and the right ce rebellar hemisphere. Sesay-white matter differentiation is preserved. No extra-axial fluid collection is seen. The cerebellar tonsils are normal in configuration. Ventricles, sulci, and cisterns: Prominent secondary to involutional change. Pituitary and sella: Unremarkable. Intracranial vasculature: Normal flow voids are maintained at the skull base. Orbits: The bony orbits are grossly intact. Orbital contents are normal in appearance noting a left o cular lens implant. Sinuses and mastoids: There is mild mucosal thickening within the maxillary antra and ethmoid sinuses . There is a small right mastoid effusion. Calvarium: Unremarkable. Cervical cord: Partially visualized cervical spinal cord is normal in morphology and signal intensity . IMPRESSION: No acute intracranial abnormality. ACT 112: Negative or not required by law. Electronically signed by: Denny Carrera M.D. 06/27/2022 11:07 AM
[2022-06-27] MEDS: HEPARIN SOD 5,000 UNIT/0.5 ML VIAL SQ SCH ×2 (12:47→20:41)
[2022-06-27] MEDS: cefTRIAXone SODIUM 2,000 MG in DEXTROSE 5% 50 ML IV SCH (16:59)
[2022-06-27] MEDS: MELATONIN 3 MG TAB PO PRN (20:41)
--- NOTE | 2022-06-27 22:17 | Hospitalist Progress Note ---
Date of Service June 27, 2022 Assessment & Plan (1) Transient confusion: Plan: delirium -Admit to med/tele -Patient is currently afebrile, hemodynamically stable, sable on RA and improving temperature currently at 35 C with warming blanket -At this time the exact etiology of the patient's transient confusion is unknown at this time. She has multiple possible causes including current UTI, possible pneumonia, hypercarbia with a pCO2 of 62 on VBG. Patient is on multiple chemotherapy agents, unsure if they could be contributing. With her apparent history of multiple visual hallucinations over the past few weeks cannot rule out possible neurologic cause. CT of the head was negative for acute changes, no focal neuro defects on exam, ammonia WNL. -At this time her current infection is likely the cause but can continue further workup while admitted. -patient remains confused on 06/27, but finally able to sleep. Received haldol on 06/26, continue IV antibiotics, ordered MRI of head but no contrast due to kidney function, this was negative. . (2) Pleural effusion on right: Plan: -Large pleural effusion noted in the right lung today on Chest xray -Patient is currently stable on RA -Ideally would like to get a chest CT for further evaluation, patient is currently without her TLSO brace as it is at home, concerned for further injury if she is moved for more imaging prior to getting her brace. said he can bring brace in tomorrow -Will wait for further imaging for now and consult pulmonology for thoracentesis tomorrow to further evaluate the effusion. -Monitor O2 saturation for hypoxia, ordered prn albuterol for wheezing -Procal is still pending at this time but will continue with ceftriaxone as this would cover for pneumonia at this time -Will hold chemical DVT PPX for now in preparatino for thoracentesis (3) Hypothermia: Plan: -Noted to be 31.3 C on arrival to the ED, was started on warming blanket -Temperature is improving, currently at 35 C -TSH elevated at 9.9 but Free T4 is 0.93 -Continue warming blanket for now until temperature stablizes -improved. (4) Acute UTI: Plan: -UA in the ED today looks infected, currently with christianson catheter in place, draining turbid urine -Urine culture collected -Continue Ceftriaxone for now and tailor abx as able -Will hold cyclophosphamide for now with current infections (5) Fluid overload: Plan: -Long-standing problem due to her amyloidosis and hypoalbuminemia -BNP noted to be in the 700's -Continue current lasix dose for now, will get TTE for further evaluation (6) Chronic kidney disease, stage V: Plan: -Cr currently at 2.61, per the Nephrology note from 06/09, baseline is around 2.8-2.9 -Electrolytes are currently stable -Corrected Calcium is 8.8, will order ionized for the morning -Will continue sodium bicarb and lasix, Nephrology consult ordered (7) Thoracic spine fracture: Plan: -Bedrest for now, will bring in her brace tomorrow -Continue tramadol for pain (8) Hypothyroidism: Plan: -Continue levothyroxine (9) Hypertension: Plan: -Currently hypertensive at 160/89 -Will continue amlodipine and (10) Type 2 diabetes mellitus: Plan: -Not on medication at this time -Will start with BSG ACHS, correction factor of 50, increase as needed (11) Amyloidosis: Plan: -Follows with Nephrology and Oncology -Still receiving chemotherapy -Follow nephrology consult recs (12) Anemia of chronic disease: Plan: -Hgb at 9.7 today, no signs of bleeding -Gets Epogen 20,000 units monthly Admission and Anticipated Discharge Date Admission Date: June 24, 2022 Subjective Patient is a poor historian due to confusion. Review of Systems Review of Systems: All systems reviewed & are unremarkable except as noted in HPI & below Physical Exam Physical Exam: General:In no acute distress, older than stated age, cachectic and chronically ill-appearing HEENT:Normocephalic, atraumatic, alopecia present, no scleral icterus, pupils around round, symmetrical, and reactive to light, moist mucus membranes, trachea midline, no thyromegaly Chest/Pulm:No respiratory distress, symmetrical chest expansion, decreased breath sounds in the right lower and middle lobe, expiratory wheezing noted in all other lung blum Cardiac:RRR, no murmurs noted Abdomen:distended, normoactive bowel sounds, soft, non-teder to palpation throughout Musculoskeletal:Symmetrical and without signs of acute trauma, upper and lower extremities with full ROM, spasticity, or flaccidity Extremities:Radial, dorsalis pedis, and posterior tibial pulses are intact and symmetrical, +2-3 pitting edema in the BL LEs Skin:Warm, dry, no rashes , lesions, or scars noted Neuro:Alert and oriented to person, place, month, year, and president, no focal defects, CN II-XII tested and intact, No tremors noted Psych:No acute distress, plesant, calm and cooperative during the exam Results & Data Results & Data ([facility]) Vital Signs (Past 12 Hours) Vital Signs Temp Pulse Pulse Resp BP BP Pulse Ox 06/27/22 19:46 35.6 C L 72 18 164/90 H 93 06/27/22 20:01 71 20 95 06/27/22 15:28 35.6 C L 72 22 173/90 H 95 06/27/22 15:13 73 06/27/22 12:42 74 17 93 06/27/22 11:33 36.5 C 75 22 161/96 H 90 O2 Del Method FiO2 06/27/22 19:46 Room Air 06/27/22 20:01 Room Air 21 06/27/22 15:28 Room Air 06/27/22 15:13 06/27/22 12:42 Room Air 06/27/22 11:33 Room Air PG Care Time/CCT Total # of Minutes Spent Total Time Spent with Patient: Total time spent is greater than 50% in coordination of care (as documented) at patient's floor/unit and/or counseling patient: Coding Level of Care Code 04469 Subseq Hosp Care Lvl 2 Diagnoses Transient confusion R41.0 Pleural effusion on right J90 Hypothermia T68.XXXA Encounter type: initial encounter Acute UTI N39.0 Fluid overload E87.79 Hypervolemia type: other Chronic kidney disease, stage V N18.5 Thoracic spine fracture S22.009A Hypothyroidism E03.9 Hypertension I10 Type 2 diabetes mellitus E11.9 Amyloidosis E85.9 Anemia of chronic disease D63.8 Time Spent (min) 25 (1) Hypothermia Encounter type: initial encounter Qualified Code(s): T68.XXXA - Hypothermia, initial encounter (2) Fluid overload Hypervolemia type: other Qualified Code(s): E87.79 - Other fluid overload
[2022-06-28] MEDS: ALBUTEROL 0.5% NEB SOLN 2.5 MG/0.5 ML VIAL NEB SCH ×4 (00:15→20:06)
[2022-06-28] MEDS: LEVOTHYROXINE SODIUM 100 MCG TABLET PO SCH (05:54)
[2022-06-28] MEDS: HEPARIN SOD 5,000 UNIT/0.5 ML VIAL SQ SCH ×3 (05:54→20:27)
[2022-06-28 08:07] LABS: Hematocrit (blood only) 26.1 % (34.1-44.9); Hemoglobin 8.6 g/dl (12.0-16.0); Mean Corpuscular Hemoglobin 32.3 pg (25.0-34.0); Mean Corpuscular Volume 98.1 fL (80.0-100.0); Mean Platelet Volume 11.9 fL (9.4-12.3); Nucleated RBC # (auto) 0.03 K/uL (0-0); Nucleated RBC % (auto) 0.6 %; Platelet Count 178 K/uL (130-400); RDW Coefficient of Variation 23.8 % (11.5-14.5); RDW Standard Deviation 80.6 fL (36.4-46.3); Red Blood Count 2.66 M/uL (3.93-5.22); White Blood Count 5.18 K/ul (4.8-10.8)
[2022-06-28] MEDS: ATORVASTATIN 40 MG TAB PO SCH (08:18)
[2022-06-28] MEDS: FUROSEMIDE 40 MG TAB PO SCH ×2 (08:18→16:46)
[2022-06-28] MEDS: ASCORBIC ACID 500 MG TAB PO SCH (08:18)
[2022-06-28] MEDS: ACYCLOVIR 400 MG TAB PO SCH ×2 (08:18→20:26)
[2022-06-28] MEDS: SODIUM BICARBONATE 650 MG TAB PO SCH ×2 (08:18→16:46)
[2022-06-28] MEDS: LIDOCAINE 5% 1 PATCH TD SCH (08:18)
[2022-06-28] MEDS: INSULIN ASPART PER UNIT SC SCH ×4 (08:18→20:24)
[2022-06-28] MEDS: CYANOCOBALAMIN (B-12) 2,500 MCG TABLET SL SCH (08:18)
[2022-06-28] MEDS: ASPIRIN 81 MG ECTAB PO SCH (08:18)
[2022-06-28] MEDS: carvediloL 12.5 MG TAB PO SCH ×2 (08:18→16:46)
[2022-06-28 08:33] LABS: BUN Creatinine Ratio 19.4 (10-20); Calcium 7.4 mg/dl (8.5-10.1); Creatinine Clr Calc Pharmacy 15.4 ml/min; Est GFR (African American) 20.2 ml/min; Est GFR (Non-African American) 17.4 ml/min; Potassium 3.2 mmol/L (3.5-5.1)
--- NOTE | 2022-06-28 14:22 | Hospitalist Progress Note ---
Date of Service June 28, 2022 Assessment & Plan (1) Transient confusion: Plan: delirium -Admit to med/tele -Patient is currently afebrile, hemodynamically stable, sable on RA and improving temperature currently at 35 C with warming blanket -At this time the exact etiology of the patient's transient confusion is unknown at this time. She has multiple possible causes including current UTI, possible pneumonia, hypercarbia with a pCO2 of 62 on VBG. Patient is on multiple chemotherapy agents, unsure if they could be contributing. With her apparent history of multiple visual hallucinations over the past few weeks cannot rule out possible neurologic cause. CT of the head was negative for acute changes, no focal neuro defects on exam, ammonia WNL. -At this time her current infection is likely the cause but can continue further workup while admitted. -patient remains confused on 06/27, but finally able to sleep. Received haldol on 06/26, continue IV antibiotics, ordered MRI of head but no contrast due to kidney function, this was negative. On 06/28, Patient appears much less confused. Is answering questions appropriately. Patient is able to tell nurses when she requires to move her bowels. This is a large improvement from when she first came in. Will continue to monitor. (2) Pleural effusion on right: Plan: -Large pleural effusion noted in the right lung today on Chest xray -Patient is currently stable on RA -Ideally would like to get a chest CT for further evaluation, patient is currently without her TLSO brace as it is at home, concerned for further injury if she is moved for more imaging prior to getting her brace. said he can bring brace in tomorrow -Will wait for further imaging for now and consult pulmonology for thoracentesis tomorrow to further evaluate the effusion. -Monitor O2 saturation for hypoxia, ordered prn albuterol for wheezing -pneumonia appears to be ruled out -Will hold chemical DVT PPX for now in preparatino for thoracentesis (3) Hypothermia: Plan: -Noted to be 31.3 C on arrival to the ED, was started on warming blanket -Temperature is improving, currently at 35 C -TSH elevated at 9.9 but Free T4 is 0.93 -Continue warming blanket for now until temperature stablizes -improved. (4) Acute UTI: Plan: -UA in the ED today looks infected, currently with christianson catheter in place, draining turbid urine -Urine culture collected -Continue Ceftriaxone for now and tailor abx as able -Will hold cyclophosphamide for now with current infections (5) Fluid overload: Plan: -Long-standing problem due to her amyloidosis and hypoalbuminemia -BNP noted to be in the 700's -Continue current lasix dose for now, will get TTE for further evaluation (6) Chronic kidney disease, stage V: Plan: -Cr currently at 2.61, per the Nephrology note from 06/09, baseline is around 2.8-2.9 -Electrolytes are currently stable -Corrected Calcium is 8.8, will order ionized for the morning -Will continue sodium bicarb and lasix, Nephrology consult ordered (7) Thoracic spine fracture: Plan: -Bedrest for now, will bring in her brace tomorrow -Continue tramadol for pain (8) Hypothyroidism: Plan: -Continue levothyroxine (9) Hypertension: Plan: -Currently hypertensive at 160/89 -Will continue amlodipine and (10) Type 2 diabetes mellitus: Plan: -Not on medication at this time -Will start with BSG ACHS, correction factor of 50, increase as needed (11) Amyloidosis: Plan: -Follows with Nephrology and Oncology -Still receiving chemotherapy -Follow nephrology consult recs (12) Anemia of chronic disease: Plan: -Hgb at 9.7 today, no signs of bleeding -Gets Epogen 20,000 units monthly Admission and Anticipated Discharge Date Admission Date: June 24, 2022 Subjective 81 yo female is much less confused today. She is able to answer questions appropriately. Review of Systems Review of Systems: All systems reviewed & are unremarkable except as noted in HPI & below Physical Exam Physical Exam: General:In no acute distress, older than stated age, cachectic and chronically ill-appearing HEENT:Normocephalic, atraumatic, alopecia present, no scleral icterus, pupils around round, symmetrical, and reactive to light, moist mucus membranes, trachea midline, no thyromegaly Chest/Pulm:No respiratory distress, symmetrical chest expansion, decreased breath sounds in the right lower and middle lobe, expiratory wheezing noted in all other lung blum Cardiac:RRR, no murmurs noted Abdomen:distended, normoactive bowel sounds, soft, non-teder to palpation throughout Musculoskeletal:Symmetrical and without signs of acute trauma, upper and lower extremities with full ROM, spasticity, or flaccidity Extremities:Radial, dorsalis pedis, and posterior tibial pulses are intact and symmetrical, +2-3 pitting edema in the BL LEs Skin:Warm, dry, no rashes , lesions, or scars noted Neuro:Alert and oriented to person, place, month, year, and president, no focal defects, CN II-XII tested and intact, No tremors noted Psych:No acute distress, plesant, calm and cooperative during the exam Results & Data Results & Data ([facility]) Vital Signs (Past 12 Hours) Vital Signs Temp Pulse Pulse Resp BP BP Pulse Ox 06/28/22 13:34 78 18 95 06/28/22 11:46 36.6 C 67 18 158/82 H 94 06/28/22 08:04 36.0 C L 69 18 153/88 H 95 06/28/22 07:19 63 18 94 06/28/22 07:16 61 06/28/22 03:06 35.7 C L 67 18 138/78 93 O2 Del Method 06/28/22 13:34 Room Air 06/28/22 11:46 Room Air 06/28/22 08:04 Room Air 06/28/22 07:19 Room Air 06/28/22 07:16 06/28/22 03:06 Room Air PG Care Time/CCT Total # of Minutes Spent Total Time Spent with Patient: Total time spent is greater than 50% in coordination of care (as documented) at patient's floor/unit and/or counseling patient: Coding Level of Care Code 10485 Subseq Hosp Care Lvl 2 Diagnoses Transient confusion R41.0 Pleural effusion on right J90 Hypothermia T68.XXXA Encounter type: initial encounter Acute UTI N39.0 Fluid overload E87.79 Hypervolemia type: other Chronic kidney disease, stage V N18.5 Thoracic spine fracture S22.009A Hypothyroidism E03.9 Hypertension I10 Type 2 diabetes mellitus E11.9 Amyloidosis E85.9 Anemia of chronic disease D63.8 (1) Hypothermia Encounter type: initial encounter Qualified Code(s): T68.XXXA - Hypothermia, initial encounter (2) Fluid overload Hypervolemia type: other Qualified Code(s): E87.79 - Other fluid overload
[2022-06-28] MEDS: cefTRIAXone SODIUM 2,000 MG in DEXTROSE 5% 50 ML IV SCH (16:49)
[2022-06-28] MEDS: MELATONIN 3 MG TAB PO PRN (20:26)
[2022-06-29] MEDS: ALBUTEROL 0.5% NEB SOLN 2.5 MG/0.5 ML VIAL NEB SCH (00:51)
[2022-06-29] MEDS ORDERED: ALBUTEROL 0.5% NEB SOLN 2.5 MG/0.5 ML VIAL NEB PRN (03:41)
[2022-06-29] MEDS: HEPARIN SOD 5,000 UNIT/0.5 ML VIAL SQ SCH ×2 (05:36→14:49)
[2022-06-29] MEDS: LEVOTHYROXINE SODIUM 100 MCG TABLET PO SCH (05:36)
[2022-06-29] MEDS: INSULIN ASPART PER UNIT SC SCH ×2 (08:01→11:58)
[2022-06-29] MEDS: LIDOCAINE 5% 1 PATCH TD SCH (08:25)
[2022-06-29] MEDS: ACYCLOVIR 400 MG TAB PO SCH (08:30)
[2022-06-29] MEDS: ASPIRIN 81 MG ECTAB PO SCH (08:30)
[2022-06-29] MEDS: FUROSEMIDE 40 MG TAB PO SCH (08:30)
[2022-06-29] MEDS: CYANOCOBALAMIN (B-12) 2,500 MCG TABLET SL SCH (08:31)
[2022-06-29] MEDS: ATORVASTATIN 40 MG TAB PO SCH (08:31)
[2022-06-29] MEDS: ASCORBIC ACID 500 MG TAB PO SCH (08:31)
[2022-06-29] MEDS: SODIUM BICARBONATE 650 MG TAB PO SCH (08:31)
[2022-06-29] MEDS: carvediloL 12.5 MG TAB PO SCH (08:31)
--- NOTE | 2022-06-29 15:11 | Discharge Summary ---
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 In the ED the patient was noted to be afebrile, hypertensive at 160/99, stable on RA, and hypothermic at 31.3 C. Labs were remarkable for WBC WNL, Hgb of 9.7 (down from 10.5 on 06/21/22), VBG with pH of 7.29, pCO2 of 62 and pO2 of 51, Cr of 2.61 (at her current baseline), corrected calcium of 8.8, TSH of 9.9 (Free T4 Pending), BNP of 797, High sensitivity troponin WNL, and UA indicative of UTI . CT of the head was negative for acute findings. Chest xray shows " Right pleural effusion with right basilar consolidation. Clinical correlation will be required and radiographic follow-up to resolution is recommended.. Large hiatal hernia.". The ED staff noted that at the time of the admission the patient was back to her neurologic baseline. Prior to admission the patient was give 40 mg IV lasix and one dose of Ceftriaxone, she was placed on a blanket warmer due to her hypothermia. . At the time of the exam the patient was resting in bed in no acute distress with her sitting bedside, the majority of the history was obtained from the patient's due to the patient's hoarse voice. He states that the patient was noted to be confused this morning when he woke up. Normally the patient is still in bed when he wakes up and he helps her get cleaned up and ready for the day since her fall and spine injuries. This morning the patient was already up and dressed, however, she thought that she was in [place] and told him she wanted to go home. He states that she has been confused at times over the past few weeks, having visual hallucinations of people that are not there. Her was unsure of what to do because of her confusion so they called EMS, they brought her to the ED. When asked, the patient denies any recent fevers but has been cold frequently. She has had a non-productive cough for the past 3 weeks and took Nyquil last night, they are unsure if this maybe caused some of her confusion. She is still getting chemotherapy every Monday a nd did have her treatment this week. She has not required oxygen at home and denies a previous diagnosis of sleep apnea. Her is unsure if she snores at night due to sleeping in a separate room as his CPAP machine keeps her up at night. Since increasing her dose of lasix from 20 mg PO BID to 40 mg PO BID they have noticed a slight improvement in her lower extremity swelling. She denies recent abdominal pain, dysuria, diarrhea, chest pain, and recent falls. The patient was found to be completely alert and oriented during my exam. I spoke to she and her regarding code status, the patient was adamant that she would want to be a DNR/DNI. Principal Diagnosis Delirium Discharge Exam The patient is awake, alert and oriented 3, well developed and well nourished, normocephalic and atraumatic, lying in bed and in no acute distress. HEENT--PERRL, EOMI, mucous membranes and oropharynx mildly dry Neck--supple. No JVD. No bruits. Thyroid normal, trachea midline, no adenopathy. Heart--normal S1 and S2. No murmurs, rubs or gallops. Lungs--reduced air entry on auscultation Abdomen--normal bowel sounds and soft. Mild epigastric and left sided abdominal pain Extremities--mild lower extremity edema Dermatologic--normal skin turgor, normal color, no abnormal lymph nodes, no rash. Neurologic--cranial nerves II through XII grossly intact. Rheumatologic--normal range of motion. Psychiatric--normal affect. Discharge Data Allergies Allergy/AdvReac Type Severity Reaction Status Date / Time No Known Allergies Allergy Verified 06/24/22 16:51 Consultations 06/24/22 17:03 ED Decision to Admit Stat 06/24/22 18:20 Consult Nephrology Routine 06/24/22 19:02 Consult Pulmonology Routine Ordered Studies 06/24/22 13:04 CT head/brain wo con Stat 06/27/22 09:19 MR brain luli con Urgent Hospital Course (1) Transient confusion: delirium -Now resolved -Patient appears much less confused. -Is answering questions appropriately. -Patient is able to tell nurses when she requires to move her bowels. -This is a large improvement from when she first came in. -Will continue to monitor. On 06/28, (2) Pleural effusion on right: -Large pleural effusion noted in the right lung today on Chest xray -S/P Thoracentesis, which showe transudative fluids, most likely from CKD -Patient is currently stable on RA (3) Hypothermia: -Resolved -improved. (4) Acute UTI: -Started on Ceftriaxone -Urine cultures grew klebsiella, bauman sensistive -Will d/c home on Levaquin for 5 days (5) Fluid overload: -Long-standing problem due to her amyloidosis and hypoalbuminemia -BNP noted to be in the 700's -Continue current lasix dose for now, will get TTE for further evaluation (6) Chronic kidney disease, stage V: -Cr currently at 2.61, per the Nephrology note from 06/09, baseline is around 2.8-2.9 -Electrolytes are currently stable -Corrected Calcium is 8.8, will order ionized for the morning -Will continue sodium bicarb and lasix, Nephrology consult ordered (7) Thoracic spine fracture: -Bedrest for now, will bring in her brace tomorrow -Continue tramadol for pain (8) Hypothyroidism: -Continue levothyroxine (9) Hypertension: -Currently hypertensive at 160/89 -Will continue amlodipine and (10) Type 2 diabetes mellitus: -Not on medication at this time -Will start with BSG ACHS, correction factor of 50, increase as needed (11) Amyloidosis: -Follows with Nephrology and Oncology -Still receiving chemotherapy -Follow nephrology consult recs (12) Anemia of chronic disease: -Hgb at 9.7 today, no signs of bleeding -Gets Epogen 20,000 units monthly Plan d/c home Total Time Total Time Spent Total Time Spent (In Minutes): 35 Discharge Plan Discharge Items Patient Disposition: Home - Self-Care Reason For Visit: AMS Discharge Diagnosis: UTI Activity: Resume your previous activity Non-emergency contact: Primary Care Provider Call non-emergency contact if: you have any medication questions Follow-up/Referrals: Ede Palmer [Primary Care Provider] - (PLEASE CALL YOUR PRIMARY CARE PROVIDER TO SCHEDULE A DISCHARGE FOLLOW-UP APPOINTMENT WITHIN 7-10 DAYS.) Diet: Regular Addtl Attending Provider Instructions: please make arrangement to follow up with your PCP Pending Studies at Discharge: No Stand-Alone Forms: My [facility], Smoking Cessation Medications and DC Order Prescriptions: New furosemide 40 mg Tablet 40 mg PO BID17 30 Days Qty: 30 0RF levofloxacin 500 mg tablet 500 mg PO DAILY 5 Days Qty: 5 0RF Continued amlodipine 10 mg tablet 10 mg PO DAILY Label Comments: PT NOT SURE WHAT TIME atorvastatin 40 mg tablet 40 mg PO QAM mecobalamin (vitamin B12) 5,000 mcg tablet,disintegrating 5,000 mcg PO QAM aspirin 81 mg tablet,chewable 81 mg PO DAILY sodium bicarbonate 650 mg tablet 650 mg PO BID17 Qty: 60 3RF carvedilol 12.5 mg tablet 12.5 mg PO BID Rx Instructions: must administer with a meal/food ondansetron HCl 4 mg Tablet 4 mg PO DIRECTED PRN (Reason: Nausea) acyclovir 400 mg Tablet 400 mg PO BID Label Comments: SAYS TWICE A DAY ascorbic acid (vitamin C) [Vitamin C] 500 mg Tablet 500 mg PO QAM cyclophosphamide 50 mg Capsule 400 mg PO Q7D@0800 Qty: 7 0RF acetaminophen [Tylenol Extra Strength] 500 mg Tablet 1,000 mg PO TID Qty: 60 0RF tramadol 50 mg Tablet 50 mg PO Q6H PRN (Reason: pain (scale score 4-6)) Qty: 10 0RF levothyroxine [Synthroid] 100 mcg Tablet 100 mcg PO DAILYBB Qty: 60 0RF lidocaine 5 % Adhesive Patch,Medicated 2 patch transdermal QAM Qty: 15 0RF Discontinued furosemide 40 mg tablet 40 mg PO TID Qty: 90 3RF Discharge Orders: Discharge Order (Routine); Ordered 06/29/22 Ordered By: Darian Klein Admission Data Admit Date/Time: 06/24/22 17:32 Attending Provider: Darian Klein Admit Provider: Mauricio Dodson Primary Care Provider: Ede Palmer Other Providers: Mauricio Dodson ; Rohit Leigh ; Abhijit Johnson ; Mariah Emery ; Haroldo Condon ; Melissa Green ; Denny Loving ; Stanislav Morrison ; Mayur La ; Amanda Del Valle ; Brooke Preciado Other Interventions: Discharge Summary Assessment (RN) Last Done: 06/29/22 13:59 Coding Level of Care Code D/C DAY MANAGEMENT >30 MINS Diagnoses Transient confusion R41.0 Pleural effusion on right J90 Hypothermia T68.XXXA Encounter type: initial encounter Acute UTI N39.0 Fluid overload E87.79 Hypervolemia type: other Chronic kidney disease, stage V N18.5 Thoracic spine fracture S22.009A Hypothyroidism E03.9 Hypertension I10 Type 2 diabetes mellitus E11.9 Amyloidosis E85.9 Anemia of chronic disease D63.8 Time Spent (min) 35
--- NOTE | 2022-07-08 06:38 | Coding Query ---
PRESSURE ULCER DOCUMENTATION To promote full compliance with coding requirements relating to patient care, physician participation is requested in all cases of trauma nurse uncertainty. Please assist us with the question(s) below: Please specify the known or suspected type by placing an "X" within the parenthesis (x). A pressure ulcer of the (LEARNING SUPPORT ASSISTANT INSERT SITE) Right Buttock ( See Inpatient Wound Image) If possible, please check the box that provides the specific stage of the pressure ulcer ( ) Stage I ( ) Stage II (x ) Stage III ( ) Stage IV ( ) Unstageable ( ) Unable to determine Was the pressure ulcer present on admission? Please check the appropriate box for the pressure ulcer: ( x) Present on admission ( ) Not present on admission ( ) Unable to be clinically determined Thank you Greg ADAN [facility] LOUISDeb
== END 2022-06-29 18:04 | disposition home health service (06) | DRG 682 ==
LOC: ED 12:54 → 2N 17:32 → SUATTDRO 17:32 → 2N 19:30